=== PATIENT | male | born 1960 | race Caucasian/White ===

== ENCOUNTER 2017-11-09 14:10 | Outpatient (CLI) | payer BC | END 2017-11-09 14:30 | disposition home or self-care (01) | LOC: SLEEP 14:10 | PROVIDERS: ATTEND Nurse Practitioner Family | DX: G47.33 Obstructive sleep apnea (adult) (pediatric) (principal) ==

== ENCOUNTER 2017-12-20 11:21 | Outpatient (RCR) | payer OTHER | END 2018-01-05 11:57 | disposition home or self-care (01) | PROVIDERS: ATTEND Orthopaedic Surgery | DX: S83.282A Other tear of lateral meniscus, current injury, left knee, initial encounter (principal); W10.9XXA Fall (on) (from) unspecified stairs and steps, initial encounter; Y92.214 College as the place of occurrence of the external cause; E11.9 Type 2 diabetes mellitus without complications; I10 Essential (primary) hypertension; F32.9 Major depressive disorder, single episode, unspecified ==

== ENCOUNTER 2018-04-11 12:59 | Outpatient (RCR) | payer OTHER | END 2018-05-17 14:03 | disposition home or self-care (01) | PROVIDERS: ATTEND Orthopaedic Surgery | DX: S83.8X2D Sprain of other specified parts of left knee, subsequent encounter (principal); W10.9XXD Fall (on) (from) unspecified stairs and steps, subsequent encounter ==

== ENCOUNTER → 2018-09-28 | Outpatient (CLI) | payer BC ==
--- NOTE | 2018-09-28 18:17 | Diagnostic Imaging Report ---
INDICATION: Left knee pain. COMPARISON: Correlation is made with prior MRI from October 10, 2017. FINDINGS: There are tricompartmental osteoarthritic changes present within the left knee, most severe and advanced within the medial compartment and patellofemoral compartment. There are no findings to suggest malalignment or findings of an acute fracture or suspicious bone lesion. There is a small knee joint effusion. IMPRESSION: 1. Advanced tricompartmental osteoarthritic changes of the left knee, most severe within the medial and patellofemoral compartments. There is no acute fracture. There is a small joint effusion. Dictated by: Dictated on workstation # [id number]
== END ==
LOC: RAD 17:07
PROVIDERS: ATTEND Physician Assistant
DX: M17.12 Unilateral primary osteoarthritis, left knee (principal)
CPT/HCPCS: 73562

== ENCOUNTER 2018-11-08 09:31 | Outpatient (CLI) | payer BC ==
[~2018-11-08] VITALS: Ht 167.6 cm; Wt 134.8 kg
[2018-11-08 10:05] VITALS: BP 114/79
[2018-11-08 11:12] LABS: BASOPHILS % (AUTO) 1 % (0-10); EOSINOPHILS # (AUTO) 0.1 10^3/uL (0.0-0.3); EOSINOPHILS % (AUTO) 3 % (0-10); HEMATOCRIT 44 % (40-54); HEMOGLOBIN 14.5 G/DL (13.3-17.7); LYMPHOCYTES # (AUTO) 1.5 X 10^3 (1.0-4.0); LYMPHOCYTES % (AUTO) 37 % (12-44); MEAN CORPUSCULAR HEMOGLOBIN 27 PG (25-34); MEAN CORPUSCULAR HGB CONC 33 G/DL (32-36); MEAN CORPUSCULAR VOLUME 84 FL (80-99); MEAN PLATELET VOLUME 10.5 FL (7.4-10.4); MONOCYTES # (AUTO) 0.4 X 10^3 (0.0-1.0); MONOCYTES % (AUTO) 11 % (0-12); NEUTROPHILS # (AUTO) 2.1 X 10^3 (1.8-7.8); NEUTROPHILS % (AUTO) 49 % (42-75); PLATELET COUNT 203 10^3/uL (130-400); RED CELL DISTRIBUTION WIDTH 13.4 % (10.0-14.5); WHITE BLOOD COUNT 4.2 10^3/uL (4.3-11.0)
[2018-11-08 11:13] LABS: BILIRUBIN,URINE NEGATIVE (NEGATIVE); CLARITY,URINE CLEAR; COLOR,URINE YELLOW; GLUCOSE, URINE (UA) 4+ (NEGATIVE); KETONES,URINE NEGATIVE (NEGATIVE); LEUKOCYTE ESTERASE ,URINE NEGATIVE (NEGATIVE); NITRITE,URINE NEGATIVE (NEGATIVE); PH,URINE 7 (5-9); PROTEIN,URINE NEGATIVE (NEGATIVE); UROBILINOGEN,URINE NORMAL (NORMAL)
[2018-11-08 11:26] LABS: BACTERIA,URINE NEGATIVE /HPF; WBC,URINE RARE /HPF
[2018-11-08 11:35] LABS: PROTHROMBIN TIME PATIENT 13.5 SEC (12.2-14.7)
[2018-11-08 11:47] LABS: ALANINE AMINOTRANSFERASE 23 U/L (0-55); ALBUMIN 4.1 GM/DL (3.2-4.5); ALKALINE PHOSPHATASE 72 U/L (40-136); BILIRUBIN,TOTAL 0.5 MG/DL (0.1-1.0); BUN/CREATININE RATIO 21; CALCIUM 9.5 MG/DL (8.5-10.1); CARBON DIOXIDE 26 MMOL/L (21-32); CHLORIDE 101 MMOL/L (98-107); CREATININE SERUM 0.82 MG/DL (0.60-1.30); GFR ESTIMATED > 60; GLUCOSE 181 MG/DL (70-105); POTASSIUM 3.9 MMOL/L (3.6-5.0); SODIUM 136 MMOL/L (135-145); TOTAL PROTEIN 6.7 GM/DL (6.4-8.2)
[2018-11-08 11:52] LABS: ERYTHROCYTE SEDIMENTATION RATE 3 MM/HR (0-30)
--- NOTE | 2018-11-08 13:40 | Diagnostic Imaging Report ---
INDICATION: Preoperative evaluation prior to left total knee replacement. TECHNIQUE: Two-view chest at 10:46 a.m. CORRELATION STUDY: None. FINDINGS: The heart size, mediastinal configuration and pulmonary vasculature are within normal limits. Chronic-appearing changes about the lung parenchyma. Minimal atelectasis and/or scarring about the left lung base. Suggestion of some eventration of the diaphragms. Degenerative changes of the thoracic spine with disc space narrowing and bridging osteophytes. IMPRESSION: 1. Chronic-appearing changes about the lung parenchyma. Negative for acute abnormality. Dictated by: Dictated on workstation # [id number]
[2018-11-08] MEDS ORDERED: DAPA10TA PO (14:14)
[2018-11-08] MEDS ORDERED: HYDR12.5 PO (14:14)
[2018-11-08] MEDS ORDERED: ALPR0.254 PO (14:14)
[2018-11-08] MEDS ORDERED: NIFE30TA2 PO (14:14)
[2018-11-08] MEDS ORDERED: TRAZ-189 PO (14:14)
[2018-11-08] MEDS ORDERED: ESCI10TA55 PO (14:14)
[2018-11-08] MEDS ORDERED: VALS80TA31 PO (14:14)
[2018-11-08] MEDS ORDERED: BUPR200T2 PO (14:14)
[2018-11-08] MEDS ORDERED: TAMS0.4C2 PO (14:14)
[2018-11-08] MEDS ORDERED: OXYC-471 PO (14:14)
[2018-11-08] MEDS ORDERED: ASPI-586 PO (14:14)
[2018-11-08] MEDS ORDERED: PRAV40TA2 PO (14:14)
== END 2018-11-08 14:24 | disposition home or self-care (01) ==
LOC: PREOP 09:31
PROVIDERS: ATTEND Orthopaedic Surgery
DX: Z01.810 Encounter for preprocedural cardiovascular examination (principal); Z01.811 Encounter for preprocedural respiratory examination; Z01.812 Encounter for preprocedural laboratory examination; Z11.2 Encounter for screening for other bacterial diseases; M17.12 Unilateral primary osteoarthritis, left knee; R53.83 Other fatigue
CPT/HCPCS: 36415; 71046; 80053; 81000; 85025; 85610; 85652; 86850; 86900; 86901; 87081

== ENCOUNTER 2018-11-22 06:05 | Inpatient (IN) | payer BC ==
--- NOTE | 2018-11-13 11:08 | HISTORY AND PHYSICAL ---
DATE OF SERVICE: DATE OF ADMISSION: 11/22/2018. This will be for inpatient admission on 11/22/2018 for left total knee arthroplasty. The patient will require regular inpatient admission due to comorbidities, gait abnormalities, pain management and strengthening issues. HISTORY OF PRESENT ILLNESS: The patient is a 58-year-old gentleman with progressive worsening left knee pain. He has undergone treatment with arthroscopy and injections without relief. He underwent physical therapy without relief. He reports activity limitations because of the knee. Radiographs reveal severe medial and patellofemoral arthrosis. Due to functional impairment and failure to improve with conservative measures, the patient has elected to proceed with surgical intervention. REVIEW OF SYSTEMS: No chest pain. No shortness of breath. No dysuria. PAST MEDICAL HISTORY: Anxiety disorder, depression, diabetes, hyperlipidemia, hypertension, sleep apnea. PAST SURGICAL HISTORY: Appendectomy, tonsillectomy, vasectomy, renal stone extraction, right ankle cyst, left knee arthroscopy, herniorrhaphy, ORIF of the jaw, right shoulder, ear tubes. FAMILY HISTORY: Significant for ischemic heart disease, COPD. PRIMARY CARE PROVIDER: Dr. Pickering. MEDICATIONS: Procardia, Wellbutrin, valsartan, hydrochlorothiazide, aspirin, pravastatin, trazodone, escitalopram, alprazolam, oxycodone and tamsulosin. ALLERGIES: SULFA. SOCIAL HISTORY: The patient denies alcohol, tobacco use. PHYSICAL EXAMINATION: GENERAL: The patient is well developed, well-nourished, in no acute distress. HEENT: Normocephalic, atraumatic. Pupils equal, round, react to light. Oropharynx is clear. NECK: Supple. No lymphadenopathy. LUNGS: Clear to auscultation bilaterally. HEART: Regular rate and rhythm. ABDOMEN: Soft, nontender, nondistended. EXTREMITIES: The patient ambulates with an antalgic gait. The left knee demonstrates a well healed anterior incision. There is marked patellofemoral crepitus with moderate effusion. There is no erythema or warmth. Range of motion is 0/2/120. Negative anterior and posterior drawer. No varus valgus laxity. IMPRESSION: Severe left knee osteoarthritis, unresponsive to conservative measures. PLAN: Left total knee arthroplasty. The risks, benefits, options, ramifications and recovery have been discussed at length with the patient. He understands and wishes to proceed. Job ID: [id number] DocumentID: [id number] Dictated Date: 11/13/2018 10:18:40 Foundation Assistant Date: 11/13/2018 11:07:39 Dictated By: REGGIE FRANCES MD
[~2018-11-22] VITALS: Ht 167.6 cm; Wt 134.8 kg
[~2018-11-22 06:05] MED LIST: ALPR0.254 PO; ASPI-586 PO; BUPR200T2 PO; DAPA10TA PO; ESCI10TA55 PO; HYDR12.5 PO; NIFE30TA2 PO; OXYC-471 PO; PRAV40TA2 PO; TAMS0.4C2 PO; TRAZ-189 PO; VALS80TA31 PO
[2018-11-22] MEDS ORDERED: CEFUROXIME INJECTION 1,500 MG in WATER (STERILE) FOR INJECTION 15 ML IV ONE (06:30)
[2018-11-22] MEDS: LACTATED RINGERS 1,000 ML IV PRN ×2 (06:35→08:13)
[2018-11-22 06:40] VITALS: BP 126/80
[2018-11-22] MEDS ORDERED: MIDAZOLAM 2 MG/2 ML (VERSED) VIAL ONE (06:58)
[2018-11-22] MEDS ORDERED: fentaNYL INJECTION 100 MCG/2 ML AMP ONE ×2 (06:59→08:11)
[2018-11-22] MEDS ORDERED: CEFUROXIME 1.5 GM (ZINACEF) VIAL ONE ×2 (07:12)
[2018-11-22] MEDS ORDERED: WATER (STERILE) FOR INJECTION 20 ML ONE (07:12)
[2018-11-22] MEDS ORDERED: TRANEXAMIC ACID 100 MG/ML 10 ML INJECTION IV ONE (07:29)
[2018-11-22] MEDS ORDERED: ONDANSETRON 4 MG/2 ML (SDV) Z0FRAN ONE (07:29)
[2018-11-22] MEDS ORDERED: SEVOFLURANE (ULTANE) 15 ML INHAL SOLN ONE ×6 (07:29→09:04)
[2018-11-22] MEDS ORDERED: LIDOCAINE PF 2% 5 ML (XYLOCAINE) VIAL ONE (07:29)
[2018-11-22] MEDS ORDERED: proPOfol 200 MG/20 ML (DIPRIVAN) VIAL IV ONE (07:29)
[2018-11-22] MEDS ORDERED: ACETAMINOPHEN 325 MG TABLET PO PRN (07:30)
[2018-11-22] MEDS ORDERED: diphenhydrAMINE 50 MG/ML INJ (BENADRYL) IVP PRN (07:30)
[2018-11-22] MEDS ORDERED: ONDANSETRON 4 MG/2 ML (SDV) Z0FRAN IVP PRN ×2 (07:30→09:30)
[2018-11-22] MEDS ORDERED: morphine PCA 100 MG/100 ML BAG IV PRN (07:30)
--- NOTE | 2018-11-22 07:33 | Progress Note-Pre Operative ---
Pre-Operative Progress Note H&P Reviewed The H&P was reviewed, patient examined and no changes noted. Date Seen by Provider: Nov 22, 2018 Time Seen by Provider: 07:22 Date H&P Reviewed: Nov 22, 2018 Time H&P Reviewed: 07:11 Pre-Operative Diagnosis: left knee primary osteoarthritis REGGIE FRANCES MD Nov 22, 2018 07:33
--- NOTE | 2018-11-22 07:34 | Progress Note-Post Operative ---
Post-Operative Progess Note Surgeon (s)/Documentation Coordinator (s) Surgeon REGGIE FRANCES MD Documentation Coordinator: Clint Ramos Pre-Operative Diagnosis left knee primary osteoarthritis Post-Operative Diagnosis left knee primary osteoarthritis Procedure & Operative Findings Date of Procedure 11/22/18 Procedure Performed/Findings left total knee arthroplasty Anesthesia Type GETA Estimated Blood Loss Estimated blood loss (mL): 100 ml Specimens/Packing Specimens Removed none Packing: none REGGIE FRANCES MD Nov 22, 2018 07:34
--- NOTE | 2018-11-22 07:36 | D/C HH Face to Face Order ---
D/C Face to Face Orders Instructions for Patient Via [facility], Patient Instructions/FollowUp: three weeks Physician to follow Patient: three weeks Discharge Diet for Home: Regular Diet Patient Data-Allergies,Ht & Wt Patient Allergies: Coded Allergies: Sulfa (Sulfonamide Antibiotics) (Verified Allergy, Mild, HIVES/RASH, ) Height (Feet): 5 Height (Inches): 6.00 Weight (Pounds): 297 Weight (Ounces): 4.0 Home Health Need/Face to Face Date of Face to Face: Nov 22, 2018 Clinical Findings: Instability, Muscle weakness, Pain with ambulation, Unsteady gait I have seen Pt [id number]: Yes Discharged To: Home Diagnosis/Conditions: left total knee arthroplasty Patient is Homebound due to: Carin fall risk due to instabilty, Pain w/ ambulation Homebound Status Due to the above stated illness, injury or surgical procedure (medical condition or diagnosis) and associated clinical findings, the patient is homebound because of his/her inability to leave home except with aid of a supportive device and/or person AND leaving the home requires a considerable and taxing effort or is medically contraindicated. Pt req the following assistanc: Walker Home Health Nursing Orders Home Health Services Order: Physical Therapy-Evaluate & Treat Therapy Orders Therapy Orders: Physical Therapy, PT to assess for OT Therapy Specific Orders: Eval assistive deivces, Teach enviro modifications/ safety, Gait training, Increase strength/endurance, Provider maintenance therapy , Restore ROM DC left knee betsy and apply steri strips 12/06/18 Certify Stmt I certify that this patient is under my care and that I, a nurse practitioner or a physician; a construction management assistant working with me, had a face to face encounter that - meets the physician face to face encounter requirements with this patient as dated. REGGIE FRANCES MD Nov 22, 2018 07:36
[2018-11-22] MEDS ORDERED: OXYC1TAB87 PO (07:37)
[2018-11-22] MEDS ORDERED: INTRA-ARTICULAR IU ONE ×5 (07:45)
[2018-11-22] MEDS: SENNA W/DOCUSATE (SENOKOT S) TABLET PO SCH ×2 (09:00→21:22)
[2018-11-22] MEDS ORDERED: LABETALOL HCL 20 MG/4 ML VIAL ONE (09:02)
[2018-11-22] MEDS ORDERED: BUPIVACAINE 0.5% 30 ML (SENSORCAINE) VIAL ONE (09:02)
[2018-11-22] MEDS ORDERED: MEPERIDINE (DEMEROL) INJ 50 MG/ML IVP ONE (09:30)
[2018-11-22] MEDS ORDERED: HYDROmorphone 2 MG/ML VIAL (DILAUDID) IV ONE (09:30)
[2018-11-22] MEDS ORDERED: HYDROmorphone 2 MG/ML VIAL (DILAUDID) ONE (09:32)
[2018-11-22] MEDS ORDERED: MEPERIDINE (DEMEROL) INJ 50 MG/ML ONE (09:37)
--- NOTE | 2018-11-22 10:14 | Progress Note-Standard ---
Standard Progress Note Progress Notes/Assess & Plan Date Seen by a Provider: Nov 22, 2018 Time Seen by a Provider: 10:12 Progress/Assessment & Plan post op check no complaints radiographs--HW well positioned without fracture LLE--2 plus DP pulse with brisk cap refill. intact sensation throughout. Intact DF and PF of toes and ankle s/p LTKA mobilize as able REGGIE FRANCES MD Nov 22, 2018 10:14
--- NOTE | 2018-11-22 10:24 | Diagnostic Imaging Report ---
INDICATION: Status post total left knee replacement. COMPARISON: None. FINDINGS: Two views of the left knee were obtained. Expected postoperative changes are seen from left knee total arthroplasty. Femoral and tibial components appear well-seated. There is no evidence of periprosthetic fracture. There is a small amount of subcutaneous emphysema in the soft tissues over the knee. Skin betsy are seen centrally over the anterior aspect of the knee. No unexpected radiopaque foreign bodies are identified. IMPRESSION: Expected postsurgical changes from left knee total arthroplasty, as described above. No unexpected radiopaque foreign bodies. Dictated by: Dictated on workstation # [id number]
--- NOTE | 2018-11-22 10:43 | OPERATIVE REPORT ---
DATE OF SERVICE: 11/22/2018 PREOPERATIVE DIAGNOSIS: Left knee primary osteoarthritis. POSTOPERATIVE DIAGNOSIS: Left knee primary osteoarthritis. PROCEDURE: Left total knee arthroplasty. SURGEON: Adithya Frances MD CUPOLA PATCHER HELPER: Clint Ramos, who assisted throughout the procedure and closed the incision. ANESTHESIA: General endotracheal plus femoral nerve block by Caterina Galvan CRNA. TOURNIQUET TIME: Approximately, 70 minutes at 300 mmHg. ESTIMATED BLOOD LOSS: 100 mL. DRAINS: None. COMPLICATIONS: None. MATERIALS: MicroPort cemented size 5 femur, cemented size 6 tibia with 10 mm insert and cemented size 35 patella. POSTOPERATIVE PLAN: Routine protocol. The patient was transferred to the recovery room in awake and stable condition. STATEMENT OF MEDICAL NECESSITY: The patient is a 58-year-old gentleman, who has had longstanding progressive left knee pain. Radiographs revealed severe medial and patellofemoral arthrosis with complete loss of joint space. He had undergone treatment with injections, anti-inflammatories, rest as well as arthroscopy without relief and due to functional impairment and failure to improve with conservative measures, the patient elected to proceed with surgical intervention. DESCRIPTION OF PROCEDURE: After risks and benefits of procedure were discussed and questions were answered and informed consent was signed and placed on the chart, the operative site was confirmed in the preoperative holding area initialed by the surgeon. The patient was then transported to the operating room. After adequate levels of general endotracheal anesthetic were obtained, a timeout was called confirming the operative site. The left lower extremity was prepped and draped in the usual sterile fashion with the leg elevated and the knee flexed. Tourniquet was inflated to 300 mmHg. A standard anterior approach was utilized. The patient had previously undergone a patellar ligament procedure and this incision was incorporated into today's incision. The underlying soft tissues were carefully dissected. Hemostasis was obtained with cautery. A medial parapatellar arthrotomy was performed leaving 1 cm cuff on the patella for later reattachment. A portion of the fat pad was resected. A subperiosteal release was carefully performed on the proximal medial tibia being careful to stay on the bony surface. The ACL was resected. The intramedullary guide was passed into the femur. The distal cutting block was placed and distal cut was made. The femur sized to a size 5. The 5 cutting block was placed parallel to the epicondylar axis and cuts were made from posterior to anterior. A subperiosteal release was then carefully performed on the posterior distal femur, being careful to stay on the bony surface with a curved osteotome. The intramedullary guide was then passed into the tibia. The drop leyla transected the intramedullary access. This was pinned into position and the cut was made. The base plate was positioned and again the drop leyla transected the intermalleolar access. This was then prepared with the drill and keel punch. The femoral trial was placed and trochlear cut was made. The patella was prepared by resecting 10 mm off the undersurface. Peg guide was placed and peg holes were drilled. A 10 mm insert trial was placed and 35 mm patellar button was placed. Full extension was easily obtained and 120 degrees of flexion with gravity was easily obtained. There was no anterior/posterior or medial/lateral laxity in flexion or extension. The patella tracked well. The trials were removed. The joint was copiously irrigated with pulse lavage. Periarticular block was placed in the posterior capsule, medial and lateral retinaculum. extensor mechanism and subcutaneous tissue. The bone ends were irrigated and dried. The tibial baseplate was cemented into position. Excessive cement was removed. The superior surface was irrigated and dried. The polyethylene insert was placed. Distal femur was irrigated and dried and the femoral prosthesis was cemented into position. Excessive cement was removed. The knee was brought out into full extension and held until the cement had cured. The undersurface of the patella was irrigated and dried. The patellar button was cemented into position. Excessive cement was removed. Once the cement had cured, the knee was taken through range of motion. Full extension was easily obtained and 120 degrees of flexion with gravity was easily obtained. There was no anterior/posterior or medial/lateral laxity in flexion or extension. The joint was further irrigated with pulse lavage. The arthrotomy was closed with #2 Tevdek in neuojg-on-gohzq interrupted fashion. Knee was flexed and the repair was found to be stable with well tracking patella. Subcutaneous tissues were irrigated with pulse lavage using a total of 6 liters throughout the procedure. A 0 Vicryl was used for deep subcutaneous tissue, 2-0 Vicryl for the superficial and subcutaneous tissue, betsy used on the skin. A soft dressing was applied. The tourniquet was deflated and the patient was transferred to the recovery room in awake and stable condition. Job ID: [id number] DocumentID: [id number] Dictated Date: 11/22/2018 09:27:52 Student Records Coordinator Date: 11/22/2018 10:42:36 Dictated By: ADITHYA FRANCES MD
[2018-11-22] MEDS: NS IV 1000 ML 1,000 ML IV SCH ×2 (11:00→21:22)
--- NOTE | 2018-11-22 11:19 | Consultation-Hospitalist ---
HPI History of Present Illness: HPI/Chief Complaint Chief Complaint: Left total knee arthroplasty uncomplicated by Dr. Santiago POD # 0 HPI: This is a 58yoWM clinic Pt of Dr. Pickering with a PMH of DM, and EDMOND managed by Dr. Pickering who presents after a uncomplicated left total knee arthroplasty by Dr. Santiago. He at this current time is requiring oxygen but no SOB or chest pain since surgery and overall is doing as expected as far as pain. He does see Dr. Kimble in consultation so I did consult him to see him during his post- operative stay. I did restart most of his home medications. Source: patient, family, RN/MD, old records Exam Limitations: no limitations Date Seen 11/22/18 Attending Physician Adithya Santiago MD PCP Maurizio Pickering MD Referring Physician Date of Admission Nov 22, 2018 at 06:05 Home Medications & Allergies Home Medications Reviewed patient Home Medication Reconciliation performed by pharmacy medication reconciliations freezer laboratory technician and/or nursing. Patients Allergies have been reviewed. 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) Alcohol Use: Occasionally Uses Recreational Drug Use: No Smoking Status: Never a Smoker Physical Abuse Screen: No Sexual Abuse: No Recent Foreign Travel: No Contact w/other who traveled: No Recent Hopitalizations: No Recent Infectious Disease Expo: No Immunizations Up To Date Date of Pneumonia Vaccine: Jun 28, 2016 Date of Influenza Vaccine: Jun 26, 2018 Seasonal Allergies Seasonal Allergies: Yes Past Medical History Surgeries: Orthopedic Respiratory: Sleep Apnea Currently Using CPAP: Yes Cardiac: High Cholesterol, Hypertension Sexually Transmitted Disease: No HIV/AIDS: No Genitourinary: Kidney Stones Musculoskeletal: Chronic Back Pain Endocrine: Diabetes, Non-Insulin dep Loss of Vision: Bilateral Psychosocial: Anxiety History of Blood Disorders: No Adverse Reaction to Blood Lopez: No (N/A) Review of Systems Constitutional: see HPI EENTM: no symptoms reported Respiratory: no symptoms reported Cardiovascular: no symptoms reported Gastrointestinal: no symptoms reported Genitourinary: no symptoms reported Musculoskeletal: joint pain Skin: no symptoms reported Psychiatric/Neurological: No Symptoms Reported All Other Systems Reviewed Negative Unless Noted: Yes Physical Exam Physical Exam Vital Signs Vital Signs - First Documented 11/22/18 11:17 O2 Flow Rate 5.00 Capillary Refill : Less Than 3 Seconds Height, Weight, BMI Height: 5'6.00" Weight: 297lbs. 4.0oz. [id number]; 48.0 BMI Method: General Appearance: No Apparent Distress, WD/WN, Chronically ill, Obese Eyes: Bilateral Eye Normal Inspection, Bilateral Eye PERRL HEENT: PERRL/EOMI, Normal ENT Inspection, Pharynx Normal Neck: Full Range of Motion, Normal Inspection, Non Tender, Supple, Carotid Bruit Respiratory: Chest Non Tender, Lungs Clear, Normal Breath Sounds, No Accessory Muscle Use, No Respiratory Distress Cardiovascular: Regular Rate, Rhythm, No Edema, No Gallop, No JVD, No Murmur, Normal Peripheral Pulses Gastrointestinal: Normal Bowel Sounds, No Organomegaly, No Pulsatile Mass, Non Tender, Soft Back: Normal Inspection, No CVA Tenderness, No Vertebral Tenderness Extremity: Normal Capillary Refill, Normal Inspection, Normal Range of Motion ( except left leg post op), Non Tender, No Calf Tenderness, No Pedal Edema Neurologic/Psychiatric: Alert, Oriented x3, No Motor/Sensory Deficits, Normal Mood/Affect Skin: Normal Color, Warm/Dry Lymphatic: No Adenopathy Results Results/Procedures Labs Patient resulted labs reviewed. Assessment/Plan Assessment and Plan Assess & Plan/Chief Complaint Assessment: s/p left total knee replacement POD # 0 EDMOND on CPAP HTN DM Plan: Home meds Pain control PT/OT CPAP Consult Dr Kimble Diagnosis/Problems Diagnosis/Problems (1) EDMOND on CPAP Status: Chronic (2) Hypertension Status: Chronic Qualifiers: Hypertension type: essential hypertension Qualified Codes: I10 - Essential (primary) hypertension (3) Diabetes mellitus Status: Chronic Qualifiers: Diabetes mellitus type: type 2 (4) Osteoarthritis of left knee Status: Chronic Qualifiers: Osteoarthritis type: primary Qualified Codes: M17.12 - Unilateral primary osteoarthritis, left knee Clinical Quality Measures DVT/VTE Risk/Contraindication: Risk Factor Score Per Nursin RFS Level Per Nursing on Admit: 4+=Very High ROBERT JORDAN DO Nov 22, 2018 11:19
[2018-11-22] MEDS: fentaNYL INJECTION 1,000 MCG in NS (IVPB) 80 ML IV SCH (11:37)
[2018-11-22 12:00] VITALS: BP 135/72
[2018-11-22] MEDS ORDERED: ALPRAZolam 0.25 MG (XANAX) TAB PO PRN (12:00)
[2018-11-22] MEDS: CEFUROXIME INJECTION 750 MG in WATER (STERILE) FOR INJECTION 10 ML IV SCH ×2 (15:02→23:30)
--- NOTE | 2018-11-22 15:08 | Physical Therapy Evaluation ---
PT Evaluation-General Medical Diagnosis Admission Date Nov 22, 2018 at 06:05 Medical Diagnosis: L TKA Onset Date: Nov 22, 2018 Therapy Diagnosis Therapy Diagnosis: decreased ROM, gait deviation, decreased mobility Height/Weight Height (Feet): 5 Height (Inches): 6.00 Weight (Pounds): 297 Weight (Ounces): 4.0 Precautions Precautions/Isolations: Standard Precautions Weight Bear Status Right Lower Extremity: Right Weight Bearing/Tolerated Left Lower Extremity: Left Weight Bearing/Tolerated Referral Physician: Clint Ramos Reason for Referral: Evaluation/Treatment Medical History Pertinent Medical History: DM, HTN, OA Additional Medical History Anxiety Disorder, Depression Reviewed History: Yes Social History Home: Single Level Current Living Status: Spouse Entry Into Home: Stairs With Railing PT Steps Into Home: 4 Prior/Core FIM Prior Level of Function Therapy Code Descriptions/Definitions Functional [place] Measure: 0=Not Assessed/NA 4=Minimal Assistance 1=Total Assistance 5=Supervision or Setup 2=Maximal Assistance 6=Modified [place] 3=Moderate Assistance 7=Complete [place] Therapy Quality Codes: 6 Independent with activity with or without an assistive device 5 Patient requires set up or clean up by helper. Patient completes activity by themselves 4 Supervision or touching assist (CGA). [place] provide cues , steadying assist 3 The helper provides less than half the effort to complete the activity 2 The helper provides more than half the effort to complete the activity 1 Dependent. The helper does all the effort to complete an activity 7 Patient refused to complete or attempt activity 9 The patient did not perform the activity before the current illness or injury 88 Not attempted due to Medical conditions or safety concerns Functional Abilities and Goals: Independent: Patient completed the activities by him/herself, with or without an assistive device, with no assistance from a helper. Needed Some Help: Patient needed partial assistance from another person to complete activities. Dependent: A helper completed the activities for the patient. Unknown: Not Applicable: Bed Mobility: 7 Transfers (B,C,W/C) (FIM): 7 Gait: 7 Stairs: 7 Indoor Mobility (Ambulation): Independent Stairs: Independent Prior Devices Use: None PT Evaluation-Current Subjective Pt in bed and agrees to PT. High but unrated pain in left knee. Pt/Family Goals Pt to return home with spouse. Objective Patient Orientation: Person, Place, Situation, Normal For Age Attachments: SCD's, Polar Pack, IV ROM/Strength ROM Lower Extremities RLE WNL, LLE knee flex 60, knee ext +5 Strength Lower Extremities NT Integumentary/Posture Bowel Incontinence: No Bladder Incontinence: No Neuromuscular (Tone, Coordination, Reflexes) NT Sensory Vision: Functional Hearing: Functional Sensation Lower Extremities NT Transfers Therapy Code Descriptions/Definitions Functional [place] Measure: 0=Not Assessed/NA 4=Minimal Assistance 1=Total Assistance 5=Supervision or Setup 2=Maximal Assistance 6=Modified [place] 3=Moderate Assistance 7=Complete [place] Transfers (B, C, W/C) (FIM): 4 Scootin Supine to/from Sit: 5 Sit to/from Stand: 4 Gait Mode of Locomotion: Walk Anticipated Mode of Locomotion: Walk Gait (FIM): 4 Distance (FIM): 3=150 ft Distance: 300' Gait Level of Assist: 4 Gait Persons Needed: 1 Gait Assistive Device: FWW Comments/Gait Description Antalgic gait, slow gait speed, step to pattern Balance Sitting Static: Good Sitting Dynamic: Good Standing Static: Good Standing Dynamic: Good Assessment/Needs Pt in bed and was able to perform supine LE ex (AP, HS, QS, SAQ, SLR) x10 reps, SPT min A and instruction. Pt able to perform bed mobility with SBA. Pt transfers EOB to FWW with CGA for safety. Pt amb 300' with FWW and CGA for safety, VC to not externally rotate LLE. Pt amb very slowly with step to pattern. Pt returned to room and requested for bathroom use, assisted due to pt request to have her instead of SPT. Pt with min A able to dress with shorts. Pt returned to bed with SBA. Pt is now in CPM at 58 flex and -2 ext with all needs met and in room. Rehab Potential: Good Post Rehab Potential-Barriers: co-morbidities PT Short Term Goals Short Term Goals Time Frame: Nov 29, 2018 Transfers (B,C,W/C) (FIM): 6 Gait (FIM): 6 Distance (FIM): 3=150 ft Gait Distance Comment: 350' Gait Level of Assist: 6 Gait Assistive Device: FWW Stairs (FIM): 2 # of Steps: 4 Stairs Level of Assist: 4 PT Plan Problem List Problem List: Activity Tolerance, Functional Strength, Safety, Balance, Gait, Transfer, Bed Mobility, ROM Treatment/Plan Treatment Plan: Continue Plan of Care Treatment Plan: Bed Mobility, Education, Functional Activity [place], Functional Strength, Gait, Safety, Therapeutic Exercise, Transfers Treatment Duration: Nov 29, 2018 Frequency: 11 times per week Estimated Hrs Per Day: .25 hour per day Patient and/or Family Agrees t: Yes Safety Risks/Education Patient Education: Gait Training, Transfer Techniques, Reviewed Use of Ice, Correct Positioning, Safety Issues Teaching Recipient: Patient, Family Teaching Methods: Demonstration, Discussion Response to Teaching: Reinforcement Needed Discharge Recommendations Plan Patient will perform bed mobility and transfer training, balance and endurance training, functional strengthening, stair training, gait training, and education , to improve functional mobility and independence at home. Therapy D/C Recommendations: Home w/ Family Support, Physical Therapy Home Care , Physical Therapy Outpatient Equpiment Recommendations-D/C: Front Wheeled Walker Time/GCodes Time In: 1400 Time Out: 1458 Total Billed Treatment Time: 58 Total Billed Treatment 1 visit EVL 10 min GT x2 30 min EX 18 min FAZAL BARTON PT Nov 22, 2018 15:08
[2018-11-22 16:33] VITALS: BP 128/78
[2018-11-22] MEDS ORDERED: buPROPion SR 100 MG (WELLBUTRIN SR) TAB PO SCH (17:00)
[2018-11-22] MEDS: oxyCODONE/APAP 5/325MG (PERCOCET 5) TABLET PO PRN ×2 (18:18→21:22)
--- NOTE | 2018-11-22 19:25 | Consultation-Cardiology ---
HPI-Cardiology Cardiology Consultation: Date of Consultation 11/22/18 Time Seen by a Provider: 13:10 Date of Admission Attending Physician Adithya Santiago MD Admitting Physician Maurizio Pickering MD Consulting Physician WILLIAM GUERRERO MD, MA, FACP, FACC, [facility] Physician requesting consult: Dr David HPI: Chief Complaint: Reason for consultation: Cardiac risk factors 58 yo s/p L TKR whom we have been asked by Dr David to see in card consult Pt does not report cp or palp or syncope. Has chronic exertional shortness of breath and intermittent leg swelling, unchanged in the recent past Review of Systems-Cardiology Review of Systems Constitutional: malaise; No weight loss, No weight gain Eyes: No vision change Ears/Nose/Throat: No ear discharge, No nasal drainage, No recent hearing loss Respiratory: As described under HPI Cardiovascular: As described under HPI Gastrointestinal: No diarrhea, No nausea, No vomiting Genitourinary: No dysuria, No hematuria, No urine frequency changes Musculoskeletal: back pain (chronic), joint pain (chronic) Skin: No rash, No ulcerations Psychiatric/Neurological: No focal weakness, No syncope Hematologic: No bleeding abnormalities BVE-[id number]-Xbahrh Hx Patient Social History Alcohol Use: Occasionally Uses Recreational Drug Use: No Recent Foreign Travel: No Recent Infectious Disease Expo: No Physical Abuse Screen: No Sexual Abuse: No Immunizations Up To Date Date of Pneumonia Vaccine: Jun 28, 2016 Date of Influenza Vaccine: Jun 26, 2018 Past Medical History PMH As described under Assessment. Family Medical History Family Medical History: Has fam h/o early CAD Allergies and Home Medications Allergies Coded Allergies: Sulfa (Sulfonamide Antibiotics) (Verified Allergy, Mild, HIVES/RASH, ) Home Medications Alprazolam 0.25 Mg Tablet, 0.25 MG PO DAILY PRN for ANXIETY, (Reported) Aspirin 81 Mg Tablet.dr, 81 MG PO DAILY, (Reported) Bupropion HCl 200 Mg Tablet.er, 200 MG PO BID, (Reported) Dapagliflozin Propanediol 10 Mg Tablet, 10 MG PO DAILY, (Reported) Escitalopram Oxalate 10 Mg Tablet, 10 MG PO DAILY, (Reported) Hydrochlorothiazide 12.5 Mg Capsule, 12.5 MG PO DAILY, (Reported) Nifedipine 30 Mg Tab.er.24, 30 MG PO DAILY, (Reported) Oxycodone HCl/Acetaminophen 1 Each Tablet, 1 TAB PO Q4H Prescribed by: ADITHYA SANTIAGO on 11/22/18 0737 Pravastatin Sodium 40 Mg Tablet, 40 MG PO DAILY, (Reported) Tamsulosin HCl 0.4 Mg Cap.er.24h, 0.4 MG PO DAILY, (Reported) Daily until stone passage Trazodone HCl 50 Mg Tablet, 50 MG PO DAILY, (Reported) Valsartan 80 Mg Tablet, 80 MG PO DAILY, (Reported) Patient Home Medication List Home Medication List Reviewed: Yes Physical Exam-Cardiology Physical Exam Vital Signs/I&O 11/22/18 11/22/18 11/22/18 11/22/18 11:17 11:40 12:00 12:15 Temp 97.4 97.3 Pulse 91 Resp 20 18 B/P (MAP) 135/72 (93) Pulse Ox 96 93 O2 Delivery OxyMask Room Air O2 Flow Rate 5.00 11/22/18 11/22/18 16:33 17:49 Temp 97.3 Pulse 95 Resp 18 18 B/P (MAP) 128/78 (95) Pulse Ox 92 O2 Delivery NIV CPAP Capillary Refill : Less Than 3 Seconds Constitutional: AAO x 3, well-developed, other HEENT: EOMI, hearing is well preserved; No xanthelasmas are seen Neck: carotid pulses are 2 + bilaterally, with good upstrokes Respiratory: No accessory muscle use; other (fair to good bilat air entry; diminished at the bases) Cardiovascular: regular rate-rhythm, cardiac thrills are palpable, systolic murmur (soft DEBI at card base) Gastrointestinal: No tender; soft; No guarding, No rebound; audible bowel sounds Extremities: swelling (mild bilat leg swelling); No clubbing, No cyanosis Neurologic/Psychiatric: oriented x 3, grossly intact (seems to move all limbs; we did not attempt any motion at the affected joint) Skin: No rash on exposed areas, No ulcerations on exposed areas Data Review Labs Laboratory Tests 11/22/18 06:58: Glucometer 193H 11/22/18 10:24: Glucometer 224H 11/22/18 11:09: Glucometer 216H 11/22/18 16:31: Glucometer 148H A/P-Cardiology Assessment/Admission Diagnosis L TKR on 11/22/18 Obesity, with BMI approx 48 MPI of 09/07/16 showed no myocardial ischemia or infarction; LVEF 60% Echo of 08/16/16: LVEF 60%, mild MR and TR, normal PASP Minimal bilateral carotid arterial plaque on carotid u/s of 09/28/15 PFTs within normal limits on (Dr Pickering) HLP - followed by his PCP Chronic intermittent leg edema likely d/t venous insufficiency Sleep apnea - CPAP tx DM II Family h/o early CAD Discussion and Recomendations * Has cardiac risk factors * Risk factor mod reviewed with the patient * Enoxaparin for DVT prophylaxis * Monitor and correct labs Clinical Quality Measures DVT/VTE Risk/Contraindication: Risk Factor Score Per Nursin RFS Level Per Nursing on Admit: 4+=Very High WILLIAM GUERRERO MD FACP FAC CCDS Nov 22, 2018 19:25
[2018-11-22 20:45] VITALS: BP 135/74
[2018-11-22] MEDS ORDERED: NON-FORMULARY MEDICATION 1 EA EA (Bupropion HCl (Wellbutrin Sr) 200 MG) PO SCH (21:00)
[2018-11-22] MEDS: TAMSULOSIN 0.4 MG (FLOMAX) CAP PO SCH (21:22)
[2018-11-22] MEDS: buPROPion SR 100 MG (WELLBUTRIN SR) TAB PO SCH (21:22)
[2018-11-22] MEDS: traZODone 50 MG (DESYREL) TAB PO SCH (21:22)
[2018-11-23] VITALS: BP 158/82
[2018-11-23] MEDS: oxyCODONE/APAP 5/325MG (PERCOCET 5) TABLET PO PRN ×8 (01:34→22:34)
[2018-11-23 04:45] VITALS: BP 147/80
[2018-11-23] MEDS: ENOXAPARIN 40 MG/0.4 ML (LOVENOX) SYR SC SCH ×2 (05:45→18:40)
[2018-11-23] MEDS: MULTIVIT W/MINERALS TAB (THERAGRAN M) PO SCH (05:46)
[2018-11-23 06:57] LABS: BASOPHILS % (AUTO) 0 % (0-10); EOSINOPHILS % (AUTO) 0 % (0-10); HEMATOCRIT 40 % (40-54); HEMOGLOBIN 13.1 G/DL (13.3-17.7); LYMPHOCYTES # (AUTO) 1.3 X 10^3 (1.0-4.0); LYMPHOCYTES % (AUTO) 18 % (12-44); MEAN CORPUSCULAR HEMOGLOBIN 28 PG (25-34); MEAN CORPUSCULAR HGB CONC 33 G/DL (32-36); MEAN CORPUSCULAR VOLUME 85 FL (80-99); MEAN PLATELET VOLUME 10.1 FL (7.4-10.4); MONOCYTES # (AUTO) 1.1 X 10^3 (0.0-1.0); MONOCYTES % (AUTO) 15 % (0-12); NEUTROPHILS # (AUTO) 4.8 X 10^3 (1.8-7.8); NEUTROPHILS % (AUTO) 66 % (42-75); PLATELET COUNT 203 10^3/uL (130-400); RED CELL DISTRIBUTION WIDTH 13.9 % (10.0-14.5); WHITE BLOOD COUNT 7.3 10^3/uL (4.3-11.0)
[2018-11-23 07:23] LABS: ALANINE AMINOTRANSFERASE 20 U/L (0-55); ALBUMIN 3.9 GM/DL (3.2-4.5); ALKALINE PHOSPHATASE 64 U/L (40-136); BILIRUBIN,TOTAL 0.8 MG/DL (0.1-1.0); BUN/CREATININE RATIO 18; CALCIUM 8.6 MG/DL (8.5-10.1); CARBON DIOXIDE 26 MMOL/L (21-32); CHLORIDE 102 MMOL/L (98-107); GFR ESTIMATED > 60; GLUCOSE 161 MG/DL (70-105); POTASSIUM 3.8 MMOL/L (3.6-5.0); SODIUM 137 MMOL/L (135-145)
[2018-11-23] MEDS ORDERED: ENOXAPARIN 30 MG/0.3 ML (LOVENOX) SYR SC SCH (07:30)
--- NOTE | 2018-11-23 07:44 | Anesthesia-General Post-Op ---
General Patient Condition Mental Status/LOC: Same as Preop Cardiovascular: Satisfactory Nausea/Vomiting: Absent Respiratory: Satisfactory Pain: Controlled Complications: Absent Post Op Complications Complications None Follow Up Care/Instructions Patient Instructions None needed. Anesthesia/Patient Condition Patient Condition Patient is doing well, no complaints, stable vital signs, no apparent adverse anesthesia problems. No complications reported per nursing. SANDRA WALDRON CRNA Nov 23, 2018 07:44
--- NOTE | 2018-11-23 07:44 | Anesthesia-Regional Post-Op ---
Regional Patient Condition Mental Status: Alert, Oriented x3 Circulation: Same as Pre-Op Headache: Absent Sensation: Full Recovery Motor Block: Absent Post Op Complications Complications None Follow Up Care/Instructions Patient Instructions None needed. Anesthesia/Patient Condition Patient is doing well, no complaints, stable vital signs, no apparent adverse anesthesia problems. No complications reported per nursing. SANDRA WALDRON CRNA Nov 23, 2018 07:44
[2018-11-23 08:00] VITALS: BP 137/80
--- NOTE | 2018-11-23 08:02 | Progress Note-Standard ---
Standard Progress Note Progress Notes/Assess & Plan Date Seen by a Provider: Nov 23, 2018 Time Seen by a Provider: 08:01 Progress/Assessment & Plan post op check no complaints radiographs--HW well positioned without fracture LLE--2 plus DP pulse with brisk cap refill. intact sensation throughout. Intact DF and PF of toes and ankle s/p LTKA mobilize as able Final Diagnosis no complaints Vital Signs Date Time Temp Pulse Resp B/P (MAP) Pulse Ox O2 Delivery O2 Flow Rate FiO2 11/23/18 05:48 18 11/23/18 04:45 100.1 106 18 147/80 (102) 96 NIV CPAP 11/23/18 00:00 99.6 111 20 158/82 (107) 96 NIV CPAP 11/22/18 20:45 98.1 105 18 135/74 (94) 94 NIV CPAP 11/22/18 20:00 Room Air 11/22/18 17:49 18 11/22/18 16:33 97.3 95 18 128/78 (95) 92 NIV CPAP 11/22/18 12:15 97.3 11/22/18 12:00 97.4 91 18 135/72 (93) 93 Room Air 11/22/18 11:40 20 11/22/18 11:17 96 OxyMask 5.00 I & O 11/23/18 07:00 Intake Total 3755 ml Balance 3755 ml Laboratory Tests Test 11/22/18 10:24 11/22/18 11:09 11/22/18 16:31 11/23/18 05:26 Range/Units Glucometer 224 H 216 H 148 H 179 H 70-110 MG/DL Test 11/23/18 06:34 Range/Units White Blood Count 7.3 4.3-11.0 10^3/uL Red Blood Count 4.66 4.35-5.85 10^6/uL Hemoglobin 13.1 L 13.3-17.7 G/DL Hematocrit 40 40-54 % Mean Corpuscular Volume 85 80-99 FL Mean Corpuscular Hemoglobin 28 25-34 PG Mean Corpuscular Hemoglobin Concent 33 32-36 G/DL Red Cell Distribution Width 13.9 10.0-14.5 % Platelet Count 203 130-400 10^3/uL Mean Platelet Volume 10.1 7.4-10.4 FL Neutrophils (%) (Auto) 66 42-75 % Lymphocytes (%) (Auto) 18 12-44 % Monocytes (%) (Auto) 15 H 0-12 % Eosinophils (%) (Auto) 0 0-10 % Basophils (%) (Auto) 0 0-10 % Neutrophils # (Auto) 4.8 1.8-7.8 X 10^3 Lymphocytes # (Auto) 1.3 1.0-4.0 X 10^3 Monocytes # (Auto) 1.1 H 0.0-1.0 X 10^3 Eosinophils # (Auto) 0.0 0.0-0.3 10^3/uL Basophils # (Auto) 0.0 0.0-0.1 10^3/uL Sodium Level 137 135-145 MMOL/L Potassium Level 3.8 3.6-5.0 MMOL/L Chloride Level 102 98-107 MMOL/L Carbon Dioxide Level 26 21-32 MMOL/L Anion Gap 9 5-14 MMOL/L Blood Urea Nitrogen 14 7-18 MG/DL Creatinine 0.80 0.60-1.30 MG/DL Estimat Glomerular Filtration Rate > 60 BUN/Creatinine Ratio 18 Glucose Level 161 H 70-105 MG/DL Calcium Level 8.6 8.5-10.1 MG/DL Corrected Calcium 8.7 8.5-10.1 MG/DL Total Bilirubin 0.8 0.1-1.0 MG/DL Aspartate Amino Transf (AST/SGOT) 25 5-34 U/L Alanine Aminotransferase (ALT/SGPT) 20 0-55 U/L Alkaline Phosphatase 64 40-136 U/L Total Protein 6.0 L 6.4-8.2 GM/DL Albumin 3.9 3.2-4.5 GM/DL LLE--dressing intact. NVI distally. no calf tenderness s/p LTKA continue OT/PT likely DC tomorrow REGGIE FRANCES MD Nov 23, 2018 08:02
[2018-11-23] MEDS: buPROPion SR 100 MG (WELLBUTRIN SR) TAB PO SCH ×2 (08:19→19:39)
[2018-11-23] MEDS: SENNA W/DOCUSATE (SENOKOT S) TABLET PO SCH ×2 (08:19→19:39)
[2018-11-23] MEDS: NIFEdipine ER 30 MG (PROCARDIA XL) TAB PO SCH (08:20)
[2018-11-23] MEDS: ASPIRIN E.C. 81 MG (ECOTRIN) TAB PO SCH ×2 (08:20→11:09)
[2018-11-23] MEDS: VALSARTAN 80 MG (DIOVAN) TAB PO SCH (08:20)
[2018-11-23] MEDS ORDERED: NIFEDIPINE 30 MG PO SCH (09:00)
[2018-11-23] MEDS ORDERED: NON-FORMULARY MEDICATION 1 EA EA (Dapagliflozin Propanediol (Farxiga) 10 MG) PO SCH (09:00)
[2018-11-23] MEDS ORDERED: NON-FORMULARY MEDICATION 1 EA EA (Escitalopram Oxalate 10 MG) PO SCH (09:00)
[2018-11-23] MEDS ORDERED: VALSARTAN 80 MG PO SCH (09:00)
--- NOTE | 2018-11-23 09:37 | Progress Note-Hospitalist ---
Subjective HPI/CC On Admission Date Seen by Provider: Nov 23, 2018 Time Seen by Provider: 09:00 Chief Complaint: Left total knee arthroplasty uncomplicated by Dr. Santiago POD # 0 HPI: This is a 58yoWM clinic Pt of Dr. Pickering with a PMH of DM, and EDMOND managed by Dr. Pickering who presents after a uncomplicated left total knee arthroplasty by Dr. Santiago. He at this current time is requiring oxygen but no SOB or chest pain since surgery and overall is doing as expected as far as pain. He does see Dr. Kimble in consultation so I did consult him to see him during his post- operative stay. I did restart most of his home medications. Subjective/Events-last exam Fentanyl STAFF EDUCATOR will be discontinued and placed on pain medication every 4 hrs Hydrochlorothiazide will be restarted tomorrow Labs reviewed all within normal limits Will add Zanaflex 4mg QID PRN to help with muscle spasms Participating in PT with a walker Bowels are moving Wore his CPAP last night on and off Review of Systems Musculoskeletal: leg pain Objective Exam Vital Signs Vital Signs Date Time Temp Pulse Resp B/P (MAP) Pulse Ox O2 Delivery O2 Flow Rate FiO2 11/23/18 19:30 20 11/23/18 16:02 97.2 84 94/52 (66) 95 NIV CPAP 11/22/18 11:17 5.00 Capillary Refill : Less Than 3 Seconds General Appearance: No Apparent Distress, WD/WN, Chronically ill, Obese HEENT: PERRL/EOMI, Normal ENT Inspection, Pharynx Normal Neck: Full Range of Motion, Normal Inspection, Non Tender, Supple, Carotid Bruit Respiratory: Chest Non Tender, Lungs Clear, Normal Breath Sounds, No Accessory Muscle Use, No Respiratory Distress Cardiovascular: Regular Rate, Rhythm, No Edema, No Gallop, No JVD, No Murmur, Normal Peripheral Pulses Gastrointestinal: Normal Bowel Sounds, No Organomegaly, No Pulsatile Mass, Non Tender, Soft Back: Normal Inspection, No CVA Tenderness, No Vertebral Tenderness Extremity: Normal Capillary Refill, Normal Inspection, Normal Range of Motion ( except left leg post op), Non Tender, No Calf Tenderness, No Pedal Edema Neurologic/Psychiatric: Alert, Oriented x3, No Motor/Sensory Deficits, Normal Mood/Affect Skin: Normal Color, Warm/Dry Lymphatic: No Adenopathy Results/Procedures Lab Laboratory Tests 11/23/18 06:34 Patient resulted labs reviewed. Assessment/Plan Assessment and Plan Assess & Plan/Chief Complaint Assessment: s/p left total knee replacement POD # 1 EDMOND on CPAP HTN DM Plan: Home meds Pain control PT/OT CPAP Consult Dr Kimble Diagnosis/Problems Diagnosis/Problems (1) EDMOND on CPAP Status: Chronic (2) Hypertension Status: Chronic Qualifiers: Hypertension type: essential hypertension Qualified Codes: I10 - Essential (primary) hypertension (3) Diabetes mellitus Status: Chronic Qualifiers: Diabetes mellitus type: type 2 (4) Osteoarthritis of left knee Status: Chronic Qualifiers: Osteoarthritis type: primary Qualified Codes: M17.12 - Unilateral primary osteoarthritis, left knee Clinical Quality Measures DVT/VTE Risk/Contraindication: Risk Factor Score Per Nursin RFS Level Per Nursing on Admit: 4+=Very High ROBERT JORDAN DO Nov 23, 2018 09:37
--- NOTE | 2018-11-23 09:44 | Physical Therapy Daily Note ---
PT Daily Note-Current Subjective Pt in bed with in room and agrees to PT. Reports that Dr. Santiago's orders for pain pills messed up and was only allowed every 4 hrs not 2 hrs. Pain Numeric Pain Scale: 8 Location: Left Location Body Site: Knee Mental Status Patient Orientation: Person, Place, Situation, Normal For Age Attachments: IV Transfers Therapy Code Descriptions/Definitions Functional [place] Measure: 0=Not Assessed/NA 4=Minimal Assistance 1=Total Assistance 5=Supervision or Setup 2=Maximal Assistance 6=Modified [place] 3=Moderate Assistance 7=Complete [place] Therapy Quality Codes: 6 Independent with activity with or without an assistive device 5 Patient requires set up or clean up by helper. Patient completes activity by themselves 4 Supervision or touching assist (CGA). [place] provide cues , steadying assist 3 The helper provides less than half the effort to complete the activity 2 The helper provides more than half the effort to complete the activity 1 Dependent. The helper does all the effort to complete an activity 7 Patient refused to complete or attempt activity 9 The patient did not perform the activity before the current illness or injury 88 Not attempted due to Medical conditions or safety concerns Transfers (B, C, W/C) (FIM): 6 Scootin Supine to/from Sit: 6 Sit to/from Stand: 6 Weight Bearing Right Lower Extremity: Right Weight Bearing/Tolerated Left Lower Extremity: Left Weight Bearing/Tolerated Gait Training Gait (FIM): 6 Distance (FIM): 3=150 ft Distance: 350' Gait Level of Assist: 6 Gait Persons Needed: 1 Gait Assistive Device: FWW Pt amb with bilateral ex rotation and step to pattern Exercises Supine Ex: Ankle pumps, Quad Set, Heel Slides, Short Arc Quads, Straight leg raise Supine Reps: 10 Assessment Current Status: Good Progress Pt requires increased time to perform activity due to pain. Pt able to perform supine LE ex with min A and cues to get quad to fire. Pt performs bed mobility with mod indep. Pt sit<>stand transfer to FWW is mod indep. Pt amb with slow gait speed and many standing recovery breaks which he reports is because he gets hot. Pt amb 350' with FWW and mod I with SPT assisting with IV pole. SPT gave instructions to pt to keep feet pointed straight during amb and not rotate them out. Pt returned to room and transferred to recliner. Pt has all needs met and polar pack on in recliner with in room. PT Short Term Goals Short Term Goals Time Frame: Nov 29, 2018 Transfers (B,C,W/C) (FIM): 6 Gait (FIM): 6 Distance (FIM): 3=150 ft Gait Distance Comment: 350' Gait Level of Assist: 6 Gait Assistive Device: FWW Stairs (FIM): 2 # of Steps: 4 Stairs Level of Assist: 4 PT Plan Problem List Problem List: Activity Tolerance, Functional Strength, Safety, Balance, Gait, Transfer, Bed Mobility, ROM Treatment/Plan Treatment Plan: Continue Plan of Care Treatment Plan: Bed Mobility, Education, Functional Activity [place], Functional Strength, Gait, Safety, Therapeutic Exercise, Transfers Treatment Duration: Nov 29, 2018 Frequency: 11 times per week Estimated Hrs Per Day: .25 hour per day Patient and/or Family Agrees t: Yes Safety Risks/Education Patient Education: Gait Training, Correct Positioning, Safety Issues Time/GCodes Time In: 835 Time Out: 913 Total Billed Treatment Time: 38 Total Billed Treatment 1 visit GT x2 30 min EX 8 min LISA HUFF PT Nov 23, 2018 09:44
--- NOTE | 2018-11-23 10:00 | NUR ---
KAILASH HOSE ON, POLAR ICE PACK ON, DRESSING DRY AND INTACT, USING FENTANYL IT HELP DESK ANALYST NEEDED, VOIDING WITHOUT DIFFICULTY.
[2018-11-23] MEDS: NS IV 1000 ML 1,000 ML IV SCH (11:51)
[2018-11-23 12:00] VITALS: BP 147/74
--- NOTE | 2018-11-23 13:46 | Occupational Therapy Eval ---
OT Evaluation-General/PLF Medical Diagnosis Admission Date Nov 22, 2018 at 06:05 Medical Diagnosis: L TKA Onset Date: Nov 22, 2018 Therapy Diagnosis Therapy Diagnosis: Weakness, Decreased ADL skills Height/Weight Height (Feet): 5 Height (Inches): 6.00 Weight (Pounds): 297 Weight (Ounces): 4.0 Precautions Precautions/Isolations: Fall Prevention, Standard Precautions Safety Interventions: None Weight Bear Status Weight Bearing Restriction: Weight Bearing/Tolerated Referral Physician: Clint Ramos Referral Reason: Activity Tolerance, Self Care, Evaluation/Treatment, Strengthening/ROM Medical History Pertinent Medical History: DM, HTN, OA Additional Medical History Anxiety disorder, depression, hyperlipidemia, renal stone extraction, ORIF of jaw, COPD Current History Elective left knee Reviewed History: Yes Social History Home: Single Level Current Living Status: Spouse Entry Into Home: Stairs With Railing Steps Into Home: 4 ADL-Prior Level of Function Therapy Code Descriptions/Definitions Functional [place] Measure: 0=Not Assessed/NA 4=Minimal Assistance 1=Total Assistance 5=Supervision or Setup 2=Maximal Assistance 6=Modified [place] 3=Moderate Assistance 7=Complete [place] Therapy Quality Codes: 6 Independent with activity with or without an assistive device 5 Patient requires set up or clean up by helper. Patient completes activity by themselves 4 Supervision or touching assist (CGA). [place] provide cues , steadying assist 3 The helper provides less than half the effort to complete the activity 2 The helper provides more than half the effort to complete the activity 1 Dependent. The helper does all the effort to complete an activity 7 Patient refused to complete or attempt activity 9 The patient did not perform the activity before the current illness or injury 88 Not attempted due to Medical conditions or safety concerns Functional Abilities and Goals: Independent: Patient completed the activities by him/herself, with or without an assistive device, with no assistance from a helper. Needed Some Help: Patient needed partial assistance from another person to complete activities. Dependent: A helper completed the activities for the patient. Unknown: Not Applicable: ADL PLOF Comments Pt. was independent with daily skills. Self Care: Independent Functional Cognition: Independent DME/Equipment: Bath Chair, Shower, Tub/Shower DME/Equipment Comments Pt. will likely need a BSC. Occupation: Teaches at [employer] Self: Yes OT Current Status Subjective 5/10 pain left knee. Pt. has CURRICULUM COORDINATOR pump that he pushes. Appearance Attempted to see pt. twice. First time, pt. attempting to sleep. OT came back. Pt. participated in sponge bath on side of bed. Mental Status/Objective Patient Orientation: Person, Place, Time, [place] Attachments: IV Current Glasses/Contacts: Yes Upper Extremity ROM WFL Upper Extremity Strength WFL ADL-Treatment Therapy Code Descriptions/Definitions Functional [place] Measure: 0=Not Assessed/NA 4=Minimal Assistance 1=Total Assistance 5=Supervision or Setup 2=Maximal Assistance 6=Modified [place] 3=Moderate Assistance 7=Complete [place] Therapy Quality Codes: 6 Independent with activity with or without an assistive device 5 Patient requires set up or clean up by helper. Patient completes activity by themselves 4 Supervision or touching assist (CGA). [place] provide cues , steadying assist 3 The helper provides less than half the effort to complete the activity 2 The helper provides more than half the effort to complete the activity 1 Dependent. The helper does all the effort to complete an activity 7 Patient refused to complete or attempt activity 9 The patient did not perform the activity before the current illness or injury 88 Not attempted due to Medical conditions or safety concerns Bathing (FIM): 4 (CGA in stance to wash rear david area. Pt. educated on AE and toilet tongs. Will issue these at next session.) Lower Body Dressing (FIM): 3 (Pt. able to doff right sock but not left. Pt. able to pull down and up pants and underwear.) Transfers (B, C, W/C) (FIM): 4 (Min assist supine-sit. CGA sit-stand. CGA to transfer to chair in room.) Education OT Patient Education: Correct positioning, Modified ADL techniques, Progress toward Goal/Update tx plan, Purpose of tx/functional activities, Reviewed precautions, Rehab process, Transfer techniques Teaching Recipient: Patient Teaching Methods: Demonstration, Discussion Response to Teaching: Verbalize Understanding, Return Demonstration OT Short Term Goals Short Term Goals Transfers (B,C,W/C) (FIM): 6 1=Demonstrate adherence to instructed precautions during ADL tasks. 2=Patient will verbalize/demonstrate understanding of assistive devices/ modifications for ADL. 3=Patient will improve strength/tolerance for activity to enable patient to perform ADL's. OT Custodial Goals Nitro Man Goals Time Frame: Nov 30, 2018 Eating (FIM): 7 Grooming(FIM): 6 Bathing(FIM): 5 Upper Body Dressing(FIM): 6 Lower Body Dressing(FIM): 6 Toileting(FIM): 6 Transfers (B,C,W/C) (FIM): 6 Toilet/Commode Transfer(FIM): 6 Shower Transfer(FIM): 5 Additional Goals: 1-Demonstrate ADL Tasks, 2-Verbalize Understanding, 3- ImproveStrength/[place] 1=Demonstrate adherence to instructed precautions during ADL tasks. 2=Patient will verbalize/demonstrate understanding of assistive devices/ modifications for ADL. 3=Patient will improve strength/tolerance for activity to enable patient to perform ADL's. OT Education/Plan Problem List/Assessment Assessment: Decreased Activ Tolerance, Dependent Transfers, Impaired Bed Mobility, Impaired I ADL's, Impaired Self-Care Skills Discharge Recommendations Plan/Recommendations: Continue POC Therapy D/C Recommendations: Home w/ Family Support Equpiment Recommendations-D/C: Bedside Commode, Hip Kit Treatment Plan/Plan of Care Treatment,Training & Education: Yes Patient would benefit from OT for education, treatment and training to promote independence in ADL's, mobility, safety and/or upper extremity function for ADL' s. Plan of Care: ADL Retraining, Functional Mobility, UE Funct Exercise/Act Treatment Duration: Nov 30, 2018 Frequency: 5 times per week Estimated Hrs Per Day: .25 hour per day Agreement: Yes Rehab Potential: Good Time/GCodes Start Time: 13:15 Stop Time: 13:30 Total Time Billed (hr/min): 15 Billed Treatment Time 1, EVM Attempted visit earlier at 1145 1, visit MED BELRTE OT Nov 23, 2018 13:46
--- NOTE | 2018-11-23 14:07 | Progress Note-Cardiology ---
Cardiology SOAP Progress Note Subjective: In bed. States he did not sleep well last noc d/t knee discomfort. No c/o CP, palpitations, syncope, near syncope or LE swelling. C/O acid reflux. Objective: I&O/Vital Signs 11/23/18 11/23/18 11/23/18 08:00 12:00 16:02 Temp 98.6 97.3 97.2 Pulse 111 93 84 Resp 20 18 20 B/P (MAP) 137/80 (99) 147/74 (98) 94/52 (66) Pulse Ox 93 100 95 O2 Delivery Room Air NIV CPAP NIV CPAP 11/23/18 00:00 Intake Total 2590 ml Balance 2590 ml Weight (Pounds): 297 Weight (Ounces): 4.0 Weight (Calculated Kilograms): 134.067990 Constitutional: AAO x 3, well-developed, other Respiratory: No accessory muscle use; other (fair to good bilat air entry; diminished at the bases) Cardiovascular: regular rate-rhythm, cardiac thrills are palpable, systolic murmur (soft DEBI at card base) Gastrointestional: No tender; soft; No guarding, No rebound; audible bowel sounds Extremities: swelling (mild bilat leg swelling); No clubbing, No cyanosis Neurologic/Psychiatric: oriented x 3, grossly intact (seems to move all limbs; we did not attempt any motion at the affected joint) Skin: No rash on exposed areas, No ulcerations on exposed areas Results/Procedures: Labs Laboratory Tests 11/23/18 05:26: Glucometer 179H 11/23/18 06:34: White Blood Count 7.3, Red Blood Count 4.66, Hemoglobin 13.1L, Hematocrit 40, Mean Corpuscular Volume 85, Mean Corpuscular Hemoglobin 28, Mean Corpuscular Hemoglobin Concent 33, Red Cell Distribution Width 13.9, Platelet Count 203, Mean Platelet Volume 10.1, Neutrophils (%) (Auto) 66, Lymphocytes (%) (Auto) 18 , Monocytes (%) (Auto) 15H, Eosinophils (%) (Auto) 0, Basophils (%) (Auto) 0, Neutrophils # (Auto) 4.8, Lymphocytes # (Auto) 1.3, Monocytes # (Auto) 1.1H, Eosinophils # (Auto) 0.0, Basophils # (Auto) 0.0, Sodium Level 137, Potassium Level 3.8, Chloride Level 102, Carbon Dioxide Level 26, Anion Gap 9, Blood Urea Nitrogen 14, Creatinine 0.80, Estimat Glomerular Filtration Rate > 60, BUN/ Creatinine Ratio 18, Glucose Level 161H, Calcium Level 8.6, Corrected Calcium 8.7, Total Bilirubin 0.8, Aspartate Amino Transf (AST/SGOT) 25, Alanine Aminotransferase (ALT/SGPT) 20, Alkaline Phosphatase 64, Total Protein 6.0L, Albumin 3.9 A/P: Assessment: L TKR on 11/22/18 Obesity, with BMI approx 48 MPI of 09/07/16 showed no myocardial ischemia or infarction; LVEF 60% Echo of 08/16/16: LVEF 60%, mild MR and TR, normal PASP Minimal bilateral carotid arterial plaque on carotid u/s of 09/28/15 PFTs within normal limits on (Dr Pickering) HLP - followed by his PCP Chronic intermittent leg edema likely d/t venous insufficiency Sleep apnea - CPAP tx DM II Family h/o early CAD Plan: * Continue Enoxaparin for DVT prophylaxis * Monitor and correct labs * Add PPI to regimen Physician Assessment Physician Assessment No cp or palp or syncope or shortness of breath at rest Feels better than before Lungs: good air entry, diminished at the bases Cor: reg Ext: no c/c, mild edema A&R * As documented in our note above that I updated (italics) and as noted below * Continue current regimen * Monitor labs GALO ESTRADA [employer] Nov 23, 2018 14:07 WILLIAM GUERRERO MD [facility] Nov 23, 2018 18:34
[2018-11-23] MEDS ORDERED: PANTOPRAZOLE 40 MG (PROTONIX) TAB PO NR (14:15)
--- NOTE | 2018-11-23 14:23 | Physical Therapy Daily Note ---
PT Daily Note-Current Subjective Pt in recliner and agrees to PT. Pain Numeric Pain Scale: 8 Location: Left Location Body Site: Knee Mental Status Patient Orientation: Person, Place, Situation, Normal For Age Attachments: IV Transfers Therapy Code Descriptions/Definitions Functional [place] Measure: 0=Not Assessed/NA 4=Minimal Assistance 1=Total Assistance 5=Supervision or Setup 2=Maximal Assistance 6=Modified [place] 3=Moderate Assistance 7=Complete [place] Therapy Quality Codes: 6 Independent with activity with or without an assistive device 5 Patient requires set up or clean up by helper. Patient completes activity by themselves 4 Supervision or touching assist (CGA). [place] provide cues , steadying assist 3 The helper provides less than half the effort to complete the activity 2 The helper provides more than half the effort to complete the activity 1 Dependent. The helper does all the effort to complete an activity 7 Patient refused to complete or attempt activity 9 The patient did not perform the activity before the current illness or injury 88 Not attempted due to Medical conditions or safety concerns Transfers (B, C, W/C) (FIM): 6 Scootin Sit to/from Stand: 6 Weight Bearing Right Lower Extremity: Right Weight Bearing/Tolerated Left Lower Extremity: Left Weight Bearing/Tolerated Gait Training Gait (FIM): 6 Distance (FIM): 3=150 ft Distance: 300' Gait Level of Assist: 6 Gait Persons Needed: 1 Gait Assistive Device: FWW Exercises Supine Ex: Ankle pumps, Quad Set, Heel Slides, Short Arc Quads, Straight leg raise Supine Reps: 10 Assessment Current Status: Good Progress Pt transfers with mod indep from sit<>stand any surface. Pt amb 300' with FWW mod I and SPT assisting with IV pole. Pt gait speed has increased since this morning and is putting more weight through LLE. Pt returned to room and performed bathroom skills indep. Pt transferred into bed supine mod I. Pt performed supine ex with VC from SPT. Pt now has CPM on 68 flex and -2 ext with all needs met. PT Short Term Goals Short Term Goals Time Frame: Nov 29, 2018 Transfers (B,C,W/C) (FIM): 6 Gait (FIM): 6 Distance (FIM): 3=150 ft Gait Distance Comment: 350' Gait Level of Assist: 6 Gait Assistive Device: FWW Stairs (FIM): 2 # of Steps: 4 Stairs Level of Assist: 4 PT Plan Problem List Problem List: Activity Tolerance, Functional Strength, Safety, Balance, Gait, Transfer, Bed Mobility, ROM Treatment/Plan Treatment Plan: Continue Plan of Care Treatment Plan: Bed Mobility, Education, Functional Activity [place], Functional Strength, Gait, Safety, Therapeutic Exercise, Transfers Treatment Duration: Nov 29, 2018 Frequency: 11 times per week Estimated Hrs Per Day: .25 hour per day Patient and/or Family Agrees t: Yes Time/GCodes Time In: 1340 Time Out: 1404 Total Billed Treatment Time: 24 Total Billed Treatment 1 visit GT 14 min EX 10 min LISA HUFF PT Nov 23, 2018 14:23
[2018-11-23] MEDS: fentaNYL INJECTION 1,000 MCG in NS (IVPB) 80 ML IV SCH (15:39)
[2018-11-23 16:02] VITALS: BP 94/52
--- NOTE | 2018-11-23 16:51 | NUR ---
CM/SS respond to consult for post hospital care, discharge anticipated tomorrow. Visited with patient and his spouse Mikki Morgan to discuss services/DME needed and agencies to provide. HHC: Preference was [facility]; however, they were unable to staff patient's needs until 11/28/18. [employer] then contacted [facility], they submitted to commercial insurance for pre-auth and did get approval to begin services. DME: Bariatric FWW will be needed, physician to order in a.m. Will coordinate with preferred agency, [facility].
--- NOTE | 2018-11-23 19:00 | NUR ---
new fentanyl bag hung, wasted 15ml, witnessed by Miguelina KUMAR
[2018-11-23 19:31] VITALS: BP 101/67
[2018-11-23] MEDS: traZODone 50 MG (DESYREL) TAB PO SCH (19:39)
[2018-11-23] MEDS: TAMSULOSIN 0.4 MG (FLOMAX) CAP PO SCH (19:39)
[2018-11-24] MEDS: NS IV 1000 ML 1,000 ML IV SCH (00:03)
[2018-11-24 00:36] VITALS: BP 100/59
[2018-11-24] MEDS: oxyCODONE/APAP 5/325MG (PERCOCET 5) TABLET PO PRN ×6 (01:43→13:41)
[2018-11-24 04:02] VITALS: BP 101/58
--- NOTE | 2018-11-24 05:40 | DISCHARGE SUMMARY ---
DATE OF SERVICE: DIAGNOSES: 1. Left knee primary osteoarthritis. 2. Anxiety disorder. 3. Depression. 4. Diabetes. 5. Hyperlipidemia. 6. Hypertension. 7. Sleep apnea. PROCEDURE: Left total knee arthroplasty. SUMMARY: The patient is a 58-year-old gentleman who underwent a left total knee arthroplasty on date of admission. Postoperatively, he did well. At the time of discharge, his wound was clean and dried. No calf tenderness. Negative Homans sign. He cleared Physical Therapy. He was tolerating his diet well and tolerating pain with oral pain medication. CONDITION ON DISCHARGE: Good. DISCHARGE DIET: Regular. FOLLOWUP: Follow up is in three weeks. ACTIVITY: Weightbearing as tolerated with walker. Home physical therapy has been arranged. DISCHARGE MEDICATIONS: Home medications, Percocet as needed for pain and aspirin. Job ID: [id number] DocumentID: [id number] Dictated Date: 11/23/2018 17:02:27 Archives Director Date: 11/24/2018 05:40:00 Dictated By: REGGIE FRANCES MD
[2018-11-24] MEDS: ENOXAPARIN 40 MG/0.4 ML (LOVENOX) SYR SC SCH (05:56)
[2018-11-24] MEDS: MULTIVIT W/MINERALS TAB (THERAGRAN M) PO SCH (05:56)
[2018-11-24 06:08] LABS: BASOPHILS % (AUTO) 0 % (0-10); EOSINOPHILS # (AUTO) 0.1 10^3/uL (0.0-0.3); EOSINOPHILS % (AUTO) 2 % (0-10); HEMATOCRIT 37 % (40-54); HEMOGLOBIN 11.7 G/DL (13.3-17.7); LYMPHOCYTES # (AUTO) 1.6 X 10^3 (1.0-4.0); LYMPHOCYTES % (AUTO) 21 % (12-44); MEAN CORPUSCULAR HEMOGLOBIN 28 PG (25-34); MEAN CORPUSCULAR HGB CONC 32 G/DL (32-36); MEAN CORPUSCULAR VOLUME 86 FL (80-99); MONOCYTES # (AUTO) 1.1 X 10^3 (0.0-1.0); MONOCYTES % (AUTO) 15 % (0-12); NEUTROPHILS # (AUTO) 4.8 X 10^3 (1.8-7.8); NEUTROPHILS % (AUTO) 62 % (42-75); PLATELET COUNT 163 10^3/uL (130-400); RED CELL DISTRIBUTION WIDTH 13.8 % (10.0-14.5); WHITE BLOOD COUNT 7.7 10^3/uL (4.3-11.0)
[2018-11-24 06:33] LABS: ALANINE AMINOTRANSFERASE 17 U/L (0-55); ALBUMIN 3.6 GM/DL (3.2-4.5); ALKALINE PHOSPHATASE 56 U/L (40-136); BILIRUBIN,TOTAL 0.8 MG/DL (0.1-1.0); BUN/CREATININE RATIO 19; CALCIUM 9.1 MG/DL (8.5-10.1); CARBON DIOXIDE 23 MMOL/L (21-32); CHLORIDE 102 MMOL/L (98-107); CREATININE SERUM 0.81 MG/DL (0.60-1.30); GFR ESTIMATED > 60; GLUCOSE 155 MG/DL (70-105); POTASSIUM 3.8 MMOL/L (3.6-5.0); SODIUM 133 MMOL/L (135-145); TOTAL PROTEIN 5.9 GM/DL (6.4-8.2)
[2018-11-24] MEDS ORDERED: PANTOPRAZOLE 40 MG (PROTONIX) TAB PO SCH (07:00)
--- NOTE | 2018-11-24 07:06 | Progress Note-Standard ---
Standard Progress Note Progress Notes/Assess & Plan Date Seen by a Provider: Nov 24, 2018 Time Seen by a Provider: 07:04 Progress/Assessment & Plan post op check no complaints radiographs--HW well positioned without fracture LLE--2 plus DP pulse with brisk cap refill. intact sensation throughout. Intact DF and PF of toes and ankle s/p LTKA mobilize as able Final Diagnosis no complaints Vital Signs Date Time Temp Pulse Resp B/P (MAP) Pulse Ox O2 Delivery O2 Flow Rate FiO2 11/24/18 05:59 20 11/24/18 04:02 98.7 91 20 101/58 (72) 90 NIV CPAP 11/24/18 00:36 99.7 97 18 100/59 (73) 94 NIV CPAP 11/23/18 20:55 Room Air 11/23/18 19:31 97.8 83 20 101/67 (78) 94 NIV CPAP 11/23/18 19:30 20 11/23/18 16:02 97.2 84 20 94/52 (66) 95 NIV CPAP 11/23/18 12:00 97.3 93 18 147/74 (98) 100 NIV CPAP 11/23/18 08:00 98.6 111 20 137/80 (99) 93 Room Air I & O 11/24/18 07:00 Intake Total 4440 ml Balance 4440 ml Laboratory Tests Test 11/24/18 05:52 Range/Units White Blood Count 7.7 4.3-11.0 10^3/uL Red Blood Count 4.23 L 4.35-5.85 10^6/uL Hemoglobin 11.7 L 13.3-17.7 G/DL Hematocrit 37 L 40-54 % Mean Corpuscular Volume 86 80-99 FL Mean Corpuscular Hemoglobin 28 25-34 PG Mean Corpuscular Hemoglobin Concent 32 32-36 G/DL Red Cell Distribution Width 13.8 10.0-14.5 % Platelet Count 163 130-400 10^3/uL Mean Platelet Volume 10.0 7.4-10.4 FL Neutrophils (%) (Auto) 62 42-75 % Lymphocytes (%) (Auto) 21 12-44 % Monocytes (%) (Auto) 15 H 0-12 % Eosinophils (%) (Auto) 2 0-10 % Basophils (%) (Auto) 0 0-10 % Neutrophils # (Auto) 4.8 1.8-7.8 X 10^3 Lymphocytes # (Auto) 1.6 1.0-4.0 X 10^3 Monocytes # (Auto) 1.1 H 0.0-1.0 X 10^3 Eosinophils # (Auto) 0.1 0.0-0.3 10^3/uL Basophils # (Auto) 0.0 0.0-0.1 10^3/uL Sodium Level 133 L 135-145 MMOL/L Potassium Level 3.8 3.6-5.0 MMOL/L Chloride Level 102 98-107 MMOL/L Carbon Dioxide Level 23 21-32 MMOL/L Anion Gap 8 5-14 MMOL/L Blood Urea Nitrogen 15 7-18 MG/DL Creatinine 0.81 0.60-1.30 MG/DL Estimat Glomerular Filtration Rate > 60 BUN/Creatinine Ratio 19 Glucose Level 155 H 70-105 MG/DL Calcium Level 9.1 8.5-10.1 MG/DL Corrected Calcium 9.4 8.5-10.1 MG/DL Total Bilirubin 0.8 0.1-1.0 MG/DL Aspartate Amino Transf (AST/SGOT) 24 5-34 U/L Alanine Aminotransferase (ALT/SGPT) 17 0-55 U/L Alkaline Phosphatase 56 40-136 U/L Total Protein 5.9 L 6.4-8.2 GM/DL Albumin 3.6 3.2-4.5 GM/DL LLE--incision clean and dry. No calf tenderness. Neg Richie's. s/p LTKA doing well DC home after PT today REGGIE FRANCES MD Nov 24, 2018 07:05
--- NOTE | 2018-11-24 07:30 | NUR ---
DR FRANCES HERE, DRESSING CHANGED TO LEFT KNEE, ORDERED TO DC IV AND FENTANYL PUMP
[2018-11-24 08:00] VITALS: BP 120/59
[2018-11-24] MEDS ORDERED: HYDROCHLOROTHIAZIDE 12.5 MG (HCTZ) CAP PO SCH (09:00)
[2018-11-24] MEDS ORDERED: NON-FORMULARY MEDICATION 1 EA EA (Hydrochlorothiazide 12.5 MG) PO SCH (09:00)
[2018-11-24] MEDS: ASPIRIN E.C. 81 MG (ECOTRIN) TAB PO SCH (09:04)
[2018-11-24] MEDS: NIFEdipine ER 30 MG (PROCARDIA XL) TAB PO SCH (09:04)
[2018-11-24] MEDS: SENNA W/DOCUSATE (SENOKOT S) TABLET PO SCH (09:04)
[2018-11-24] MEDS: buPROPion SR 100 MG (WELLBUTRIN SR) TAB PO SCH (09:04)
[2018-11-24] MEDS: VALSARTAN 80 MG (DIOVAN) TAB PO SCH (09:06)
--- NOTE | 2018-11-24 10:08 | Occupational Ther Daily Note ---
OT Current Status-Daily Note Subjective Pt seen in room, up in recliner, agreeable to OT. present and participating. Appearance Alert, cooperative Mental Status/Objective Therapy Code Descriptions/Definitions Functional [place] Measure: 0=Not Assessed/NA 4=Minimal Assistance 1=Total Assistance 5=Supervision or Setup 2=Maximal Assistance 6=Modified [place] 3=Moderate Assistance 7=Complete [place] ADL-Treatment Pt anticipates discharge to home later today. Pt/family education on use of adapted equipment, safety considerations and modified techniques for dressing, bathing and toileting. pt has walk in shower with shower chair and is interested in getting a BSC to put over toilet. May need a bariatric BSC, depending on model. Pt and verbalize understanding of information and ability to apply it to his personal situation. Goals met to patient satisfaction. DC OT. SW informed of patient interest in BSC. Education OT Patient Education: Modified ADL techniques, Purpose of tx/functional activities, Safety issues, Use of adapted equipment Teaching Recipient: Patient, Family Teaching Methods: Discussion Response to Teaching: Verbalize Understanding OT Short Term Goals Short Term Goals Transfers (B,C,W/C) (FIM): 6 1=Demonstrate adherence to instructed precautions during ADL tasks. 2=Patient will verbalize/demonstrate understanding of assistive devices/ modifications for ADL. 3=Patient will improve strength/tolerance for activity to enable patient to perform ADL's. OT City Editor Goals City Editor Goals Time Frame: Nov 30, 2018 Eating (FIM): 7 Grooming(FIM): 6 Bathing(FIM): 5 Upper Body Dressing(FIM): 6 Lower Body Dressing(FIM): 6 Toileting(FIM): 6 Transfers (B,C,W/C) (FIM): 6 Toilet/Commode Transfer(FIM): 6 Shower Transfer(FIM): 5 Additional Goals: 1-Demonstrate ADL Tasks, 2-Verbalize Understanding, 3- ImproveStrength/[place] 1=Demonstrate adherence to instructed precautions during ADL tasks. 2=Patient will verbalize/demonstrate understanding of assistive devices/ modifications for ADL. 3=Patient will improve strength/tolerance for activity to enable patient to perform ADL's. OT Education/Plan Discharge Recommendations Plan/Recommendations: Discharge/Goals Met (to pt satisfaction) Treatment Plan/Plan of Care Patient would benefit from OT for education, treatment and training to promote independence in ADL's, mobility, safety and/or upper extremity function for ADL' s. Plan of Care: ADL Retraining, Functional Mobility, UE Funct Exercise/Act Treatment Duration: Nov 30, 2018 Frequency: 5 times per week Estimated Hrs Per Day: .25 hour per day Agreement: Yes Rehab Potential: Good Time/GCodes Start Time: 09:10 Stop Time: 09:35 Total Time Billed (hr/min): 25 Billed Treatment Time visit, 25 minutes ADL EFREN CHENG OT Nov 24, 2018 10:08
--- NOTE | 2018-11-24 10:55 | NUR ---
CM/SS, finalize discharge arrangements. [facility]: [facility]. DME: Bariatric FWW from [facility], they will deliver to hospital room. CPM: Coordinated with primary area resource, [facility]. Riddhi will contact spouse directly to arrange delivery to the home. OT recommended BSC, updated patient/spouse that this is not an insurance covered item. [employer]ach [employer]ester reserved bariatric BSC at [facility] and updated of cost of $225. Patient/spouse declined to pay privately for this item and stated they would figure something else out.
--- NOTE | 2018-11-24 11:16 | Physical Therapy Daily Note ---
PT Daily Note-Current Subjective Pt reports he will be going home today and is planning on having HH for about [address] ordered a CPM unit and IceMan for home use. Pain Numeric Pain Scale: 4 Location: Left Location Body Site: Knee Comment: surgical pain, increased with activity but also improved slightly with gait Appearance Pt sitting up in recliner upon arrival, agreeable to PT treatment At end of session, pt supine in bed with CPM running, call light, phone and bedside table within reach. Pt's in room with him. Mental Status Patient Orientation: Normal For Age Transfers Therapy Code Descriptions/Definitions Functional [place] Measure: 0=Not Assessed/NA 4=Minimal Assistance 1=Total Assistance 5=Supervision or Setup 2=Maximal Assistance 6=Modified [place] 3=Moderate Assistance 7=Complete [place] Therapy Quality Codes: 6 Independent with activity with or without an assistive device 5 Patient requires set up or clean up by helper. Patient completes activity by themselves 4 Supervision or touching assist (CGA). [place] provide cues , steadying assist 3 The helper provides less than half the effort to complete the activity 2 The helper provides more than half the effort to complete the activity 1 Dependent. The helper does all the effort to complete an activity 7 Patient refused to complete or attempt activity 9 The patient did not perform the activity before the current illness or injury 88 Not attempted due to Medical conditions or safety concerns Transfers (B, C, W/C) (FIM): 6 Scootin Rollin Supine to/from Sit: 6 Sit to/from Stand: 6 Pt demonstrating proper technique and safety with all transfers performed Weight Bearing Right Lower Extremity: Right Weight Bearing/Tolerated Left Lower Extremity: Left Weight Bearing/Tolerated Gait Training Gait (FIM): 5 Distance (FIM): 3=150 ft Distance: 215 Gait Level of Assist: 5 Gait Persons Needed: 1 Gait Assistive Device: FWW Beginning with step to gait pattern, decreased hip and knee flexion, decreased heel strike and toe off, decreased step height and length LLE, B Hip ER. Gait quality improved with instruction, pain slightly decreased with gait distance until beginning to fatigue. Able to decrease use of B UE's on walker with instruction and increase WB on LLE. Treatments Gait, transfer, bed mobility, HEP instruction, CPM instruction with pt and Assessment Current Status: Good Progress PT Short Term Goals Short Term Goals Time Frame: Nov 29, 2018 Transfers (B,C,W/C) (FIM): 6 Gait (FIM): 6 Distance (FIM): 3=150 ft Gait Distance Comment: 350' Gait Level of Assist: 6 Gait Assistive Device: FWW Stairs (FIM): 2 # of Steps: 4 Stairs Level of Assist: 4 PT Plan Treatment/Plan Treatment Plan: Continue Plan of Care Treatment Plan: Bed Mobility, Education, Functional Activity [place], Functional Strength, Gait, Safety, Therapeutic Exercise, Transfers Treatment Duration: Nov 29, 2018 Frequency: 11 times per week Estimated Hrs Per Day: .25 hour per day Patient and/or Family Agrees t: Yes Safety Risks/Education Patient Education: Gait Training, Transfer Techniques, Reviewed Precautions, Reviewed Use of Ice, Correct Positioning, Instructions to Caregiver, Disease Process, Safety Issues Teaching Recipient: Patient, Family Teaching Methods: Demonstration, Discussion Response to Teaching: Verbalize Understanding, Return Demonstration instucted in HEP of knee flex and knee ext exercises of LLE to improve ROM Time/GCodes Time In: 936 Time Out: 1009 Total Billed Treatment Time: 33 Total Billed Treatment GT x 1 unit FA x 1 unit CASANDRA MCCORD PTA Nov 24, 2018 11:16
[2018-11-24] MEDS ORDERED: POLY17PO6 PO (11:53)
--- NOTE | 2018-11-24 11:54 | Progress Note-Hospitalist ---
Subjective HPI/CC On Admission Date Seen by Provider: Nov 24, 2018 Time Seen by Provider: 11:00 Chief Complaint: Left total knee arthroplasty uncomplicated by Dr. Santiago POD # 0 HPI: This is a 58yoWM clinic Pt of Dr. Pickering with a PMH of DM, and EDMOND managed by Dr. Pickering who presents after a uncomplicated left total knee arthroplasty by Dr. Santiago. He at this current time is requiring oxygen but no SOB or chest pain since surgery and overall is doing as expected as far as pain. He does see Dr. Kimble in consultation so I did consult him to see him during his post- operative stay. I did restart most of his home medications. Subjective/Events-last exam Patient doing very well No BM yet and recommended MiraLAX discharge Pain is controlled although he did require quite a bit of pain medication will on FAITH DOCTOR Review of Systems Musculoskeletal: leg pain Objective Exam Vital Signs Vital Signs Date Time Temp Pulse Resp B/P (MAP) Pulse Ox O2 Delivery O2 Flow Rate FiO2 11/24/18 12:00 97.4 98 20 99/56 (70) 95 Room Air 11/22/18 11:17 5.00 Capillary Refill : Less Than 3 Seconds General Appearance: No Apparent Distress, WD/WN, Chronically ill, Obese HEENT: PERRL/EOMI, Normal ENT Inspection, Pharynx Normal Neck: Full Range of Motion, Normal Inspection, Non Tender, Supple, Carotid Bruit Respiratory: Chest Non Tender, Lungs Clear, Normal Breath Sounds, No Accessory Muscle Use, No Respiratory Distress Cardiovascular: Regular Rate, Rhythm, No Edema, No Gallop, No JVD, No Murmur, Normal Peripheral Pulses Gastrointestinal: Normal Bowel Sounds, No Organomegaly, No Pulsatile Mass, Non Tender, Soft Back: Normal Inspection, No CVA Tenderness, No Vertebral Tenderness Extremity: Normal Capillary Refill, Normal Inspection, Normal Range of Motion ( except left leg post op), Non Tender, No Calf Tenderness, No Pedal Edema Neurologic/Psychiatric: Alert, Oriented x3, No Motor/Sensory Deficits, Normal Mood/Affect Skin: Normal Color, Warm/Dry Lymphatic: No Adenopathy Results/Procedures Lab Laboratory Tests 11/24/18 05:52 Patient resulted labs reviewed. Assessment/Plan Assessment and Plan Assess & Plan/Chief Complaint Assessment: s/p left total knee replacement POD # 2 EDMOND on CPAP HTN DM Plan: Home meds Pain control PT/OT CPAP Consult Dr Kimble is appreciated Miralax at [place] Diagnosis/Problems Diagnosis/Problems (1) EDMOND on CPAP Status: Chronic (2) Hypertension Status: Chronic Qualifiers: Hypertension type: essential hypertension Qualified Codes: I10 - Essential (primary) hypertension (3) Diabetes mellitus Status: Chronic Qualifiers: Diabetes mellitus type: type 2 (4) Osteoarthritis of left knee Status: Chronic Qualifiers: Osteoarthritis type: primary Qualified Codes: M17.12 - Unilateral primary osteoarthritis, left knee Clinical Quality Measures DVT/VTE Risk/Contraindication: Risk Factor Score Per Nursin RFS Level Per Nursing on Admit: 4+=Very High ROBERT JORDAN DO Nov 24, 2018 11:54
[2018-11-24 12:00] VITALS: BP 99/56
--- NOTE | 2018-11-24 14:20 | NUR ---
DISCHARGE INSTRUCTIONS GIVEN, VERBALIZED UNDERSTANDING, AT BEDSIDE, PRESCRIPTIONS GIVEN, WALKER DELIVERED, INSTRUCTED ON DRESSING CHANGE AND FOLLOW UP APPOINTMENT, HOME HEALTH TO FOLLOW, DRESSING DRY AND INTACT, KAILASH HOSE ON, INSTRUCTED ON POLOR ICE PACK, SALINE LOCK DC, SITE WITHOUT REDNESS OR SWELLING
[2018-11-24 14:30] VITALS: BP 99/56
--- NOTE | 2018-11-24 14:30 | NUR ---
MEHRDAD DECKER demonstrates understanding of discharge instructions and accurately returns instructions upon questioning. Copy of Post-Discharge Instructions and Medication Discharge Instructions given to PATIENT. MEHRDAD DECKER is able to manage continuing needs after discharge. Patients belongings returned to PATIENT. Skin dry and intact; no breakdown noted. Patient discharged from [facility]- on 11/24/18 at 1430 . MEHRDAD DECKER left floor via W/C, accompanied by STAFF.
--- NOTE | 2018-11-24 21:30 | NUR ---
Housekeeping found CADD pump in pt room with fentanyl medication still hooked up inside. 33mL of fentanyl 250mcg/5mL wasted by this RN with Nathan Reyes RN.
== END 2018-11-24 14:30 | disposition home health service (06) | DRG 470 ==
LOC: 4TH 06:05 → SURG 06:06 → 4TH 10:30
PROVIDERS: ADMIT Orthopaedic Surgery; ATTEND Orthopaedic Surgery
PROC: 0SRD0J9 Replacement of Left Knee Joint with Synthetic Substitute, Cemented, Open Approach (ICD-10-PCS; principal; 2018-11-22 08:15)
DX: M17.12 Unilateral primary osteoarthritis, left knee (principal); I10 Essential (primary) hypertension; E11.9 Type 2 diabetes mellitus without complications; Z68.42 Body mass index [BMI] 45.0-49.9, adult; E66.9 Obesity, unspecified; G47.33 Obstructive sleep apnea (adult) (pediatric); E78.00 Pure hypercholesterolemia, unspecified; I87.2 Venous insufficiency (chronic) (peripheral); I08.1 Rheumatic disorders of both mitral and tricuspid valves; I65.23 Occlusion and stenosis of bilateral carotid arteries; M54.9 Dorsalgia, unspecified; F41.9 Anxiety disorder, unspecified; F32.9 Major depressive disorder, single episode, unspecified; K21.9 Gastro-esophageal reflux disease without esophagitis; J30.2 Other seasonal allergic rhinitis; Z82.49 Family history of ischemic heart disease and other diseases of the circulatory system
CPT/HCPCS: 36415; 73560; 80053; 82962; 85025; 86850; 86900; 86901; 94664; 94760

== ENCOUNTER 2019-10-16 15:53 | Emergency (ER) | payer BC ==
[~2019-10-16] VITALS: Ht 170.1 cm; Wt 130.7 kg
[~2019-10-16 15:53] MED LIST changes: +OXYC1TAB87 PO; +POLY17PO6 PO; -TRAZ-189 PO; +TRZ50T PO
--- NOTE | 2019-10-16 16:32 | ED Head Injury ---
General Chief Complaint: Trauma-Non Activation Stated Complaint: FELL HIT HEAD Nursing Triage Note: AMB TO ROOM REPORTS FELL 3PM SLIPPED AND FEEL IN MUD HITTING HEAD STEAL POST NO LOC. Source: patient Exam Limitations: no limitations History of Present Illness Date Seen by Provider: Oct 16, 2019 Time Seen by Provider: 16:00 Initial Comments Slipped and fell today today at 3 PM hit his head on a steel post no loss of consciousness has a parietal scalp hematoma. Occurred: just prior to arrival Severity: moderate Location: occipital Method of Injury: direct blow, fell Loss of Consciousness: no loss of consciousness Allergies and Home Medications Allergies Coded Allergies: Sulfa (Sulfonamide Antibiotics) (Verified Allergy, Mild, HIVES/RASH, 11/08/18) Home Medications Alprazolam 0.25 Mg Tablet, 0.25 MG PO DAILY PRN for ANXIETY, (Reported) Aspirin 81 Mg Tablet.dr, 81 MG PO DAILY, (Reported) Bupropion HCl 200 Mg Tablet.er, 200 MG PO BID, (Reported) Dapagliflozin Propanediol 10 Mg Tablet, 10 MG PO DAILY, (Reported) Escitalopram Oxalate 10 Mg Tablet, 10 MG PO DAILY, (Reported) Hydrochlorothiazide 12.5 Mg Capsule, 12.5 MG PO DAILY, (Reported) Nifedipine 30 Mg Tab.er.24, 30 MG PO DAILY, (Reported) Oxycodone HCl/Acetaminophen 1 Each Tablet, 1 TAB PO Q4H Prescribed by: REGGIE FRANCES on 11/22/18 0737 Polyethylene Glycol 3350 17 Gm Powd.pack, 17 GM PO BID Prescribed by: ROBERT JORDAN on 11/24/18 1153 Pravastatin Sodium 40 Mg Tablet, 40 MG PO DAILY, (Reported) Tamsulosin HCl 0.4 Mg Cap.er.24h, 0.4 MG PO DAILY, (Reported) Daily until stone passage Trazodone HCl 50 Mg Tablet, 50 MG PO DAILY, (Reported) Valsartan 80 Mg Tablet, 80 MG PO DAILY, (Reported) Patient Home Medication List Home Medication List Reviewed: Yes Review of Systems Review of Systems Constitutional: see HPI Eyes: No Symptoms Reported Ears, Nose, Mouth, Throat: no symptoms reported Respiratory: no symptoms reported Genitourinary: no symptoms reported Musculoskeletal: no symptoms reported Skin: no symptoms reported Psychiatric/Neurological: No Symptoms Reported Past Uosgsqu-Xbkirz-Nzvqwl Hx Patient Social History Alcohol Use: Occasionally Uses Alcohol Beverage of Choice: Beer Recreational Drug Use: No Smoking Status: Never a Smoker Recent Foreign Travel: No Contact w/Someone Who Travel: No Recent Infectious Disease Expo: No Recent Hopitalizations: No Immunizations Up To Date Date of Pneumonia Vaccine: Jun 28, 2016 Date of Influenza Vaccine: Jun 26, 2018 Seasonal Allergies Seasonal Allergies: Yes Past Medical History Surgeries: Yes (EYELID, NASAL, JAW REPAIR, LABRUM REPAIR, ABD HERNIA) Orthopedic Respiratory: Yes Sleep Apnea Currently Using CPAP: Yes Cardiac: Yes High Cholesterol, Hypertension Neurological: Yes (HX BRAIN BLEED 5YRS AGO) Sexually Transmitted Disease: No HIV/AIDS: No Genitourinary: Yes Kidney Stones Gastrointestinal: No Musculoskeletal: Yes Chronic Back Pain Endocrine: Yes Diabetes, Non-Insulin dep HEENT: Yes (GLASSES) Loss of Vision: Bilateral Cancer: No Psychosocial: Yes Anxiety Integumentary: No Blood Disorders: No Adverse Reaction/Blood Tranf: No (N/A) Physical Exam Vital Signs Vital Signs - First Documented 10/16/19 15:57 Temp 36.3 Pulse 91 Resp 18 B/P (MAP) 121/81 (94) Pulse Ox 94 O2 Delivery Room Air Capillary Refill : Less Than 3 Seconds Height, Weight, BMI Height: 5'6.00" Weight: 297lbs. 4.0oz. [id number]; 45.00 BMI Method: General Appearance: WD/WN, no apparent distress HEENT: PERRL/EOMI, normal ENT inspection Neck: non-tender, full range of motion Respiratory: no respiratory distress, no accessory muscle use Gastrointestinal: non tender, soft Extremities: normal range of motion, non-tender Psychiatric: alert, oriented x 3 Crainal Nerves: normal hearing, normal speech, PERRL Motor/Sensory: no motor deficit, no sensory deficit Skin: normal color, warm/dry [place] Coma Score Best Eye Response: (4) Open Spontaneously Best Verbal Response: (5) Oriented Best Motor Response: (6) Obeys Commands Nickolas Total: 15 Progress/Results/Core Measures Results/Orders My Orders Orders - ANG CUEVAS APRN Ct Head/Cervical Spine Wo (10/16/19 16:12) Vital Signs/I&O 10/16/19 15:57 Temp 36.3 Pulse 91 Resp 18 B/P (MAP) 121/81 (94) Pulse Ox 94 O2 Delivery Room Air Blood Pressure Mean: 94 Departure Communication (Admissions) NAME: MEHRDAD DECKER [facility] REC#: [id number] PT STATUS: REG ER : 1960 PHYSICIAN: ANG CUEVAS COMPRESSOR STATION OPERATOR ADMIT DATE: 10/16/19/ER Signed Date of Exam:10/16/19 CT HEAD/CERVICAL SPINE WO EXAMINATION: CT head and CT cervical spine without contrast. TECHNIQUE: Multiple contiguous axial images were obtained through the brain and cervical spine without the use of intravenous contrast. Sagittal and coronal reformations through the cervical spine were then performed. All CT scans use one or more of the following dose optimizing techniques: automated exposure control, MA and/or KvP adjustment based on a patient size and exam type, or iterative reconstruction. HISTORY: Fall COMPARISON: None available. FINDINGS: The arevalo-white matter differentiation is normal. No mass effect or midline shift. The ventricles are normal in size and configuration. Basilar cisterns are patent. There are no intra- or extra-axial fluid collections. There is no intracranial hemorrhage. The orbits are normal. Paranasal sinuses are normal. Mastoid air cells are clear. No soft tissue abnormality is seen. No osseus lesions or fractures are seen. The alignment of the cervical spine is normal. No fracture is seen. Vertebral body heights are normal. The craniocervical junction is normal. Disc heights are normal. Facet and uncovertebral joints are normal. There is no osseus spinal canal stenosis. No soft tissue abnormality is seen in the neck. Limited views of the superior thorax are normal. IMPRESSION: 1. No acute intracranial abnormality. 2. No cervical spine fracture. Dictated by: Dictated on workstation # [id number] Dict: 10/16/19 1643 Trans: 10/16/19 1646 [facility] [id number] Interpreted by: SHANEKA JOHNSTON MD Electronically signed by: SHANEKA JOHNSTON MD 10/16/196 Impression Primary Impression: Scalp hematoma Qualified Codes: S00.03XA - Contusion of scalp, initial encounter Additional Impression: Concussion Qualified Codes: S06.0X0A - Concussion without loss of consciousness, initial encounter Disposition: HOME, SELF-CARE Condition: Stable Departure-Patient Inst. Decision time for Depature: 16:31 Referrals: SHANEKA BARRIOS MD (PCP/Family) Primary Care Physician Patient Instructions: Concussion in Adults Add. Discharge Instructions: Get plenty of rest. Tylenol and appropriate for headache 2. Return to ER for any concerns 3. Follow-up with your doctor next week All discharge instructions reviewed with patient and/or family. Voiced u nderstanding. Work/School Note: Work Release Form Date Seen in the Emergency Department: Oct 16, 2019 Return to Work: Oct 18, 2019 ANG CUEVAS APRN Oct 16, 2019 16:32
--- NOTE | 2019-10-16 16:47 | Diagnostic Imaging Report ---
EXAMINATION: CT head and CT cervical spine without contrast. TECHNIQUE: Multiple contiguous axial images were obtained through the brain and cervical spine without the use of intravenous contrast. Sagittal and coronal reformations through the cervical spine were then performed. All CT scans use one or more of the following dose optimizing techniques: automated exposure control, MA and/or KvP adjustment based on a patient size and exam type, or iterative reconstruction. HISTORY: Fall COMPARISON: None available. FINDINGS: The arevalo-white matter differentiation is normal. No mass effect or midline shift. The ventricles are normal in size and configuration. Basilar cisterns are patent. There are no intra- or extra-axial fluid collections. There is no intracranial hemorrhage. The orbits are normal. Paranasal sinuses are normal. Mastoid air cells are clear. No soft tissue abnormality is seen. No osseus lesions or fractures are seen. The alignment of the cervical spine is normal. No fracture is seen. Vertebral body heights are normal. The craniocervical junction is normal. Disc heights are normal. Facet and uncovertebral joints are normal. There is no osseus spinal canal stenosis. No soft tissue abnormality is seen in the neck. Limited views of the superior thorax are normal. IMPRESSION: 1. No acute intracranial abnormality. 2. No cervical spine fracture. Dictated by: Dictated on workstation # [id number]
[2019-10-16 16:59] VITALS: BP 121/81
== END 2019-10-16 16:58 | disposition home or self-care (01) ==
LOC: EDUNIT# 15:53 → ER 15:54
DX: S00.03XA Contusion of scalp, initial encounter (principal); S06.0X0A Concussion without loss of consciousness, initial encounter; I10 Essential (primary) hypertension; E11.9 Type 2 diabetes mellitus without complications; E78.00 Pure hypercholesterolemia, unspecified; F41.9 Anxiety disorder, unspecified; G47.30 Sleep apnea, unspecified; R40.2142 Coma scale, eyes open, spontaneous, at arrival to emergency department; R40.2252 Coma scale, best verbal response, oriented, at arrival to emergency department; R40.2362 Coma scale, best motor response, obeys commands, at arrival to emergency department; Z87.442 Personal history of urinary calculi; Z99.89 Dependence on other enabling machines and devices; Z88.2 Allergy status to sulfonamides; Z79.82 Long term (current) use of aspirin; W01.198A Fall on same level from slipping, tripping and stumbling with subsequent striking against other object, initial encounter
CPT/HCPCS: 70450; 72125

== ENCOUNTER 2020-03-05 09:36 | Emergency (ER) | payer BC ==
[~2020-03-05] VITALS: Ht 170 cm; Wt 129.0 kg
--- NOTE | 2020-03-05 09:50 | ED General ---
General Stated Complaint: BODY ACHES;SOAR;SORE THROAT;CHEST PAIN Source of Information: Patient Exam Limitations: No Limitations History of Present Illness Date Seen by Provider: Mar 05, 2020 Time Seen by Provider: 09:49 Initial Comments 59-year-old male presents with some generalized body aches, sore throat, chest tightness, discomfort some mild shortness of breath. Patient reports that the joint body aches started couple days ago that the chest tightness started this morning. That normally he sleeps on his back but he awoke on his stomach this morning. That felt like something was sating on his back when he rolled over and moved to his chest. He does report possible exposure to COVID 19. He denies any fever or chills at this time. Allergies and Home Medications Allergies Coded Allergies: Sulfa (Sulfonamide Antibiotics) (Verified Allergy, Mild, HIVES/RASH, 11/08/18) Home Medications Alprazolam 0.25 Mg Tablet, 0.25 MG PO DAILY PRN for ANXIETY, (Reported) Aspirin 81 Mg Tablet.dr, 81 MG PO DAILY, (Reported) Bupropion HCl 200 Mg Tablet.er, 200 MG PO BID, (Reported) Dapagliflozin Propanediol 10 Mg Tablet, 10 MG PO DAILY, (Reported) Escitalopram Oxalate 10 Mg Tablet, 10 MG PO DAILY, (Reported) Hydrochlorothiazide 12.5 Mg Capsule, 12.5 MG PO DAILY, (Reported) Nifedipine 30 Mg Tab.er.24, 30 MG PO DAILY, (Reported) Oxycodone HCl/Acetaminophen 1 Each Tablet, 1 TAB PO Q4H Prescribed by: REGGIE FRANCES on 11/22/18 0737 Polyethylene Glycol 3350 17 Gm Powd.pack, 17 GM PO BID Prescribed by: ROBERT JORDAN on 11/24/18 1153 Pravastatin Sodium 40 Mg Tablet, 40 MG PO DAILY, (Reported) Tamsulosin HCl 0.4 Mg Cap.er.24h, 0.4 MG PO DAILY, (Reported) Daily until stone passage Trazodone HCl 50 Mg Tablet, 50 MG PO DAILY, (Reported) Valsartan 80 Mg Tablet, 80 MG PO DAILY, (Reported) Patient Home Medication List Home Medication List Reviewed: Yes Review of Systems Review of Systems Constitutional: No chills, No fever; malaise Respiratory: see HPI, short of breath Cardiovascular: see HPI; No palpitations Gastrointestinal: abdominal pain Genitourinary: no symptoms reported Musculoskeletal: see HPI Skin: no symptoms reported Past Pvesmbm-Pphfvz-Doecpw Hx Patient Social History Alcohol Beverage of Choice: Beer Recent Hopitalizations: No Immunizations Up To Date Date of Pneumonia Vaccine: Jun 28, 2016 Date of Influenza Vaccine: Jun 26, 2018 Seasonal Allergies Seasonal Allergies: Yes Past Medical History Surgeries: Yes (EYELID, NASAL, JAW REPAIR, LABRUM REPAIR, ABD HERNIA) Orthopedic Respiratory: Yes Sleep Apnea Currently Using CPAP: Yes Cardiac: Yes High Cholesterol, Hypertension Neurological: Yes (HX BRAIN BLEED 5YRS AGO) Sexually Transmitted Disease: No HIV/AIDS: No Genitourinary: Yes Kidney Stones Gastrointestinal: No Musculoskeletal: Yes Chronic Back Pain Endocrine: Yes Diabetes, Non-Insulin dep HEENT: Yes (GLASSES) Loss of Vision: Bilateral Cancer: No Psychosocial: Yes Anxiety Integumentary: No Blood Disorders: No Adverse Reaction/Blood Tranf: No (N/A) Physical Exam Vital Signs Vital Signs - First Documented 03/05/20 09:55 Temp 36.9 Pulse 95 Resp 22 B/P (MAP) 125/77 (93) Pulse Ox 91 O2 Delivery Room Air Capillary Refill : Height, Weight, BMI Height: 5'6.00" Weight: 297lbs. 4.0oz. [id number]; 45.00 BMI Method: General Appearance: No Apparent Distress, WD/WN HEENT: PERRL/EOMI Neck: Full Range of Motion Respiratory: No Accessory Muscle Use, No Respiratory Distress Cardiovascular: Regular Rate, Rhythm, No Edema Gastrointestinal: No Distended Extremity: Normal Capillary Refill, Normal Range of Motion Neurologic/Psychiatric: Alert, Oriented x3, Normal Mood/Affect, clinical trials nurse II-XII Norm as Tested Skin: Normal Color, Warm/Dry Focused Exam Lactate Level 03/05/20 10:15: Lactic Acid Level 1.75 Lactic Acid Level Laboratory Tests Test 03/05/20 10:15 Lactic Acid Level 1.75 MMOL/L (0.50-2.00) Progress/Results/Core Measures Suspected Sepsis SIRS Temperature: Pulse: Respiratory Rate: Laboratory Tests 03/05/20 10:15: White Blood Count 10.6 Blood Pressure / Mean: 03/05/20 10:15: Lactic Acid Level 1.75 Laboratory Tests 03/05/20 10:15: Creatinine 0.78, INR Comment 1.0, Platelet Count 196, Total Bilirubin 0.7 Results/Orders Lab Results Laboratory Tests Test 03/05/20 10:15 03/05/20 10:40 03/05/20 11:45 Range/Units White Blood Count 10.6 4.3-11.0 10^3/uL Red Blood Count 5.26 4.35-5.85 10^6/uL Hemoglobin 14.9 13.3-17.7 G/DL Hematocrit 44 40-54 % Mean Corpuscular Volume 83 80-99 FL Mean Corpuscular Hemoglobin 28 25-34 PG Mean Corpuscular Hemoglobin Concent 34 32-36 G/DL Red Cell Distribution Width 13.7 10.0-14.5 % Platelet Count 196 130-400 10^3/uL Mean Platelet Volume 9.7 7.4-10.4 FL Neutrophils (%) (Auto) 83 H 42-75 % Lymphocytes (%) (Auto) 9 L 12-44 % Monocytes (%) (Auto) 7 0-12 % Eosinophils (%) (Auto) 1 0-10 % Basophils (%) (Auto) 0 0-10 % Neutrophils # (Auto) 8.8 H 1.8-7.8 X 10^3 Lymphocytes # (Auto) 1.0 1.0-4.0 X 10^3 Monocytes # (Auto) 0.7 0.0-1.0 X 10^3 Eosinophils # (Auto) 0.1 0.0-0.3 10^3/uL Basophils # (Auto) 0.0 0.0-0.1 10^3/uL Prothrombin Time 13.4 12.2-14.7 SEC INR Comment 1.0 0.8-1.4 Activated Partial Thromboplast Time 28 24-35 SEC Fibrinogen 456 221-496 MG/DL D-Dimer < 0.27 0.00-0.49 UG/ML Sodium Level 138 135-145 MMOL/L Potassium Level 3.6 3.6-5.0 MMOL/L Chloride Level 104 98-107 MMOL/L Carbon Dioxide Level 27 21-32 MMOL/L Anion Gap 7 5-14 MMOL/L Blood Urea Nitrogen 15 7-18 MG/DL Creatinine 0.78 0.60-1.30 MG/DL Estimat Glomerular Filtration Rate > 60 BUN/Creatinine Ratio 19 Glucose Level 184 H 70-105 MG/DL Lactic Acid Level 1.75 0.50-2.00 MMOL/L Calcium Level 9.5 8.5-10.1 MG/DL Corrected Calcium 9.3 8.5-10.1 MG/DL Total Bilirubin 0.7 0.1-1.0 MG/DL Aspartate Amino Transf (AST/SGOT) 15 5-34 U/L Alanine Aminotransferase (ALT/SGPT) 21 0-55 U/L Alkaline Phosphatase 81 40-136 U/L Lactate Dehydrogenase 145 125-220 U/L Troponin I < 0.028 0.028 <0.028 NG/ML C-Reactive Protein High Sensitivity 1.86 H 0.00-0.50 MG/DL Total Protein 6.9 6.4-8.2 GM/DL Albumin 4.2 3.2-4.5 GM/DL My Orders Orders - FU,HANNAH L DO Vital Signs: Every 4 Hours (Or (03/05/20 10:02) Monitor-Rhythm Ecg Trace Only (03/05/20 10:02) Cbc With Automated Diff (03/05/20 10:02) Comprehensive Metabolic Panel (03/05/20 10:02) Ferritin (03/05/20 10:02) LDH (03/05/20 10:02) Hs C Reactive Protein (03/05/20 10:02) Troponin I (03/05/20 10:02) Lactic Acid Analyzer (03/05/20 10:02) Protime With Inr (03/05/20 10:02) Partial Thromboplastin Time (03/05/20 10:02) Fibrin Degradation Products (03/05/20 10:02) Fibrinogen (03/05/20 10:02) Ekg Tracing (03/05/20 10:02) Chest 1 View, Ap/Pa Only (03/05/20 10:02) Coronavirus Sars-Cov-2 So 2018 (03/05/20 10:02) Ondansetron Injection (Zofran Injectio (03/05/20 10:30) Troponin I (03/05/20 11:45) Vital Signs/I&O 03/05/20 09:55 Temp 36.9 Pulse 95 Resp 22 B/P (MAP) 125/77 (93) Pulse Ox 91 O2 Delivery Room Air Capillary Refill : Progress Note : Time: 12:26 Progress Note Patient with symptoms and workup consistent with a viral illness. Patient does have possible positive COVID exposure but no for sure. He will be tested for COVID. I did discuss with him that it could be some other viral mosquito borne or other viral illness. Patient will be given COVID in isolation precautions at discharge. Patient is discharged home in stable condition. Diagnostic Imaging Diagonstic Imaging: Xray Plain Films/CT/US/NM/MRI: chest Comments [facility], [place] NAME: MEHRDAD DECKER [facility] REC#: [id number] PT STATUS: REG ER : 1960 PHYSICIAN: HANNAH FU DO ADMIT DATE: 03/05/20/ER Draft Date of Exam:03/05/20 CHEST 1 VIEW, AP/PA ONLY INDICATION: Sore throat and body aches. Time of exam 11:14 AM Comparison is made with prior chest from 11/08/2018. The heart size is normal. The pulmonary vascularity is unremarkable. The lungs are clear. No infiltrate, effusion or pneumothorax is detected. Impression: No acute cardiopulmonary process is detected. Departure Impression Primary Impression: Viral infection Disposition: 01 HOME, SELF-CARE Condition: Stable Departure-Patient Inst. Referrals: SHANEKA BARRIOS MD (PCP/Family) Primary Care Physician Patient Instructions: Coronavirus Disease 2019 (COVID-19), Viral Syndrome (DC), Viral Upper Respiratory Infection, Adult (DC) Add. Discharge Instructions: Please follow COVID isolation recommendations for isolation until confirmed negative test HANNAH FU DO Mar 05, 2020 09:50
[2020-03-05 10:31] LABS: BASOPHILS % (AUTO) 0 % (0-10); EOSINOPHILS # (AUTO) 0.1 10^3/uL (0.0-0.3); EOSINOPHILS % (AUTO) 1 % (0-10); HEMATOCRIT 44 % (40-54); HEMOGLOBIN 14.9 G/DL (13.3-17.7); LYMPHOCYTES % (AUTO) 9 % (12-44); MEAN CORPUSCULAR HEMOGLOBIN 28 PG (25-34); MEAN CORPUSCULAR HGB CONC 34 G/DL (32-36); MEAN CORPUSCULAR VOLUME 83 FL (80-99); MEAN PLATELET VOLUME 9.7 FL (7.4-10.4); MONOCYTES # (AUTO) 0.7 X 10^3 (0.0-1.0); MONOCYTES % (AUTO) 7 % (0-12); NEUTROPHILS # (AUTO) 8.8 X 10^3 (1.8-7.8); NEUTROPHILS % (AUTO) 83 % (42-75); PLATELET COUNT 196 10^3/uL (130-400); RED CELL DISTRIBUTION WIDTH 13.7 % (10.0-14.5); WHITE BLOOD COUNT 10.6 10^3/uL (4.3-11.0)
[2020-03-05 10:41] LABS: ALBUMIN 4.2 GM/DL (3.2-4.5); CHLORIDE 104 MMOL/L (98-107); POTASSIUM 3.6 MMOL/L (3.6-5.0); SODIUM 138 MMOL/L (135-145)
[2020-03-05 10:42] LABS: CALCIUM 9.5 MG/DL (8.5-10.1)
[2020-03-05 10:43] LABS: GLUCOSE 184 MG/DL (70-105)
[2020-03-05 10:44] LABS: TOTAL PROTEIN 6.9 GM/DL (6.4-8.2)
[2020-03-05 10:45] LABS: BILIRUBIN,TOTAL 0.7 MG/DL (0.1-1.0); CARBON DIOXIDE 27 MMOL/L (21-32)
[2020-03-05 10:47] LABS: ALKALINE PHOSPHATASE 81 U/L (40-136); CREATININE SERUM 0.78 MG/DL (0.60-1.30); GFR ESTIMATED > 60
[2020-03-05 10:48] LABS: BUN/CREATININE RATIO 19
[2020-03-05] MEDS: ONDANSETRON 4 MG/2 ML (SDV) Z0FRAN IVP ONE ×2 (10:49→10:50)
[2020-03-05 10:50] LABS: ALANINE AMINOTRANSFERASE 21 U/L (0-55)
[2020-03-05 10:56] LABS: FIBRIN DEGRADATION PRODUCTS < 0.27 UG/ML (0.00-0.49); FIBRINOGEN 456 MG/DL (221-496); PARTIAL THROMBOPLASTIN TIME 28 SEC (24-35); PROTHROMBIN TIME PATIENT 13.4 SEC (12.2-14.7)
--- OUTSIDE RECORDS SUMMARY | 2020-03-05 11:03 | XMS REPORT | Encounter Summary ---
Author Author [facility] Organization [facility] Address Unknown Phone Unavailable Care Team Providers Care Surg Physician Asst Name Role Phone Marielle Calvillo PCP Encounter Details Care Team Description Date Type Department Marielle Calvillo MD [address] [place] [address] [phone] 03/26/2016 Hist-Transcript [facility] HISTORIC ion Encounter Social History Date Tobacco Use Types Packs/Day Years Used Never Smoker Drinks/Week oz/Week Comments Alcohol Use few weekly Yes Sex Assigned at Date Recorded Not on file Industry Job Start Date Occupation Not on file Not on file Not on file Travel End Travel History Travel Start No recent travel history available. documented as of this encounter Miscellaneous Notes * Clinic Note - Marielle Calvillo MD - 03/26/2016 12:00 AM CDT [facility] [address] [place] [address] [phone] PATIENT: BORA WANG MR #: [id number] : 1960 DATE SEEN: 03/26/2016 Chief Complaint Patient is here for wellness. Additional Information: [facility] History of Present Illness Comes in today for a wellness exam. Overall doing okay. He has recently gotten a job. 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 Only difficult part is his is cu rrently going to be staying in [place], so they will only be seeing each oth er on weekends. He feels like the Lexapro is helping, however, he has developed a tremor. Seems to be a resting tremor. Otherwise, he says he has been doing oka y. Review of Systems No ear pain. No ear discharge. No ringing in ears. No blurry vision, double visi on, or change in vision. No runny nose. No dry mouth. No sore throat. No neck pa in. No chest pain. No shortness of breath. No extremity complaints. No musculosk eletal problems. No endocrine complaints. No weight gain or weight loss. No dizz iness. No depression. No change in skin color or easy bruising. Allergies Bactrim DS Pollen Current Medications Diovan HCT 12.5 mg-80 mg oral tablet (hydrochlorothiazide-valsartan), 1 Tab, Ora l, Daily, 90 Day(s), Comment: Fax to [facility] [phone] Diovan HCT 12.5 mg-80 mg oral tablet (hydrochlorothiazide-valsartan), 1 Tab, Ora l, Daily, 90 Day(s), Comment: Fax to [facility] [phone] Not taking Invokana 300 mg oral tablet (canagliflozin), 300 mg, Oral, Every Morning Kombiglyze XR 2.5 mg-1000 mg oral tablet, extended release (metformin-saxaglipti n), 2 Tab, Oral, Every evening Lexapro 10 mg oral tablet (escitalopram), 10 mg, Oral, Every 24 hours Lovaza oral capsule (omega-3 polyunsaturated fatty acids), 2,000 mg, Oral, 2 kaitlynn es a day Not taking pravastatin 40 mg oral tablet (pravastatin), 40 mg, Oral, At bedtime Procardia XL 30 mg oral tablet, extended release (nifedipine), 30 mg, Oral, Ever y 24 hours, 90 Day(s), Comment: [facility] [phone] trazodone 50 mg oral tablet (trazodone), 50 mg, Oral, At bedtime Vitamin C (ascorbic acid), 500 mg, Oral, Daily Vitamin D3 5000 intl units oral capsule (cholecalciferol), 5,000 IU, Oral, Every 24 hours Wellbutrin SR 200 mg/12 hours oral tablet, extended release (bupropion), 200 mg, Oral, 2 times a day, 30 Day(s) Problems and Past Medical History Active Allergic Rhinits, Seasonal or NOS: Onset on 05/29/2009. Anxiety - Generalized Disorder: Onset on 10/03/2009. Body Mass Index 40 and over, adult: Onset on 05/29/2009. Bunion of left foot Bunion of right foot Diabetes mellitus type II Erectile Dysfunction Foot pain, left Foot pain, right History of CVA (cerebrovascular accident) Hyperlipidemia: Onset on 05/29/2009. Hypertension: Onset on 10/03/2009. Ingrown toenail Metatarsalgia of left foot Metatarsalgia of right foot Obesity NOS OBSTRUCTIVE SLEEP APNEA: Onset on 05/29/2009. Paronychia Type 2 Diabetes, Uncontrolled, with Neuropathy Vitamin D Deficiency Family History Alcoholism.. Grandparent (PGM, ) Bipolar Child Heart attack.. Father Heart disease.. Sister/Brother Lung cancer.. Mother () Mouth cancer... Grandparent (MGM, ) Unknown Family History: Procedure History T & A Appendectomy Abdominal Hernia Repair Deviated Septum Repair w/Bilat. Myringotomy Right Ankle Surgery Upper Jaw Repair/screws ,plates Cardiac Stress Test at 2012. Colonoscopy * at 02/29/2012. left knee surgery at 09/03/2013. Social History Alcohol Use: Current Alcohol Type: Beer, Liquor, Wine Alcohol Frequency: Other: twice a month Caffeine Use: Denies Tobacco/Nicotine Usage: Denies Recreational Drug Use: Denies Education Attained: Other: masters, 17 day phd Physical Examination TEMP BP Pulse RR MAP O2 Sat 36.6 120/84 85 20 96 96 Blood Pressure Location: Left arm Oxygen Therapy: Room air Weight Height BMI BSA 125.3 kg (276.24 lbs) 170.8 cm 43 kg/m2 2.4382 m2 Scale: Standing digital Vital Signs: Stable. Elevated BMI. Ears: TMs clear bilaterally. Clear canals. Eyes: Pupils equal, round, and reactive to light and accommodation. Extraocular motions intact. No icterus. No injection. Mouth: Moist mucous membranes. No post erior pharyngeal erythema. Neck: Soft. Supple. No lymphadenopathy. Heart: Regul ar rate and rhythm without murmur. No S3 or S4. Lungs: Clear to auscultation jose aterally in all lung murray. Good respiratory effort. Abdomen: No guarding. No r ebound. Nontender and nondistended. Positive normoactive bowel sounds. No mass o r hepatosplenomegaly. No bruits heard. Extremities: No clubbing, cyanosis, or ed shavon. Pulses 2+ and equal. Foot exam done today was normal. Normal pulses. Normal sensation. Normal visual exam. Skin: Warm and dry. Good turgor. Neurologic: Int act. He does have a resting tremor. Psychiatric: Appropriate. Impression 1. Wellness examination (Z00.00). 2. Tremor (R25.1). Plan Medication changes this visit: New Diovan HCT 80 mg-12.5 mg oral tablet, 1 Tab, Oral, daily, Quantity: 90, Refills: 1, Comment: Fax to [facility] [phone] Refill Lexapro 10 mg oral tablet, 10 mg, Oral, Q24H, Quantity: 90, Refills: 1 Procardia XL 30 mg oral tablet, extended release, 30 mg, Oral, Q24H, Quantity: 9 0, Refills: 1, Comment: [facility] [phone] Wellbutrin SR 200 mg/12 hours oral tablet, extended release, 200 mg, Oral, BID, Quantity: 180, Refills: 1 trazodone 50 mg oral tablet, 50 mg, Oral, AT BEDTIME, Quantity: 90, Refills: 1 Discussed appropriate immunizations and testings for age. Discussed appropriate diet and exercise changes for a healthy lifestyle. As far as the tremor, he feel s that it may have been made worse when I restarted his Lexapro. We will go ahea d and have him switch it to evening to see if that makes a difference, if not, t hen we will do Prozac. Gave him refills on his medications. See me back for foll owup as appropriate. Call with questions. Risks, benefits of medications and/or treatment options explained. Alternatives and expected outcome discussed. Patient and/or family verbalized understanding. Patient instructed to follow up sooner than directed if new symptoms develop or current symptoms worsen. Otherwise follow up as needed. TR: JACKELYN KAILASH#: [id number] documented in this encounter Plan of Treatment Not on filedocumented as of this encounter Visit Diagnoses Not on filedocumented in this encounter
--- OUTSIDE RECORDS SUMMARY | 2020-03-05 11:03 | XMS REPORT | Encounter Summary ---
Author Author [facility] Organization [facility] Address Unknown Phone Unavailable Care Team Providers Care Beef Boner Name Role Phone RajinderMarielle PCP Encounter Details Care Team Description Date Type Department Keila Whipple DO [address] [facility] [address] [place] [address] [phone] 02/06/2016 Hist-Transcript MOSAIC HISTORIC ion Encounter Social History [...] encounter Miscellaneous Notes * Clinic Note - Keila Whipple DO - 02/06/2016 12:00 AM CDT [facility] [address] [place] [address] [address] [place] [address] PATIENT: BORA WANG MR #: [id number] : 1960 DATE SEEN: 02/06/2016 Chief Complaint Patient is here for one month left ear drum perforation Additional Information: Patient said he has had drainage in left ear History of Present Illness Dr. Wang is in today for reevaluation of his ears. He was doing well, then had a little bit of drainage out of his left ear recently and a little bit of fulln ess feeling on the right. He has had no pain. He has a little bit of congestio n and a little bit of fullness feeling in his throat. It has been going on for a couple of days. Review of Systems MANAGER DRIVE: NA Pertinent negative for the following system(s): Constitutional, HEENT, Respirato ry, Cardiovascular, GI, , Integumentary, Musculoskeletal, Neurological, Hemato logic, Endocrine, Psychiatric Allergies Bactrim DS Pollen Current Medications Diovan HCT 12.5 mg-80 mg oral tablet (hydrochlorothiazide-valsartan), 1 Tab, Ora l, Daily, 90 Day(s), Comment: Fax to [facility] [phone] Diovan HCT 12.5 mg-80 mg oral tablet (hydrochlorothiazide-valsartan), 1 Tab, Ora l, Daily, Comment: Fax to [facility] [phone] Lovaza oral capsule (omega-3 polyunsaturated fatty acids), 2,000 mg, Oral, 2 kaitlynn es a day nateglinide 120 mg oral tablet (nateglinide), 120 mg, Oral, 3 times a day before meals Procardia XL 30 mg oral tablet, extended release (nifedipine), 30 mg, Oral, Ever y 24 hours, Comment: [facility] [phone] trazodone 50 mg oral tablet (trazodone), 50 mg, Oral, At bedtime Vitamin C (ascorbic acid), 500 mg, Oral, Daily Vitamin D3 5000 intl units oral capsule (cholecalciferol), 5,000 IU, Oral, Every 24 hours Wellbutrin SR 200 mg/12 hours oral tablet, extended release (bupropion), 200 mg, Oral, 2 times a day Problems and Past Medical History Active Allergic [...] Tobacco/Nicotine Usage: Denies Recreational Drug Use: Denies Physical Examination TEMP BP Pulse RR MAP O2 Sat 36.3 124/67 94 16 86 93 Blood Pressure Location: Left arm Oxygen Therapy: Room air Weight Height BMI BSA 126.6 kg (279.11 lbs) 170.8 cm 43.4 kg/m2 2.4508 m2 Scale: Standing digital General: 1. Well groomed and dressed appropriately. 2. Well nourished and well developed. 3. Communicates in fluent Maltese with a clear voice. Head/Face: 1. Normocephalic without obvious scars, masses, or lesions. 2. Facial strength is equal, motion is symmetric. 3. No tenderness or instability with palpation of the facial structures. Eyes: 1. Extraocular movements are intact and smooth. 2. No nystagmus. Ears: 1. Pinna are normal in appearance. 2. Exterior canals are normal in appearance without significant cerumen or debr is. 3. Left tympanic membrane has a central mucosal perforation with very small bit s of granulation around it. The middle ear appears to be air filled but moist . On the right, the tympanic membrane is intact. There is a perforation that i s central and dry. Middle ear is dry. 4. Hearing is grossly normal. Nose: 1. External anatomy is unremarkable. 2. Septum approximates in the midline. There is some scarring on the vestibul e. 3. Inferior turbinates are small with some green crust. 4. No erythema of the mucosa is present. 5. No Polyps or purulence is noted. Oral Cavity/Oropharynx: 1. No evidence of erythema or edema of the tongue, lips or gingivae. 2. Teeth are normal in appearance for age. 3. Oral cavity and oropharyngeal mucosa is normal in appearance. 4. There are changes consistent with the UPPP, some erythema in the posterior p haryngeal wall. Hard and soft palates are otherwise intact. 5. Tonsils are surgically absent. Neck: 1. Supple. 2. Trachea is midline. 3. No Masses or Adenopathy. 4. Thyroid and salivary glands are unremarkable. Neurologic: 1. Cranial nerves 2-12 are intact without deficits. 2. Oriented to Person, Place and Time. 3. Displays appropriate mood and affect, cooperative with the exam. Impression 1. Perforated ear drum; Right (H72.90). 2. Granulation tissue of ear canal; Left (L92.9). Plan Since the patient has had tubes for 22 years and apparently has perforations, I will just continue to follow him. He will call if he needs any drops or needs t reatment for a URI (upper respiratory infection) if it does not resolve. cc: Marielle Calvillo MD TR: [id number] KAILASH#: [id number] documented in this encounter Plan of Treatment Not on filedocumented as of this encounter Visit Diagnoses Not on filedocumented in this encounter
--- OUTSIDE RECORDS SUMMARY | 2020-03-05 11:03 | XMS REPORT | Clinical Summary ---
Author Author [facility] Organization [facility] Address Unknown Phone Unavailable Care Team Providers Care Youth Pastor Name Role Phone RajinderMarielle PCP Allergies No Known Allergies Medications End Date Status Medication Sig Dispensed Refills Start Date Active sulfamethoxazole-trimetho Take 1 tablet 0 prim (BACTRIM DS) 800-160 by mouth 2 mg per tablet (two) times a day. Active NIFEdipine (PROCARDIA) 10 Take 10 mg by 0 MG capsule mouth 3 (three) times a day. Active valsartan-hydrochlorothia Take 1 tablet 0 zide (DIOVAN-HCT) 80-12.5 by mouth mg per tablet daily. Active omega-3 acid ethyl esters Take 2 g by 0 (LOVAZA) 1 gram capsule mouth 2 (two) times a day. Active nateglinide (STARLIX) 120 Take 120 mg 0 MG tablet by mouth 3 (three) times a day before meals. Active traZODone (DESYREL) 50 MG Take 50 mg by 0 tablet mouth nightly. Active ascorbic acid (VITAMIN C) Take 500 mg 0 500 MG tablet by mouth daily. Active buPROPion (WELLBUTRIN SR) Take 150 mg 0 150 MG SR 12 hr tablet by mouth 2 (two) times a day. Active ALPRAZolam (XANAX) 0.25 Take 0.25 mg 0 MG tablet by mouth nightly as needed for sleep. Active Problems Not on file Social History Date Tobacco Use Types Packs/Day Years Used Never Smoker Drinks/Week oz/Week Comments Alcohol Use few weekly Yes Sex Assigned at Date Recorded Not on file Industry Job Start Date Occupation Not on file Not on file Not on file Travel End Travel History Travel Start No recent travel history available. Last Filed Vital Signs Reading Time Taken Comments Vital Sign 127/85 11/05/2015 10:10 PM [employer] Blood Pressure 95 11/05/2015 10:10 PM [employer] Pulse 37.3 C (99.2 F) 11/06/2015 12:16 AM [employer] Temperature 18 11/05/2015 10:10 PM [employer] Respiratory Rate 94% 11/05/2015 10:10 PM [employer] Oxygen Saturation - - Inhaled Oxygen Concentration 127 kg (280 lb) 11/05/2015 10:10 PM [employer] Weight 170.2 cm (5' 7") 11/05/2015 10:10 PM [employer] Height 43.85 11/05/2015 10:10 PM [facility] [employer] Body Mass Index Plan of Treatment Not on file Results Not on filefrom Last 3 Months Insurance Type Payer Benefit Subscriber ID Effective Phone Address Plan / Dates Group BLUE CROSS BLUE SHIELD BC OUT OF xxxxxxxxxxxxxx 6-P AREA PREF resent CARE BLUE PPO Bora Wang Personal/F Self 1960 [address] ([address]) [address] [place] [id number] Advance Directives For more information, please contact: [phone] Patient National Sales Explanation Type Date Recorded Advance Directives and Living Will Power of Human Resources Records Clerk
--- OUTSIDE RECORDS SUMMARY | 2020-03-05 11:03 | XMS REPORT | Encounter Summary ---
Author Author [facility] Organization [facility] Address Unknown Phone Unavailable Care Team Providers Care Mechanical Apprentice Name Role Phone RajinderMarielle PCP Encounter Details Care Team Description Date Type Department Keila Whipple DO [address] [facility] [address] [place] [address] [phone] 11/21/2015 Hist-Transcript MOSAIC HISTORIC ion Encounter Social History [...] Clinic Note - Keila Whipple DO - 11/21/2015 12:00 AM [facility] [address] [place] [address] [address] [place] [address] PATIENT: BORA WANG MR #: [id number] : 1960 DATE SEEN: 11/21/2015 Chief Complaint Patient is here for one week follow up History of Present Illness Patient is a 55-year-old male who comes in today for followup of ear drainage. He is doing well. His hearing still seems a bit muffled. Drainage has improved . He saw JAGDEEP Kendrick on the October 31, 2015 and was started on Bactrim and Ciprodex. Review of Systems TIER OVER: NA Pertinent negative for the following system(s): Constitutional, HEENT, Respirato ry, Cardiovascular, GI, , Integumentary, Neurological, Hematologic, Endocrine, Psychiatric Allergies Bactrim DS Pollen Current Medications Diovan HCT 12.5 mg-80 mg oral tablet (hydrochlorothiazide-valsartan), 1 Tab, Delia ly, Comment: Fax to [facility] [phone] Duexis 800 mg-26.6 mg oral tablet (famotidine-ibuprofen), 1 Tab, 3 times a day, 30 Day(s) Lovaza oral capsule (omega-3 polyunsaturated fatty acids), 2,000 mg, 2 times a d ay nateglinide 120 mg oral tablet (nateglinide), 120 mg, 3 times a day before meals predniSONE 10 mg oral tablet (predniSONE), 60MG X 3 [id number] X 3 [id number] X 3 DA YS10MG X 3 DAYSSTOP Procardia XL 30 mg oral tablet, extended release (nifedipine), 30 mg, Every 24 h ours, Comment: [facility] [phone] trazodone 50 mg oral tablet (trazodone), 50 mg, At bedtime Vitamin C (ascorbic acid), 500 mg, Daily Wellbutrin SR 150 mg/12 hours oral tablet, extended release (bupropion), 1 Tab P O daily x 1 week, then bid after that Wellbutrin XL 300 mg/24 hours oral tablet, extended release (bupropion), 300 mg, Every 24 hours Problems and Past Medical History Active Allergic [...] month Caffeine Use: Denies Tobacco/Nicotine Usage: Denies Physical Examination TEMP BP Pulse RR MAP O2 Sat 36.6 120/70 75 16 86.67 100 Blood Pressure Location: Right arm Oxygen Therapy: Room air Weight Height BMI BSA 122.3 kg (269.63 lbs) 170.8 cm 41.9 kg/m2 2.4088 m2 Scale: Standing digital General: 1. Well groomed and dressed appropriately. 2. Well nourished and well developed. 3. Communicates in fluent Polish with a clear voice. Head/Face: 1. Normocephalic [...] without significant cerumen or debr is. 3. Tympanic membranes are intact. There are T-tubes in place bilaterally. Vera und the right side there is a little enlargement of the myringotomy site around the tube. On the left there is a bit of a granuloma, but the ostium does not se em to be enlarging. There is a little moisture down on the membrane. 4. Hearing is grossly normal. Nose: 1. External anatomy is unremarkable. 2. Septum approximates the midline. There is a little bit of scarring along t he inferior nasal vestibule area, consistent with some previous surgery. 3. Inferior turbinates are appropriately reduced. 4. No erythema of the mucosa is present. 5. No Polyps or purulence is noted. Oral Cavity/Oropharynx: 1. No evidence of erythema or edema of the tongue, lips or gingivae. 2. Teeth are normal in appearance for age. 3. Oral cavity and oropharyngeal mucosa is normal in appearance. 4. There are changes consistent with uvulopalatopharyngoplasty. There is some drainage on the posterior pharyngeal wall. Hard and soft palates are otherwise intact. 5. Tonsils are surgically absent. There is a healing ulceration on the left pa latoglossal fold. Neck: 1. Supple. 2. Trachea is midline. 3. No Masses or Adenopathy. 4. Thyroid and salivary glands are unremarkable. Neurologic: 1. Cranial nerves 2-12 are intact without deficits. 2. Oriented to Person, Place and Time. 3. Displays appropriate mood and affect, cooperative with the exam. Audiogram showed mild to moderate low frequency loss, a dip in the higher freque ncies on the left and then a mild loss at 8000 on the right. Speech cashier receptionist: right 20, left 15. Tympanograms are large volume, consistent with open tubes. Impression 1. Chronic otitis media (H66.90). 2. Total perforation of right tympanic membrane (H72.821). 3. SNHL (sensorineural hearing loss) (H90.5). 4. Retained bilateral myringotomy tubes (Z96.22). Plan Orders this visit: ENT Tympanometry -Clinic Pure Tone Air & Bone Audiometry -Clinic Threshold Speech Audiometry -Clinic Patient tolerated tube removal without difficulty. I will have him follow up in a month or so to see if the myringotomy sites are going to heal. He would even tually potentially be a candidate for myringoplasty, but given how long his tube s have been in place I would not get in a big hurry about that. cc: Marielle Calvillo MD TR: PAMELA KAILASH#: [id number] AL CARETAKER SUPERVISOR documented in this encounter Plan of Treatment Not on filedocumented as of this encounter Visit Diagnoses Not on filedocumented in this encounter
--- OUTSIDE RECORDS SUMMARY | 2020-03-05 11:03 | XMS REPORT | Encounter Summary ---
Author Author [facility] Organization [facility] Address Unknown Phone Unavailable Care Team Providers Care Ur Coordinator Name Role Phone RajinderMarielle PCP Encounter Details Care Team Description Date Type Department Duane Yip DO [address], [place] [address] [phone] 11/14/2015 Hist-Transcript [facility] Primar y ion Encounter [place] [address] [address] Social History Date Tobacco Use Types Packs/Day Years Used Never Smoker Drinks/Week oz/Week Comments Alcohol Use few weekly Yes Sex Assigned at Date Recorded Not on file Industry Job Start Date Occupation Not on file Not on file Not on file Travel End Travel History Travel Start No recent travel history available. documented as of this encounter Miscellaneous Notes * Clinic Note - Duane Yip MD - 11/14/2015 12:00 AM [facility] [address] [phone] PATIENT: BORA WANG MR #: [id number] : 1960 DATE SEEN: 11/14/2015 Chief Complaint Patient here today complaining of sore throat. History of Present Illness Garcia comes in today complaining of a sore throat. He states that he initially pr esented a couple of weeks ago to the ENT doctor and was thought to have ear infe ctions, so they started him on Augmentin. Approximately 5-6 days into that cours e, he developed influenza and was placed on Tamiflu and Bactrim and stopped the Augmentin. Somewhere in this process, he has developed pretty significant sore t hroat. No other concerns or complaints today. Allergies Bactrim DS Pollen Current Medications Ciprodex 0.3%-0.1% otic suspension (ciprofloxacin-dexamethasone otic), 4 Drop(s) , 2 times a day, 7 Day(s) Diovan HCT 12.5 mg-80 mg oral tablet (hydrochlorothiazide-valsartan), 1 Tab, Delia ly, Comment: Fax to [facility] [address] [phone] Duexis 800 mg-26.6 mg oral tablet (famotidine-ibuprofen), 1 Tab, 3 times a day, 30 Day(s) Lovaza oral capsule (omega-3 polyunsaturated fatty acids), 2,000 mg, 2 times a d ay nateglinide 120 mg oral tablet (nateglinide), 120 mg, 3 times a day before meals predniSONE 10 mg oral tablet (predniSONE), 60MG X 3 [id number] X 3 [id number] X 3 DA YS10MG X 3 DAYSSTOP Procardia XL 30 mg oral tablet, extended release (nifedipine), 30 mg, Every 24 h ours, Comment[facility] [address] [phone] trazodone 50 mg oral tablet (trazodone), 50 mg, At bedtime Vitamin C (ascorbic acid), 500 mg, Daily Wellbutrin SR 150 mg/12 hours oral tablet, extended release (bupropion), 1 Tab P O daily x 1 week, then bid after that Wellbutrin XL 300 mg/24 hours oral tablet, extended release (bupropion), 300 mg, Every 24 hours Xanax 0.25 mg oral tablet (alprazolam), 1 Tab PO qhs, PRN, Problems and Past Medical History Active Allergic [...] Diabetes, Uncontrolled, with Neuropathy Vitamin D Deficiency Procedure History T & A Appendectomy Abdominal [...] BP Pulse RR MAP O2 Sat 36.6 118/72 77 18 87.33 99 Blood Pressure Location: Left arm Oxygen Therapy: Room air Weight Height BMI BSA 121.3 kg (267.42 lbs) 170.8 cm 41.6 kg/m2 2.399 m2 General: Well hydrated, well developed, well nourished, in no acute distress HEENT: Head is normocephalic and atraumatic. Pupils equal, round, reactive to li ght. Extraocular muscles intact. Mucous membranes moist. No pharyngeal erythema. Tympanic membranes normal. Heart: Regular rate and rhythm without murmurs, rubs, or gallops. Lungs: Clear to auscultation bilaterally without wheeze, rhonchi, or rale. Unlab ored respirations. Abdomen: Soft, nontender, nondistended. No rebound or guarding noted. Bowel soun ds present in 4 quadrants. Extremities: No clubbing, cyanosis, or edema. Pulses 2+ and equal. Neurologic: Alert and oriented x3. No motor or sensory deficits noted. Skin: Warm, dry, and intact. No lesions seen. Impression 1. Sinus drainage (J34.89). 2. Throat pain in adult (R07.0). Plan Orders this visit: Culture Beta Strep Rapid Strep-Clinic Rapid strep done in the office today was negative. Exam was also pretty benign t butch. I think that his sore throat is likely coming just from some sinus drainag e. He saw the mud analysis well logging captain earlier today who put him on some steroid, which I thin k is actually going to give him some benefit with his sinuses and throat, as clifton cohn. He is instructed to call or return to the clinic with any problems, concerns or complaints or if his symptoms do not improved. Otherwise, have him follow up as needed. TR: ROSA MARIA KAILASH#: [id number] FORM PREPARER documented in this encounter Plan of Treatment Not on filedocumented as of this encounter Visit Diagnoses Not on filedocumented in this encounter
--- OUTSIDE RECORDS SUMMARY | 2020-03-05 11:03 | XMS REPORT | Encounter Summary ---
Author Author [facility] Organization [facility] Address Unknown Phone Unavailable Care Team Providers Care Inspector Machined Parts Name Role Phone Marielle Calvillo PCP Encounter Details Care Team Description Date Type Department Marielle Calvillo MD [address] [place] [address] [phone] 12/22/2015 Hist-Transcript [facility] Encounter Social History [...] Clinic Note - Marielle Calvillo MD - 12/22/2015 12:00 AM CDT [facility] [address] [place] [phone] PATIENT: BORA WANG MR #: [id number] : 1960 DATE SEEN: 12/22/2015 Chief Complaint Patient is here for follow up. History of Present Illness Comes in today for followup anxiety. Elevated blood pressure. Anxiety is going o armando but he said it has been pretty stressful at work. He would like to try to go up on the Wellbutrin to see if that is beneficial for him. Blood pressure has b een doing okay. He has been trying to work on diet and exercise changes as well. Review of Systems EMERGENCY MEDICAL TECHNICIAN BASIC: NA Pertinent negative for the following system(s): Constitutional, HEENT, Respirato ry, Cardiovascular, GI, , Integumentary, Musculoskeletal, Neurological, Hemato logic, Endocrine, Psychiatric No ear pain. No ear discharge. No [...] oral tablet (hydrochlorothiazide-valsartan), 1 Tab, Delia ly, 90 Day(s), Comment: [facility]ax to [facility] [phone] Duexis 800 mg-26.6 mg oral tablet (famotidine-ibuprofen), 1 Tab, 3 times a day, 30 Day(s) Lovaza oral capsule (omega-3 polyunsaturated fatty acids), 2,000 mg, 2 times a d ay nateglinide 120 mg oral tablet (nateglinide), 120 mg, 3 times a day before meals Procardia XL 30 mg oral tablet, extended release (nifedipine), 30 mg, Every 24 h ours, Comment: [facility] [address] [phone] trazodone 50 mg oral tablet (trazodone), 50 mg, At bedtime Vitamin C (ascorbic acid), 500 mg, Daily Wellbutrin SR 150 mg/12 hours oral tablet, extended release (bupropion), 1 Tab P O daily x 1 week, then bid after that Wellbutrin XL 300 mg/24 hours oral tablet, extended release (bupropion), 300 mg, Every 24 hours Not taking Problems and Past Medical History Active Allergic [...] TEMP BP Pulse RR MAP O2 Sat 36.7 132/72 85 16 92 97 Blood Pressure Location: Left arm Oxygen Therapy: Room air Weight Height BMI BSA 125.9 kg (277.56 lbs) 170.8 cm 43.2 kg/m2 2.444 m2 Scale: Standing digital Vital Signs: Stable. Elevated BMI. Ears: TMs clear bilaterally. Clear canals. Eyes: Pupils equal, round, and reactive to light and accommodation. Extraocular motions intact. No icterus. No injection. Mouth: Moist mucous membranes. No pos terior pharyngeal erythema. Neck: Soft. Supple. No lymphadenopathy. Heart: Regu lar rate and rhythm without murmur. No S3 or S4. Lungs: Clear to auscultation bi laterally in all lung murray. Good respiratory effort. Abdomen: No guarding. No rebound. Nontender and nondistended. Positive normoactive bowel sounds. No mass or hepatosplenomegaly. No bruits heard. Extremities: No clubbing, cyanosis, or e mg. Pulses 2+ and equal. Skin: Warm and dry. Good turgor. Neurologic: Intact. Psychiatric: Appropriate. Impression 1. Anxiety (F41.9). 2. HTN (hypertension) (I10). Plan Medication changes this visit: New Diovan HCT 12.5 mg-80 mg oral tablet, 1 Tab, daily, Quantity: 90, Refills: 1, Co mment: Fax to [facility] [address] [phone] Wellbutrin SR 200 mg/12 hours oral tablet, extended release, 200 mg, BID, Quanti ty: 60, Refills: 2 Refill Procardia XL 30 mg oral tablet, extended release, 30 mg, Q24H, Quantity: 90, Ref ills: 3, Comment: [address] [phone] Changed Diovan HCT 12.5 mg-80 mg oral tablet, 1 Tab, daily, 90 Day(s), Quantity: 90, Ref ills: 1, Comment: Fax to [address] [phone] Stopped Wellbutrin SR 150 mg/12 hours oral tablet, extended release, See Instructions, Q uantity: 60, Refills: 1 Will go ahead and go up on the Wellbutrin. See him back in a few months, sooner if necessary. He is understanding, call with questions. Risks, benefits of medications and/or treatment options explained. Alternatives and expected outcome discussed. Patient and/or family verbalized understanding. Patient instructed to follow up sooner than directed if new symptoms develop or current symptoms worsen. Otherwise follow up as needed. TR: RAJANI KAILASH#: [id number] documented in this encounter Plan of Treatment Not on filedocumented as of this encounter Visit Diagnoses Not on filedocumented in this encounter
--- OUTSIDE RECORDS SUMMARY | 2020-03-05 11:03 | XMS REPORT | Encounter Summary ---
Author Author [facility] Organization [facility] Address Unknown Phone Unavailable Care Team Providers Care Manager Administrative Name Role Phone RajinderMarielle PCP Encounter Details Care Team Description Date Type Department Keila Whipple DO [address] [facility] [address] [place] [address] [phone] 01/02/2016 Hist-Transcript [facility] Encounter Social History [...] Clinic Note - Keila Whipple DO - 01/02/2016 12:00 AM CDT [facility] [address] [place] [address] [address] [place] [address] PATIENT: BORA WANG MR #: [id number] : 1960 DATE SEEN: 01/02/2016 Chief Complaint Patient is here for one month SNHL / no audio Additional Information: Patient said he still has drainage both ears left is wor se History of Present Illness Patient is a 55-year-old male who comes in today for reevaluation of his ears. He has minimal drainage out of his right ear currently. He usually gets somethi ng when he cleans it with a Q-tip. Occasional drainage on the left. He is havi ng no pain and no change in his hearing. Review of Systems CHIEF SPECIALIST LEED: NA Pertinent negative for the following system(s): Constitutional, HEENT, Respirato ry, Cardiovascular, GI, , Integumentary, Musculoskeletal, Neurological, Hemato logic, Endocrine, Psychiatric Allergies Bactrim DS Pollen Current Medications Diovan HCT 12.5 mg-80 mg oral tablet (hydrochlorothiazide-valsartan), 1 Tab, Delia ly, 90 Day(s), Comment: Fax to [facility] [phone] Not taking Diovan HCT 12.5 mg-80 mg oral tablet (hydrochlorothiazide-valsartan), 1 Tab, Delia ly, Comment: Fax to [facility] [phone] Duexis 800 mg-26.6 mg oral tablet (famotidine-ibuprofen), 1 Tab, 3 times a day, 30 Day(s) Lovaza oral capsule (omega-3 polyunsaturated fatty acids), 2,000 mg, 2 times a d ay nateglinide 120 mg oral tablet (nateglinide), 120 mg, 3 times a day before meals Procardia XL 30 mg oral tablet, extended release (nifedipine), 30 mg, Every 24 h ours, Comment: [facility] [address] [phone] trazodone 50 mg oral tablet (trazodone), 50 mg, At bedtime Vitamin C (ascorbic acid), 500 mg, Daily Wellbutrin SR 200 mg/12 hours oral tablet, extended release (bupropion), 200 mg, 2 times a day Problems and Past [...] TEMP BP Pulse RR MAP O2 Sat 36.1 128/68 86 18 88 97 Blood Pressure Location: Left arm Oxygen Therapy: Room air Weight Height BMI BSA 125.9 kg (277.56 lbs) 170.8 cm 43.2 kg/m2 2.444 m2 Scale: Standing digital Exam under the microscope finds the right tympanic membrane is intact. There is a small perforation with a little bit of a healing edge, but there is no draina ge. On the left in the microscope, anterior to the perforation, it is smaller t stuart it was with a T-tube in place. There is a small amount of granulation tissu e and some moist debris. Impression 1. Granulation tissue of ear canal; Left (L92.9). 2. Central perforation of tympanic membrane of right ear (H72.01). Plan I asked him to use his drops for a week on the left side and then follow up in a nother month or so. If they stay stable at that point, he will just follow up e very 6 months. A couple of the questions he had: one was scuba diving and he ca nnot do that with his perforations, and snorkeling would be fine. cc: Marielle Calvillo MD TR: PAMELA KAILASH#: [id number] documented in this encounter Plan of Treatment Not on filedocumented as of this encounter Visit Diagnoses Not on filedocumented in this encounter
--- OUTSIDE RECORDS SUMMARY | 2020-03-05 11:03 | XMS REPORT | Encounter Summary ---
Author Author [facility] Organization [facility] Address Unknown Phone Unavailable Care Team Providers Care Interventional Radiology Technologist Name Role Phone RajinderMarielle PCP Encounter Details Care Team Description Date Type Department Deshaun Barajas MD [address] [place] [address] 03/01/2016 Hist-Transcript [facility] Encounter Social History [...] encounter Miscellaneous Notes * Clinic Note - Deshaun Barajas MD - 03/01/2016 12:00 AM CDT Patient: BORA WANG Age: 55 years Sex: Male : 1960 Associated Diagnoses: None Author: Deshaun Barajas MD Visit Information [facility] [address] [place] [phone] PATIENT: BORA WANG MR #: [id number] : 1960 DATE SEEN: 03/01/2016 Chief Complaint Patient is a 55 year old male returned for followup regarding his type 2 DM management. History of Present Illness The patient has had type 2 diabetes for 7 years. He was on metformin 1000 mg po bid with meals. Otherwise, no chest pain, no shortness of breath. The patient h as been obese for a long time. No chest pain. No severe hypoglycemia. Denies b lurring vision or tingling or numbness on feet.No other complaints. Pt. states he does not take blood sugar. Also states he has not been taking testosterone fo r a while (since 09/2011). He had ED and decreased libido for 4 years. He was o n testosterone replacement (Androgel). Since last visit, he has been on Kombigly ze XR, nateglinide 120 mg po tid with meals, 1-30 min AC, Invokana. He had A1c a t 9.2% in 03/2012 and in 08/2012, 8.2% in 01/2013, 7.4% in 05/2013, 6.7% in 09/2013, 7.4% in 01/2014, 6.9% in 04/2014, 7.2% in 08/2014, 6.9% in 12/2014, 6.8% in 02/2015, 7.5% in 02/2016. Patient states that he has been off of his diabetic medications since June because he had no insurance coverage. Review of Systems Allergies Bactrim DS Pollen Current Medications Diovan HCT 12.5 mg-80 mg oral tablet (hydrochlorothiazide-valsartan), 1 Tab, Ora l, Daily, 90 Day(s), Comment: Fax to [facility] [phone] Lexapro 10 mg oral tablet (escitalopram), 10 mg, Oral, Every 24 hours Lovaza oral capsule (omega-3 polyunsaturated fatty acids), 2,000 mg, Oral, 2 kaitlynn es a day Procardia XL 30 mg oral tablet, extended release (nifedipine), 30 mg, Oral, Ever y 24 hours, Comment: [facility] [address] [phone] trazodone 50 mg oral tablet (trazodone), 50 [...] Tobacco/Nicotine Usage: Denies Recreational Drug Use: Denies Lost 5.6 kg. No fever or chills. No weight loss or anorexia. No significant he adaches or dizziness. No change in vision or hearing. No palpitations. No co ugh or shortness of breath. No abdominal pain, nausea, or vomiting. No melena or hematemesis. No dysuria or hematuria or incontinence. No syncope. No cold or heat intolerance. No excessive thirst or urination. The rest of 12-point re view of systems was addressed and noncontributory. Physical Examination TEMP BP Pulse RR MAP O2 Sat 36.8 120/68 87 85.33 98 Blood Pressure Location: Left arm Oxygen Therapy: Room air Weight Height BMI BSA 129.0 kg (284.40 lbs) 170.8 cm 44.2 kg/m2 2.4739 m2 HEENT: EOMs intact. No icterus on sclerae. No proptosis or lid lag. Ear, nose and throat are within normal limits. Neck: No thyromegaly, no nodules, no cervical lymphadenopathy. Chest: Clear to auscultation. Heart: Regular rate and rhythm without a murmur or S3. Abdomen: Soft and nontender with normoactive bowel sounds. Extremities: Show no edema, clubbing or cyanosis. No skin breakdown. Neurologic: No fine tremor. DTRs were 2+. No focal motor deficits. No proximal muscle weakness. Cranial nerves II-XII were grossly intact. Intact sense to touch by 10G monofilament examination on both feet. He has normal genitalia for an adult male. Normal muscle tone and mass. ASSESSMENT AND PLAN 1. Type 2 diabetes, in range, restart Kombiglyze XR 01/1000 mg with dinner, Invok emily 300 mg po daily at breakfast. Advised about UTI and mycotic infection/person al hygiene, adequated fluid intake to avoid dehydration/volume loss, metformin E R 500 mg po with meal. 2. Dyslipidemia. Lipid panel not in range in 10/2015. Change to pravastatin 40 mg po qhs. 3. Hypertension. Urine microalbumin ratio was normal in 02/2015. Continue Diovan /HCT and Procardia. Restart ECASA 325 mg po daily. 4. Hypogonadism, LH, free testosterone was normal in 03/2012. He has ED, he is w illing to try Levitra 20 mg po daily. 5. Abdominal obesity, TLC, 1800 Kcal. 6. Return in 4 months. CC: Marielle Calvillo MD documented in this encounter Plan of Treatment Not on filedocumented as of this encounter Visit Diagnoses Not on filedocumented in this encounter
--- OUTSIDE RECORDS SUMMARY | 2020-03-05 11:03 | XMS REPORT | Encounter Summary ---
Author Author [facility] Organization [facility] Address Unknown Phone Unavailable Care Team Providers Care Wall Man Name Role Phone Marielle Calvillo PCP Encounter Details Care Team Description Date Type Department Marielle Calvillo MD [address] [place] [address] [phone] 01/26/2016 Hist-Transcript [facility] Encounter Social History [...] Clinic Note - Marielle Calvillo MD - 01/26/2016 12:00 AM CDT [facility] [address] [place] [phone] PATIENT: BORA WANG MR #: [id number] : 1960 DATE SEEN: 01/26/2016 Chief Complaint Patient is here to follow up with HTN. History of Present Illness Comes in today for followup on his hypertension. Blood pressure today is elevate d. However when he was at his last physician's office this morning it was 112/78 . He said he has not really been checking it at home. Recheck today in the offic e w as 124/92. He also has difficulty with anxiety. He is wanting to go on the higher dose of Wellbutrin for a little while. Review of Systems TIMBER MANAGEMENT SPECIALIST: NA Pertinent negative for the following system(s): [...] l, Daily, 90 Day(s), Comment: Fax to [facility] [phone] Diovan HCT 12.5 mg-80 mg oral tablet (hydrochlorothiazide-valsartan), 1 Tab, Ora l, Daily, Comment: Fax to [facility] [phone] Lovaza oral capsule (omega-3 polyunsaturated fatty acids), 2,000 mg, Oral, 2 kaitlynn es a day nateglinide 120 mg oral tablet (nateglinide), 120 mg, Oral, 3 times a day before meals Procardia XL 30 mg oral tablet, extended release (nifedipine), 30 mg, Oral, Ever y 24 hours, Comment: [facility] [phone] trazodone 50 mg oral tablet (trazodone), 50 [...] BP Pulse RR MAP O2 Sat 36.7 132/92 84 16 105.33 96 Blood Pressure Location: Left arm Oxygen Therapy: Room air Weight Height BMI BSA 125.7 kg (277.12 lbs) 170.8 cm 43.1 kg/m2 2.4421 m2 Scale: Standing digital Vital Signs: Stable. Elevated BMI. Elevated blood pressure. Ears: TMs clear bi laterally. Clear canals. Eyes: Pupils equal, round, and reactive to light and a ccommodation. Extraocular motions intact. No icterus. No injection. Mouth: Moist mucous membranes. No posterior pharyngeal erythema. Neck: Soft. Supple. No lym phadenopathy. Heart: Regular rate and rhythm without murmur. No S3 or S4. Lungs: Clear to auscultation bilaterally in all lung murray. Good respiratory effort. Abdomen: No guarding. No rebound. Nontender and nondistended. Positive normoacti ve bowel sounds. No mass or hepatosplenomegaly. No bruits heard. Extremities: No clubbing, cyanosis, or edema. Pulses 2+ and equal. Skin: Warm and dry. Good tur gor. Neurologic: Intact. Psychiatric: Appropriate. Impression 1. Hypertension (I10). 2. Anxiety - Generalized Disorder (F41.1). 3. Vitamin D Deficiency (E55.9). Plan As far as his hypertension have him do a blood pressure cuff check. Check his bl ood pressure twice a day and let us know how it is running. As far as the anxiet y continue current therapy. See me back for followup in 4 weeks. Sooner if kristin costello. Call with questions. Risks, benefits of medications and/or treatment options explained. Alternatives and expected outcome discussed. Patient and/or family verbalized understanding. Patient instructed to follow up sooner than directed if new symptoms develop or current symptoms worsen. Otherwise follow up as needed. TR: RAJANI KAILASH#: [id number] documented in this encounter Plan of Treatment Not on filedocumented as of this encounter Visit Diagnoses Not on filedocumented in this encounter
--- OUTSIDE RECORDS SUMMARY | 2020-03-05 11:03 | XMS REPORT | Encounter Summary ---
Author Author [facility] Organization [facility] Address Unknown Phone Unavailable Care Team Providers Care Remittance Clerk Name Role Phone RajinderMarielle PCP Encounter Details Care Team Description Date Type Department Ruba Avila DPM [address] [place] [id number] [phone] 11/14/2015 Hist-Transcript [facility] HISTORIC ion Encounter Social History [...] encounter Miscellaneous Notes * Clinic Note - Ruba Avila DPM - 11/14/2015 12:00 AM SUPERSONIC ENGINEER [facility] [address] [place] [address] [phone] [facility] PATIENT: BROA WANG MR #: [id number] : 1960 DATE SEEN: 11/14/2015 Chief Complaint Patient is here today for bilateral foot pain. Patient is diabetic. Additional Information: Dr. Deshaun Barajas is his doctor, last seen in March. History of Present Illness Patient is seen today with bilateral foot pain. He is diabetic. He states bloo d sugar has been somewhat high. He rates current discomfort level 5/10. He sta rted working on his feet a few months ago in increased amounts. Since June 20, there has been an increase in discomfort that has been more moderate to sev ere, worse with activity, better with rest. He locates pain on the plantar port ion of both feet, around the fall of each foot, specifically around the 1st and 2nd metatarsal head. No specific injury is related. It is worse with activity and work. It is better when he is off his feet. He has tried shoe changes. Cr ocs seem to be the best in alleviating symptoms of pain. He has also tried oral Advil. He denies other complaints or issues today. He is here today with bila teral foot pain that limits his ability to stand, walk, and wear shoes without e xperiencing discomfort. Pain Assessment Cognitive Status: Independent, decisions consistent/reasonable Intensity: 5 Location: Foot Review of Systems DO ALL OPERATOR: NA Musculoskeletal: Muscle or joint pain Pertinent negative for the following system(s): Constitutional, Integumentary, N eurological, Hematologic Allergies Bactrim DS Pollen Current Medications Ciprodex 0.3%-0.1% otic suspension (ciprofloxacin-dexamethasone otic), 4 Drop(s) , 2 times a day, 7 Day(s) Diovan HCT 12.5 mg-80 mg oral tablet (hydrochlorothiazide-valsartan), 1 Tab, Delia sal, Comment: Fax to [facility] [address] [phone] Lovaza oral capsule (omega-3 polyunsaturated fatty acids), 2,000 mg, 2 times a d ay nateglinide 120 mg oral tablet (nateglinide), 120 mg, 3 times a day before meals Procardia XL 30 mg oral tablet, extended release (nifedipine), 30 mg, Every 24 h ours, Comment: [facility] [phone] trazodone 50 mg oral tablet (trazodone), 50 [...] tablet (alprazolam), 1 Tab PO qhs, PRN, Social History Alcohol Use: Current Alcohol Type: Beer, Liquor, Wine Alcohol Frequency: Other: twice a month Caffeine Use: Denies Tobacco/Nicotine Usage: Denies Physical Examination TEMP BP Pulse RR MAP O2 Sat 36.6 128/78 94.67 97 Apical Heart Rate: 70 bpm Weight Height BMI BSA 120.8 kg (266.32 lbs) 170.8 cm 41.4 kg/m2 2.394 m2 Alert and oriented, in no apparent distress. Vascular: DP (dorsalis pedis)/PT ( posterior tibial) pulses are intact bilateral. Dermatological: No open lesions are seen. No sign of skin breakdown or infection. Neurologic: Negative Soheila ski sign. Intact ankle reflexes. Musculoskeletal: All muscle groups are 5/5, b ilateral. Pain with palpation of both feet, along the 1st and 2nd metatarsal he ad region. No sign of any significant deviation or complications. Mild inflamm ation is noted around the 1st and 5th MTPJ (metatarsophalangeal joint) area. Bu nion formation noted bilaterally. Impression 1. Bunion of right foot (M20.11). 2. Bunion of left foot (M20.12). 3. Metatarsalgia of right foot (M77.41). 4. Metatarsalgia of left foot (M77.42). 5. Foot pain, left (M79.672). 6. Foot pain, right (M79.671). 7. Diabetes mellitus. Plan Medication changes this visit: New Duexis 800 mg-26.6 mg oral tablet, 1 Tab, TID, 30 Day(s), Quantity: 90, Refills: 1 predniSONE 10 mg oral tablet, See Instructions, Quantity: 39, Refills: 0 Orders this visit: DME -Request Follow Up PRN -Request We discussed diabetic foot care and foot hygiene. We ordered x-rays of both fee t. Ordered today a prednisone dose pack to be followed by Duexis. We explained the prednisone dose pack will increase his blood sugar. We discussed appropria te shoes, arch supports, and not going barefoot. Today, we wrote a prescription for custom-foot orthotics and we will see Mr. Wang back on an as-needed basis. TR: SENIA KAILASH#: [id number] RSONIC ENGINEER documented in this encounter Plan of Treatment Not on filedocumented as of this encounter Visit Diagnoses Not on filedocumented in this encounter
--- OUTSIDE RECORDS SUMMARY | 2020-03-05 11:04 | XMS REPORT | Encounter Summary ---
Author Author [facility] Organization [facility] Address Unknown Phone Unavailable Care Team Providers Care Hand Drawer In Name Role Phone Marielle Calvillo PCP Encounter Details Care Team Description Date Type Department Marielle Calvillo MD [address] [place] [address] [phone] 02/05/2015 Hist-Transcript [facility] HISTORIC ion Encounter Social History Date Tobacco Use Types Packs/Day Years Used Never Assessed Sex Assigned at Date Recorded Not on file Industry Job Start Date Occupation Not on file Not on file Not on file Travel End Travel History Travel Start No recent travel history available. documented as of this encounter Miscellaneous Notes * Clinic Note - Marielle Calvillo MD - 02/05/2015 12:00 AM CDT [facility] [address] [place] [address] [phone] PATIENT: BORA WANG MR #: [id number] : 1960 DATE SEEN: 02/05/2015 Chief Complaint Patient is here for followup on MRI. History of Present Illness Comes in today for followup. Note for difficulty with headaches. He has been h aving some more headaches. No vision changes associated with it, just some head aches. Says they are different than what they had been. He has had a history of a CVA in the past, so he is concerned about this. Pain Assessment Cognitive Status: Independent, decisions consistent/reasonable Intensity: 4 Location: Ear Laterality: Left Review of Systems No ear pain. No [...] in skin color or easy bruising. Allergies Pollen Current Medications Renetta (fexofenadine), call office to update your dosage when you get home., NM N, clonidine 0.1 mg oral tablet (clonidine), 0.1 mg, 3 times a day Diovan HCT 12.5 mg-80 mg oral tablet (hydrochlorothiazide-valsartan), 1 Tab, Delia ly Flonase 50 mcg/inh nasal spray (fluticasone nasal), 2 Wolverine, Every 24 hours Floxin Otic 0.3% solution (ofloxacin otic), 5 Drop(s), 2 times a day GENADUR (Miscellaneous Medication), APPLY TO TOENAILS DAILY Invokana 300 mg oral tablet (canagliflozin), 300 mg, Every Morning Kombiglyze XR 2.5 mg-1000 mg oral tablet, extended release (metformin-saxaglipti n), 2 Tab, Every evening Levitra 20 mg oral tablet (vardenafil), 20 mg, Daily LG BP CUFF (Misc. Medication), LARGE BP CUFF Lovaza oral capsule (omega-3 polyunsaturated fatty acids), 2,000 mg, 2 times a d ay metformin 500 mg oral tablet, extended release (metformin), 500 mg, Daily nateglinide 120 mg oral tablet (nateglinide), 120 mg, 3 times a day before meals One Touch Ultra Strips and One Touch Delica (Misc. Medication), as directed pantoprazole 40 mg oral enteric coated tablet (pantoprazole), 40 mg, 2 times a d ay Procardia XL 30 mg oral tablet, extended release (nifedipine), 30 mg, Every 24 h ours trazodone 50 mg oral tablet (trazodone), 50 mg, At bedtime TriCor 145 mg oral tablet (fenofibrate), 145 mg, Every 24 hours Vitamin B Complex with C and Minerals oral capsule (multivitamin with minerals), 1 Cap, Daily Vitamin C (ascorbic acid), 500 mg, Daily Vitamin D (Miscellaneous Medication), 4,000 IU, Daily Vitamin D3 (cholecalciferol), 4,000 IU, Daily Wellbutrin XL 300 mg/24 hours oral tablet, extended release (bupropion), 300 mg, Every 24 hours Problems and Past Medical History Active Allergic Rhinitis, Seasonal or NOS: Onset on 05/29/2009. Anxiety - Generalized Disorder: Onset on 10/03/2009. Body Mass Index 40 and over, adult: Onset on 05/29/2009. Diabetes mellitus type II Erectile Dysfunction Foot Pain History of CVA (cerebrovascular accident) Hyperlipidemia: Onset on 05/29/2009. Hypertension: Onset on 10/03/2009. Ingrown toenail Obesity NOS OBSTRUCTIVE SLEEP APNEA: Onset on 05/29/2009. Paronychia Type 2 Diabetes, Uncontrolled, with Neuropathy Vitamin D Deficiency Family History Alcoholism.. Grandparent (PGM, ) Bipolar Child Heart attack.. Father Heart disease.. Sister/Brother Lung cancer.. Mother () Mouth cancer Grandparent (MGM, ) Unknown Family History: Procedure History T & A Appendectomy Abdominal Hernia Repair Deviated Septum Repair w/Bilat. Myringotomy Right Ankle Surgery Upper Jaw Repair/screws ,plates Cardiac Stress Test at 2012. Colonoscopy * at 02/29/2012. left knee surgery at 09/03/2013. Social History Alcohol Use: Current Alcohol Type: Beer, Liquor, Wine Alcohol Frequency: Other: twice a month Caffeine Use: Denies Current Tobacco Usage: Denies Education: [employer] School Recreational Drug Use: Denies Living Situation: Home independently Physical Examination TEMP BP Pulse RR MAP O2 Sat 36.4 134/82 86 17 99.33 96 Blood Pressure Location: Left arm Oxygen Therapy: Room air Weight Height BMI BSA 132.4 kg (291.89 lbs) 170.8 cm 45.4 kg/m2 2.5063 m2 Scale: Standing digital Elevated BMI. Vital Signs: Stable. Ears: Does have bilateral otitis media. Lik joceline sinus infection. Eyes: Pupils equal, round, and reactive to light and accom modation. Extraocular motions are intact. No icterus. No injection. Sinuses: Ma xillary sinuses tender to palpation. Mouth: Moist mucous membranes. No posterior pharyngeal erythema. Neck: Soft. Supple. No lymphadenopathy. Heart: Regular rate and rhythm without murmur. No S3 or S4. Lungs: Clear to auscultation bilaterally in all lung murray. Good respiratory effort. Extremities: No clubbing, cyanosis, or edema. Impression 1. Headache (784.0). 2. History of CVA (cerebrovascular accident) (V12.54). 3. Left otitis media (382.9). 4. Encounter for medication counseling (V65.49). Plan Medication changes this visit: New Augmentin 875 mg-125 mg oral tablet, 1 Tab, Q12H, 14 Day(s), Quantity: 28, Refil ls: 0 Orders this visit: Referral - Request, Neurosurgery, Elmer Mclain S, DO, hx CVA, headaches, hea d pressure We will go ahead and put him on antibiotics. He would like to see Neurosurgery for a followup. We will go ahead and try to get him in there. I told him if hi s headaches are not cleared up after treatment of the upper respiratory infectio n, then we need to see him back for followup because additional changes with the symptoms, he needs to come back in sooner, go the ER, etc. He is understanding. Call if questions. Risks, benefits of medications and/or treatment options explained. Alternatives and expected outcome discussed. Patient and/or family verbalized understanding. Patient instructed to follow up sooner than directed if new symptoms develop or current symptoms worsen. Otherwise follow up as needed. TR: ROSA MARIA DD: 06:51 KAILASH#: [id number] documented in this encounter Plan of Treatment Not on filedocumented as of this encounter Visit Diagnoses Not on filedocumented in this encounter
--- OUTSIDE RECORDS SUMMARY | 2020-03-05 11:04 | XMS REPORT | Encounter Summary ---
Author Author [facility] Organization [facility] Address Unknown Phone Unavailable Care Team Providers Care Specialist Field Engineer Name Role Phone Zohaib Calvilloah PCP Encounter Details Care Team Description Date Type Department Jaya QuinNURY [address] [place] [address] [phone] 10/31/2015 Hist-Transcript MOSAIC HISTORIC ion Encounter Social History Date Tobacco Use Types Packs/Day Years Used Never Assessed Sex Assigned at Date Recorded Not on file Industry Job Start Date Occupation Not on file Not on file Not on file Travel End Travel History Travel Start No recent travel history available. documented as of this encounter Miscellaneous Notes * Clinic Note - [place] FNP-BC - 10/31/2015 12:00 AM STACK YIELD ENGINEER [facility] [address] [place] [address] [address] [place] [address] PATIENT: BROA WANG MR #: [id number] : 1960 DATE SEEN: 10/31/2015 Chief Complaint Patient is here today to be seen for bilateral ear check. Additional Information: States the left ear in draining and has hearing loss. History of Present Illness Bora is a 55-year-old male patient who presents to the clinic to see me today f or sinus problems and a left-sided draining ear. He states he has had T-tubes pl aced for over 20 years. This has been the same set. He reports chronic drainage from the left ear. He states it does get better for a day or two, but the draina ge is usually present most of the time. He recently started a course of antibiot ics. He reports this has not helped his sinus symptoms. Review of Systems CHIPPER FEEDER: NA Pertinent negative for the following system(s): Constitutional, HEENT, Respirato ry, Cardiovascular, GI, , Integumentary, Musculoskeletal, Neurological, Hemato logic, Endocrine Allergies Pollen Current Medications Augmentin 875 mg-125 mg oral tablet (amoxicillin-clavulanate), 1 Tab, Every 12 h ours, 14 Day(s) Diovan HCT 12.5 mg-80 mg oral tablet (hydrochlorothiazide-valsartan), 1 Tab, Delia ly, Comment: Fax to [facility] [phone] Lovaza oral capsule (omega-3 polyunsaturated fatty acids), 2,000 mg, 2 times a d ay nateglinide 120 mg oral tablet (nateglinide), 120 mg, 3 times a day before meals Procardia XL 30 mg oral tablet, extended release (nifedipine), 30 mg, Every 24 h ours, Comment: [facility] [phone] trazodone 50 mg oral tablet (trazodone), 50 mg, At bedtime Vitamin C (ascorbic acid), 500 mg, Daily Wellbutrin SR 150 mg/12 hours oral tablet, extended release (bupropion), 1 Tab P O daily x 1 week, then bid after that Xanax 0.25 mg oral tablet (alprazolam), 1 [...] TEMP BP Pulse RR MAP O2 Sat 37.0 128/77 92 20 94 100 Blood Pressure Location: Left arm Oxygen Therapy: Room air Weight Height BMI BSA 127.8 kg (281.75 lbs) 170.8 cm 43.8 kg/m2 2.4624 m2 Scale: Standing digital Constitutional: Communicative: Hearing, normal. Speech, normal. Voice qualit y, normal. Head and face: Inspection: Face, normal. Facial Strength/Symmetry: Normal. Ears: Pinna: Right, normal. Left, normal. Exterior Canals: Right, chencho r. Left, small amount of yellow drainage. Tympanic Membrane: Right, T-tube in place and patent. Left, T-tube in place a nd patent. Nose: Skin: Within normal limits. Septum: Midline. Turbinates: Matador, hyper trophy. Labial-Dental: Lips: No lesions Dental: Good. Gums: Healthy. Buccal: Wi thin normal limits. Floor: Within normal limits. Tongue: Within normal limits. Palate: Within no rmal limits. Mucosa: Moist. Tonsils: Surgically absent. Soft palate: Within normal limits. Uvula: Midli ne Oropharynx: Within normal limits. Salivary Glands: Normal size. Parotid: Normal. Submandibular: Normal Neck: Thyroid: No enlargement or masses. Neck: No adenopathy or masses. Lymph nodes: Normal. Lungs: Clear to auscultation. Respiratory effort: Normal. Neurological: Cranial nerves 2-12 intact. Gait normal. Cardiovascular: Regular rate and rhythm. Skin: Matador, warm and dry. Impression 1. ETD (eustachian tube dysfunction) (H69.80). Plan Medication changes this visit: New Bactrim DS 800 mg-160 mg oral tablet, 1 Tab, BID, 10 Day(s), Quantity: 20, Refil ls: 0 Ciprodex 0.3%-0.1% otic suspension, 4 Drop(s), BID, 7 Day(s), Quantity: 1, Refil ls: 1 Today there is evidence of otitis media in the left ear. I recommend Ciprodex dr ops into the ear. I will put him on Bactrim and have him discontinue the Augment in, since it does not seem to be improving his symptoms of sinusitis. I also dis cussed the tubes being the possible source of the infection, as he states the le ft ear drains most of the time. I will have him follow up with Dr. Mychal kaplan in [place] in 1-2 weeks. cc: Marielle Calvillo MD TR: [id number] KAILASH#: [id number] K YIELD ENGINEER documented in this encounter Plan of Treatment Not on filedocumented as of this encounter Visit Diagnoses Not on filedocumented in this encounter
--- OUTSIDE RECORDS SUMMARY | 2020-03-05 11:04 | XMS REPORT | Encounter Summary ---
Author Author Organization Address Unknown Phone Unavailable Care Team Providers Care Allergist/Immunologist Physician Name Role Phone RajinderMarielle PCP Encounter Details Care Team Description Date Type Department Elmer Mclain DO [address] [place] [address] [phone] 10/25/2014 Hist-Transcript [facility] ion Encounter Social History Date Tobacco Use Types Packs/Day Years Used Never Assessed Sex Assigned at Date Recorded Not on file Industry Job Start Date Occupation Not on file Not on file Not on file Travel End Travel History Travel Start No recent travel history available. documented as of this encounter Progress Notes * Elmer Mclain - 10/25/2014 12:00 AM FRONT DESK OFFICER Patient: BORA WANG Age: 54 years Sex: Male : 1960 Associated Diagnoses: None Author: Elmer Mclain DO Consultation Information Date of Consultation: 10/25/2014 Date of Admission: 10/24/2014 Requesting Physician: Lizet Talavera MD. Reason for Consulation: L occipital hemhorrage. Chief Complaint Dr Menchaca called me last night stating pt had 2 week hx of visual scotomas m ost prominant in R eye,none for past 3 days also c/o RAWLS no N/V no weakness or speech difficulty hx HTN and DM History of Present Illness as above Review of Systems ROS reviewed as documented in chart Health Status Allergies: Allergic Reactions (Selected) Severity Not Documented Pollen- No reactions were documented. 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 / Confirmed Vitamin D Deficiency / 268.9 / Confirmed Inpatient Medications: Ativan 1 mg, Q4H D50W 12.5 gm, Q3MIN Diovan 80 mg, daily Flonase 50 mcg/inh nasal spray 100 mcg, daily Humalog , ACHS Invokana 300 mg, QAM NS 1,000 mL 1,000 mL Last Dose: Begin Bag 1,000 [id number] 10/25/14 04:28 Nitrostat 0.4 mg, Q5MIN Ward 5 mg-325 mg oral tablet 1 Tab, Q4H Last Dose: 1Tab 10/24/14 21:44 Onglyza 2.5 mg, BID w/meals Procardia XL 30 mg, daily Wellbutrin XL 300 mg, daily acetaminophen 650 mg, Q4H bisacodyl 10 mg, daily docusate sodium 100 mg, BID fenofibrate 160 mg, daily glucagon 1 mg, X 1 DOSE glucose 16 gm, Q15MIN hydralazine 10 mg, Q4H hydrochlorothiazide 12.5 mg, daily metformin 1,000 mg, BID w/meals morphine 4 mg, Q4H nateglinide 120 mg, TIDAC Last Dose: 120mg 10/25/14 06:25 ondansetron 4 mg, Q6H pantoprazole 40 mg, BID promethazine 12.5 mg, Q6H Prescription / Home Medications: Renetta See Instructions, call office to update your dosage when you get home., as needed for allergy symptoms aspirin 325 mg oral tablet 325 mg, Oral, Every 24 hours Diovan HCT 12.5 mg-80 mg oral tablet 1 Tab, Oral, Daily, 30 Day(s) Last Dose: 10/24/14 07:00 Flonase 50 mcg/inh nasal spray 2 [place], Nasal, Every 24 hours Floxin Otic 0.3% solution 5 Drop(s), left ear, 2 times a day, 7 Day(s) GENRALEIGH See Instructions, APPLY TO TOENAILS DAILY Invokana 300 mg oral tablet 300 mg, Oral, Every Morning Last Dose: 10/24/14 0 7:00 Kombiglyze XR 2.5 mg-1000 mg oral tablet, extended release 2 Tab, Oral, Every e vening Last Dose: 10/24/14 07:00 Levitra 20 mg oral tablet 20 mg, Oral, Daily LG BP CUFF See Instructions, LARGE BP CUFF Lovaza oral capsule 2,000 mg, Oral, 2 times a day Last Dose: 10/24/14 07:00 metformin 500 mg oral tablet, extended release 500 mg, Oral, Daily Last Dose: 10/24/14 07:00 nateglinide 120 mg oral tablet 120 mg, Oral, 3 times a day before meals Last Dose: 10/24/14 13:00 Nitrolingual 0.4 mg sublingual spray 0.4 mg, Sublingual, Every 5 minutes One Touch Ultra Strips and One Touch Delica See Instructions, as directed pantoprazole 40 mg oral enteric coated tablet 40 mg, Oral, 2 times a day, 30 Da y(s) Last Dose: 10/24/14 07:00 Procardia XL 30 mg oral tablet, extended release 30 mg, Oral, Every 24 hours Last Dose: 10/24/14 07:00 TriCor 145 mg oral tablet 145 mg, Oral, Every 24 hours, 30 Day(s) Last Dose: 10/24/14 07:00 Vitamin B Complex with C and Minerals oral capsule 1 Cap, Oral, Daily Last Do se: 10/24/14 07:00 Vitamin C 500 mg, Oral, Daily Last Dose: 10/24/14 07:00 Vitamin D 4,000 IU, Daily Vitamin D3 4,000 IU, Oral, Daily Last Dose: 10/24/14 07:00 Wellbutrin XL 300 mg/24 hours oral tablet, extended release 300 mg, Oral, Every 24 hours, 30 Day(s) Last Dose: 10/24/14 07:00 Histories Past Medical History: No active or resolved past medical history items have been selected or recorded. Family History: Alcoholism.. Grandparent (PGM, ) Bipolar Child Heart attack.. Father Heart disease.. Sister/Brother Lung cancer.. Mother () Mouth cancer Grandparent (MGM, ) Unknown Family History: Procedure History: left knee surgery on 09/03/2013 at 52 Years. Cardiac Stress Test on 2012 at 52 Years. Colonoscopy * (99409) on 02/29/2012 at 51 Years. Comments: 02/08/2013 16:30 - Way, Shannan Fairchild LPN repeat in 5 yrs T & A. Appendectomy. Abdominal Hernia Repair. Deviated Septum Repair w/Bilat. Myringotomy. Right Ankle Surgery. Upper Jaw Repair/screws ,plates. 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 Physical Examination VS/Measurements Vitals (last 3 within 24 hours) Date/Time Temp BP Pulse RR SAO2 FIO2 10/25 07:30 36.6 127/73 74 16 95 10/25 06:00 114/77 87 10/25 05:30 120/78 102 Current Weight: 133.5 kg - 10/24/14 22:19 Current Height: 168 cm - 10/24/14 22:19 Current BMI: 47.3 - 10/24/14 22:19 A/AOx3 CN 2-12 intact visual murray full motor 5/5 bilat U/LE speech clear,sensa tion intact MR and ct head demonstrates subacute hemhorrage in L occipital area with some carvalho rrounding edema,lokss about 1-2 weeks old no significant mass effect no definiti ve mass Review / Management Laboratory results: Procedure Current Result General Chemistry Total Protein: 7.6 gm/dL 10/24 21:11 Albumin Level: 3.8 gm/dL 10/24 21:11 Calcium: 9.1 mg/dL 10/24 21:11 Corrected/Adjusted Ca: 9.3 mg/dL 10/24 21:11 Bili Total: 0.3 mg/dL 10/24 21:11 Alk Phos: 84 U/L 10/24 21:11 Sodium: 136 mmol/L 10/24 21:11 Potassium: 3.6 mmol/L 10/24 21:11 Chloride: 101 mmol/L 10/24 21:11 TCO2 (Bicarbonate): 25 mmol/L 10/24 21:11 Glucose Level: H 200 mg/dL 10/24 21:11 BUN: 13 mg/dL 10/24 21:11 Creatinine: 0.98 mg/dL 10/24 21:11 eGFR: >60 mL/min 10/24 21:11 eGFR (): >60 mL/min 10/24 21:11 ALT/GPT: 36 U/L 10/24 21:11 AST/GOT: 19 U/L 10/24 21:[address] Head w/o Contrast 10/25/14 05:47 Left occipital lobe hematoma with surrounding edema is probably stable from the MRI yesterday US Duplex Carotids 10/25/14 06:15 No stenosis seen Impression and Plan spontanious L occipital ICH approx 1-2 weeks old hypertensive hemhorrage vs angioma vs tumor unable to tell with blood obscuring the view pt neuro intact rec no strenous activity,strick BP control pt has eye exam this next week told him to ask for more comprehensive visual fie ld testing ,rec no driving until visual feilds are tested f/u with Nila this next week also rec Dr Menchaca repeat MR brain with and without contrast in 4 - 6 weeks once blood has resolved,this was discussed at length with pt his and with hospitalist Annabelle Trivedi,all queations answer ed I will f/u on prn basis discussed al of the above with Dr Menchaca T DESK OFFICER documented in this encounter Plan of Treatment Not on filedocumented as of this encounter Visit Diagnoses Not on filedocumented in this encounter
--- OUTSIDE RECORDS SUMMARY | 2020-03-05 11:04 | XMS REPORT | Encounter Summary ---
Author Author [facility] Organization [facility] Address Unknown Phone Unavailable Care Team Providers Care Managing Member Name Role Phone Marielle Calvillo PCP Encounter Details Care Team Description Date Type Department Marielle Calvillo MD [address] [place] [address] [phone] 10/28/2014 Hist-Transcript [facility] ion Encounter Social History Date Tobacco Use Types Packs/Day Years Used Never Assessed Sex Assigned at Date Recorded Not on file Industry Job Start Date Occupation Not on file Not on file Not on file Travel End Travel History Travel Start No recent travel history available. documented as of this encounter Miscellaneous Notes * Clinic Note - Marielle Calvillo - 10/28/2014 12:00 AM VOIP ENGINEER [facility] [address] [place] [address] [phone] PATIENT: BORA WANG MR #: [id number] : 1960 DATE SEEN: 10/28/2014 Chief Complaint Patient is here for followup on hospital. History of Present Illness Patient comes in today for followup on hospitalization. Basically had an intrace rebral hemorrhage. Was admitted for observation. Blood pressure had been elevate d. He does agree that he has been under a lot of stress lately especially with h is job, that could cause his blood pressure to be elevated. He has not really be en keeping a close eye on it at home. He says he has not had any more eye change s since being in the hospital. He does have this week off. Blood pressure was el evated last night. Neurosurgery saw him in the hospital. They recommended doing an MRI with and without contrast in 4 weeks. Pain Assessment Cognitive Status: Independent, decisions consistent/reasonable Intensity: 2 Location: Head Review of Systems No ear pain. No [...] or easy bruising. Allergies Pollen Current Medications acetaminophen-hydrocodone 325 mg-7.5 mg oral tablet (acetaminophen-hydrocodone), 1 Tab, PRN, Every 4 hours Renetta (fexofenadine), call office to update your dosage when you get home., [place] N, Diovan HCT 12.5 mg-80 mg oral tablet (hydrochlorothiazide-valsartan), 1 Tab, Delia ly Flonase 50 mcg/inh nasal spray (fluticasone nasal), 2 [place], Every 24 hours Floxin Otic 0.3% solution [...] mg, 3 times a day before meals Nitrolingual 0.4 mg sublingual spray (nitroglycerin), 0.4 mg, Every 5 minutes One Touch Ultra Strips and One Touch Delica (Misc. Medication), as directed pantoprazole 40 mg oral enteric coated tablet (pantoprazole), 40 mg, 2 times a d ay Procardia XL 30 mg oral tablet, extended release (nifedipine), 30 mg, Every 24 h ours TriCor 145 mg oral tablet (fenofibrate), 145 [...] mellitus type II Erectile Dysfunction Foot Pain Hyperlipidemia: Onset on 05/29/2009. Hypertension: Onset on [...] 09/03/2013. 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 Elevated blood pressure. Elevated BMI. Ears: TMs clear bi laterally. Clear canals. [...] Neurologic: Intact. Psychiatric: Appropriate. Impression 1. Hypertension (401.9). 2. Intracerebral hematoma (431). 3. Stress reaction (308.9). 4. Anxiety (300.00). Plan Medication changes this visit: New Xanax 0.25 mg oral tablet, 0.25 mg, PRN, TID, 14 Day(s), Quantity: 42, Refills: 0 clonidine 0.1 mg oral tablet, 0.1 mg, TID, Quantity: 90, Refills: 0 Orders this visit: Referral - Request, Psychology, anxiety Referral - Request, Cardiology, HTN Future Orders: MR Brain w+w/o Contrast. - 11/25/14 10:00 We will keep him off this week. Continue his blood pressure medication. Get him in to see Dr. Salomon Wang. Give him a prescription for some clonidine to take if his blood pressure is elevated. We will set him up for the remote monitoring. I also think that getting in to see Josephine Tatum APN for the stress and anxiety would be a good idea. He is agreeable and understanding. Gave him precautions. I told him reasons to call immediately, things to watch out for. He is understa nding. Call if questions. Risks, benefits of medications and/or treatment options explained. Alternatives and expected outcome discussed. Patient and/or family verbalized understanding. Patient instructed to follow up sooner than directed if new symptoms develop or current symptoms worsen. Otherwise follow up as needed. TR: [id number] KAILASH#: [id number] ENGINEER documented in this encounter Plan of Treatment Not on filedocumented as of this encounter Visit Diagnoses Not on filedocumented in this encounter
--- OUTSIDE RECORDS SUMMARY | 2020-03-05 11:04 | XMS REPORT | Encounter Summary ---
Author Author [facility] Organization [facility] Address Unknown Phone Unavailable Care Team Providers Care Registration Scheduling Specialist Name Role Phone Zohaib Calvilloah PCP Encounter Details Care Team Description Date Type Department Keila Ramos APRN [address] [place] [address] [phone] 07/19/2014 Hist-Transcript [facility] HISTOR[facility] ion Encounter Social History Date Tobacco Use Types Packs/Day Years Used Never Assessed Sex Assigned at Date Recorded Not on file Industry Job Start Date Occupation Not on file Not on file Not on file Travel End Travel History Travel Start No recent travel history available. documented as of this encounter Miscellaneous Notes * Clinic Note - Keila Ramos APRN - 07/19/2014 12:00 AM CDT [facility] [address] [phone] PATIENT: BORA WANG MR #: [id number] : 1960 DATE SEEN: 07/19/2014 Chief Complaint The patient is here for 1 year bilateral hearing tube check with audio. Additional Information: [facility] History of Present Illness Bora is a 53-year-old male who comes in today for a tube check. States he has had his tubes for approximately 28 years. 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 He continues to have frequent drainage and he states he does nothing with it unless it gets really bad. He states it has been draining right now. It has been kind of dark and the left is worse than the right. He denies having any pain. He has no other concerns at this time. Review of Systems RENAL DIALYSIS TECHNICIAN: NA Pertinent negative for the following system(s): Constitutional, HEENT, Respirato ry, Cardiovascular, GI, , Integumentary, Musculoskeletal, Neurological, Hemato logic, Endocrine, Psychiatric Allergies Pollen Current Medications Abilify 2 mg oral tablet (aripiprazole), 2 mg, Daily Renetta (fexofenadine), call office to update your dosage when you get home., [place] N, aspirin 325 mg oral tablet (aspirin), 325 mg, Every 24 hours Diovan HCT 12.5 mg-80 mg oral tablet (hydrochlorothiazide-valsartan), 1 Tab, Delia ly Flonase 50 mcg/inh nasal spray (fluticasone nasal), 2 [place], Every 24 hours Floxin Otic 0.3% solution [...] 05/29/2009. Hypertension: Onset on 10/03/2009. Ingrown toenail OBSTRUCTIVE SLEEP APNEA: Onset on 05/29/2009. Paronychia [...] at 09/03/2013. 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 Speech, normal. Voice qualit y, normal. Head and face: Inspection: Face, normal. Facial Strength/Symmetry: Normal. Ears: Pinna: Right, normal. Left, normal. Exterior Canals: Essentially cl ear. There is a small amount of drainage. Tympanic Membranes: There are arevalo T-tubes in place and patent, with drainage c oming out around them. On the right side, the tympanic membrane is red and thic kened around it. Audiogram: Reviewed. High frequency loss bilaterally. Tympan ogram: Reviewed. Large volume bilaterally. This is unchanged from a year ago. Nose: Skin: Within normal limits. Septum: Midline. Turbinates: [place], hype rtrophy. Labial-Dental: Lips: No lesions Dental: Good. Gums: Healthy. Buccal: Wi thin normal limits. Floor: Within normal limits. Tongue: Within normal limits. Palate: Within no rmal limits. Mucosa: Moist. Tonsils: Absent. Soft palate: Within normal limits. Uvula: Absent. Oropharynx: Within normal limits. Salivary Glands: Normal size. Parotid: Normal. Submandibular: Normal Neck: Thyroid: No enlargement or masses. Neck: No adenopathy or masses. Lymph nodes: Normal. Respiratory effort: Normal Neurological: Cranial nerves 2-12 intact. Gait normal. Impression 1. ETD (eustachian tube dysfunction) (381.81). 2. Otitis media, chronic (381.3). Plan Medication changes this visit: New Floxin Otic 0.3% solution, 5 Drop(s), BID, 7 Day(s), Quantity: 10, Refills: 6 Orders this visit: ENT Tympanometry -Clinic Pure Tone Air Audiometry -Clinic Audiology Follow Up -Request Follow Up 1 Year -Request I will give him some Floxin drops with refills. I have instructed him that anyt denilson he has that drainage, he should be using the Floxin drops twice daily for 5- 7 days. I would like him to use those now for 7 days. He will follow up in 1 y ear, or sooner if needed. TR: [id number] 07/19/2014 09:05 07/23/2014 06:17 KAILASH#: [id number] documented in this encounter Plan of Treatment Not on filedocumented as of this encounter Visit Diagnoses Not on filedocumented in this encounter
--- OUTSIDE RECORDS SUMMARY | 2020-03-05 11:04 | XMS REPORT | Encounter Summary ---
Author Author [facility] Address Unknown Phone Unavailable Care Team Providers Care Laminate Floor Installer Name Role Phone Marielle Calvillo PCP Encounter Details Care Team Description Date Type Department Marielle Calvillo MD [address] [place] [address] [phone] 2015 Hist-Transcript [facility] HISTORIC ion Encounter Social History [...] Clinic Note - Marielle Calvillo MD - 2015 12:00 AM TRACTOR TRAILER MOVING VAN DRIVER [facility] [address] [place] [phone] PATIENT: BORA WANG MR #: [id number] : 1960 DATE SEEN: 2015 Chief Complaint Patient is here to follow up on medications. History of Present Illness Comes in today for followup on his medicine. Basically lost his insurance, so he has been off all of his medicine except for his blood pressure medication and a lso one of his diabetic medicines, just because he happened to have quite a bit of it left over. He has also noticed a lot of difficulty to with his sinuses lat joceline. Also, noticing some trouble with hearing loss. He has been trying to lose w eight by exercise and watching his calories. Review of Systems No ear pain. No [...] update your dosage when you get home., [place] N, Not taking clonidine 0.1 mg oral tablet (clonidine), 0.1 mg, 3 times a day, 90 Day(s) Not taking Contrave 8 mg-90 mg oral tablet, extended release (buPROPion-naltrexone), 1 tab PO QAM x1week, 1 tab PO BID x1week, 2 tabs PO QAM and 1 tab PO QPM x1week and th en 2 tabs PO BID thereafter Not taking Diovan HCT 12.5 mg-80 mg oral tablet (hydrochlorothiazide-valsartan), 1 Tab, Delia sal, Comment: Fax to [facility] [phone] Flonase 50 mcg/inh nasal spray (fluticasone nasal), 2 [place], Every 24 hours Not taking Floxin Otic 0.3% solution (ofloxacin otic), 5 Drop(s), 2 times a day, 7 Day(s) Not taking GENADUR (Miscellaneous Medication), APPLY TO TOENAILS DAILY Not taking Invokana 300 mg oral tablet (canagliflozin), 300 mg, Every Morning Not taking Kombiglyze XR 2.5 mg-1000 mg oral tablet, extended release (metformin-saxaglipti n), 2 Tab, Every evening Not taking Levitra 20 mg oral tablet (vardenafil), 20 mg, Daily Not taking Lovaza oral capsule (omega-3 polyunsaturated fatty acids), 2,000 mg, 2 times a d ay metformin 500 mg oral tablet, extended release (metformin), 500 mg, Daily Not taking nateglinide 120 mg oral tablet (nateglinide), 120 mg, 3 times a day before meals One Touch Ultra Strips and One Touch Delica (Misc. Medication), as directed Not taking pantoprazole 40 mg oral enteric coated tablet (pantoprazole), 40 mg, 2 times a d ay, 90 Day(s) Not taking Procardia XL 30 mg oral tablet, extended release (nifedipine), 30 mg, Every 24 h ours, Comment: [address] [phone] trazodone 50 mg oral tablet (trazodone), 50 mg, At bedtime TriCor 145 mg oral tablet (fenofibrate), 145 mg, Every 24 hours, 90 Day(s) Not taking Vitamin B Complex with C and Minerals oral capsule (multivitamin with minerals), 1 Cap, Daily Not taking Vitamin C (ascorbic acid), 500 mg, Daily Not taking Vitamin D (Miscellaneous Medication), 4,000 IU, Daily Not taking Vitamin D3 (cholecalciferol), 4,000 IU, Daily Not taking Wellbutrin XL 300 mg/24 hours oral tablet, extended release (bupropion), 300 mg, Every 24 hours, 90 Day(s) Not taking Problems and Past Medical History [...] month Caffeine Use: Denies Tobacco/Nicotine Usage: Denies Education Attained: Other: masters, 17 day phd Physical Examination TEMP BP Pulse RR MAP O2 Sat 36.7 122/82 71 16 95.33 98 Blood Pressure Location: Left arm Weight Height BMI BSA 127.8 kg (281.75 lbs) 170.8 cm 43.8 kg/m2 2.4624 m2 Scale: Standing digital Vital Signs: Stable. Elevated BMI. Ears: Clear TMs bilaterally. Clear canals. Ey es: Pupils equal, round, and reactive to light and accommodation. Extraocular mo tions are intact. No icterus. No injection. Sinuses: Maxillary sinuses tender t o palpation. Mouth: Moist mucous membranes. No posterior pharyngeal erythema. Ne ck: Soft. Supple. No lymphadenopathy. Heart: Regular rate and rhythm without mur mur. No S3 or S4. Lungs: Clear to auscultation bilaterally in all lung murray. G ood respiratory effort. Extremities: No clubbing, cyanosis, or edema. Impression 1. Depression (F32.9). 2. Diabetes mellitus type II (E11.9). 3. Sinusitis (J32.9). 4. Hearing loss (H91.90). 5. HTN (hypertension) (I10). Plan Medication changes this visit: New Augmentin 875 mg-125 mg oral tablet, 1 Tab, Q12H, 14 Day(s), Quantity: 28, Refil ls: 0 Wellbutrin SR 150 mg/12 hours oral tablet, extended release, See Instructions, Q uantity: 60, Refills: 1 Xanax 0.25 mg oral tablet, See Instructions, PRN,, Quantity: 30, Refills: 0 Refill trazodone 50 mg oral tablet, 50 mg, AT BEDTIME, Quantity: 30, Refills: 0 Future Orders: CBC with Diff - 10/27/15 08:20 CHEM12 (CMP) - 10/27/15 08:20 Folate - 10/27/15 08:20 Free T4 - 10/27/15 08:20 HgbA1C - 10/27/15 08:20 Insulin - 10/27/15 08:20 Iron - 10/27/15 08:20 P7-Lipid Panel - 10/27/15 08:20 TSH - 10/27/15 08:20 Vitamin B12 Level - 10/27/15 08:20 Vitamin D Level - 10/27/15 08:20 We will get him in to see CLARI Kendrick, regarding ENT. Get all of his lab wo rk done. Encouraged healthy diet and exercise changes. We will get him in with Regulo Barajas for further evaluation, further treatment of his diabetes and go from there. As far as depression. we will restart his Wellbutrin. He has also b een really anxious lately, so he would like some Xanax to be able to help with t hat, just as necessary. Gave him precautions regarding medication side effects, etc. He is understanding. Call with questions. Risks, benefits of medications and/or treatment options explained. Alternatives and expected outcome discussed. Patient and/or family verbalized understanding. Patient instructed to follow up sooner than directed if new symptoms develop or current symptoms worsen. Otherwise follow up as needed. TR: [id number] KAILASH#: [id number] TOR TRAILER MOVING VAN DRIVER documented in this encounter Plan of Treatment Not on filedocumented as of this encounter Visit Diagnoses Not on filedocumented in this encounter
--- OUTSIDE RECORDS SUMMARY | 2020-03-05 11:04 | XMS REPORT | Encounter Summary ---
Author Author [facility] Organization [facility] Address Unknown Phone Unavailable Care Team Providers Care Taproom Attendant Name Role Phone RajinderMarielle PCP Encounter Details Care Team Description Date Type Department Deshaun Barajas MD [address] [place] [address] [phone] 06/05/2014 Hist-Transcript MOSAIC HISTORIC ion Encounter Social History Date Tobacco Use Types Packs/Day Years Used Never Assessed Sex Assigned at Date Recorded Not on file Industry Job Start Date Occupation Not on file Not on file Not on file Travel End Travel History Travel Start No recent travel history available. documented as of this encounter Miscellaneous Notes * Clinic Note - Deshaun Barajas - 06/05/2014 12:00 AM CDT Patient: BORA WAGN Age: 53 years Sex: Male : 62 Associated Diagnoses: None Author: Deshaun Barajas MD Visit Information [facility] ENDOCR[facility]OLOG[facility] [address] [place] [address] [address] [place] [address] PATIENT: BORA WANG MR #: [id number] : 1960 DATE SEEN: 06/05/2014 Chief Complaint Patient is a 53 year old male returned for followup regarding [...] in 05/2013, 6.7% in 09/2013, 7.4% in 01/2014. Patient states he does not check his blood sugar. Patient states he does not check his blood sugar. Review of Systems Allergies Pollen Current Medications Abilify 2 mg oral tablet (aripiprazole), 2 mg, Daily Renetta (fexofenadine), call office to update your dosage when you get home., [place] N, aspirin 325 mg oral tablet (aspirin), 325 mg, Every 24 hours Diovan HCT 12.5 mg-80 mg oral tablet (hydrochlorothiazide-valsartan), 1 Tab, Delia ly Flonase 50 mcg/inh nasal spray (fluticasone nasal), 2 [place], Every 24 hours Floxin Otic 0.3% solution (ofloxacin otic), 5 Drop(s), 2 times a day GENADUR (Miscellaneous Medication), APPLY TO TOENAILS DAILY Invokana 300 mg (Miscellaneous Medication), 1 Tab, With breakfast Kombiglyze XR 2.5 mg-1000 mg oral tablet, [...] Vitamin D3 (cholecalciferol), 4,000 IU, Daily Wellbutrin SR 150 mg/12 hours oral tablet, extended release (bupropion), 150 mg, 2 times a day Problems and [...] Recreational Drug Use: Denies 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 No fever or chills. No weight [...] BP Pulse RR MAP O2 Sat 36.7 145/88 96 16 107 96 Blood Pressure Location: Left arm Oxygen Therapy: Room air Weight Height BMI BSA 134.7 kg (296.96 lbs) 168 cm 47.7 kg/m2 2.5072 m2 HEENT: EOMs intact. No icterus on [...] PLAN 1. Type 2 diabetes, in range, continue Kombiglyze XR 01/1000 mg with dinner, teresa glinide 120 mg po tid with meal 1-30 min, Invokana 300 mg po daily at breakfast. Advised about UTI and mycotic infection/personal hygiene, adequated fluid intake to avoid dehydration/volume loss. 2. Dyslipidemia, on Tricor and Lovaza (2000 mg bid), weight loss would be helpfu l. He had DM education. Lipid panel not in range in 01/2014. 3. Hypertension, on ARB and aspirin. Urine microalbumin ratio was normal in 01/18 014. 4. Hypogonadism, LH, free testosterone was normal [...]
--- OUTSIDE RECORDS SUMMARY | 2020-03-05 11:04 | XMS REPORT | Encounter Summary ---
Author Author [facility] Organization [facility] Address Unknown Phone Unavailable Care Team Providers Care Superintendent Meters Name Role Phone Marielle Calvillo PCP Encounter Details Care Team Description Date Type Department Nitza Cameron NP [address] [facility] [address] [place] [address] [phone] 11/08/2014 Hist-Transcript MOSAIC HISTORIC ion Encounter Social History Date Tobacco Use Types Packs/Day Years Used Never Assessed Sex Assigned at Date Recorded Not on file Industry Job Start Date Occupation Not on file Not on file Not on file Travel End Travel History Travel Start No recent travel history available. documented as of this encounter Miscellaneous Notes * Clinic Note - Nitza Cameron NP - 11/08/2014 12:00 AM MOLDER OPERATOR [facility] [address] [facility] [address] [place] [address] PATIENT: BORA WANG MR #: [id number] PCP: Marielle Calvillo MD REFERRING PHYSICIAN: Marielle Calvillo MD : 1960 DATE SEEN: 11/08/2014 Chief Complaint Patient states that Dr. Calvillo referred him for his HTN. He was just in the hospital of a brain bleed. History of Present Illness This is a very pleasant gentleman with a history of hypertension and dyslipidemi a who has followed up with Salomon Wang MD in the past. Patient apparently wa s in the hospital in October with a spontaneous intraparenchymal hemorrhage in the left occipital lobe. It was thought to be probably related to hypertensive crisis, although they were unsure due to the amount of blood in the brain. He p resents today for a followup visit due to uncontrolled hypertension. He denies any chest pain, tightness or heaviness. No orthopnea or PND (paroxysmal nocturn al dyspnea). No palpitations, syncope or near syncope. Patient states that he thinks he has figured out why his blood pressure is elevated at times. He showe d me his blood pressures since he has been out of the hospital and most of them have been in the 110-120s. He had an occasional 138-140 over 90 in which he too k clonidine for or a Xanax. He states at those times he had gotten into more sa lt than normal. Allergies Pollen Current Medications Renetta (fexofenadine), call office to update your dosage when you get home., [place] N, clonidine 0.1 mg oral tablet (clonidine), 0.1 mg, 3 times a day Diovan HCT 12.5 mg-80 mg oral tablet (hydrochlorothiazide-valsartan), 1 Tab, Delia ly Flonase 50 mcg/inh nasal spray (fluticasone nasal), 2 [place], Every 24 hours Different than prescribed: prn Floxin Otic 0.3% solution (ofloxacin otic), 5 [...] hours Xanax 0.25 mg oral tablet (alprazolam), 0.25 mg, PRN, 3 times a day, 14 Day(s) Social History Alcohol Use: Current Alcohol Type: Beer, Liquor, Wine Alcohol Frequency: Other: twice a month Caffeine Use: Denies Current Tobacco Usage: Denies Recreational Drug Use: Denies 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 HEENT: Head Nor mocephalic and atraumatic; Pupils equal and reactive; septum is midline; mucous membranes are moist. Neck: Supple, no jugular venous distention. No bruits heard . Respiratory: clear to auscultation bilaterally. No wheezes, rhonchi or crackle s present. Cardiovascular: Regular rhythm. Normal 1st and 2nd heart sounds. No m urmurs or gallops. Abdomen: soft and nontender. Bowel sounds present. Genitourin corrine and Rectal exam not performed. Extremities: without cyanosis, clubbing or ed shavon. Distal pulses are intact. Skin: warm, dry without ecchymosed areas or gross regions of hair loss. Impression and Plan 1. Hypertension (401.9) Patient's blood pressure is under great control today. His numbers most of the time look great. His blood pressure today is 100/60. I have a hard time wanting to add anything further for this. I did tell him 1 in 3 people are very salt sensitive and obviously he is 1 of those. I told him he can avoid having to take that clonidine on a rare occasional basis if he would just watch his salt intake very closely. He states he understands. I am going to have him follow up with Dr. Wang in December some time as [place] that point in time. 2. Hyperlipidemia (272.4)/dyslipidemia. Patient is on Lovaza and Tricor. I am not going to make any changes. 3. 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 As per hi s primary care provider and neurosurgery. 4. Diabetes mellitus type II (250.00) As per his primary care provider. 5. Morbid obesity (278.01) I did tell the patient with him losing weight that w ould also be a help to control his blood pressure and he states he understands t hat. He had looked into having bariatric surgery done, but unfortunately his in surance did not pay for it. 6. OBSTRUCTIVE SLEEP APNEA (327.23) Patient does use his CPAP on a regular basi s. Medication changes this visit: Stopped Nitrolingual 0.4 mg sublingual spray, 0.4 mg, Q5MIN, Quantity: 4, Refills: 3 I authorize refills for the next year of patient medications from this note per the [facility] prescription refill priscilla torres. cc: MD Salomon Serrano MD TR: PAMELA KAILASH#: [id number] ER OPERATOR documented in this encounter Plan of Treatment Not on filedocumented as of this encounter Visit Diagnoses Not on filedocumented in this encounter
--- OUTSIDE RECORDS SUMMARY | 2020-03-05 11:04 | XMS REPORT | Encounter Summary ---
Author Author [facility] Organization [facility] Address Unknown Phone Unavailable Care Team Providers Care It Engineer Name Role Phone Marielle Calvillo PCP Encounter Details Care Team Description Date Type Department Tyler Bray DO [address] [place] [address] [phone] 10/24/2014 Hist-Transcript MOSAIC HISTORIC ion Encounter Social History Date Tobacco Use Types Packs/Day Years Used Never Assessed Sex Assigned at Date Recorded Not on file Industry Job Start Date Occupation Not on file Not on file Not on file Travel End Travel History Travel Start No recent travel history available. documented as of this encounter Progress Notes * Tyler Bray MD - 10/24/2014 12:00 AM MANAGER BEVERAGE BORA WANG 54 years [phone] [address] [place] Male 10/24/14 20:37 Insurance [facility] [id number] Day: 0 [facility] PREFERRED CARE Inpatient Contacts NONE, PER PATIENT Admitting Attending Referring Consulting Tyler Bray Joseph KwakuAbed Bedynek, Gregory S, DO History of Present Illness This is 54 year old male [facility] PMH DM-2, HTN, hyperlipidemia who was referred to [facility] as a direct admission by her PCP Marielle Calvillo. According to the patient has been having left frontral headaches and blurry vision for the past 31/2 weeks. The blurry vision is "floaters" in both eyes but more strongly in [facility] right eye. He saw his PCP this Tuesday10/21/2014 and was evaluated. MRI of th e brain without contrast and MRA were ordered and done today at [facility]. The res ults showed a 1.8 cm intraparenchymal hemorrhage within the left occipital lobe with associated vasogenic edema and mild layering extraaxial hemorrhage along t he posterior left cerebral convexity. Patient was alerted by her PCP to come to hospital for further evaluation. Patient continues to have mild headache and b lurry vision but stable. He denies previous history of stroke or bleed. He den ies trauma to the head. He denies history or family history of aneurysm. He ad mits to severe stress of late as a result job loss. Even though he has history of hypertension, his BP has been mostly controlled on medication with average SB P 120's to 130's. Patient is being admitted for further evaluation. Neurosurge on collections manager has been consulted. 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 Eye: positive blurrry vision particular worse on the right eye Ear/Nose/Mouth/Throat: No decreased hearing, No sinus pain. Respiratory: No shortness of breath, No cough. Cardiovascular: No chest pain, No palpitations, No bradycardia, No tachycardia, No peripheral edema, No syncope. Gastrointestinal: No nausea, No vomiting. Genitourinary: Normal for age, No dysuria, No hematuria. Hematology/Lymphatics: No bruising tendency, No bleeding tendency, No petechiae , No swollen lymph glands. Endocrine: No excessive thirst, No polyuria, No excessive hunger. Immunologic: No chemotherapy, No malaise. Musculoskeletal: No back pain, No neck pain, No joint pain, No muscle pain, No claudication, No trauma. Integumentary: No rash, No pruritus, No abrasions, No breakdown. Neurologic: Alert and oriented X4. positive headache. Postive blurry vision Psychiatric: No anxiety, No depression, Denies suicidal thoughts or ideatio n. Physical Examination GEN: no acute distress. HEENT: oropharnx clear. pupils round and reactive to light; EOMI CVS: RRR, no murmurs, rubs or gallops. LUNGS: clear to asculation, no wheezing or ronchi. ABD: soft, NT, ND, +BS, no hepatosplenomegaly EXT: no clinical signs of cyanosis, clubbing, or DVT. no edema. pulses intact. NEURO: AAOX3. No focal neurological deficit. PSYCH: Normal mood and affect. General Lab No General Lab results found Cardiology Documents No Cardiology documents found within previous day Radiology Procedures No Radiology Procedure updates found No Radiology procedures found within the last week. Impression Spontaneous intracerebral hemorrhage Frontal headaches Blurry vision right > than left DM-2 Hypertension Hyperlipidemia Severe stress secondary to job loss Plan Admit to the stepdown unit Neurochecks per floor protocol BP monitoring; keep SBP 130-140 MRI brain w/o and MRA reviewed US carotids to rule out stenosis ADMITTED ATTORNEYS/PT/OT Daily statins Seizure precautions Ativan 1 mg IVP Q 4hrs prn for seizures Accuchecks with insulin sliding scale coverage Check vitamin B12 level and lipid profile Home medications reviewed and restarted GI prophylaxis with proton pump inhibitor DVT prophylaxis with bilateral venodyne boots Neurosurgery consulted CT head W/o contrast in the morning Full resuscitation GER BEVERAGE documented in this encounter Plan of Treatment Not on filedocumented as of this encounter Visit Diagnoses Not on filedocumented in this encounter
--- OUTSIDE RECORDS SUMMARY | 2020-03-05 11:04 | XMS REPORT | Encounter Summary ---
Author Author [facility] Organization [facility] Address Unknown Phone Unavailable Care Team Providers Care Cleaning Technician Name Role Phone Marielle Calvillo PCP Encounter Details Care Team Description Date Type Department Marielle Calvillo MD [address] [place] [address] [phone] 11/18/2014 Hist-Transcript MOSAIC HISTORIC ion Encounter Social History Date Tobacco Use Types Packs/Day Years Used Never Assessed Sex Assigned at Date Recorded Not on file Industry Job Start Date Occupation Not on file Not on file Not on file Travel End Travel History Travel Start No recent travel history available. documented as of this encounter Miscellaneous Notes * Clinic Note - Marielle Calvillo - 11/18/2014 12:00 AM WINDSCREEN FITTER [facility] [address] [place] [phone] PATIENT: BORA WANG MR #: [id number] : 1960 DATE SEEN: 11/18/2014 Chief Complaint Patient is here for followup on hypertension. History of Present Illness Patient comes in today for followup on hypertension, intraparenchymal hemorrhage , visual changes. We repeated his MRI. It looked a little bit better actually. H is blood pressure has not been perfect, but have been improving. He has had to t debby his clonidine and Xanax at times. He has also been under quite a bit of stre ss secondary to stuff going on with his son apparently. He said his headaches ar e otherwise some better. Review of Systems No ear pain. No ear discharge. No ringing in ears. No blurry vision, double visi on. No runny nose. No dry mouth. No sore throat. No neck pain. No chest pain. No shortness of breath. No extremity complaints. No musculoskeletal problems. No e ndocrine complaints. No weight gain or weight loss. No dizziness. No depression. No change in skin color or easy bruising. 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 [...] turgor. Neurologic: Intact. Psychiatric: Appropriate. Impression 1. 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 2. Hypertension (401.9). 3. Stress reaction (308.9). Plan Medication changes this visit: New Xanax 0.25 mg oral tablet, 0.25 mg, PRN, TID, 14 Day(s), Quantity: 42, Refills: 0 Refill clonidine 0.1 mg oral tablet, 0.1 mg, TID, Quantity: 90, Refills: 0 Orders this visit: Referral - Request, Neurosurgery, brain hemorrhage I talked to him about all of this for quite a while. He would like a refill on h is clonidine as well as his Xanax. He does feel like both of those have been hel ping whenever he needs them. As far as getting his insurance to pay for another scan, getting this last one approved was pretty difficulty and the only reason i t seemed like they approved it was secondary to the fact that he was having jhon tional symptoms. Originally Dr. Elmer Mclain, whenever he saw him, had recomm ended that he repeat the scan in 4-6 weeks when the blood had completely resolve d. I talked to him about all of this. I think it would be a good idea and see Dr Troy Mclain for further evaluation regarding stuff. He is understanding. We will c ontinue watching his blood pressure and everything at home. Continue monitoring symptoms. If things get worse, he knows to let us know immediately, seek immedia te medical care. Call if questions. Risks, benefits of medications and/or treatment options explained. Alternatives and expected outcome discussed. Patient and/or family verbalized understanding. Patient instructed to follow up sooner than directed if new symptoms develop or current symptoms worsen. Otherwise follow up as needed. TR: [id number] KAILASH#: [id number] SCREEN FITTER documented in this encounter Plan of Treatment Not on filedocumented as of this encounter Visit Diagnoses Not on filedocumented in this encounter
--- OUTSIDE RECORDS SUMMARY | 2020-03-05 11:04 | XMS REPORT | Encounter Summary ---
Author Author [facility] Organization [facility] Address Unknown Phone Unavailable Care Team Providers Care Claims Support Specialist Name Role Phone Marielle Calvillo PCP Encounter Details Care Team Description Date Type Department Marielle Calvillo MD [address] [place] [address] [phone] 02/20/2015 Hist-Transcript MOSAIC HISTORIC ion Encounter Social History [...] Clinic Note - Marielle Calvillo MD - 02/20/2015 12:00 AM CDT [facility] [address] [place] [phone] PATIENT: BORA WANG MR #: [id number] : 1960 DATE SEEN: 02/20/2015 Chief Complaint Patient is here for followup. History of Present Illness Comes in today for a followup on his headaches. Headaches are doing better. His ears took quite a while to clear up, but said it finally did happen. He said onc e that happened it really did improve his headaches. He has not had any addition al headaches that have been as bad as what he had before. Review of Systems No ear pain. No [...] update your dosage when you get home., [place] N, clonidine 0.1 mg oral tablet (clonidine), 0.1 mg, 3 times a day Diovan HCT 12.5 mg-80 mg oral tablet (hydrochlorothiazide-valsartan), 1 Tab, Delia ly Flonase 50 mcg/inh nasal spray (fluticasone nasal), 2 [place], Every 24 hours Floxin Otic 0.3% solution [...] Tobacco Usage: Denies Recreational Drug Use: Denies Physical Examination TEMP BP Pulse RR MAP O2 Sat 36.8 138/80 95 18 99.33 95 Blood Pressure Location: Left arm Oxygen Therapy: Room air Weight Height BMI BSA 134.7 kg (296.96 lbs) 170.8 cm 46.2 kg/m2 2.528 m2 Scale: Standing digital Vital Signs: Stable. Elevated BMI. He has also been watching his blood pressure to make sure that stays under control as well. Ears: TMs clear bilaterally. [place] ar canals. Bilateral tubes in his ears. Eyes: Pupils equal, round, and reactive to light and accommodation. Extraocular motions intact. No icterus. No injection . Mouth: Moist mucous membranes. No posterior pharyngeal erythema. Neck: Soft. S upple. No lymphadenopathy. Heart: Regular rate and rhythm without murmur. No S3 or S4. Lungs: Clear to auscultation bilaterally in all lung murray. Good respir atory effort. Abdomen: No guarding. No rebound. Nontender and nondistended. Posi tive normoactive bowel sounds. No mass or hepatosplenomegaly. No bruits heard. E xtremities: No clubbing, cyanosis, or edema. Pulses 2+ and equal. Skin: Warm and dry. Good turgor. Neurologic: Intact. Psychiatric: Appropriate. Impression 1. Followup exam (V67.9). 2. Headache (784.0). 3. Otitis media (382.9). 4. Hypertension (401.9). Plan Talked to him about all of this. He does not feel like his headaches are the justin e as what they were whenever he had the bleed in the brain. He has not had the v ision changes, having the same type of headaches, and whenever we got his ears u nder control his headaches improved. He is going to keep a close eye on these th ings. He understands that if the headaches come back in any way, shape, or form then he needs to be making an immediate appointment or going to the ER. He is un derstanding. See us back for followup in the meantime. Watch diet and exercise c hanges. Keep his blood pressure under control. Call with questions. Risks, benefits of medications and/or treatment options explained. Alternatives and expected outcome discussed. Patient and/or family verbalized understanding. Patient instructed to follow up sooner than directed if new symptoms develop or current symptoms worsen. Otherwise follow up as needed. TR: JACKELYN KAILASH#: [id number] documented in this encounter Plan of Treatment Not on filedocumented as of this encounter Visit Diagnoses Not on filedocumented in this encounter
--- OUTSIDE RECORDS SUMMARY | 2020-03-05 11:04 | XMS REPORT | Encounter Summary ---
Author Author [facility] Organization [facility] Address Unknown Phone Unavailable Care Team Providers Care Natural Gas Plant Technician Name Role Phone RajinderMarielle PCP Reason for Visit * Reason Comments Fever fever started today 102.5 Nasal Congestion congestion since today; on antibiotics for ear drainage per his ENT in [place]; was on Augmentin, then switched to Bactrim Encounter Details Care Team Description Date Type Department Claribel Gonsalves MD [address] [place], [place] [id number] Influenza A (Primary Dx) 11/05/2015 Emergency [facility] 11/06/2015 [address] [place] [address] Social History Date Tobacco Use Types Packs/Day Years Used Never Smoker Drinks/Week oz/Week Comments Alcohol Use few weekly Yes Sex Assigned at Date Recorded Not on file Industry Job Start Date Occupation Not on file Not on file Not on file Travel End Travel History Travel Start No recent travel history available. documented as of this encounter Last Filed Vital Signs Reading Time Taken Comments Vital Sign 127/85 11/05/2015 10:10 PM GMAT TUTOR Blood Pressure 95 11/05/2015 10:10 PM GMAT TUTOR Pulse 37.3 C (99.2 F) 11/06/2015 12:16 AM GMAT TUTOR Temperature 18 11/05/2015 10:10 PM GMAT TUTOR Respiratory Rate 94% 11/05/2015 10:10 PM GMAT TUTOR Oxygen Saturation - - Inhaled Oxygen Concentration 127 kg (280 lb) 11/05/2015 10:10 PM GMAT TUTOR Weight 170.2 cm (5' 7") 11/05/2015 10:10 PM GMAT TUTOR Height 43.85 11/05/2015 10:10 PM GMAT TUTOR Body Mass Index documented in this encounter Discharge Instructions * Instructions* Claribel Gonsalves MD - 11/06/2015 Influenza (Adult) Influenza is also called the flu. It is a viral illness that affects the air pas sages of your lungs. It is different from the common cold. The flu can easily be passed from one to person to another. It may be spread through the air by cough ing and sneezing. Or it can be spread by touching the sick person and then touch ing your own eyes, nose, or mouth. The flu starts 1 to 3 days after you are exposed to the flu virus. It may last for 1 to 2 weeks. You usually dont need to take antibiotics unless you have a complication. This might be an ear or sinus infection or pneumonia. Symptoms of the flu may be mild or severe. They can include extreme tiredness (w anting to stay in bed all day), chills, fevers, muscle aches, soreness with eye movement, headache, and a dry, hacking cough. Home care Follow these guidelines when caring for yourself at home: Avoid being around cigarette smoke, whether yours or other peoples. Acetaminophen or ibuprofen will help ease your fever, muscle aches, and heada elysia. Dont give aspirin to anyone younger than 18 who has the flu. Aspirin can harm the liver. Nausea and loss of appetite are common with the flu. Eat light meals. Drink 6 to 8 glasses of liquids every day. Good choices are water, sport drinks, soft d rinks without caffeine, juices, tea, and soup. Extra fluids will also help loose n secretions in your nose and lungs. Kqnj-hjx-txqcupe cold medicines will not make the flu go away faster. But the medicines may help with coughing, sore throat, and congestion in your nose and sinuses. Dont use a decongestant if you have high blood pressure. Stay home until your fever has been gone for at least 24 hours without using medicine to reduce fever. Follow-up care Follow up with your health care provider, or as advised, if you are not getting better over the next week. If you are 65 or older, talk with your provider about getting a pneumococcal vac cine every 5 years. You should also get this vaccine if you have chronic asthma or COPD. All adults should get a flu vaccine every fall. Ask your provider about this. When to seek medical advice Call your health care provider right away if any of these occur: Cough with lots of colored sputum (mucus) or blood in your sputum Chest pain, shortness of breath, wheezing, or difficulty breathing Severe headache, or face, neck, or ear pain New rashwith fever Fever of 101F (38C) oral or higher that doesnt get better with fever m edicine Confusion, behavior change, or seizure Severe weakness or dizziness You get a fever or cough after getting better for a few days [id number] [employer] [place] [address] [phone]. All rights reserved. This information is not intended as a substitute for pro fessional medical care. Always follow your healthcare professional's instruction s. Influenza Influenza (the flu) is an infection that affects your respiratory tract (t he mouth, nose, and lungs, and the passages between them). Unlike a cold, the fl u can make you very ill. And it can lead to pneumonia, a serious lung infection. For some people, especially older adults, young children, and people with certa in chronic conditions, the flu can have serious complications and even be fatal. What Are the Risk Factors for the Flu? Anyone can get the flu. But youre more likely to become infected if you: Have a weakened immune system. Work in a health care setting where you may be exposed to flu germs. Live or work with someone who has the flu. Havent received an annual flu shot. How Does the Flu Spread? The flu is caused by viruses. The viruses spread through the air in droplets whe n someone who has the flu coughs, sneezes, laughs, or talks. You can become infe cted when you inhale theseviruses directly. You can also become infected when you touch a surface on which the droplets have landed and then transfer the germ s to your eyes, nose, or mouth. Touching used tissues, or sharing utensils, drin lili glasses, or a toothbrush with an infected person can expose you to flu viru ses, too. What Are the Symptoms of the Flu? Flu symptoms tend to come on quickly and may last a few days to a few weeks. The y include: Fever usually higher than 101F (38.3C)and chills Sore throat and headache Dry cough Runny nose Tiredness and weakness Muscle aches How Is the Flu Treated? Influenza usually improves after 7 days or so. In some cases, yourhealth care providermay prescribe an antiviral medication. This may help you get well soon er. For the medication to help, you need to take it as soon as possible (ideally within 48 hours)after your symptoms start. If you develop pneumonia or other serious illness, hospital care may be needed. Easing Flu Symptoms Drink lots of fluids such as water, juice, and warm soup. A good rule is to d rink enough so that you urinate your normal amount. Get plenty of rest. Ask yourhealth care providerwhat to takefor fever and pain. Call yourprovider if your fever rises over 101F (38.3C) or you become d cora, lightheaded, or short of breath. TakingSteps to Protect Others Wash your hands often, especially after coughing or sneezing. Or, clean your hands with an alcohol-based handcleaner containing at least 60 percent alcohol . Cough or sneeze into a tissue. Then throw the tissue away and wash your hands . If you dont have a tissue, cough and sneeze into the crook of your elbow. Stay home untilat least 24 hours after you no longer have a fever or chills . Be sure the fever isnt being hidden by fever-reducing medication. Dont share food, utensils, drinking glasses, or a toothbrush with others. Ask yourhealth care provider ifothers in your household should receive an tiviral medication to help them avoid infection. How Can the Flu Be Prevented? One of the best ways to avoid the flu is to get a flu vaccination each year. Viruses that cause the flu change from year to year. For that reason, doctors re commend getting the flu vaccine each year, as soon as it's available in your are a. The vaccine may be given as a shot or as anasal spray. [facility] care pr ovidercan tell you which vaccine is right for you. Wash your hands often. Frequent handwashing is a proven way to help prevent i nfection. Carry an alcohol-based hand gel containing at least 60 percent alcohol. Use i t when you dont have access to soap and water. Then wash your hands as soon a s you can. Avoid touching your eyes, nose, and mouth. At home and work, clean phones, computer keyboards, and toys often with disin fectant wipes. If possible, avoid close contact with others who have the flu or symptoms of the flu. Handwashing Tips Handwashing is one of the best ways to prevent many common infections. If you re caring for or visiting someone with the flu, wash your hands each time you en ter and leave the room. Follow these steps: Use warm water and plenty of soap. Rub your hands together well. Clean the whole hand, under your nails, between your fingers, and up the wris ts. Wash for at least 15seconds. Rinse, letting the water run down your fingers, not up your wrists. Dry your hands well. Use a paper towel to turn off the faucet and open the do or. Using Alcohol-Based Hand Cadd Manager Alcohol-based handcleaners are also a good choice. Use them when you dont h ave access to soap and water. Follow these steps: Squeeze about a tablespoon of gel into the palm of one hand. Rub your hands together briskly, cleaning the backs of your hands, the palms, between your fingers, and up the wrists. Rub until the gel is gone and your hands are completely dry. [id number] [employer]. [address] [place] [address] [phone] 7. All rights reserved. This information is not intended as a substitute for pro fessional medical care. Always follow your healthcare professional's instruction s. documented in this encounter Medications at Time of Discharge Start Date End Date Medication Sig Dispensed Refills ALPRAZolam (XANAX) 0.25 Take 0.25 mg 0 MG tablet by mouth nightly as needed for sleep. ascorbic acid (VITAMIN C) Take 500 mg 0 500 MG tablet by mouth daily. buPROPion (WELLBUTRIN SR) Take 150 mg 0 150 MG SR 12 hr tablet by mouth 2 (two) times a day. nateglinide (STARLIX) 120 Take 120 mg 0 MG tablet by mouth 3 (three) times a day before meals. NIFEdipine (PROCARDIA) 10 Take 10 mg by 0 MG capsule mouth 3 (three) times a day. omega-3 acid ethyl esters Take 2 g by 0 (LOVAZA) 1 gram capsule mouth 2 (two) times a day. sulfamethoxazole-trimetho Take 1 tablet 0 prim (BACTRIM DS) 800-160 by mouth 2 mg per tablet (two) times a day. traZODone (DESYREL) 50 MG Take 50 mg by 0 tablet mouth nightly. valsartan-hydrochlorothia Take 1 tablet 0 zide (DIOVAN-HCT) 80-12.5 by mouth mg per tablet daily. 11/06/2015 11/11/2015 oseltamivir (TAMIFLU) 75 Take one 9 capsule 0 MG capsule capsule (75 mg total) by mouth 2 (two) times a day. documented as of this encounter ED Notes * Claribel Gonsalves MD - 11/05/2015 11:43 PM GMAT TUTOR 11/05/2015 [facility] History Chief Complaint Patient presents with Fever fever started today 102.5 Nasal Congestion congestion since today; on antibiotics for ear drainage per his ENT in [place] ; was on Augmentin, then switched to Bactrim HPI Comments: Pt presents to the ED for cough, congestion and fever since 0200 t his AM. Reports fever up to 102.5F. Denies ill contacts. Reports body aches a nd back pain. No vomiting or diarhea. Patient is a 55 y.o. male presenting with fever. The history is provided by the patient and the spouse. Fever Max temp prior to arrival: 102.5 F Temp source: Oral Severity: Moderate Onset quality: Gradual Duration: 12 hours Timing: Constant Progression: Worsening Chronicity: New Relieved by: Nothing Worsened by: Nothing tried Associated symptoms: chills, congestion, cough, ear pain (chronic, has L otitis media, follows with ENT on oral abx and drops), myalgias, rhinorrhea and sore th roat Associated symptoms: no chest pain, no confusion, no diarrhea, no dysuria, no ra sh and no vomiting Risk factors: no sick contacts Past Medical History Diagnosis Date Diabetes mellitus Hypertension Anxiety Depression Kidney stone Past Surgical History Procedure Laterality Date Appendectomy Mandible surgery Hernia repair Ankle surgery Eye surgery Tonsillectomy Inner ear surgery Vasectomy No family history on file. History Substance Use Topics Smoking status: Never Smoker Smokeless tobacco: Not on file Alcohol Use: Yes Comment: few weekly Review of Systems Constitutional: Positive for fever, chills, diaphoresis, activity change, appeti te change and fatigue. HENT: Positive for congestion, ear pain (chronic, has L otitis media, follows wi th ENT on oral abx and drops), rhinorrhea, sinus pressure and sore throat. Eyes: Negative for pain and redness. Respiratory: Positive for cough. Negative for chest tightness, shortness of shiva th and wheezing. Cardiovascular: Negative for chest pain. Gastrointestinal: Negative for vomiting, abdominal pain and diarrhea. Endocrine: Negative for polydipsia and polyuria. Genitourinary: Negative for dysuria, frequency and difficulty urinating. Musculoskeletal: Positive for myalgias, back pain and arthralgias. Negative for neck pain. Skin: Negative for rash. Allergic/Immunologic: Negative for immunocompromised state. Neurological: Negative for dizziness, weakness, light-headedness and numbness. Hematological: Does not bruise/bleed easily. Psychiatric/Behavioral: Negative for confusion. The patient is not nervous/anxio us. All other systems reviewed and are negative. Physical Exam BP 127/85 mmHg | Pulse 95 | Temp(Src) 37.4 C (99.4 F) (Oral) | Resp 18 | Ht 1.702 m (5' 7") | Wt 127.007 kg (280 lb) | BMI 43.84 kg/m2 | SpO2 94% Physical Exam Constitutional: He is oriented to person, place, and time. He appears well-devel oped and well-nourished. No distress. HENT: Head: Normocephalic and atraumatic. Nose: Nose normal. Eyes: Conjunctivae are normal. Neck: Normal range of motion. Cardiovascular: Normal rate and regular rhythm. Pulmonary/Chest: Effort normal and breath sounds normal. No respiratory distress . Abdominal: Soft. Bowel sounds are normal. There is no tenderness. Musculoskeletal: Normal range of motion. Neurological: He is alert and oriented to person, place, and time. No focal deficit Skin: Skin is warm and dry. Psychiatric: He has a normal mood and affect. His behavior is normal. Nursing note and vitals reviewed. ED Course Procedures Results for orders placed or performed during the hospital encounter of 11/05/15 (from the past 24 hour(s)) Influenza AB Antigen Result Value Ref Range Influenza A Antigen Positive (qualifier value) (A) Negative Influenza B Antigen Negative (qualifier value) Negative XR Chest 2 views (PA and lateral) ED Interpretation nad MDM Number of Diagnoses or Management Options Influenza A: Diagnosis management comments: Influenza A +. tamiflu given. CXR done and is n egative. Will treat for influenza. Script for tamiflu given. Return to the ED p rn. Amount and/or Complexity of Data Reviewed Clinical lab tests: ordered and reviewed Tests in the radiology section of CPT: ordered and reviewed ED Clinical Impression SNOMED CT(R) 1. Influenza A INFLUENZA DUE TO INFLUENZA A VIRUS Claribel Gonsalves MD 11/06/15 0007 TUTOR * Brisa Mullen, STACY - 11/05/2015 10:37 PM GMAT TUTOR Pt. Reports that 0200 he began to have fever, cough, sinus drainage, sore throat , headache and lower back pain. TUTOR documented in this encounter Plan of Treatment Not on filedocumented as of this encounter Procedures Comments Procedure Name Priority Date/Time Associated Diag nosis XR CHEST 2 VIEWS (PA AND STAT 11/06/2015 LATERAL) 12:00 AM GMAT TUTOR INFLUENZA AB ANTIGEN STAT 11/05/2015 10:39 PM GMAT TUTOR documented in this encounter Results * XR Chest 2 views (PA and lateral) (11/06/2015 12:00 AM GMAT TUTOR) Specimen Impressions Performed At Impression: EDIE No acute cardiopulmonary abnormality. Dictation Site: [facility] Narrative Performed At Patient: BORA WANG Sex#: M # 1960 [place]#: Location: [facility] ED BED-03 Procedure Requested: [id number] XR CHEST 2 VIEWS (PA AND LATERAL) Reason for Exam: cough, fever Exam Ordered: 11/05/2015 23 44 Exam Date/Time: 11/06/2015 000 0 Check-in Date/Time: 11/06/2015 0000 Procedure: XR CHEST 2 VIEWS (PA AND L ATERAL) Clinical Indication: cough, fever Comparison: None Findings: Heart size and pulmonary vasculature ar e unremarkable. No consolidating pulmonary infiltrate, pleural effusion, or pneumothorax. No acute osseous abnormality. Procedure Note Interface, Rad Results In - 11/06/2015 7:46 AM GMAT TUTOR Patient: BORA WANG Sex#: M # 1960 [place]#: Location: [facility] ED BED-03 Procedure Requested: [id number] XR CHEST 2 VIEWS (PA AND LATERAL) Reason for Exam: cough, fever Exam Ordered: 11/05/2015 2344 Exam Date/Time: 11/06/2015 0000 Check-in Date/Time: 11/06/2015 0000 Procedure: XR CHEST 2 VIEWS (PA AND LATERAL) Clinical Indication: cough, fever Comparison: None Findings: Heart size and pulmonary vasculature are unremarkable. No consolidating pulmonary infiltrate, pleural effusion, or pneumothorax. No acute osseous abnormality. Impression: No acute cardiopulmonary abnormality. Dictation Site: [facility] Performing Organization Address [facility] one Number EDIE * Influenza AB Antigen (11/05/2015 10:39 PM GMAT TUTOR) Influenza A Positive (qualifier value) Negative [facility] Antigen (A)Comment: If this is an [facility] inpatient, droplet precautions LAB are required with this organism Influenza B Negative (qualifier value) Negative [facility] Antigen Comment: [facility] negative rapid influenza LAB antigen result does not exclude influenza infection. If this patient is being hospitalized, influenza PCR should be ordered. Specimen Nasopharynx, Performing Organization Address City/[facility] one Number [facility] [address] [place] [address] [facility] documented in this encounter Visit Diagnoses Diagnosis Influenza A Influenza with other respiratory manife stations documented in this encounter Administered Medications Action Date Dose Rate Site Medication Order MAR Action 11/05/2015 11:59 PM GMAT TUTOR 75 mg oseltamivir (TAMIFLU) capsule 75 mg Given 75 mg, Oral, Once, Tue11/05/15 at 2345, For 1 dose documented in this encounter
--- OUTSIDE RECORDS SUMMARY | 2020-03-05 11:04 | XMS REPORT | Encounter Summary ---
Author Author [facility] Organization [facility] Address Unknown Phone Unavailable Care Team Providers Care Leather Sponger Name Role Phone Marielle Calvillo PCP Encounter Details Care Team Description Date Type Department Marielle Calvillo MD [address] [place] [address] [phone] 08/26/2014 [facility]-[employer] [facility] ion Encounter Social History Date Tobacco Use Types Packs/Day Years Used Never Assessed Sex Assigned at Date Recorded Not on file Industry Job Start Date Occupation Not on file Not on file Not on file Travel End Travel History Travel Start No recent travel history available. documented as of this encounter Miscellaneous Notes * Clinic Note - Marielle Calvillo - 08/26/2014 12:00 AM COTTONSEED MEAT PRESSER [facility] [address] [place] [id number] PATIENT: BORA WANG MR #: [id number] : 1960 DATE SEEN: 08/26/2014 Chief Complaint Patient is here for followup on medication. History of Present Illness Bora comes in today for followup on his medicine. He feels like the anxiety and depression medicine is working. The higher dose of Wellbutrin is making a diffe rence. He has been having some drainage out of both of his ears. He has chronic eustachian tube dysfunction. He has had chronic ear infections that have been go ing on since last night. He has a difficult time hearing out of his left and it has been draining. But the right one has felt full. Also, Saturday night his lef t pinky toe was very painful. He said it actually kept him up the majority of night. He said now it is not really hurting as much. It never really swelled up. He did not hurt it. He has had no trauma. No redness. He said then his left knee was also a little bit painful. Review of Systems No blurry vision, double vision, or change in vision. No runny nose. No dry mout h. No sore throat. No neck pain. No chest pain. No shortness of breath. No endoc rine complaints. No weight gain or weight loss. No dizziness. No change in skin color or easy bruising. Allergies Pollen Current Medications Abilify 2 mg oral tablet (aripiprazole), 2 mg, Daily, 30 Day(s) Not taking Renetta (fexofenadine), call office to update your dosage when you get home., IA N, aspirin 325 mg oral tablet (aspirin), 325 mg, Every 24 hours Diovan HCT 12.5 mg-80 mg oral tablet (hydrochlorothiazide-valsartan), 1 Tab, Delia ly Flonase 50 mcg/inh nasal spray (fluticasone nasal), 2 [place], Every 24 hours Floxin Otic 0.3% solution (ofloxacin otic), 5 Drop(s), 2 times a day Floxin Otic 0.3% solution (ofloxacin otic), 5 [...] BP Pulse RR MAP O2 Sat 36.4 138/82 104 20 100.67 94 Blood Pressure Location: Left arm Oxygen Therapy: Room air Weight Height BMI BSA 136.5 kg (300.93 lbs) 168 cm 48.4 kg/m2 2.5239 m2 Scale: Standing digital Vital Signs: Stable. Elevated BMI. Ears: Both ears have some drainage. Eyes: Pupils equal, round, and reactive to light and accommodation. Extraocular motion s intact. No icterus. No injection. Mouth: Moist mucous membranes. No posterior pharyngeal erythema. Neck: Soft. Supple. No lymphadenopathy. Heart: Regular rat e and rhythm without murmur. No S3 or S4. Lungs: Clear to auscultation bilateral ly in all lung murray. Good respiratory effort. Abdomen: No guarding. No rebound . Nontender and nondistended. Positive normoactive bowel sounds. No mass or hepa tosplenomegaly. No bruits heard. Extremities: No clubbing, cyanosis, or edema. P ulses 2+ and equal. Skin: Warm and dry. Good turgor. Neurologic: Intact. Psychia tric: Appropriate. Impression 1. Bilateral otitis media (382.9) 2. Pain in toe of left foot (729.5) 3. Encounter for long-term (current) use of medications (V58.69) 4. Anxiety and depression (300.4) Plan Medication changes this visit: New Augmentin 875 mg-125 mg oral tablet, 1 Tab, Q12H, 14 Day(s), Quantity: 28, Refil ls: 0 Stopped Abilify 2 mg oral tablet, 2 mg, daily, 30 Day(s), Quantity: 30, Refills: 0 Floxin Otic 0.3% solution, 5 Drop(s), BID, 7 Day(s), Quantity: 10, Refills: 6 Orders this visit: -Auto Diff -RBC Morphology CBC with Diff CHEM12 (CMP) Magnesium Level Uric Acid DX Foot Lt 3 View He has been on ear drops in the past but said it really has not helped a whole l ot. We will go ahead and put him on oral antibiotics. He has drops at home. No a bnormalities are noted with examination of his left foot or his left knee. We w ill go ahead and x-ray the foot to be on the safe side. Check lab work today and go from there. See me back for follow up as appropriate. Continue current medic kate as they seem to be helping. Call if questions. Risks, benefits of medications and/or treatment options explained. Alternatives and expected outcome discussed. Patient and/or family verbalized understanding. Patient instructed to follow up sooner than directed if new symptoms develop or current symptoms worsen. Otherwise follow up as needed. TR: RAJANI KAILASH#: [id number] ONSEED MEAT PRESSER documented in this encounter Plan of Treatment Not on filedocumented as of this encounter Visit Diagnoses Not on filedocumented in this encounter
--- OUTSIDE RECORDS SUMMARY | 2020-03-05 11:04 | XMS REPORT | Encounter Summary ---
Author Author [facility] Organization [facility] Address Unknown Phone Unavailable Care Team Providers Care Disability Services Coordinator Name Role Phone Marielle Calvillo PCP Encounter Details Care Team Description Date Type Department Santo Trivedi NP NO FORWARDING ADDRESS 10/25/2014 Hist-Transcript [facility] Hospit al ion Encounter [address] [place] [address] Social History Date Tobacco Use Types Packs/Day Years Used Never Assessed Sex Assigned at Date Recorded Not on file Industry Job Start Date Occupation Not on file Not on file Not on file Travel End Travel History Travel Start No recent travel history available. documented as of this encounter Progress Notes * Lizet Talavera MD - 10/25/2014 12:00 AM SEED ANALYSIS LABORATORY ASSISTANT DATE OF ADMISSION: 10/24/2014 DATE OF DISCHARGE: 10/25/2014 DICTATING PHYSICIAN: CLARI GUTIERREZ CHIEF COMPLAINT: Intracranial hemorrhage. PRIMARY: Marielle Calvillo MD. CONSULTING: Elmer Mclain DO. HOSPITAL COURSE: Bora Wang is a 54-year-old gentleman with history of diabetes , hypertension, hyperlipidemia, who presented as a direct admission from Dr. Zohaib Calvillo's office. According to the patient, he has been having left fronta l headache and blurry vision for the last 3-1/2 weeks. The patient was reporting floaters in his eyes as well as some decreased visual murray. MRI of the brain was done as an outpatient and results showed a 1.8 cm intraparenchymal hemorrhag e in the left occipital lobe, vasogenic edema. The patient was admitted to the [facility]. Neurosurgery consultation with Dr. Elmer Mclain was obtained. No artem gical intervention was necessary. Repeat CAT scan, the following day on the day of discharge showed no increase in the size of the bleeding. The patient is alecia g to be discharged to home with strict instructions to monitor his blood pressur e. Keep his blood pressure intact and follow up with his primary care. PHYSICAL EXAMINATION: On the morning of discharge, he is feeling a little bit be tter. Pownal 7.5 helps his headache. His visual murray he reports is improving. T emperature is 36.6 degrees, pulse rate 79, respiratory rate 16, blood pressure 1 27/73, oxygenation is 97%. HEENT: His pupils were equal and reactive. Tongue mid line. Extraocular eye movements are intact. Neck: Supple. Cardiovascular: S1, S2 , regular rate and rhythm. Peripheral pulses palpable. No peripheral edema. Pulm onary: Lungs are clear. No wheezes, rhonchi, or rales. Gastrointestinal: Abdomen is soft, obese. Bowel sounds active. No guarding, rebound or organomegaly. Musc uloskeletal: Normal range of motion. Normal strength. Foot presses were equal, g rips were equal bilaterally. No pronator drift. Neurological: Alert and oriented with no focal deficits. Psychiatry: Cooperative. PERTINENT RADIOLOGY: CT of the head without contrast shows left occipital lobe h ematoma with surrounding edema, stable from MRI done 24 hours ago. DISCHARGE DIAGNOSES: Includes: 1. Spontaneous intracranial hemorrhage. 2. Frontal headache secondary to intracranial hemorrhage. 3. Blurry vision, improving. 4. Diabetes mellitus. 5. Hypertension. 6. Hyperlipidemia. 7. Severe stress secondary to his job loss. DISPOSITION: Will be to home. Does not appear to have any focal deficits. He frankie l be no driving until he follows up with the eye doctor for visual examination, along with no driving while on narcotics. Follow with Dr. Calvillo in 72 hours . Follow up with an MRI of the brain with and without contrast in 4 weeks. DISCHARGE MEDICATIONS: To include: 1. 500 mg of vitamin C daily. 2. Renetta as directed. 3. Valsartan/hydrochlorothiazide 12.5/80 mg daily 4. Kombiglyze 2.5 mg in the morning and in the p.m. Blood pressure readings twic e a day and record. 5. Vitamin D 4000 international units daily. 6. Multivitamin daily. 7. Ofloxacin otic ear drops 5 drops in the left ear b.i.d. until completed. 8. Fish oil 2000 mg b.i.d. 9. Levitra 20 mg daily. 10. Pownal 7.5 q.4 hours as needed for headache. 11. Wellbutrin XL 300 mg daily. 12. Invokana 300 mg daily. 13. Fenofibrate 145 mg daily. 14. Flonase 50 mcg 2 sprays daily. 15. Metformin 500 mg extended release daily. 16. Nateglinide 120mg t.i.d. before meals. 17. Procardia XL 30 mg daily. 18. Nitroglycerin 0.4 mg p.r.n. 19. Protonix 40 mg b.i.d. Time taken for discharge 30 minutes. DICTATED BY: Santo Trivedi cc: MD Elmer Enrique DO TR: [id number] DR: 10/25/2014 14:37 DE: 10/25/2014 17:41 JOB#: [id number] reviewed above and agree ANALYSIS LABORATORY ASSISTANT documented in this encounter Plan of Treatment Not on filedocumented as of this encounter Visit Diagnoses Not on filedocumented in this encounter
--- OUTSIDE RECORDS SUMMARY | 2020-03-05 11:04 | XMS REPORT | Encounter Summary ---
Author Author [facility] Organization [facility] Address Unknown Phone Unavailable Care Team Providers Care Curtain Cutter Name Role Phone RajinderMarielle PCP Encounter Details Care Team Description Date Type Department Deshaun Barajas MD [address] [place] [address] [phone] 03/19/2015 Hist-Transcript [facility] Encounter Social History [...] Clinic Note - Deshaun Barajas MD - 03/19/2015 12:00 AM CDT Patient: BORA WANG Age: 54 years Sex: Male : 1960 Associated Diagnoses: None Author: Deshaun Barajas MD Visit Information [facility] [address] [place] [address] [address] [place] [address] PATIENT: BORA WANG MR #: [id number] : 1960 DATE SEEN: 03/19/2015 Chief Complaint Patient is a 54 year old male returned for followup regarding [...] in 08/2014, 6.9% in 12/2014, 6.8% in 02/2015. Patient states he does not check his blood sugar. Review of Systems Allergies Pollen Current Medications Renetta (fexofenadine), call office to update your dosage when you get home., [place] N, clonidine 0.1 mg oral tablet (clonidine), 0.1 mg, 3 times a day Diovan HCT 12.5 mg-80 mg oral tablet (hydrochlorothiazide-valsartan), 1 Tab, Delia ly Flonase 50 mcg/inh nasal spray (fluticasone nasal), 2 [place], Every 24 hours Floxin Otic 0.3% solution [...] Tobacco Usage: Denies Recreational Drug Use: Denies Gained 6.9 kg. No fever or chills. No weight loss or anorexia. No significant headaches or dizziness. No change in vision or hearing. No palpitations. No cough or shortness of breath. No abdominal pain, nausea, or vomiting. No melen a or hematemesis. No dysuria or hematuria or incontinence. No syncope. No col d or heat intolerance. No excessive thirst or urination. The rest of 12-point review of systems was addressed and noncontributory. Physical Examination TEMP BP Pulse RR MAP O2 Sat 37.1 140/90 86 19 106.67 96 Blood Pressure Location: Left arm Weight Height BMI BSA 134.6 kg (296.74 lbs) 170.8 cm 46.1 kg/m2 2.5271 m2 HEENT: EOMs intact. No icterus on [...] adequated fluid intake to avoid dehydration/volume loss. Add metformin ER 500 mg po with meal. 2. Dyslipidemia, on Tricor and Lovaza (2000 mg bid), weight loss would be helpfu l. He had DM education. Lipid panel not in range in 12/2014. 3. Hypertension, on ARB. Urine microalbumin ratio was normal in 02/2015. He had hemorrhage in brain of unknown etiology in 10/2014. 4. Hypogonadism, LH, free testosterone was normal in 03/2012. He has ED, he is w illing to try Levitra 20 mg po daily. 5. Abdominal obesity, TLC, 1800 Kcal. He is willing to try Contrave (natrexone 8 mg/bupropion 90 mg), one qd, week 1; bid, week 2; two in am and one in pm, wee k 3; two bid, week 4, then continue. 6. Return in 4 months. CC: Marielle Calvillo MD documented in this encounter Plan of Treatment Not on filedocumented as of this encounter Visit Diagnoses Not on filedocumented in this encounter
--- OUTSIDE RECORDS SUMMARY | 2020-03-05 11:04 | XMS REPORT | Encounter Summary ---
Author Author [facility] Organization [facility] Address Unknown Phone Unavailable Care Team Providers Care Fulfillment Representative Name Role Phone RajinderMarielle PCP Encounter Details Care Team Description Date Type Department Deshaun Barajas MD [address] [place] [address] [phone] 09/16/2014 Hist-Transcript [facility] Encounter Social History Date Tobacco Use Types Packs/Day Years Used Never Assessed Sex Assigned at Date Recorded Not on file Industry Job Start Date Occupation Not on file Not on file Not on file Travel End Travel History Travel Start No recent travel history available. documented as of this encounter Miscellaneous Notes * Clinic Note - Deshaun Barajas - 09/16/2014 12:00 AM RN DIGESTIVE Patient: BORA WANG Age: 53 years Sex: Male : [birth year] Associated Diagnoses: None Author: Deshaun Barajas MD Visit Information [facility] [address] [place] [address] [phone] PATIENT: BORA WANG MR #: [id number] : 1960 DATE SEEN: 09/16/2014 Chief Complaint Patient is a 53 year [...] in 01/2014, 6.9% in 04/2014, 7.2% in 08/2014. Patient states he does not elysia ck his blood sugar. Patient states he does not check his blood sugar. Patient st ates he does not check his blood sugar. 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 No fever or chills. No anorexia. No significant headac hes or dizziness. No change in vision or hearing. No palpitations. No cough or shortness of breath. No abdominal pain, nausea, or vomiting. No melena or h ematemesis. No dysuria or hematuria or incontinence. No syncope. No cold or h eat intolerance. No excessive thirst or urination. The rest of 12-point review of systems was addressed and noncontributory. Physical Examination TEMP BP Pulse RR MAP O2 Sat 36.7 141/82 95 16 101.67 97 Blood Pressure Location: Left arm Oxygen Therapy: Room air Weight Height BMI BSA 135.0 kg (297.62 lbs) 168 cm 47.8 kg/m2 HEENT: EOMs intact. No icterus on sclerae. [...] ASSESSMENT AND PLAN 1. Type 2 diabetes, uncontrolled, continue Kombiglyze XR 01/1000 mg with dinner, nateglinide 120 mg po tid with meal 1-30 min, Invokana 300 mg po daily at breakf ast. Advised about UTI and mycotic infection/personal hygiene, adequated fluid i ntake to avoid dehydration/volume loss. Add metformin ER [...] in 4 months. CC: Marielle Calvillo MD DIGESTIVE documented in this encounter Plan of Treatment Not on filedocumented as of this encounter Visit Diagnoses Not on filedocumented in this encounter
--- OUTSIDE RECORDS SUMMARY | 2020-03-05 11:04 | XMS REPORT | Encounter Summary ---
Author Author [facility] Organization [facility] Address Unknown Phone Unavailable Care Team Providers Care Applications Tester Name Role Phone Marielle Calvillo PCP Encounter Details Care Team Description Date Type Department Marielle Calvillo MD [address] [place] [address] [phone] 11/11/2014 Hist-Transcript [facility] Encounter Social History Date Tobacco Use Types Packs/Day Years Used Never Assessed Sex Assigned at Date Recorded Not on file Industry Job Start Date Occupation Not on file Not on file Not on file Travel End Travel History Travel Start No recent travel history available. documented as of this encounter Miscellaneous Notes * Clinic Note - Marielle Calvillo - 11/11/2014 12:00 AM BEHAVIORAL SCIENCES INSTRUCTOR [facility] [address] [place] [address] [phone] PATIENT: BORA WANG MR #: [id number] : 1960 DATE SEEN: 11/11/2014 Chief Complaint Patient is here for seeing black spots in his vision x 2 days. History of Present Illness Bora Wang comes in today basically over the weekend he started having more vis ion changes, noticing black spots that are kind of floating through his visual f ield. Different than what he had been having. Blood pressures during those times were a little bit high but definitely not like they had been ranging from 120s to mid 130s/70s to at one time 91. He did take clonidine whenever his blood pre ssures were high as directed. Did not seem to be an association between when he was having the spots versus if his blood pressure was necessarily high versus lo w. Has had a little headache this weekend. No other changes. Review of Systems No ear pain. No ear discharge. No ringing in ears. No runny nose. No dry mouth. No sore throat. No neck pain. No chest pain. No shortness of breath. No extremit y complaints. No musculoskeletal problems. No weight gain or weight loss. No diz ziness. No depression. No change in skin color or easy bruising. 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 [...] dry. Good turgor. Neurologic: Intact. Psychiatric: Appropriate. Fundoscopic exam appeared normal Impression 1. Vision changes (368.9) 2. Hypertension (401.9) 3. Intraparenchymal hemorrhage of brain (431) 4. Seasonal allergies (477.9) Plan Future Orders: MR Angio [place] [facility] [place] w/o Contrast. - 11/11/14 12:30 MR Brain w+w/o Contrast. - 11/11/14 12:30 History of intraparenchymal hemorrhage that we are still trying to figure out ne cessarily the cause of. Talked with them about this today. Need to get a MRI, MR A done today to see if his bleed has gotten worse as these were the only changes he had had as far as his vision is concerned before whenever we found the bleed. He has had a headache again this weekend. He said it is not horrible just sli ght but he was not really having headaches prior to that over the last week or s o. Try to get the MRI, MRA done today and go from there. I told him if it gets w orse he needs to go to the ER. He is understanding, call if questions. Risks, benefits of medications and/or treatment options explained. Alternatives and expected outcome discussed. Patient and/or family verbalized understanding. Patient instructed to follow up sooner than directed if new symptoms develop or current symptoms worsen. Otherwise follow up as needed. TR: RAJANI KAILASH#: [id number] VIORAL SCIENCES INSTRUCTOR documented in this encounter Plan of Treatment Not on filedocumented as of this encounter Visit Diagnoses Not on filedocumented in this encounter
--- OUTSIDE RECORDS SUMMARY | 2020-03-05 11:04 | XMS REPORT | Encounter Summary ---
Author Author [facility] Organization [facility] Address Unknown Phone Unavailable Care Team Providers Care Die Repairer Forging Name Role Phone RajinderMarielle PCP Encounter Details Care Team Description Date Type Department Ruba Avila DPM [address] [place] [id number] [phone] 03/25/2014 Hist-Transcript [facility] Encounter Social History Date Tobacco Use Types Packs/Day Years Used Never Assessed Sex Assigned at Date Recorded Not on file Industry Job Start Date Occupation Not on file Not on file Not on file Travel End Travel History Travel Start No recent travel history available. documented as of this encounter Miscellaneous Notes * Clinic Note - Ruba Avila - 03/25/2014 12:00 AM CDT [facility] [address] [place] [phone] [facility] PATIENT: BORA WANG MR #: [id number] : 1960 DATE SEEN: 03/25/2014 Chief Complaint Patient is seen today for an infection in his left great toe. History of Present Illness The patient is seen today with concern over infection of the left great toe. Th e patient has a 2 1/2 week history of ingrowth and paronychia with infection on the left great toe lateral margin. He was seen in the [facility] at [place] for evaluation. He was placed on oral Bactrim. The oral Bactrim has just finis hed up and there is still some pain and discomfort as well as redness present. He would like to potentially continue a course of Bactrim. He is here today for a diabetic foot evaluation as well. He has concerns over a brittle toenail and would like to discuss options as well for treatment of a brittle cracking toena il. He has no pain associated with the toenail otherwise other than with the in growth and pain is currently mild. He states blood sugar has been stable. Review of Systems PROGRAMMING SPECIALIST: NA Musculoskeletal: Muscle or joint pain, Redness of joints Pertinent negative for the following system(s): Constitutional, Cardiovascular, Neurological, Hematologic Allergies Pollen Current Medications Renetta (fexofenadine), call office to update your dosage when you get home., [place] N, aspirin 325 mg oral tablet (aspirin), 325 mg, Every 24 hours Bactrim DS 800 mg-160 mg oral tablet (sulfamethoxazole-trimethoprim), 1 Tab, 2 t imes a day, 10 Day(s) Diovan HCT 12.5 mg-80 mg oral tablet (hydrochlorothiazide-valsartan), 1 Tab, Delia ly Flonase 0.05 mg/inh nasal spray (fluticasone nasal), 2 [place], PRN, Every 24 hour s Flonase 50 mcg/inh nasal spray (fluticasone nasal), 2 [place], Every 24 hours Floxin Otic 0.3% solution (ofloxacin otic), 5 Drop(s), 2 times a day Invokana 300 mg (Miscellaneous Medication), 1 Tab, With breakfast Sneha 0.5 mg-0.4 mg oral capsule (dutasteride-tamsulosin), 1 Cap, Every 24 hours Kombiglyze XR 2.5 mg-1000 mg oral tablet, [...] tablet (fenofibrate), 145 mg, Every 24 hours, Comment: called to [facility] 09/29/2009 Vitamin B Complex with C and Minerals oral capsule (multivitamin with minerals), 1 Cap, Daily Vitamin C (ascorbic acid), 500 mg, Daily Vitamin D (Miscellaneous Medication), 4,000 IU, Daily Vitamin D3 (cholecalciferol), 4,000 IU, Daily Wellbutrin SR 150 mg/12 hours oral tablet, extended release (bupropion), 150 mg, 2 times a day Social History Alcohol Use: Current Caffeine Use: Denies Current Tobacco Usage: Denies Recreational Drug Use: Denies 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 Vascular: DP/PT pulses intact jose ateral. Dermatological: Left great toenail, the nail is thickened, discolored, and slightly dystrophic. There is some brittleness of the toenail noted. There is paronychia noted in the lateral margin with mild erythema and edema present. Neurological: Negative Babinski sign. Musculoskeletal: All muscle groups are 5/5 bilateral. Mild pain with palpation to the left great toe. Impression 1. Ingrowing toenail (703.0) left great toe. 2. Paronychia (681.9) left great toe. 3. Foot Pain (729.5) left great toe. 4. Diabetes mellitus Plan Medication changes this visit: New Bactrim DS 800 mg-160 mg oral tablet, 1 Tab, BID, 10 Day(s), Quantity: 20, Refil ls: 0 Orders this visit: Follow Up PRN -Request For the nail changes, we will order a topical medication that may help improve t he nail itself. In terms of the mild paronychia present, we did refill his Bact rim DS one pill twice daily x7 days. If there is no improvement in the next 7 d ays to 2 weeks, we will have him come back and see us as needed. We will work o n getting that prescription filled for him for the topical nail medicine. We wi ll see him back as needed otherwise. TR: REYES KAILASH#: [id number] documented in this encounter Plan of Treatment Not on filedocumented as of this encounter Visit Diagnoses Not on filedocumented in this encounter
--- OUTSIDE RECORDS SUMMARY | 2020-03-05 11:04 | XMS REPORT | Encounter Summary ---
Author Author [facility] Organization [facility] Address Unknown Phone Unavailable Care Team Providers Care Mechanical Artist Name Role Phone Marielle Calvillo PCP Encounter Details Care Team Description Date Type Department Marielle Calvillo MD [address] [place] [address] [phone] 10/22/2014 Hist-Transcript MOSAIC HISTORIC ion Encounter Social History Date Tobacco Use Types Packs/Day Years Used Never Assessed Sex Assigned at Date Recorded Not on file Industry Job Start Date Occupation Not on file Not on file Not on file Travel End Travel History Travel Start No recent travel history available. documented as of this encounter Miscellaneous Notes * Clinic Note - Marielle Calvillo - 10/22/2014 12:00 AM PAINTER SHIPYARD [facility] [address] [place] [phone] PATIENT: BORA WANG MR #: [id number] : 1960 DATE SEEN: 10/22/2014 Chief Complaint Patient is here for seeing things in both eyes x 2-3 weeks. Patient was last se en by an eye doctor on May 2014. History of Present Illness Patient comes in today for difficulty with vision changes. He has actually been having some vision changes in both eyes for the last 2-3 weeks. He has been no ticing shapes with colors kind of floating across his visual field that actually have flashing numbers in them. He said that it started off just kind of every once in a while and now it has been lasting longer and he can still see them whe n he shuts his eyes. He has been having also some headaches. No other changes. Review of Systems No [...] update your dosage when you get home., [place] N, aspirin 325 mg oral tablet (aspirin), 325 mg, Every 24 hours Diovan HCT 12.5 mg-80 mg oral tablet (hydrochlorothiazide-valsartan), 1 Tab, Delia ly Flonase 50 mcg/inh nasal spray (fluticasone nasal), 2 [place], Every 24 hours Floxin Otic 0.3% solution [...] tablet (fenofibrate), 145 mg, Every 24 hours, 30 Day(s) Vitamin B Complex with C and Minerals oral capsule (multivitamin with minerals), 1 Cap, Daily Vitamin C (ascorbic acid), 500 mg, Daily Vitamin D (Miscellaneous Medication), 4,000 IU, Daily Vitamin D3 (cholecalciferol), 4,000 IU, Daily Wellbutrin XL 300 mg/24 hours oral tablet, extended release (bupropion), 300 mg, Every 24 hours, 30 Day(s) Problems and Past Medical History [...] Recreational Drug Use: Denies 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 Ears: TMs clear bilaterally. Clear canals. [...] turgor. Neurologic: Intact. Psychiatric: Appropriate. Impression 1. Headache (784.0) 2. Vision changes (368.9) Plan Medication changes this visit: Refill TriCor 145 mg oral tablet, 145 mg, Q24H, Quantity: 30, Refills: 0 Wellbutrin XL 300 mg/24 hours oral tablet, extended release, 300 mg, Q24H, Quant ity: 30, Refills: 0 Orders this visit: Referral - Request, Ophthalmology, vision changes, RADHA Lee 10/30/14 @6871 He last saw an eye doctor in May 2014. Talked with him about various opti ons. I would like to get him in to see an eye doctor to have a full dilated eye exam as soon as possible as well as get an MRI, MRA. He does have a history of hypertension so I would like to have him check his blood pressure when this is going on as well and to let me know immediately if things get worse and not bett er. He is understanding. We will see him back for followup as appropriate. Ca ll with questions. Risks, benefits of medications and/or treatment options explained. Alternatives and expected outcome discussed. Patient and/or family verbalized understanding. Patient instructed to follow up sooner than directed if new symptoms develop or current symptoms worsen. Otherwise follow up as needed. TR: [id number] KAILASH#: [id number] TER SHIPYARD documented in this encounter Plan of Treatment Not on filedocumented as of this encounter Visit Diagnoses Not on filedocumented in this encounter
--- OUTSIDE RECORDS SUMMARY | 2020-03-05 11:04 | XMS REPORT | Encounter Summary ---
Author Author [facility] Organization [facility] Address Unknown Phone Unavailable Care Team Providers Care Preschool Aide Name Role Phone RajinderMarielle PCP Encounter Details Care Team Description Date Type Department Deshaun Barajas MD [address] [place] [address] [phone] 01/14/2015 Hist-Transcript MOSAIC HISTORIC ion Encounter Social History [...] Clinic Note - Deshaun Barajas MD - 01/14/2015 12:00 AM CDT Patient: BORA WANG Age: 54 years Sex: Male : 1960 Associated Diagnoses: None Author: Deshaun Barajas MD Visit Information .[facility] [address] [place] [address] [address] [place] [address] PATIENT: BORA WANG MR #: [id number] : 1960 DATE SEEN: 01/14/2015 Chief Complaint Patient is a 54 year [...] in 04/2014, 7.2% in 08/2014, 6.9% in 12/2014. Patient states he does not check his blood sugar. Review of Systems Allergies Pollen Current Medications Renetta (fexofenadine), call office to update your dosage when you get home., [place] N, clonidine 0.1 mg oral tablet (clonidine), 0.1 mg, 3 times a day Diovan HCT 12.5 mg-80 mg oral tablet (hydrochlorothiazide-valsartan), 1 Tab, Delia ly Flonase 50 mcg/inh nasal spray (fluticasone nasal), 2 [place], Every 24 hours Floxin Otic 0.3% solution [...] Tobacco Usage: Denies Recreational Drug Use: Denies Lost 7.3 kg. No fever or chills. No weight [...] BP Pulse RR MAP O2 Sat 36.6 132/87 81 14 102 98 Blood Pressure Location: Left arm Oxygen Therapy: Room air Weight Height BMI BSA 127.7 kg (281.53 lbs) HEENT: EOMs intact. No icterus on sclerae. [...] ARB. Urine microalbumin ratio was normal in 01/2014. He had hemorrhage in brain of unknown [...]
--- OUTSIDE RECORDS SUMMARY | 2020-03-05 11:04 | XMS REPORT | Encounter Summary ---
Author Author [facility] Organization [facility] Address Unknown Phone Unavailable Care Team Providers Care Stockroom Attendant Name Role Phone RajinderMarielle PCP Encounter Details Care Team Description Date Type Department Salomon Wang MD [address] [place] [address] [phone] 01/06/2015 Hist-Transcript MOSAIC HISTORIC ion Encounter Social History Date Tobacco Use Types Packs/Day Years Used Never Assessed Sex Assigned at Date Recorded Not on file Industry Job Start Date Occupation Not on file Not on file Not on file Travel End Travel History Travel Start No recent travel history available. documented as of this encounter Miscellaneous Notes * Clinic Note - Salomon Wang - 01/06/2015 12:00 AM CDT Patient: BORA WANG Age: 54 years Sex: Male : 1960 Associated Diagnoses: None Author: Salomon Wang MD Health Status Allergies Allergic Reactions (All) Severity Not Documented Pollen- No reactions were documented. Current medications (Selected) Prescriptions Prescribed Diovan HCT 12.5 mg-80 mg oral tablet: 1 Tab, PO, daily, for 30 Day(s), 30 Tab, 0 Refill(s) Flonase 50 mcg/inh nasal spray: 2 [place], NASAL, Q24H, 1 EA Floxin Otic 0.3% solution: 5 Drop(s), left ear, BID, 1 EA GENADUR: See Instructions, APPLY TO TOENAILS DAILY, 12.2 mL Invokana 300 mg oral tablet: 1 Tab, PO, QAM, 30 Tab Kombiglyze XR 2.5 mg-1000 mg oral tablet, extended release: 2 Tab, PO, QPM, with meals, 60 Tab LG BP CUFF: See Instructions, LARGE BP CUFF Levitra 20 mg oral tablet: 1 Tab, PO, daily, 30 Tab Lovaza oral capsule: 2,000 mg, PO, BID, 360 Cap One Touch Ultra Strips and One Touch Delica: See Instructions, as directed, 100 EA Procardia XL 30 mg oral tablet, extended release: 1 Tab, PO, Q24H, NO FURTHER re fills until seen in office, 90 Tab TriCor 145 mg oral tablet: 1 Tab, PO, Q24H, PATIENT NEEDS FASTING LABS PRIOR TO NEXT REFILL, 30 Tab Wellbutrin XL 300 mg/24 hours oral tablet, extended release: 1 Tab, PO, Q24H, fo r 30 Day(s), 30 Tab, 5 Refill(s) clonidine 0.1 mg oral tablet: 1 Tab, PO, TID, as needed for elevated blood press ure of systolic >160 or dystolic >90, 90 Tab, 0 Refill(s) metformin 500 mg oral tablet, extended release: 1 Tab, PO, daily, 30 Tab nateglinide 120 mg oral tablet: 1 Tab, PO, TIDAC, 1-30 minutes before meals, 90 Tab pantoprazole 40 mg oral enteric coated tablet: 1 Tab, PO, BID, 60 Tab trazodone 50 mg oral tablet: 1 Tab, PO, AT BEDTIME, 30 Tab, 3 Refill(s) Documented Medications Documented Renetta: See Instructions, call office to update your dosage when you get home., PRN: as needed for allergy symptoms Vitamin B Complex with C and Minerals oral capsule: 1 Cap, PO, daily Vitamin C: 500 mg, PO, daily Vitamin D3: 4,000 IU, PO, daily Vitamin D: 4,000 IU, daily Problem list Medical Vitamin D Deficiency / ICD-9-CM 268.9 / Confirmed Type 2 Diabetes, Uncontrolled, with Neuropathy / ICD-9-CM 250.62 / Confirmed numbness and tingling in toes HGB A1C 8.2 Paronychia / SNOMED CT 142685105 / Confirmed OBSTRUCTIVE SLEEP APNEA / ICD-9-CM 327.23 / Confirmed Obesity NOS / SNOMED CT 2965281148 / Confirmed Ingrown toenail / SNOMED CT 3626675594 / Confirmed Hypertension / ICD-9-CM 401.9 / Confirmed Hyperlipidemia / ICD-9-CM 272.4 / Confirmed Foot Pain / ICD-9-CM 729.5 / Confirmed Erectile Dysfunction / ICD-9-CM 607.84 / Confirmed Diabetes mellitus type II / ICD-9-CM 250.00 / Confirmed Body Mass Index 40 and over, adult / ICD-9-CM V85.4 / Confirmed Anxiety - Generalized Disorder / ICD-9-CM 300.02 / Confirmed Allergic Rhinits, Seasonal or NOS / ICD-9-CM 477.9 / Confirmed Canceled: Other disease of nasal cavity and sinuses / ICD-9-CM 478.19 Canceled: Diabetes mellitus type 2 with other manifestations, uncontrolled / ICD -9-CM 250.82 Canceled: cpap of 14 Results Review General results Today's results : POWERNOTE ALL RESULTS 12/29/12 11:08 Consent to Treat GENERAL Visit Information Chief complaint Patient here to see me in follow up regarding HTN and hyperlipidemia. Visit type Scheduled follow-up. Source of history Patient. Referral source Primary care physician: Marielle Calvillo MD, Deshaun Barajas MD. History of Present Illness Complaint of regarding HTN and hyperlipidemia. Complaint of regarding HTN and hyperlipidemia. Since last visit has not had any problems. Had brain bleed 10/2014:Left occipital lobe hematoma with surrounding edema. Denies any CP, SOB, palpitations, pre-syncope, syncope or leg edema. Has been regular with prescribed medications and has not reported any side-effec ts. Has been following healthy lifestyle strategies, in particular heart healthy low fat diet. Has not been very active physically and has not experienced any cardiac symptoms . Patient does not smoke. Other cardiovascular risk factors including diet, exercise, BP, DM are all sati sfactorily controlled. Lipid levels show high TG, low HDL, nl LDL. Previous data/reports including labs, echo and stress test are reviewed by me o n this visit. Uses CPAP for EDMOND. Stress test 10/2012 :Left Ventricular Ejection Fraction is 57 %.Normal Perfusion Imaging. Gastric bypass not covered by his insurance Review of Systems Constitutional All other systems reviewed with negative findings at this time. Past Medical History Cardiovascular Past Medical History Angina. Hyperlipidemia. Hypertension. Respiratory Past Medical History Pulmonary obstructive disorders: sleep apnea. Genitourinary Past Medical History Lithiasis. Endocrine/Metabolic Past Medical History Type 2 diabetes. Psychiatric Past Medical History Anxiety disorders. Surgical History Eye Surgical History eye lids. ENMT Surgical History Tonsillectomy and adenoidectomy. ear tubes. sinus repair. Gastrointestinal Surgical History Appendectomy. Colonoscopy. Herniorrhaphy. Musculoskeletal Surgical History Knee arthroscopy: location left. ankle cyst repair. Family History Cardiovascular Family History Congenital heart disease: mother. Coronary artery disease: father bypass. Social History Alcohol use Employment Employed. Family/ Social situation Marital status: single. Children: total number 2. Tobacco exposure negative Drug use negative Physical Examination Vital signs BP: systolic 124 mmHg, diastolic 52 mmHg, sitting, site left arm. Pulse: 126 beats per min. Resp: 18 breaths/ min. Temperature: oral 36.3 degrees Celsius. Height: 170.01 cms 5'7". Weight: 136.0 kgs. Point of care testing Oxygen saturation 97 %. HEENT Exam is unremarkable, with no pallor, cyanosis, or jaundice. Cranial nerves are normal. Neck is supple with no JVD. No carotid bruit. No thyroid mass. No lymphadenopathy. Cardiovascular PMI is undisplaced. S1, S2 heard. No murmurs. No gallops or rubs appreciated. Respiratory Breath sounds clear to auscultation: bilaterally. No crackles present. No rhonchi present. Gastrointestinal Abdomen: soft, No masses felt, No hepatosplenomegaly noted, No abdominal bruit n oted, no tenderness. Neurologic SFDC CONSULTANT exam intact. Pain Assessment The severity is 0 / 10 on the severity scale. Upper extremity musculoskeletal Pulses are 3+ and symmetrical. There is no peripheral cyanosis or clubbing. Lower extremity musculoskeletal Pulses are 3+ and symmetrical. No edema noted. There is no peripheral cyanosis or clubbing. Impression and Plan General Plan Diagnosis Erectile Dysfunction (ICD9 607.84) Hyperlipidemia (ICD9 272.4) Hyperlipidemia (ICD9 272.4) Hypertension (ICD9 401.9) Obesity NOS (ICD9 278.00) OBSTRUCTIVE SLEEP APNEA (ICD9 327.23) Type 2 Diabetes, Uncontrolled, with Neuropathy (ICD9 250.62) Orders PowerOrders Evaluation and Management: Office Visit Level 3 Est - [id number] (Order): 01/06/2015 13:42 The patient is to continue on current cardiac medical therapy. Ok to refill cur rent cardiac medications from this note per the [facility] prescription refill standard for 1 year from this visit. Discussed with patient modifications of diet and exercise programs to help promo te cardiac health. Thank You for allowing me to participate in the care of this patient. If you cervantes ve any further questions please feel free to contact my office. Patient is to follow up in 6 months, sooner if deem necessary EKG showed NSR LAE Chart reviewed No new recs. documented in this encounter Plan of Treatment Not on filedocumented as of this encounter Visit Diagnoses Not on filedocumented in this encounter
--- OUTSIDE RECORDS SUMMARY | 2020-03-05 11:04 | XMS REPORT | Encounter Summary ---
Author Author [facility] Organization [facility] Address Unknown Phone Unavailable Care Team Providers Care Trackmobile Operator Name Role Phone Marielle Calvillo PCP Encounter Details Care Team Description Date Type Department Marielle Calvillo MD [address] [place] [address] [phone] 05/29/2014 Hist-Transcript MOSAIC HISTORIC ion Encounter Social History Date Tobacco Use Types Packs/Day Years Used Never Assessed Sex Assigned at Date Recorded Not on file Industry Job Start Date Occupation Not on file Not on file Not on file Travel End Travel History Travel Start No recent travel history available. documented as of this encounter Miscellaneous Notes * Clinic Note - Marielle Calvillo - 05/29/2014 12:00 AM CDT [facility] [address] [place] [phone] PATIENT: BORA WANG MR #: [id number] : 1960 DATE SEEN: 05/29/2014 Chief Complaint Patient is here for followup on depression. History of Present Illness White males comes in today for followup on depression. He is not doing so hot. H e is really struggling with depression. He feels like it has really affecting hi s life significantly. He has been on the Wellbutrin. Review of Systems No ear pain. No [...] update your dosage when you get home., [place] N, aspirin 325 mg oral tablet (aspirin), 325 mg, Every 24 hours Diovan HCT 12.5 mg-80 mg oral tablet (hydrochlorothiazide-valsartan), 1 Tab, Delia ly Flonase 50 mcg/inh nasal spray (fluticasone nasal), 2 [place], Every 24 hours Floxin Otic 0.3% solution (ofloxacin otic), 5 Drop(s), 2 times a day GENADUR (Miscellaneous Medication), APPLY TO TOENAILS DAILY Invokana 300 mg (Miscellaneous Medication), 1 Tab, With breakfast Sneha 0.5 mg-0.4 mg oral capsule (dutasteride-tamsulosin), 1 Cap, Every 24 hours Not taking Kombiglyze XR 2.5 mg-1000 mg [...] release (bupropion), 150 mg, 2 times a day, 30 Day(s) Wellbutrin SR 150 mg/12 hours oral tablet, extended release (bupropion), 150 mg, 2 times a day Social History Alcohol Use: Current Caffeine Use: Denies Current Tobacco Usage: Denies Recreational Drug Use: Denies 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 [...] turgor. Neurologic: Intact. Psychiatric: Appropriate. Impression 1. Depression (311) 2. Fatigue (780.79) Plan Medication changes this visit: New Abilify 2 mg oral tablet, 2 mg, daily, Quantity: 30, Refills: 1 Stopped Sneha 0.5 mg-0.4 mg oral capsule, 1 Cap, Q24H, Refills: 0 Wellbutrin SR 150 mg/12 hours oral tablet, extended release, 150 mg, BID, 30 Day (s), Quantity: 60, Refills: 3 He has been on his current antidepressant. He feels like it is helping. However, not nearly enough. We talked about various options and we will go ahead and add Abilify to see if that helps. I gave him precautions regarding medications. He is understanding. We never got his overnight pulse ox back from [facility], so we w ill go ahead and try to get those results. He has been feeling awfully tired lat joceline and either one of those things could be contributing to problems. I talked t o him about various options with regard to this. He would like to try the new me dicine and see how that works. I talked to him about some counseling. He does no t have time for it right now, so we will go ahead and hold off for the time luanne cruz. We will had the medicine, make sure his oxygen is okay at night and go from t here. See me back for followup as appropriate. Call for questions. Risks, benefits of medications and/or treatment options explained. Alternatives and expected outcome discussed. Patient and/or family verbalized understanding. Patient instructed to follow up sooner than directed if new symptoms develop or current symptoms worsen. Otherwise follow up as needed. TR: [id number] KAILASH#: [id number] documented in this encounter Plan of Treatment Not on filedocumented as of this encounter Visit Diagnoses Not on filedocumented in this encounter
--- OUTSIDE RECORDS SUMMARY | 2020-03-05 11:05 | XMS REPORT | Encounter Summary ---
Author Author [facility] Organization [facility] Address Unknown Phone Unavailable Care Team Providers Care Superintendent Tests Name Role Phone Marielle Calvillo PCP Encounter Details Care Team Description Date Type Department Jaya QuinNURY [address] [place] [phone] 02/01/2014 Hist-Transcript MOSAIC HISTORIC ion Encounter Social History [...] Clinic Note - [place] FNP-BC - 02/01/2014 12:00 AM CDT [facility] [address] [place] [address] [address] [place] [address] PATIENT: BORA WANG MR #: [id number] : 1960 DATE SEEN: 02/01/2014 Chief Complaint Patient is here to be seen for drainage from both ears. This has been going on f or a week. Additional Information: Dr Calvillo thinks tubes may be coming out. History of Present Illness This 53-year-old male patient presents to the clinic to see me today for bilater al draining ears. He has had tubes in place for several years. He denies probl ems with pain at the present time. He states his hearing is decreased bilateral ly. Review of Systems HEENT: Headache, Nasal drainage PROSPECTING DRILLER: NA Pertinent negative for the following system(s): Constitutional, Respiratory, Car diovascular, GI, , Integumentary, Musculoskeletal, Neurological, Hematologic, Endocrine, Psychiatric Allergies Pollen Current Medications Renetta (fexofenadine), call office to update your dosage when you get home., [place] N, aspirin 325 mg oral tablet (aspirin), 325 mg, Every 24 hours Augmentin 875 mg-125 mg oral tablet (amoxicillin-clavulanate), 1 Tab, Every 12 h ours, 10 Day(s) Diovan HCT 12.5 mg-80 mg oral tablet (hydrochlorothiazide-valsartan), 1 Tab, Delia ly Flonase 0.05 mg/inh nasal spray (fluticasone nasal), 2 [place], PRN, Every 24 hour s Invokana 300 mg (Miscellaneous Medication), 1 Tab, [...] mg, Every 24 hours, Comment: called to josesito colby1-11-10 Vitamin B Complex with C and Minerals oral capsule (multivitamin with minerals), 1 Cap, Daily Vitamin C (ascorbic acid), 500 mg, Daily Vitamin D (Miscellaneous Medication), 4,000 IU, Daily Vitamin D3 (cholecalciferol), 4,000 IU, Daily Wellbutrin SR 150 mg/12 hours oral tablet, extended release (bupropion), 1 Tab P O daily x 1 week, then bid after that; Problems and Past Medical History Active Allergic Rhinits, Seasonal or NOS: Onset on 05/29/2009. Anxiety - Generalized Disorder: Onset on 10/03/2009. Body Mass Index 40 and over, adult: Onset on 05/29/2009. Diabetes mellitus type II Erectile Dysfunction Foot Pain Hyperlipidemia: Onset on 05/29/2009. Hypertension: Onset on 10/03/2009. OBSTRUCTIVE SLEEP APNEA: Onset on 05/29/2009. 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 Speech, normal. Voice qualit y, normal. Head and face: Inspection: Face, normal. Facial Strength/Symmetry: Normal. Ears: Pinna: Right, normal. Left, normal. Exterior Canals: Right, whit e drainage. Left, white drainage. Tympanic Membrane: Right, T tube in place and patent. Left, T tube in place a nd patent. Nose: Skin: Within normal limits. Septum: Midline. Turbinates: [place], hyper trophy. Labial-Dental: Lips: No lesions Dental: Good. Gums: Healthy. Buccal: Wi thin normal limits. Floor: Within normal limits. Tongue: Within normal limits. Palate: Within no rmal limits. Mucosa: Moist. Tonsils: Surgically absent. Soft palate: Within normal limits. Uvula: Absent . Oropharynx: Within normal limits. Salivary Glands: Normal size. Parotid: Normal. Submandibular: Normal Neck: Thyroid: No enlargement or masses. Neck: No adenopathy or masses. Lymph nodes: Normal. Lungs: Clear to auscultation. Respiratory effort: Normal. Heart: Regular rate and rhythm. Neurological: Cranial nerves 2-12 intact. Gait normal. Impression 1. ETD (eustachian tube dysfunction) (381.81) 2. Chronic otitis media (382.9) Plan Medication changes this visit: New Flonase 50 mcg/inh nasal spray, 2 [place], Q24H, Quantity: 1, Refills: 11 Floxin Otic 0.3% solution, 5 Drop(s), BID, Quantity: 1, Refills: 0 Orders this visit: Follow Up -Request Today I recommend Floxin drops into both ears for the next 7 days. He has a fol low up appointment with Dr. Calvillo in approximately 1 month. I recommend deja sanchez that appointment. I will see him back here for his 6 month myringotomy tu be check. TR: [id number] KAILASH#: [id number] documented in this encounter Plan of Treatment Not on filedocumented as of this encounter Visit Diagnoses Not on filedocumented in this encounter
--- OUTSIDE RECORDS SUMMARY | 2020-03-05 11:05 | XMS REPORT | Encounter Summary ---
Author Author [facility] Organization [facility] Address Unknown Phone Unavailable Care Team Providers Care Coin Purse Framer Name Role Phone Marielle Calvillo PCP Encounter Details Care Team Description Date Type Department Marielle Calvillo MD [address] [place] [address] [phone] 01/30/2014 Hist-Transcript MOSAIC HISTORIC ion Encounter Social History Date Tobacco Use Types Packs/Day Years Used Never Assessed Sex Assigned at Date Recorded Not on file Industry Job Start Date Occupation Not on file Not on file Not on file Travel End Travel History Travel Start No recent travel history available. documented as of this encounter Miscellaneous Notes * Clinic Note - Marielle Calvillo - 01/30/2014 12:00 AM CDT [facility] [address] [place] [id number] PATIENT: BORA WANG MR #: [id number] : 1960 DATE SEEN: 01/30/2014 Chief Complaint Patient is here for an annual physical History of Present Illness White male comes in today for a wellness checkup. He also has several other thi ngs. He has difficulty with type 2 diabetes. It is not under control. He sees Endocrinology for that. He also has difficulty with obstructive sleep apnea. He has been really tired a lot. He has not had an overnight pulse oximetry stud y done on his CPAP for quite a while so we will go ahead and get that setup. He has also had difficulty with chronic erectile dysfunction. He has never seen Loco clarke for this. He has also noticed increased difficulty with urination and no cturia. He has also been noticing that his ears are full and has been having a lot of sinus issues. He has been on Celexa for quite some time, but does not re ally feel like that has been helping a whole lot. He has tried other medicines in the past and sometimes they have side effects and sometimes they do not work. He has tried Lexapro in the past, but said that there were other things going on at the same time that could have been affecting things as far as side effects are concerned, so he is willing to try that again. Review of Systems No ear pain. 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 Elevated BMI. Eyes: Pupils equal, round, and reactive t o light and accommodation. Extraocular motions intact. No icterus. No injection. TMs: Bilateral TMs erythematous, bulging, not moving with pneumotympanoscopy. M outh: Moist mucous membranes. No posterior pharyngeal erythema. Neck: Soft. Supp le. No lymphadenopathy. Heart: Regular rate and rhythm without murmur. No S3 or S4. Lungs: Clear to auscultation bilaterally in all lung murray. Good respirato ry effort. Abdomen: No guarding. No rebound. Nontender and nondistended. Positiv e normoactive bowel sounds. No mass or hepatosplenomegaly. No bruits heard. Extr emities: No clubbing, cyanosis, or edema. Pulses 2+ and equal. Skin: Warm and dr y. Good turgor. Neurologic: Intact. Psychiatric: Appropriate. Impression 1. Well adult exam (V70.0) 2. Diabetes mellitus type II (250.00) 3. OBSTRUCTIVE SLEEP APNEA (327.23) 4. Hyperlipidemia (272.4) 5. Vitamin D Deficiency (268.9) 6. Fatigue (780.79) 7. Erectile Dysfunction (607.84) 8. ETD (eustachian tube dysfunction) (381.81) 9. Otitis media (382.9) Plan Medication changes this visit: New Augmentin 875 mg-125 mg oral tablet, 1 Tab, Q12H, 10 Day(s), Quantity: 20, Refil ls: 0 Wellbutrin SR 150 mg/12 hours oral tablet, extended release, See Instructions, Q uantity: 60, Refills: 0 Stopped citalopram 40 mg oral tablet, 40 mg, Q24H, 30 Day(s), Quantity: 30, Refills: 3 Orders this visit: Overnight Pulse Oximetry -Request -Auto Diff -RBC Morphology CBC with Diff Folate Free T4 Iron PSA--Free & Total-Sendout Vitamin B12 Level Urine Culture Referral - Request Referral - Request As far as the fatigue is concerned, it could be multiple causes. If it is due to the obstructive sleep apnea, we need to do an overnight pulse oximetry on his C PAP to see if that is actually the case. As far as the erectile dysfunction, in creased urination and nocturia, we will go ahead and get him set up to see Urolo gy. As far as the depression and anxiety, he does not feel like the Celexa is w orking. He said that he would also be willing to try Wellbutrin. I talked with him about various options between the Lexapro and Wellbutrin. He would like to try the Wellbutrin. We will go ahead and have him start that. We will have him taper off the Celexa first and then start the Wellbutrin. Gave him precautions and instructions regarding all of these. He is understanding. He has bilateral otitis media. He also has TM tubes that are in place, but they are actually starting to come out. They are actually more in the canal than they are actuall y the TM and they are draining quite a bit of fluid. We will get him set up wit h Ear, Nose and Throat. I think those definitely need to be removed and possibl y replaced. He has had them in there for 20 years. Get all of his lab work don e as well. Put him on antibiotics. Gave him precautions. See him back in a ri nt or so. He is understanding. Call with questions. Risks, benefits of medications and/or treatment options explained. Alternatives and expected outcome discussed. Patient and/or family verbalized understanding. Patient instructed to follow up sooner than directed if new symptoms develop or current symptoms worsen. Otherwise follow up as needed. TR: ANA ROSA KAILASH#: [id number] documented in this encounter Plan of Treatment Not on filedocumented as of this encounter Visit Diagnoses Not on filedocumented in this encounter
--- OUTSIDE RECORDS SUMMARY | 2020-03-05 11:05 | XMS REPORT | Encounter Summary ---
Author Author [facility] Organization [facility] Address Unknown Phone Unavailable Care Team Providers Care Button Sawyer Name Role Phone RajinderMarielle PCP Encounter Details Care Team Description Date Type Department Deshaun Barajas MD [address] [place] [address] [phone] 06/12/2013 Hist-Transcript MOSAIC HISTORIC ion Encounter Social History Date Tobacco Use Types Packs/Day Years Used Never Assessed Sex Assigned at Date Recorded Not on file Industry Job Start Date Occupation Not on file Not on file Not on file Travel End Travel History Travel Start No recent travel history available. documented as of this encounter Miscellaneous Notes * Clinic Note - Deshaun Barajas - 06/12/2013 12:00 AM CDT Patient: BORA WANG Age: 52 years Sex: Male : [birth year] Associated Diagnoses: None Author: Deshaun Barajas MD Visit Information [facility] [address] [place] [address] [place] [phone] PATIENT: BORA WANG MR #: [id number] : 1960 DATE SEEN: 06/12/2013 Chief Complaint Patient is a 52 year old male returned for followup regarding his type 2 DM management. History of Present Illness The patient has had type 2 diabetes for 6 years. He was on metformin 1000 mg [...] He was o n testosterone replacement (Androgel). Pt. states he did not check blood sugar t butch, he doesn't check it frequently. Since last visit, he has been on Kombiglyz e XR, nateglinide 120 mg po tid with meals, 1-30 min AC. He had A1c at 9.2% in and in 08/2012, 8.2% in 01/2013, 7.4% in 05/2013. Pt. states he does not elsyia ck his blood sugar. He had normal stress echo in 09/2009. Patient doesn't test b lood sugars. Review of Systems Allergies Pollen Current Medications Renetta (fexofenadine), call office to update your dosage when you get home., [place] N, aspirin 325 mg oral tablet (aspirin), 325 mg, Every 24 hours citalopram 40 mg oral tablet (citalopram), 40 mg, Every 24 hours Diovan HCT 12.5 mg-80 mg oral tablet (hydrochlorothiazide-valsartan), 1 Tab, Delia ly Flonase 0.05 mg/inh nasal spray (fluticasone nasal), 2 [place], PRN, Every 24 hour s Invokana 100 mg (Miscellaneous Medication), 1 Tab, With breakfast [...] mg, 3 times a day before meals nitroglycerin 0.4 mg sublingual tablet (nitroglycerin), 0.4 mg, PRN, Every 5 min utes, Comment: called to josesito colby 09-29-09 One Touch Ultra Strips and One Touch Delica (Misc. Medication), as directed pantoprazole 40 mg oral enteric coated tablet (pantoprazole), 40 mg, 2 times a d ay Procardia XL 30 mg oral tablet, extended release (nifedipine), 30 mg, Every 24 h ours TriCor 145 mg oral tablet (fenofibrate), 145 mg, Every 24 hours, Comment: called to saimajaswindermadiha [id number] Vitamin B Complex with C and Minerals oral capsule (multivitamin with minerals), 1 Cap, Daily Vitamin C (ascorbic acid), 500 mg, Daily Vitamin D3 (cholecalciferol), 4,000 IU, Daily [...] with Neuropathy Vitamin D Deficiency Family History Cardiovascular Past Medical History Heart Disease Medical History: Father High Blood Pressure Medical History: Father Endocrine/Metabolic Past Med Hx Diabetes Medical History: self Family Status Father: Living Mother: Living Paternal Grandfather: Paternal Grandmother: Maternal Grandfather: Maternal Grandmother: Brother 1: Living Gastrointestinal Past Medical Hx Hiatal Hernia Medical History: Self--hernia repair Reflux Disease Medical History: Sibling Genitourinary Past Medical Hx Kidney Stones Medical History: self Musculoskeletal Past Medical Hx Back Pain Medical History: self Neurological Past Medical History Migraines Medical History: Children Ocular Past Medical History Cataract Medical History: Mother, Magular Degeneration of the eye/mom Psychiatric Past Medical History Psychiatric, Other Medical History: Children, bipolar Respiratory Past Medical History Respiratory, Other Medical History: Mother, COPD/CHF--uses C-PAP/on O2 Additional Family Status: 2 children Family Status Reviewed With Patient: Review complete Procedure History T & A Appendectomy Abdominal Hernia Repair Deviated Septum Repair w/Bilat. Myringotomy Right Ankle Surgery Upper Jaw Repair/screws ,plates Cardiac Stress Test at 2012. Colonoscopy * at 02/29/2012. 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 No fever or chills. No weight [...] BP Pulse RR MAP O2 Sat 36.8 134/86 78 18 102 96 Blood Pressure Location: Left arm Oxygen Therapy: Room air Weight Height BMI BSA 132.9 kg (292.99 lbs) 175 cm 43.4 kg/m2 2.5417 m2 HEENT: EOMs intact. No icterus on [...] AND PLAN 1. Type 2 diabetes, uncontrolled, better, continue Kombiglyze XR 01/1000 mg with dinner, nateglinide 120 mg po tid with meal 1-30 min. Increase Invokana 300 mg p o daily at breakfast. Advised about UTI and mycotic infection/personal hygiene, adequated fluid intake to avoid dehydration/volume loss. 2. Dyslipidemia, on Tricor and Lovaza (2000 mg bid), weight loss would be helpfu l. He had DM education. Lipid panel not in range in 01/2013. 3. Hypertension, on ARB and aspirin. Urine microalbumin ratio was normal in 01/18 013. 4. Hypogonadism, LH, free testosterone was normal [...]
--- OUTSIDE RECORDS SUMMARY | 2020-03-05 11:05 | XMS REPORT | Encounter Summary ---
Author Author [facility] Organization [facility] Address Unknown Phone Unavailable Care Team Providers Care Buckle Gluer Name Role Phone RajinderMarielle PCP Encounter Details Care Team Description Date Type Department Deshaun Barajas MD [address] [place] [address] [phone] 02/05/2013 Hist-Transcript MOSAIC HISTORIC ion Encounter Social History [...] Clinic Note - Deshaun Barajas MD - 02/05/2013 12:00 AM CDT Patient: BORA WANG Age: 52 years Sex: Male : [birth year] Associated Diagnoses: None Author: Deshaun Barajas MD Visit Information [facility] [address] [place] [address] [address] [place] [address] PATIENT: BORA WANG MR #: [id number] : 1960 DATE SEEN: 02/05/2013 Chief Complaint Patient is here today for a follow up on diabetes. Additional Information: _ History of Present Illness Patient is a 52 year old male [...] 9.2% in and in 08/2012, 8.2% in 01/2013. Pt. states he does not check his blood sug ar. He had normal stress echo in 09/2009. Checks sugars PRN Review of Systems Allergies Pollen Current Medications Renetta (fexofenadine), call office to update your dosage when you get home., [place] N, aspirin 325 mg oral tablet (aspirin), 325 mg, Every 24 hours Augmentin 875 mg-125 mg oral tablet (amoxicillin-clavulanate), 1 Tab, Every 12 h ours, 14 Day(s) citalopram 40 mg oral tablet (citalopram), 40 mg, Every 24 hours Diovan HCT 12.5 mg-80 mg oral tablet (hydrochlorothiazide-valsartan), 1 Tab, Derrick ly Flonase 0.05 mg/inh nasal spray (fluticasone nasal), 2 [place], PRN, Every 24 hour s Kombiglyze XR 2.5 mg-1000 mg oral tablet, extended release (metformin-saxaglipti n), 1 Tab, 2 times a day Levitra 20 mg oral tablet (vardenafil), 20 mg, Daily LG BP CUFF (Misc. Medication), LARGE BP CUFF Lovaza oral capsule (omega-3 polyunsaturated fatty acids), 1000 mg PO BID. PATIE NT NEEDS FULL LABS AND WELLNESS APPT PRIOR TO NEXT REFILL nateglinide 120 mg oral tablet (nateglinide), 120 [...] (ascorbic acid), 500 mg, Daily Vitamin D3 1000 intl units oral tablet (cholecalciferol), 2,000 IU, Every 24 janet rs Problems and Past Medical History Active Allergic Rhinits, Seasonal or NOS: Onset on 05/29/2009. Anxiety - Generalized Disorder: Onset on 10/03/2009. Body Mass Index 40 and over, adult: Onset on 05/29/2009. Diabetes mellitus type II Erectile Dysfunction Hyperlipidemia: Onset on 05/29/2009. Hypertension: Onset on 10/03/2009. OBSTRUCTIVE SLEEP APNEA: Onset on 05/29/2009. Vitamin D Deficiency Family History Cardiovascular Past [...] Repair/screws ,plates Cardiac Stress Test at 2012. 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 No weight [...] TEMP BP Pulse RR MAP O2 Sat 36.0 108/82 82 20 90.67 94 Blood Pressure Location: Left arm Oxygen Therapy: Room air Weight Height BMI BSA 134.5 kg (296.52 lbs) 175 cm 43.9 kg/m2 2.5570 m2 HEENT: EOMs intact. No icterus on [...] mg po tid with meal 1-30 min. Add Invokana 100 mg po derrick ly at breakfast. Advised about UTI and mycotic infection/personal hygiene, adequ ated fluid intake. 2. Dyslipidemia, on Tricor and Lovaza (2000 [...]
--- OUTSIDE RECORDS SUMMARY | 2020-03-05 11:05 | XMS REPORT | Encounter Summary ---
Author Author [facility] Organization [facility] Address Unknown Phone Unavailable Care Team Providers Care Parking Meter Attendant Name Role Phone Marielle Calvillo PCP Encounter Details Care Team Description Date Type Department Marielle Calvillo MD [address] [place] [address] [phone] 01/30/2014 Hist-Transcript MOSAIC HISTORIC ion Encounter Social [...] Marielle Calvillo - 01/30/2014 12:00 AM CDT [facility] [address] [place] [id number] PATIENT: BORA DECKER MR #: [id number] : 1960 DATE SEEN: 01/30/2014 White male comes in today for a wellness checkup. Discussed appropriate immuniz ations and testing for age. Discussed appropriate diet and exercise changes for a healthy lifestyle. Talked with him about several other issues he has going o n. Please see additional note for additional details. Call with questions. He needs to get all of his wellness lab work done, plus additional things. Please see additional note for additional details. TR: ANA ROSA KAILASH#: [id number] documented in this encounter Plan of Treatment Not on filedocumented as of this encounter Visit Diagnoses Not on filedocumented in this encounter
--- OUTSIDE RECORDS SUMMARY | 2020-03-05 11:05 | XMS REPORT | Encounter Summary ---
Author Author [facility] Organization [facility] Address Unknown Phone Unavailable Care Team Providers Care Fish Checker Name Role Phone RajinderMarielle PCP Encounter Details Care Team Description Date Type Department Jaya QuinNURY grier [address] [place] [phone] 06/27/2013 Hist-Transcript MOSAIC HISTORIC ion Encounter Social History [...] Clinic Note - [place] FNP-BC - 06/27/2013 12:00 AM CDT [facility] [address] [place] [address] [address] [place] [address] PATIENT: BORA WANG MR #: [id number] : 1960 DATE SEEN: 06/27/2013 Chief Complaint Patient is here to be seen for a follow-up on ear tubes in both ears. Additional Information: Patient also has a sinus and ear infection. And also lef t ear tube is coming out. History of Present Illness This 52 year old male patient presents to the clinic to see me today for a myrin gotomy tube check. He is currently under treatment for a sinus infection and ear infection. He reports over the year he has had intermittent problems with ear i nfections and drainage. He has not had noticeable change with his hearing. Review of Systems Pertinent negative for the following system(s): Constitutional, HEENT, Respirato ry, Cardiovascular, GI/, Integumentary, Musculoskeletal, Neurological, Hematol ogic, Endocrine, Psychiatric Allergies Pollen Current Medications Renetta (fexofenadine), call office to update your dosage when you get home., [place] N, aspirin 325 mg oral tablet (aspirin), 325 mg, Every 24 hours Augmentin 875 mg-125 mg oral tablet (amoxicillin-clavulanate), 1 Tab, Every 12 h ours, 10 Day(s) citalopram 40 mg oral tablet (citalopram), 40 mg, Every 24 hours Diovan HCT 12.5 mg-80 mg oral tablet (hydrochlorothiazide-valsartan), 1 Tab, Delia ly Flonase 0.05 mg/inh nasal spray (fluticasone nasal), 2 [place], PRN, Every 24 hour s Invokana 300 [...] Every 5 min utes, Comment: called to Kassandra Colby 09-29-09 One Touch Ultra Strips and One Touch Delica (Misc. 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 Speech, normal. Voice qualit y, normal. Head and face: Inspection: Face, normal. Facial Strength/Symmetry: Normal. Ears: Pinna: Right, normal. Left, normal. Exterior Canals: Right, clear. Left, yellow drainage. Tympanic Membrane: Right, T tube in place and patent. Left, T tube in place a nd patent, draining purulent drainage. Audiogram: Reviewed. Sensorineural hear ing loss bilateral. Tympanogram: Reviewed, large volume bilateral. Nose: Skin: Within normal limits. Turbinates: [place]. Labial-Dental: Lips: No lesions Dental: Good. Gums: Healthy. Buccal: Wi thin normal limits. Floor: Within normal limits. Tongue: Within normal limits. Palate: Within no rmal limits. Mucosa: Moist. Soft palate: Within normal limits. Uvula: Midline Oropharynx: Within normal limits. Salivary Glands: Normal size. Parotid: Normal. Submandibular: Normal Neck: Thyroid: No enlargement or masses. Neck: No adenopathy or masses. Respiratory effort: Normal Neurological: Cranial nerves 2-12 intact. Gait normal. Impression 1. ETD (Eustachian Tube Dysfunction) (381.81) 2. Chronic Otitis Media (382.9) 3. Sensorineural Hearing Loss, Bilateral (389.18) Plan Orders this visit: Binocular Microscopy -Clinic ENT Tympanometry -Clinic Pure Tone Air Audiometry -Clinic Today, under microscopic examination of the left ear, the myringotomy tube is in place and patent. I removed a moderate amount of yellow debris with suction. I recommend Floxin drops for the next 7 days into the left ear. He will follow up in one year, sooner if needed. TR: PAMELA KAILASH#: [id number] documented in this encounter Plan of Treatment Not on filedocumented as of this encounter Visit Diagnoses Not on filedocumented in this encounter
--- OUTSIDE RECORDS SUMMARY | 2020-03-05 11:05 | XMS REPORT | Encounter Summary ---
Author Author [facility] Organization [facility] Address Unknown Phone Unavailable Care Team Providers Care Liquefied Petroleum Gasfitter Name Role Phone RajinderMarielle PCP Encounter Details Care Team Description Date Type Department Deshaun Barajas MD [address] [place] [address] [phone] 02/13/2014 Hist-Transcript MOSAIC HISTORIC ion Encounter Social History Date Tobacco Use Types Packs/Day Years Used Never Assessed Sex Assigned at Date Recorded Not on file Industry Job Start Date Occupation Not on file Not on file Not on file Travel End Travel History Travel Start No recent travel history available. documented as of this encounter Miscellaneous Notes * Clinic Note - Deshaun Barajas - 02/13/2014 12:00 AM CDT Patient: BORA WANG Age: 53 years Sex: Male : 1960 Associated Diagnoses: None Author: Dehsaun Barajas MD Visit Information [facility] [address] [place] [address] [place] [phone] PATIENT: BORA WANG MR #: [id number] : 1960 DATE SEEN: 02/13/2014 Chief Complaint Patient is a 53 year [...] 0.05 mg/inh nasal spray (fluticasone nasal), 2 [place], PRN, Every 24 hour s Flonase 50 mcg/inh nasal spray (fluticasone nasal), 2 [place], Every 24 hours Floxin Otic 0.3% solution [...] Every 24 hours, Comment: called to saimajaswindermadiha [id number] Vitamin B Complex with C and Minerals [...] Recreational Drug Use: Denies 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 No weight [...] BP Pulse RR MAP O2 Sat 36.6 137/72 81 18 93.67 96 Blood Pressure Location: Left arm Oxygen Therapy: Room air Weight Height BMI BSA 136.8 kg (301.59 lbs) HEENT: EOMs intact. No icterus on [...] fluid i ntake to avoid dehydration/volume loss. 2. Dyslipidemia, on [...]
--- OUTSIDE RECORDS SUMMARY | 2020-03-05 11:05 | XMS REPORT | Encounter Summary ---
Author Author [facility] Organization [facility] Address Unknown Phone Unavailable Care Team Providers Care Willow Machine Operator Name Role Phone RajinderMarielle PCP Encounter Details Care Team Description Date Type Department Ruba Avila DPM [address] [place] [id number] [phone] 02/07/2013 Hist-Transcript MOSAIC HISTORIC ion Encounter Social History [...] Clinic Note - Ruba Avila DPM - 02/07/2013 12:00 AM CDT [facility] [address] [place] [phone] PATIENT: BORA WANG MR #: [id number] : 1960 DATE SEEN: 02/07/2013 Chief Complaint Patient is here today for a DM foot exam and has concerns of bilateral ankle jaylan n and left foot pain. History of Present Illness The patient is seen today for diabetic foot evaluation. He has concerns over so me progressive numbness and tingling in his feet. He states his blood sugar has been higher than he would like. He denies other diabetic related problems. He does have a long history of ankle problems. He has a history of ankle sprainin g. He wears ankle braces. This helps with the ankle spraining. The patient al so has pain in his ankles and he is interested in options to help alleviate his pain. Pain is around both ankles. It is worse with activity, it does improve w ith rest. He has not had success with previous treatment options in the past. Pain Assessment Cognitive Status: Independent, decisions consistent/reasonable Intensity: 4 Location: Foot Review of Systems Cardiovascular: Swelling of hands or feet Musculoskeletal: Muscle or joint pain, Swelling of joints Neurological: Numbness, Tingling Pertinent negative for the following system(s): Constitutional, Hematologic Allergies Pollen Current Medications Renetta (fexofenadine), call office to update your dosage when you get home., [place] N, aspirin 325 mg oral tablet (aspirin), 325 mg, Every 24 hours Augmentin 875 mg-125 mg oral tablet (amoxicillin-clavulanate), 1 Tab, Every 12 h ours, 14 Day(s) citalopram 40 mg oral tablet (citalopram), 40 mg, Every 24 hours Diovan HCT 12.5 mg-80 mg oral tablet (hydrochlorothiazide-valsartan), 1 Tab, Delia ly Flonase 0.05 mg/inh nasal spray (fluticasone nasal), 2 [place], PRN, Every 24 hour s Invokana 100 [...] 5 min utes, Comment: called to Kassandra Lunsford 09/29/2009 One Touch Ultra Strips and One Touch Delica (Misc. 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 Vascular: DP/PT pulses intact. Dermatological: No open lesions. Mild edema noted bilaterally. Neurological: Negative Babinski sign. Intact ankle reflexes. Musculoskeletal: All muscle groups are 5/5 bilateral. Mild pain with palpation to all aspects of both ankl es. Pain over the sinus tarsi on both sides. There is no crepitus or grinding with range of motion of either ankle. No other aspects of abnormality are seen. Impression 1. Lower Extremity Pain (729.5) Plan Orders this visit: Follow Up 2 Weeks -Request For diabetic foot care and foot hygiene, he is doing a great job. I see no yelena r problems. We talked in detail about options for diabetic foot care and foot h ygiene. In terms of his ankle pain, we did x-rays of both feet and both ankles. We are going to see him back for reevaluation in 2 weeks to discuss the result s. The patient is happy with this plan. TR: REYES KAILASH#: [id number] documented in this encounter Plan of Treatment Not on filedocumented as of this encounter Visit Diagnoses Not on filedocumented in this encounter
--- OUTSIDE RECORDS SUMMARY | 2020-03-05 11:05 | XMS REPORT | Encounter Summary ---
Author Author [facility] Organization [facility] Address Unknown Phone Unavailable Care Team Providers Care Jacquard Fixer Name Role Phone Marielle Calvillo PCP Encounter Details Care Team Description Date Type Department Marielle Calvillo MD [address] [place] [address] [phone] 06/21/2013 Hist-Transcript MOSAIC HISTORIC ion Encounter Social History Date Tobacco Use Types Packs/Day Years Used Never Assessed Sex Assigned at Date Recorded Not on file Industry Job Start Date Occupation Not on file Not on file Not on file Travel End Travel History Travel Start No recent travel history available. documented as of this encounter Miscellaneous Notes * Clinic Note - Marielle Calvillo - 06/21/2013 12:00 AM CDT [facility] [address] [place] [phone] PATIENT: BORA WANG MR #: [id number] : 1960 DATE SEEN: 06/21/2013 Chief Complaint Patient is here today to be seen for weight loss and discuss bariatric surgery. History of Present Illness White male comes in today for follow up on his diet and exercise changes he has been trying. Basically, he is just having a difficult time finding time to do e xercise. He has been trying to follow a diet and has improved his numbers somew hat as far as his diabetes is concerned, but just has not been able to get the w eight off. He is considering bariatric surgery. I talked to him about this. H e is understanding. He has also torn his meniscus in his left knee. They think he is probably going to have surgery in August 2013, with Dr. Yanick Starr. He said he does not need any pain medicine right now. I told him if he needed s ome, to give us a call. He is understanding. Blood pressure is looking okay. He said he had also had some sinus congestion and drainage. Review of Systems No ear pain. No ear discharge. No ringing in ears. No blurry vision, double v ision, change in vision. No dry mouth. No sore throat. No neck pain. No ches t pain. No shortness of breath. No extremity complaints. No musculoskeletal p roblems. No endocrine complaints. No weight gain or weight loss. No runny nos e. No dizziness. No depression. No change in [...] 0.05 mg/inh nasal spray (fluticasone nasal), 2 [place], PRN, Every 24 hour s Invokana 300 [...] Every 5 min utes, Comment: called to [facility]alia[facility] Jonn 09-29-09 One Touch Ultra Strips and One Touch Delica (Misc. 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 Right ear tube is present intact. Ear is draining signif icant amount of purulent material. Left tube, I am not sure if it is the way th at the T-tube is or what is going on with it. It looks a little bit abnormal. We will get him to see ear, nose and throat just to make sure that things are in place because he said he has been having some trouble with it. Otherwise negat kiley except for elevated BMI. Eyes: Pupils equal, round and reactive to light an d accommodation, extraocular motions intact, no icterus, no injection. Mouth: Moist mucous membranes, no posterior pharyngeal erythema. Neck: soft, supple. No lymphadenopathy. Heart: Regular rate and rhythm without murmur. No S3, S4. Lungs: Clear to auscultation bilaterally in all lung murray. Good respiratory effort. Abdomen: No guarding, no rebound, nontender, nondistended, positive normoactive bowel sounds, no mass, no hepatosplenomegaly, no bruits heard. Ext remities: No clubbing, cyanosis or edema. Pulses 2+ and equal. Skin: Warm, d ry, good turgor. Neurologic: Intact. Psychiatric: Appropriate. Impression 1. Increased BMI (783.9) 2. Diabetes mellitus type II (250.00) 3. Hyperlipidemia (272.4) 4. Hypertension (401.9) 5. Sinusitis (473.9) Plan Work on diet and exercise changes. Will have him to start recording both diet a nd exercise changes in the meantime. See him back in a month and get him in to do the bariatric seminar. Call with questions. See him again in a month. Risks, benefits of medications and/or treatment options explained. Alternatives and expected outcome discussed. Patient and/or family verbalized understanding. Patient instructed to follow up sooner than directed if new symptoms develop or current symptoms worsen. Otherwise follow up prn. TR: ROSA MARIA KAILASH#: [id number] documented in this encounter Plan of Treatment Not on filedocumented as of this encounter Visit Diagnoses Not on filedocumented in this encounter
--- OUTSIDE RECORDS SUMMARY | 2020-03-05 11:05 | XMS REPORT | Encounter Summary ---
Author Author [facility] Organization [facility] Address Unknown Phone Unavailable Care Team Providers Care Residential Mortgage Manager Name Role Phone Marielle Calvillo PCP Encounter Details Care Team Description Date Type Department Marielle Calvillo MD [address] [place] [address] [phone] 04/19/2013 Hist-Transcript MOSAIC HISTORIC ion Encounter Social History Date Tobacco Use Types Packs/Day Years Used Never Assessed Sex Assigned at Date Recorded Not on file Industry Job Start Date Occupation Not on file Not on file Not on file Travel End Travel History Travel Start No recent travel history available. documented as of this encounter Miscellaneous Notes * Clinic Note - Marielle Calvillo - 04/19/2013 12:00 AM CDT [facility] [address] [place] [phone] PATIENT: BORA WANG MR #: [id number] : 1960 DATE SEEN: 04/19/2013 Chief Complaint Patient is here today to follow up on weight loss. History of Present Illness White male comes in today for followup on his weight loss, elevated BMI, type 2 diabetes and dyslipidemia. He has really not done diet or exercise changes. He said he has been walking around with the [employer] [facility], but that is about it. I talked with him about the need to get actual diet and exercise changes done. He is understanding. Review of Systems Otherwise negative. 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 Stable. TM: Clear bilaterally, clear canals. Eye s: Pupils equal, round and reactive to light and accommodation, extraocular mot ions intact, no icterus, no injection. Mouth: Moist mucous membranes, no poste rior pharyngeal erythema. Neck: soft, supple. No lymphadenopathy. Heart: Re gular rate and rhythm without murmur. No S3, S4. Lungs: Clear to auscultation bilaterally in all lung murray. Good respiratory effort. Abdomen: No guardin g, no rebound, nontender, nondistended, positive normoactive bowel sounds, no ma ss, no hepatosplenomegaly, no bruits heard. Extremities: No clubbing, cyanosis or edema. Pulses 2+ and equal. Skin: Warm, dry, good turgor. Neurologic: I ntact. Psychiatric: Appropriate. Impression 1. BMI 40.0-44.9, adult (V85.41) 2. DM II [Diabetes mellitus type II] (250.00) 3. HLD (Hyperlipidemia) (272.4) Plan He said he has [facility]. We will have Nisha help him to be to get things connected with the [facility] and in the meantime do diet and exercise changes. He is understanding. Call with yannick chris. Risks, benefits of medications and/or treatment options explained. Alternatives and expected outcome discussed. Patient and/or family verbalized understanding. Patient instructed to follow up sooner than directed if new symptoms develop or current symptoms worsen. Otherwise follow up prn. TR: KATIE KAILASH#: [id number] documented in this encounter Plan of Treatment Not on filedocumented as of this encounter Visit Diagnoses Not on filedocumented in this encounter
--- OUTSIDE RECORDS SUMMARY | 2020-03-05 11:05 | XMS REPORT | Encounter Summary ---
Author Author [facility] Organization [facility] Address Unknown Phone Unavailable Care Team Providers Care Software Sales Name Role Phone Marielle Calvillo PCP Encounter Details Care Team Description Date Type Department Marielle Calvillo MD [address] [place] [address] [phone] 01/25/2013 Hist-Transcript MOSAIC HISTORIC ion Encounter Social History [...] Clinic Note - Marielle Calvillo MD - 01/25/2013 12:00 AM CDT [facility] [address] [place] [phone] PATIENT: BORA WANG MR #: [id number] : 1960 DATE SEEN: 01/25/2013 Chief Complaint Patient is here today to be seen for a wellness exam and he woke up this morning with a sore throat and sinus drainage. History of Present Illness White male comes in today for wellness check. Also having sinus congestion, ari lambert. Review of Systems No ear pain. No [...] easy bruising. Allergies Pollen Current Medications Renetta (fexofenadine) aspirin 325 mg oral tablet (aspirin), 325 mg, Every 24 hours citalopram 40 mg oral tablet (citalopram), 40 mg, Every 24 hours Diovan HCT 12.5 mg-80 mg oral tablet (hydrochlorothiazide-valsartan), 1 Tab, Delia ly Flonase 0.05 mg/inh nasal spray (fluticasone nasal), 2 [place], Every 24 hours, 30 Day(s) Kombiglyze XR 2.5 mg-1000 mg oral tablet, [...] 5 min utes, Comment: called to Kassandra Colyb 09-29-09 One Touch Ultra Strips and One Touch Delica (Misc. 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 Clear TMs bilaterally, clear canals. Eyes: Pupils equal, rou nd and reactive to light and accommodation. Extraocular motions are intact. No icterus, no injection. Maxillary sinuses tender to palpation. Mouth: Moist mucou s membranes, no posterior pharyngeal erythema. Neck:Soft, supple. No lymphadenop athy. Heart: Regular rate and rhythm without murmur. No S3, S4. Lungs: Clear to auscultation bilaterally in all lung murray. Good respiratory effort. Extremitie s: No clubbing, cyanosis or edema. Pulses fine in both feet. Visual exam is abn ormal, he has some callouses. Monofilament exam is not normal, does have some ne uropathy as well, especially in his left big toe, is numb. Impression 1. Wellness Exam (V70.0) 2. Bilateral ankle pain (719.47) 3. Need for Vaccination (V05.9) 4. Decreased sensation of foot (782.0) 5. Diabetes mellitus type II (250.00) 6. Scaly Patch Rash (782.1) 7. Elevated hemoglobin A1c measurement (790.6) 8. Hyperlipidemia (272.4) 9. Vitamin D Deficiency (268.9) 10. Dietary Counseling (V65.3) 11. Hypertension (401.9) 12. Adult BMI 40.0-44.9 kg/sq m (V85.41) Plan Medication changes this visit: Changed Renetta, See Instructions, PRN,, Refills: 0 Flonase 0.05 mg/inh nasal spray, 2 [place], PRN, Q24H, 30 Day(s), Quantity: 1, Ref ills: 3 Kombiglyze XR 2.5 mg-1000 mg oral tablet, extended release, 1 Tab, BID, Quantity : 180, Refills: 3 Orders this visit: Podiatry Consult -Request Weight Management Consult -Request tetanus/diphth/pertuss (Tdap) adult/adol, 0.5 mL, X 1 DOSE Had colonoscopy last December or January, will get records from Dr. Mera, needs bonifaciou s shot, will do that today. See additional note for additional details. Discusse d appropriate diet, exercise changes for age, discussed appropriate immunization s, testings for age. He got eye exam done about a year ago with Dr. Saavedra, Pat son, Skyler. Will get those records. Call if questions. Risks, benefits of medications and/or treatment options explained. Alternatives and expected outcome discussed. Patient and/or family verbalized understanding. Patient instructed to follow up sooner than directed if new symptoms develop or current symptoms worsen. Otherwise follow up prn. TR: RAJANI 1445 KAILASH#: [id number] documented in this encounter Plan of Treatment Not on filedocumented as of this encounter Visit Diagnoses Not on filedocumented in this encounter
--- OUTSIDE RECORDS SUMMARY | 2020-03-05 11:05 | XMS REPORT | Encounter Summary ---
Author Author [facility] Organization [facility] Address Unknown Phone Unavailable Care Team Providers Care Groundwater Programs Director Name Role Phone RajinderMarielle PCP Encounter Details Care Team Description Date Type Department Deshaun Barajas MD [address] [place] [address] [phone] 10/10/2013 Hist-Transcript MOSAIC HISTORIC ion Encounter Social History Date Tobacco Use Types Packs/Day Years Used Never Assessed Sex Assigned at Date Recorded Not on file Industry Job Start Date Occupation Not on file Not on file Not on file Travel End Travel History Travel Start No recent travel history available. documented as of this encounter Miscellaneous Notes * Clinic Note - Deshaun Barajas - 10/10/2013 12:00 AM [facility] Patient: BORA WANG Age: 52 years Sex: Male : 1960 Associated Diagnoses: None Author: Deshaun Barajas MD Visit Information [facility] [address] [place] [address] [place] [phone] PATIENT: BORA WANG MR #: [id number] : 1960 DATE SEEN: 10/10/2013 Chief Complaint Patient is a 52 year [...] 1-30 min AC, Invokana. He had A1c at 9.2% in 03/2012 and in 08/2012, 8.2% in 01/2013, 7.4% in 05/2013, 6.7% in 09/2013. Patient states he does not check his blood sugar. Review of Systems Allergies Pollen Current Medications Renetta (fexofenadine), call office to update your dosage when you get home., [place] N, aspirin 325 mg oral tablet (aspirin), 325 mg, Every 24 hours citalopram 40 mg oral tablet (citalopram), 40 mg, Every 24 hours Diovan HCT 12.5 mg-80 mg oral tablet (hydrochlorothiazide-valsartan), 1 Tab, Delia ly Flonase 0.05 mg/inh nasal spray (fluticasone nasal), 2 [place], PRN, Every 24 hour s Invokana 300 [...] 5 min utes, Comment: called to josesito oclby 09-29-09 One Touch Ultra Strips and One Touch Delica ([facility]. 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 No fever or chills. No weight [...] BP Pulse RR MAP O2 Sat 36.7 130/77 82 16 94.67 98 Blood Pressure Location: Left arm Oxygen Therapy: Room air Weight Height BMI BSA 134.1 kg (295.64 lbs) 175 cm 43.8 kg/m2 2.5532 m2 HEENT: EOMs intact. No icterus on [...] in 4 months. CC: Marielle Calvillo MD [employer] documented in this encounter Plan of Treatment Not on filedocumented as of this encounter Visit Diagnoses Not on filedocumented in this encounter
--- OUTSIDE RECORDS SUMMARY | 2020-03-05 11:05 | XMS REPORT | Encounter Summary ---
Author Author [facility] Organization [facility] Address Unknown Phone Unavailable Care Team Providers Care Narrative Writer Name Role Phone Marielle Calvillo PCP Encounter Details Care Team Description Date Type Department Marielle Calvillo MD [address] [place] [address] [phone] 01/25/2013 Hist-Transcript [facility] ion Encounter Social [...] Calvillo MD - 01/25/2013 12:00 AM CDT [facility] [address] [place] [phone] PATIENT: BORA WANG MR #: [id number] : 1960 DATE SEEN: 01/25/2013 Chief Complaint Patient is here today to be seen for a wellness exam and he woke up this morning with a sore throat and sinus drainage. History of Present Illness White male comes in for wellness checkup, also having additional with difficulti es. Has an elevated A1C, knows he needs to be doing diet, exercise changes. He s ees Dr. Karl mae. Had a stress test a few months ago by Dr. Wang, things were going okay. Does have high cholesterol. Blood pressure is elevated today and he needs to watch that a little bit closer, will recheck that today. He struggled with his weight, diabetes, dyslipidemia, hypertension for quite some time. Talke d with them about the possibility of looking into gastric surgery. Is understand ing. He has actually been to the seminars, I think it a reasonable option. He al so has sinus congestion and drainage. Review of Systems No ear pain. No ear discharge. No ringing in ears. No blurry vision, double v ision, change in vision. No dry mouth. No neck pain. No chest pain. No shortn ess of breath. No extremity complaints. No musculoskeletal problems. No endoc rine complaints. No weight gain or weight loss. No runny nose. No dizziness. No depression. No change in skin color or easy bruising. 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 Clear Elevated BMI, elevated blood pressure. TMs bilaterally , clear canals. Eyes: Pupils equal, round and reactive to light and accommodatio n. Extraocular motions are intact. No icterus, no injection. Maxillary sinuses tender to palpation. Mouth: Moist mucous membranes, no posterior pharyngeal eryt noam. Neck:Soft, supple. No lymphadenopathy. Heart: Regular rate and rhythm with out murmur. No S3, S4. Lungs: Clear to auscultation bilaterally in all lung fiel ds. Good respiratory effort. Extremities: No clubbing, cyanosis or edema. Impression 1. Wellness Exam (V70.0) 2. Bilateral [...] 0 Flonase 0.05 mg/inh nasal spray, 2 [place], PRN, Q24H, 30 Day(s), Quantity: 1, Ref ills: 3 Kombiglyze XR 2.5 mg-1000 mg oral tablet, extended release, 1 Tab, BID, Quantity : 180, Refills: 3 Orders this visit: Podiatry Consult -Request Weight Management Consult -Request tetanus/diphth/pertuss (Tdap) adult/adol, 0.5 mL, X 1 DOSE Will see me in a couple months for followup diet. Call if questions. Risks, benefits of medications and/or treatment options explained. Alternatives and expected outcome discussed. Patient and/or family verbalized understanding. Patient instructed to follow up sooner than directed if new symptoms develop or current symptoms worsen. Otherwise follow up prn. TR: RAJANI [id number] KAILASH#: [id number] documented in this encounter Plan of Treatment Not on filedocumented as of this encounter Visit Diagnoses Not on filedocumented in this encounter
--- OUTSIDE RECORDS SUMMARY | 2020-03-05 11:05 | XMS REPORT | Encounter Summary ---
Author Author [facility] Organization [facility] Address Unknown Phone Unavailable Care Team Providers Care Log Driver Name Role Phone RajniderMarielle PCP Encounter Details Care Team Description Date Type Department Ruba Avila DPM [address] [place] [id number] [phone] 02/27/2013 Hist-Transcript [facility] ion Encounter Social History [...] Clinic Note - Ruba Avila DPM - 02/27/2013 12:00 AM CDT [facility] [address] [place] [phone] PATIENT: BORA WANG MR #: [id number] : 1960 DATE SEEN: 02/27/2013 Chief Complaint Patient is seen today to follow up on x-ray results on bilateral feet. He state s the right is worse. History of Present Illness The patient is seen today as a diabetic. He has bilateral foot pain and discomf ort. He has a history of multiple ankle injuries and ankle discomfort. He has stiffness, swelling and pain in his lower extremities. He is here today to disc uss findings of recent x-ray findings. He says the right ankle is worse. He co mplains of pain and stiffness in the ankle and would like to discuss options ass ociated with pain and stiffness in his ankle. Review of Systems Pertinent negative for the following system(s): Constitutional, Cardiovascular, Musculoskeletal, Neurological, Hematologic Allergies Pollen Current Medications Renetta (fexofenadine), call office to update your dosage when you get home., [place], aspirin 325 mg oral tablet (aspirin), 325 mg, Every 24 hours citalopram 40 mg oral tablet (citalopram), 40 mg, Every 24 hours Diovan HCT 12.5 mg-80 mg oral tablet (hydrochlorothiazide-valsartan), 1 Tab, Delia ly Flonase 0.05 mg/inh nasal spray (fluticasone nasal), 2 [place], PRN, Every 24 hour s Invokana 100 [...] Daily Vitamin D3 (cholecalciferol), 4,000 IU, Daily Social History Alcohol Use: Current Caffeine Use: Denies Current Tobacco Usage: Denies Recreational Drug Use: Denies Occupation: Faculty at [employer] Physical Examination TEMP BP Pulse RR MAP O2 Sat 36.5 120/82 90 18 94.67 Blood Pressure Location: Left arm Weight Height BMI BSA 134.0 kg (295.42 lbs) 175 cm 43.8 kg/m2 2.5522 m2 Alert and oriented x3, in no apparent distress. Vascular: DP/PT pulses are int act. Dermatological: No open lesions are noted. There is some mild swelling a round the ankles. Neurological: Negative Babinski sign. Intact ankle reflexes . Musculoskeletal: All muscle groups are 5/5 bilateral. There is some stiffne ss with ankle joint range of motion and subtalar joint range of motion. There i s no significant crepitus noted. Mild pain with palpation to the anterior media l portion of the right ankle and lateral portion of the right ankle. Overall, t hings look stable today. I do not see any signs of any breakdown or other compl ications. Impression 1. Foot Pain (729.5) 2. Osteochondral defect (738.8) Plan Orders this visit: Follow Up PRN -Request We discussed the x-ray findings. We discussed osteoarthritic changes and osteoc hondral defect presents as well as a syndesmotic injury potentially present as w ell. We talked about physical therapy options, cortisone shots, Synvisc type in jections, physical therapy options and other options today. The patient seems h appy with his current state. My recommendation would be if he is not having any significant pain, continue what he is doing. We will check him back on a yearly basis for diabetic foot care needs. We can check him back any time for ankle pain and foot pain but overall things look stable today. There is not a major i ssue and things are tolerable. I would recommend using the over the counter ant iinflammatory medicine for transient pain and continue the current activity with out restriction. TR: REYES KAILASH#: [id number] documented in this encounter Plan of Treatment Not on filedocumented as of this encounter Visit Diagnoses Not on filedocumented in this encounter
--- OUTSIDE RECORDS SUMMARY | 2020-03-05 11:05 | XMS REPORT | Encounter Summary ---
Author Author [facility] Organization [facility] Address Unknown Phone Unavailable Care Team Providers Care Aircraft Engine Specialist Name Role Phone RajinderMarielle PCP Encounter Details Care Team Description Date Type Department [facility] 03/19/2014 Hist-Transcript [facility] ion Encounter Social History Date Tobacco Use Types Packs/Day Years Used Never Assessed Sex Assigned at Date Recorded Not on file Industry Job Start Date Occupation Not on file Not on file Not on file Travel End Travel History Travel Start No recent travel history available. documented as of this encounter Progress Notes * [facility] - 03/19/2014 12:00 AM CDT Patient: BORA WANG Age: 53 years Sex: Male : 1960 Associated Diagnoses: None Author: Jay Saunders DO Basic Information Additional information: Chief Complaint: Garcia presents with right thumb nail , left great toe nail inju sakshi. Left great toe was 1 week ago, got caught on something outside. Right wander mb nail was about 2 weeks ago, got caught on something. . History of Present Illness Patient presents to clinic with pain on right thumb and left great toe. Had injured both areas in the past 2 weeks. Thumb injured when he pulled out later al piece of nail and pulled away some skin and left great toenail was injured wh en he stubbed toe. In the past couple of days, lateral side of skin has become swollen and very pain, Has used nothing to treat. (+)Bora noted from thum b, none from toe. No other concerns. He is a diabetic. Review of Systems Constitutional symptoms: No fever, no chills, no sweats, no weakness, no fatigu e. Skin symptoms: Rash, no abrasions, no breakdown. Eye symptoms: No recent vision problems, ENMT symptoms: No ear pain, no sore throat, no nasal congestion. Respiratory symptoms: No shortness of breath, no orthopnea, no cough, no sputum production. Cardiovascular symptoms: No chest pain, no palpitations, no peripheral edema. Gastrointestinal symptoms: No abdominal pain, no nausea, no vomiting, no diarrh ea, no constipation. Genitourinary symptoms: No dysuria, Musculoskeletal symptoms: No back pain, no Muscle pain, no Joint painReports: n o decreased range of motion. Neurologic symptoms: No headache, no altered level of consciousness, no numbnes s, no tingling. Health Status Allergies: Allergic Reactions (Selected) Severity Not Documented Pollen- No reactions were documented.. Medications: Prescription / Home Medications: Renetta See Instructions, call office to update your dosage when you get home., as needed for allergy symptoms aspirin 325 mg oral tablet 325 mg, Oral, Every 24 hours Diovan HCT 12.5 mg-80 mg oral tablet 1 Tab, Oral, Daily, 30 Day(s) Flonase 0.05 mg/inh nasal spray 2 [place], Nasal, Every 24 hours, 30 Day(s), as n eeded, for Allergy Flonase 50 mcg/inh nasal spray 2 [place], Nasal, Every 24 hours Floxin Otic 0.3% solution 5 Drop(s), left ear, 2 times a day, 7 Day(s) Invokana 300 mg 1 Tab, Oral, With breakfast Sneha 0.5 mg-0.4 mg oral capsule 1 Cap, Oral, Every 24 hours Kombiglyze XR 2.5 mg-1000 mg oral tablet, extended release 2 Tab, Oral, Every e vening Levitra 20 mg oral tablet 20 mg, Oral, Daily LG BP CUFF See Instructions, LARGE BP CUFF Lovaza oral capsule 2,000 mg, Oral, 2 times a day nateglinide 120 mg oral tablet 120 mg, Oral, 3 times a day before meals Nitrolingual 0.4 mg sublingual spray 0.4 mg, Sublingual, Every 5 minutes One Touch Ultra Strips and One Touch Delica See Instructions, as directed pantoprazole 40 mg oral enteric coated tablet 40 mg, Oral, 2 times a day, 30 Da y(s) Procardia XL 30 mg oral tablet, extended release 30 mg, Oral, Every 24 hours TriCor 145 mg oral tablet 145 mg, Oral, Every 24 hours, 30 Day(s) Vitamin B Complex with C and Minerals oral capsule 1 Cap, Oral, Daily Vitamin C 500 mg, Oral, Daily Vitamin D 4,000 IU, Daily Vitamin D3 4,000 IU, Oral, Daily Wellbutrin SR 150 mg/12 hours oral tablet, extended release 150 mg, Oral, 2 kaitlynn es a day, 30 Day(s) . Past Medical/ Family/ Social History Surgical history: Surgical history left knee surgery on 09/03/2013 at 52 Years. Cardiac Stress Test on 2012 at 52 Years. Colonoscopy * (19765) on 02/29/2012 at 51 Years. Comments: 02/08/2013 16:30 - Moe, Shannan Fairchild LPN repeat in 5 yrs T & A. Appendectomy. Abdominal Hernia Repair. Deviated Septum Repair w/Bilat. Myringotomy. Right Ankle Surgery. Upper Jaw Repair/screws ,plates.. Physical Examination Vital Signs Dt/Tm Temp BP Pulse RR SAO2 O2 MAP 03/19 11:00 36.1 120/92 87 20 96 - - Weight: 135.9 kg - 03/19/14 11:00 Height: 168 cm - 03/19/14 11:00 BMI: 48.2 - 03/19/14 11:00 . Measurements 03/19/2014 11:00 Height 168 cm Weight 135.9 kg BSA 2.5183 m2 Body Mass Index 48.2 kg/m2 . Oxygen Saturation 03/19/2014 11:00 Oxygen Saturation 96 % . Dt/Tm Temp BP Pulse RR SAO2 O2 MAP 03/19 11:00 36.1 120/92 87 20 96 - - Weight: 135.9 kg - 03/19/14 11:00 Height: 168 cm - 03/19/14 11:00 BMI: 48.2 - 03/19/14 11:00 . General: Alert, no acute distress, afebrile. Skin: Warm, dry, normal for ethnicity, ON right thumb and great toe, there is m ild erythema and edema just lateral to distal distal nail, no active drainage. no streaking. Very tender to touch. . Head: Normocephalic, atraumatic. Eye: Extraocular movements are intact, normal conjunctiva, Sclera: Clear. Cardiovascular: Normal peripheral perfusion, No edema. Respiratory: Respirations are non-labored. Musculoskeletal: Normal ROM, normal strength. Neurological: No focal neurological deficit observed, normal sensory observed, normal motor observed, normal speech observed. Psychiatric: Cooperative, appropriate mood & affect. Medical Decision Making Documents reviewed: Prior records, Nursing notes reviewed today. Orders Launch Orders Evaluation and Management: Office Visit Level 3 Est - [id number] (Order): 03/19/2014 11:17. Electrocardiogram: No EKG documents found.. . Impression and Plan Acute paronychia (ICD9 681.9, Working, Medical) Plan Condition: Stable. Disposition: Discharged: to home. Prescriptions: Orders Pharmacy: Bactrim DS 800 mg-160 mg oral tablet (Prescribe): 1 Tab, PO, BID, drink plenty o f fluids, 20 Tab. Counseled: Patient, Regarding diagnosis, Regarding treatment plan, Regarding pre scription, Patient indicated understanding of instructions, Soak thumb and gre at toe in epsom salt bath. Bactim as prescribed. Follow-up with PCP in 5-7 days or sooner if symptoms worsen. Return to UC as needed. Ibuprofen 600mg po every 6 hours prn pain, with food. Call if questions arise and return to UC as need ed. . documented in this encounter Plan of Treatment Not on filedocumented as of this encounter Visit Diagnoses Not on filedocumented in this encounter
--- OUTSIDE RECORDS SUMMARY | 2020-03-05 11:05 | XMS REPORT | Encounter Summary ---
Author Author [facility] Organization [facility] Address Unknown Phone Unavailable Care Team Providers Care Outside Food Server Name Role Phone Marielle Calvillo PCP Encounter Details Care Team Description Date Type Department [facility] 12/19/2013 Hist-Transcript [facility] ion Encounter Social History Date Tobacco Use Types Packs/Day Years Used Never Assessed Sex Assigned at Date Recorded Not on file Industry Job Start Date Occupation Not on file Not on file Not on file Travel End Travel History Travel Start No recent travel history available. documented as of this encounter Miscellaneous Notes * Clinic Note - [facility] - 12/19/2013 12:00 AM CDT Patient: BORA WANG Age: 53 years Sex: Male : [birth year] Associated Diagnoses: None Author: Flaquita Weber, PhD General Information Start Time:_2:00 Stop Time:_3:00 Total:_60 minutes (30 minutes for interview and 30 min for psyhch testing, plus another 30 min for scoring and report writing = 1 unit of testing) SESSION NOTE: The initial interview and psychological testing were completed as part of a prerequisite mental health evaluation for bariatric surgery. Bora presented as a verbally responsive, polite and appropriate functional adult male . He denies recent suicidal ideation or current mood dysfunction and appears to be an acceptable candidate for bariatric surgery at this time. DIAGNOSIS: _ AXIS I: _morbid obesity pre-operative evaluation AXIS II: _deferred AXIS III: _obesity, high cholesterol, high BP, sleep apnea, diabetes AXIS IV: _none reported AXIS V: GAF-PRESENT _66 TREATMENT PLAN: _Continue to take all meds as prescribed, attend all medical angela ointments as scheduled and seek medical attention when necessary. FOLLOW-UP: With [facility] as needed. _ _ documented in this encounter Plan of Treatment Not on filedocumented as of this encounter Visit Diagnoses Not on filedocumented in this encounter
--- OUTSIDE RECORDS SUMMARY | 2020-03-05 11:05 | XMS REPORT | Encounter Summary ---
Author Author [facility] Organization [facility] Address Unknown Phone Unavailable Care Team Providers Care Owner Oral Surgeon Name Role Phone RajinderMarielle PCP Encounter Details Care Team Description Date Type Department [facility] 12/12/2013 Hist-Transcript [facility]ISTOR[facility] ion Encounter Social History Date Tobacco Use Types Packs/Day Years Used Never Assessed Sex Assigned at Date Recorded Not on file Industry Job Start Date Occupation Not on file Not on file Not on file Travel End Travel History Travel Start No recent travel history available. documented as of this encounter Progress Notes * [facility] - 12/12/2013 12:00 AM CDT Patient: BORA WANG Age: 53 years Sex: Male : [birth year] Associated Diagnoses: None Author: Gisella Lovett FNP-C Basic Information Vital signs: First ED Vitals (12/12/13 15:14) Temp BP Pulse RR SAO2 O2 Flow Rate MAP 36.6 112/70 78 20 95 -- Most Recent Vitals (as of 12/12/13 15:32) Temp BP Pulse RR SAO2 O2 Flow Rate MAP 36.6 112/70 78 20 97 -- Vitals Range (12/12/13 15:14 to 12/12/13 15:32) Temp BP Pulse RR SAO2 O2 Flow Rate MAP 36.6 112 78 20 95-97 -- -- 70 , Oxygen saturation: Oxygen Therapy & Oxygenation Information 12/12/13 15:32 Oxygen Saturation 97 % 12/12/13 15:14 Oxygen Therapy Room air Oxygen Saturation 95 % , Measurements 12/12/13 15:14 Height 175 cm Weight 136.5 kg Scale Standing digital BSA 2.5759 m2 Body Mass Index 44.6 kg/m2 . Allergies: Allergic Reactions (Selected) Severity Not Documented Pollen- No reactions were documented.. Notes: . History of Present Illness The patient is a 53 years old Male who presents with a complaint of nasal draina ge and having sneezing, and scratchy throat.. Duration lasting 5 day(s). The c ourse is constant. Drainage: clear. The degree of severity is moderate. The m itigating factor is negative. Prior episodes: negative. The risk factor is neg ative. Associated Symptoms Constitutional symptoms: Negative. Fever: Negative. Headache: Negative Neurologic symptoms: Negative Eye symptoms: Negative Ear: Within normal limits. Mouth: Within normal limits. Throat: Drainage Respiratory symptoms: Cough. Gastrointestinal symptoms: Negative. Skin symptoms: Negative. Review of Systems Cardiovascular symptoms: Negative. Genitourinary symptoms: Negative Musculoskeletal symptoms: Negative Lymphatic symptoms: Negative Other significant review of systems All other systems reviewed and otherwise ne gative. All systems reviewed as documented in chart. Past Medical/ Family/ Social History Medical history: Reviewed as documented in chart (today). Surgical history: Reviewed as documented in chart (today). Family history: Reviewed as documented in chart (today). Social history: Reviewed as documented in chart (today). Problem list: Per nurse's notes (today). Physical Examination General appearance: Moderate distress. Skin: Warm. Dry. No pallor. No rash. Good skin turgor. Facial: Within normal limits Eye: Pupils equal, round, and reactive to light Ear: Within normal limits. Nose: Congestion. Mouth: Within normal limits. Throat: Within normal limits Neck: Supple. Heart: Regular rate and rhythm, normal S1 & S2, no extra heart sounds, no murmurs. Respiratory: Lungs clear to auscultation bilaterally. Respirations nonlabored. Neurological: Alert and oriented times 3 Medical Decision Making Differential diagnosis Nasal Drainage: Cold, Cough, Rhinitis, Sinusitis, Upper respiratory infection. Clinical work-up/Interpretation Orders: Launch Orders... Evaluation and Management: Office Visit Level 4 Est - [id number] (Order): 12/12/13 15:41. Procedure Notes: DepoMedrol 80 mg + Decadron 8 mg IM x 1 Impression and Plan Allergic Rhinitis (ICD9 477.9, Billing Diagnosis, Emergency medicine, Medical) Discharge plan Condition: Stable. Dispositioned: To home. Patient was given the following educational materials: ALLERGIC RHINITIS, Return to clinic if not resolving. To Emergency Department if condition worsens or new symptoms develop. Follow up with PCP as directed, or within a week. . Follow up with: Marielle Calvillo Within 5 to 7 days. Counseled: Patient, Regarding diagnosis, Regarding treatment plan. documented in this encounter Plan of Treatment Not on filedocumented as of this encounter Visit Diagnoses Not on filedocumented in this encounter
--- OUTSIDE RECORDS SUMMARY | 2020-03-05 11:05 | XMS REPORT | Encounter Summary ---
Author Author [facility] Organization [facility] Address Unknown Phone Unavailable Care Team Providers Care Elementary Assistant Principal Name Role Phone RoseliaMarielle lowe PCP Encounter Details Care Team Description Date Type Department Salomon Wang MD [address] [place] [address] [phone] 01/22/2014 Hist-Transcript [facility] ion Encounter Social History Date Tobacco Use Types Packs/Day Years Used Never Assessed Sex Assigned at Date Recorded Not on file Industry Job Start Date Occupation Not on file Not on file Not on file Travel End Travel History Travel Start No recent travel history available. documented as of this encounter Miscellaneous Notes * Clinic Note - Salomon Wang - 01/22/2014 12:00 AM CDT Patient: BORA WANG Age: 53 years Sex: Male : 1960 Associated Diagnoses: None Author: Salomon aWng MD Health Status Allergies Allergic Reactions (All) Severity Not Documented Pollen- No reactions were documented. Current medications (Selected) Prescriptions Prescribed Diovan HCT 12.5 mg-80 mg oral tablet: 1 Tab, PO, daily, 30 Tab Flonase 0.05 mg/inh nasal spray: 2 [place], NASAL, Q24H, in each nostril, 1 EA, MA N: Allergy Invokana 300 m Tab, PO, BRKFST, 90 Tab Kombiglyze XR 2.5 mg-1000 mg oral tablet, extended release: 2 Tab, PO, QPM, with meals, 180 Tab LG BP CUFF: See Instructions, LARGE BP CUFF Levitra 20 mg oral tablet: 1 Tab, PO, daily, 30 Tab Lovaza oral capsule: 2,000 mg, PO, BID, 360 Cap One Touch Ultra Strips and One Touch Delica: See Instructions, as directed, 100 EA Procardia XL 30 mg oral tablet, extended release: 1 Tab, PO, Q24H, NO FURTHER re fills until seen in office, 30 Tab TriCor 145 mg oral tablet: 1 Tab, PO, Q24H, 30 Tab aspirin 325 mg oral tablet: 325 mg, 1 Tab, PO, Q24H citalopram 40 mg oral tablet: 1 Tab, PO, Q24H, 30 Tab nateglinide 120 mg oral tablet: 1 Tab, PO, TIDAC, 270 Tab nitroglycerin 0.4 mg sublingual tablet: 0.4 mg, 1 Tab, SL, Q5MIN, 25 Tab, PRN: f or chest pain pantoprazole 40 mg oral enteric coated tablet: 1 Tab, PO, BID, 60 Tab Documented Medications Documented Renetta: See Instructions, call office to update your dosage when you get home., PRN: as needed for allergy symptoms Vitamin B Complex with C and Minerals oral capsule: 1 Cap, PO, daily Vitamin C: 500 mg, PO, daily Vitamin D3: 4,000 IU, PO, daily Vitamin D: 4,000 IU, daily Problem list Medical Diabetes mellitus type II / ICD-9-CM 250.00 / Confirmed Erectile Dysfunction / ICD-9-CM 607.84 / Confirmed Vitamin D Deficiency / ICD-9-CM 268.9 / Confirmed Type 2 Diabetes, Uncontrolled, with Neuropathy / ICD-9-CM 250.62 / Confirmed numbness and tingling in toes HGB A1C 8.2 Foot Pain / ICD-9-CM 729.5 / Confirmed Allergic Rhinits, Seasonal or NOS / ICD-9-CM 477.9 / Confirmed Hyperlipidemia / ICD-9-CM 272.4 / Confirmed Body Mass Index 40 and over, adult / ICD-9-CM V85.4 / Confirmed OBSTRUCTIVE SLEEP APNEA / ICD-9-CM 327.23 / Confirmed Anxiety - Generalized Disorder / ICD-9-CM 300.02 / Confirmed Hypertension / ICD-9-CM 401.9 / Confirmed Canceled: Other disease of nasal [...] Illness Complaint of regarding HTN and hyperlipidemia. Since last visit has not had any problems. Denies any CP, SOB, palpitations, pre-syncope, syncope or leg edema. Has been regular with prescribed medications and has not reported any side-effec ts. Has been following healthy lifestyle strategies, in particular heart healthy lo w fat diet. Has not been very active physically and has not experienced any cardiac symptoms . Patient does not smoke. Other cardiovascular risk factors including diet, exercise, BP, DM are all sati sfactorily controlled.Lipid levels show high TG, low HDL, ?LDL. Previous data/reports including labs, echo and stress test are reviewed by me o n this visit. Uses CPAP for EDMOND. Stress test 10/2012 :Left Ventricular Ejection Fraction is 57 %.Normal Perfusion Imaging. Gastric bypass not covered by his insurance Associated Symptoms Pertinent negatives: no edema: peripheral, no dizziness, no palpitations and no shortness of breath. Review of Systems Constitutional All other systems [...] negative Physical Examination Vital signs BP: systolic 126 mmHg, diastolic 70 mmHg, sitting, site left arm. Pulse: 117 beats per min. Resp: 18 breaths/ min. Temperature. Height: 170.01 cms 5'7". Weight: 136.0 kgs. Point of care testing Oxygen saturation 96 %. HEENT Exam is unremarkable, with no [...] abdominal bruit n oted, no tenderness. Neurologic DIE INSPECTOR exam intact. Pain Assessment The severity is 0 / 10 on the severity scale. Upper extremity musculoskeletal Pulses are 3+ and symmetrical. There is no peripheral cyanosis or clubbing. Lower extremity musculoskeletal Pulses are 3+ and symmetrical. No edema noted. There is no peripheral cyanosis or clubbing. Impression and Plan General Plan Diagnosis Body Mass Index 40 and over, adult (ICD9 V85.4) Diabetes mellitus type II (ICD9 250.00) Erectile Dysfunction (ICD9 607.84) Hyperlipidemia (ICD9 272.2) Hypertension (ICD9 401.9) OBSTRUCTIVE SLEEP APNEA (ICD9 327.23) Type 2 Diabetes, Uncontrolled, with Neuropathy (ICD9 250.62) Orders PowerOrders Evaluation and Management: Office Visit Level 3 Est - 26961 (Order): 01/22/2014 16:02 The patient is to continue on current cardiac medical therapy. Ok to refill cur rent cardiac medications from this note per the [facility] prescription refill standard for 1 year from this visit. Discussed with patient modifications of diet and exercise programs to help promo te cardiac health. Thank You for allowing me to participate in the care of this patient. If you cervantes ve any further questions please feel free to contact my office. The patient is to follow up with me on a PRN basis. documented in this encounter Plan of Treatment Not on filedocumented as of this encounter Visit Diagnoses Not on filedocumented in this encounter
--- OUTSIDE RECORDS SUMMARY | 2020-03-05 11:05 | XMS REPORT | Encounter Summary ---
Author Author [facility] Organization [facility] Address Unknown Phone Unavailable Care Team Providers Care Tax Audit Manager Name Role Phone RajinderMarielle PCP Encounter Details Care Team Description Date Type Department Salomon Wang MD [address] [place] [address] [phone] 12/29/2012 Hist-Transcript [facility] ion Encounter Social History Date Tobacco Use Types Packs/Day Years Used Never Assessed Sex Assigned at Date Recorded Not on file Industry Job Start Date Occupation Not on file Not on file Not on file Travel End Travel History Travel Start No recent travel history available. documented as of this encounter Miscellaneous Notes * Clinic Note - Salomon Wang MD - 12/29/2012 12:00 AM CDT Patient: BORA WANG Age: 52 years Sex: Male : 1960 Associated Diagnoses: None Author: Salomon Wang MD Health Status Allergies Allergic Reactions (All) Severity Not Documented Pollen- No reactions were documented. Current medications (Selected) Prescriptions Ordered Diovan HCT 12.5 mg-80 mg oral tablet: 1 Tab, PO, daily, 30 Tab Flonase 0.05 mg/inh nasal spray: 2 [place], NASAL, Q24H, in each nostril, 1 EA Kombiglyze XR 2.5 mg-1000 mg oral tablet, extended release: 2 Tab, PO, QPM, 180 Tab LG BP CUFF: See Instructions, LARGE BP CUFF Levitra 20 mg oral tablet: 20 mg, 1 Tab, PO, daily, 30 Tab Lovaza oral capsule: See Instructions, 1000 mg PO BID, 60 Cap One Touch Ultra Strips and One Touch Delica: See Instructions, as directed, 100 EA Procardia XL 30 mg oral tablet, extended release: 1 Tab, PO, Q24H, 30 Tab TriCor 145 mg oral tablet: 1 Tab, PO, Q24H, 30 Tab Vitamin D3 1000 intl units oral tablet: 2,000 IU, 2 Tab, PO, Q24H, 60 Tab aspirin 325 mg oral tablet: 325 mg, 1 Tab, PO, Q24H citalopram 40 mg oral tablet: 40 mg, 1 Tab, PO, Q24H, 30 Tab nateglinide 120 mg oral tablet: 120 mg, 1 Tab, PO, TIDAC, 90 Tab nitroglycerin 0.4 mg sublingual tablet: 0.4 mg, 1 Tab, SL, Q5MIN, 25 Tab, PRN: f or chest pain pantoprazole 40 mg oral enteric coated tablet: 1 Tab, PO, BID, 60 Tab Documented Medications Documented Renetta: PO Vitamin B Complex with C and Minerals oral capsule: 1 Cap, PO, daily Vitamin C: 500 mg, PO, daily Problem list Medical Diabetes mellitus type II / ICD-9-CM 250.00 / Confirmed Vitamin D Deficiency / ICD-9-CM 268.9 / Confirmed Hyperlipidemia / ICD-9-CM 272.4 / Confirmed Anxiety - Generalized Disorder / ICD-9-CM 300.02 / Confirmed OBSTRUCTIVE SLEEP APNEA / ICD-9-CM 327.23 / Confirmed Hypertension / ICD-9-CM 401.9 / Confirmed Allergic Rhinits, Seasonal or NOS / ICD-9-CM 477.9 / Confirmed Erectile Dysfunction / ICD-9-CM 607.84 / Confirmed Body Mass Index 40 and over, adult / ICD-9-CM V85.4 / Confirmed Canceled: cpap of 14 Canceled: Diabetes mellitus type 2 with other manifestations, uncontrolled / ICD -9-CM 250.82 Canceled: Other disease of nasal cavity and sinuses / ICD-9-CM 478.19 Results Review General results Today's results : [...] last visit has not had any problems. Dr Barajas sent for stress test prior to gym program in view of multiple risk facto rs. CP none at this stage. Denies any SOB, palpitations, pre-syncope, syncope or leg edema. [...] visit. Uses CPAP for EDMOND. Stress test :Left Ventricular Ejection Fraction is 57 %.Normal Perfusion Imagin g. Associated Symptoms Pertinent negatives: no chest pain, no edema: peripheral, no dizziness, no palpi tations and no shortness of breath. Review of [...] History Appendectomy. Colonoscopy. Herniorrhaphy. Musculoskeletal Surgical History ankle cyst repair. Family History Cardiovascular Family History Congenital heart disease: mother. Coronary artery disease: father bypass. Social History Alcohol use Employment Employed. Family/ Social situation Marital status: single. Children: total number 2. Tobacco exposure negative Drug use negative Physical Examination Vital signs BP: systolic 130 mmHg, diastolic 80 mmHg, sitting, site left arm. Pulse: 91 beats per min. Resp: 18 breaths/ min. Temperature: oral 36.1 degrees Celsius. Height: 170.01 cms 5'7". Weight: 135.6 kgs. Point of care testing Oxygen saturation [...] abdominal bruit n oted, no tenderness. Neurologic PUBLICATIONS INSPECTOR exam intact. Pain Assessment The severity is 0 / 10 on the severity scale. Upper extremity musculoskeletal Pulses are 3+ and symmetrical. There is no peripheral cyanosis or clubbing. Lower extremity musculoskeletal Pulses are 3+ and symmetrical. No edema noted. There is no peripheral cyanosis or clubbing. Impression and Plan General Plan Diagnosis Diabetes mellitus type II (ICD9 250.00) Erectile Dysfunction (ICD9 607.84) Hyperlipidemia (ICD9 272.4) Hypertension (ICD9 401.9) OBSTRUCTIVE SLEEP APNEA (ICD9 327.23) Orders PowerOrders Evaluation and Management: Office Visit Level 3 Est - 12930 (Completed): 12/29/2012 11:31 The patient is to continue on current cardiac medical therapy. Ok to refill cur rent cardiac medications from this note per the [facility] prescription refill standard for 1 year from this visit. Discussed with patient modifications of diet and exercise programs to help promo te cardiac health. Thank You for allowing me to participate in the care of this patient. If you cervantes ve any further questions please feel free to contact my office. Patient is to follow up in 1 year, sooner if deem necessary OK to join gym for exercise. documented in this encounter Plan of Treatment Not on filedocumented as of this encounter Visit Diagnoses Not on filedocumented in this encounter
--- OUTSIDE RECORDS SUMMARY | 2020-03-05 11:05 | XMS REPORT | Encounter Summary ---
Author Author [facility] Organization [facility] Address Unknown Phone Unavailable Care Team Providers Care General Office Worker Name Role Phone Marielle Calvillo PCP Encounter Details Care Team Description Date Type Department Marielle Calvillo MD [address] [place] [address] [phone] 02/26/2014 Hist-Transcript [facility] ion Encounter Social History Date Tobacco Use Types Packs/Day Years Used Never Assessed Sex Assigned at Date Recorded Not on file Industry Job Start Date Occupation Not on file Not on file Not on file Travel End Travel History Travel Start No recent travel history available. documented as of this encounter Miscellaneous Notes * Clinic Note - Marielle Calvillo - 02/26/2014 12:00 AM CDT [facility] [address] [place] [id number] PATIENT: BORA WANG MR #: [id number] : 1960 DATE SEEN: 02/26/2014 Chief Complaint Patient is here for follow up. History of Present Illness White male comes in for followup, depression seems better with Wellbutrin. He wo uld like to stay on it. Review of Systems TYPESETTING SUPERVISOR: NA No ear pain. No ear discharge. No ringing in ears. No blurry vision, double visi on, or change in vision. No runny nose. No dry mouth. No sore throat. No neck pa in. No chest pain. No shortness of breath. No extremity complaints. No musculosk eletal problems. No endocrine complaints. No weight gain or weight loss. No dizz iness. No change in skin color or easy bruising. Allergies Pollen Current Medications Renetta (fexofenadine), call office to update your dosage when you get home., NC N, aspirin 325 mg oral tablet (aspirin), 325 mg, Every 24 hours Diovan HCT 12.5 mg-80 mg oral tablet (hydrochlorothiazide-valsartan), 1 Tab, Delia ly Flonase 0.05 mg/inh nasal spray (fluticasone nasal), 2 [place], PRN, Every 24 hour s Flonase 50 mcg/inh nasal spray (fluticasone nasal), 2 Dex[place], Every 24 hours Floxin Otic 0.3% solution [...] Recreational Drug Use: Denies Occupation: Faculty at [employer] Physical Examination TEMP BP Pulse RR MAP O2 Sat 36.5 124/72 100 20 89.33 97 Blood Pressure Location: Left arm Oxygen Therapy: Room air Weight Height BMI BSA 137.2 kg (302.47 lbs) 168 cm 48.6 kg/m2 2.5303 m2 Scale: Standing digital Vital Signs: Stable. Elevated BMI. Ears: TMs clear bilaterally. Clear canals. Eyes: Pupils equal, round, and reactive to light and accommodation. Extraocular motions intact. No icterus. No injection. Mouth: Moist mucous membranes. No po sterior pharyngeal erythema. Neck: Soft. Supple. No lymphadenopathy. Heart: Reg ular rate and rhythm without murmur. No S3 or S4. Lungs: Clear to auscultation b ilaterally in all lung murray. Good respiratory effort. Abdomen: No guarding. No rebound. Nontender and nondistended. Positive normoactive bowel sounds. No mass or hepatosplenomegaly. No bruits heard. Extremities: No clubbing, cyanosis, or edema. Pulses 2+ and equal. Skin: Warm and dry. Good turgor. Neurologic: Intact. Psychiatric: Appropriate. Impression 1. Depression (311) Plan Stay on the same medicine, see how that helps, see back 3 months, sooner if nece ssary. Is understanding. Call if questions. Risks, benefits of medications and/or treatment options explained. Alternatives and expected outcome discussed. Patient and/or family verbalized understanding. Patient instructed to follow up sooner than directed if new symptoms develop or current symptoms worsen. Otherwise follow up as needed. TR: RAJANI [id number] KAILASH#: [id number] documented in this encounter Plan of Treatment Not on filedocumented as of this encounter Visit Diagnoses Not on filedocumented in this encounter
--- OUTSIDE RECORDS SUMMARY | 2020-03-05 11:06 | XMS REPORT | Continuity of Care Document ---
Author Organization Unknown Address Unknown Phone Unavailable Allergies Active Description Code Type Severity Reaction Onset Reported/Identified Relationship to Patient Clinical Status Yes No Known Drug Allergies [id number] Drug Allergy Unknown N/A 09/07/2016 Yes Sulfa (Sulfonamide Antibiotics) [id number] Drug Allergy Mild HIVES/RASH 11/08/2018 Medications There is no data. Problems Date Dx Coded Attending Type Code Diagnosis Diagnosed By 08/18/1156 TEJAS GUTIERREZ DO, Ot E11.9 TYPE 2 DIABETES MELLITUS WITHOUT COMPLIC 08/18/1156 TEJAS GUTIERREZ DO, Ot F32.9 MAJOR DEPRESSIVE DISORDER, SINGLE EPISOD 08/18/1156 TEJAS GUTIERREZ DO Ot I10 ESSENTIAL (PRIMARY) HYPERTENSION 08/18/1156 TEJAS GUTIERREZ DO Ot S83.282 A OTH TEAR OF LAT MENSC, CURRENT INJURY, L 08/18/1156 TEJAS GUTIERREZ DO Ot W10.9XX A FALL (ON) (FROM) UNSPECIFIED STAIRS AND 08/18/1156 TEJAS GUTIERREZ DO Ot Y92.[address] OF OCCURRENCE OF TH 08/09/2016 SOPHIE ALCALA, SHANEKA Rajput Ot R06.0 9 OTHER FORMS OF DYSPNEA 08/17/2016 BAIGALO PANDEY [employer] Ot E78.5 HYPERLIPIDEMIA, UNSPECIFIED 08/17/2016 BAIMA, GALO L [employer] Ot G47.30 SLEEP APNEA, UNSPECIFIED 08/17/2016 BAIMAGALO L [employer] Ot I 10 ESSENTIAL (PRIMARY) HYPERTENSION 08/17/2016 BAIMAGALO L [employer] Ot R06.09 OTHER FORMS OF DYSPNEA 08/17/2016 BAIMA GALO L [employer] Ot R07.89 OTHER CHEST PAIN 08/17/2016 BAIMA GALO L [employer] Ot E78.5 HYPERLIPIDEMIA, UNSPECIFIED 08/17/2016 BAIMA, GALO L [employer] Ot G47.30 SLEEP APNEA, UNSPECIFIED 08/17/2016 BAIMAMARTÍNEZGALO L [employer] Ot I 10 ESSENTIAL (PRIMARY) HYPERTENSION 08/17/2016 BAIMA, GALO L [employer] Ot R06.09 OTHER FORMS OF DYSPNEA 08/17/2016 BAIMA, GALO L [employer] Ot R07.89 OTHER CHEST PAIN 08/17/2016 BAIMA, GALO L [employer] Ot E78.5 HYPERLIPIDEMIA, UNSPECIFIED 08/17/2016 BAIMA, GALO L [employer] Ot G47.30 SLEEP APNEA, UNSPECIFIED 08/17/2016 BAIMA, GALO L [employer] Ot I 10 ESSENTIAL (PRIMARY) HYPERTENSION 08/17/2016 BAIMA, GALO L [employer] Ot R06.09 OTHER FORMS OF DYSPNEA 08/17/2016 BAIMA, GALO L [employer] Ot R07.89 OTHER CHEST PAIN 08/18/2016 BAIMA, GALO L [employer] Ot E78.5 HYPERLIPIDEMIA, UNSPECIFIED 08/18/2016 BAIMA, GALO L [employer] Ot G47.30 SLEEP APNEA, UNSPECIFIED 08/18/2016 BAIMA, GALO L [employer] Ot I 10 ESSENTIAL (PRIMARY) HYPERTENSION 08/18/2016 BAIMA, GALO L [employer] Ot R06.09 OTHER FORMS OF DYSPNEA 08/18/2016 BAIMA, GALO L [employer] Ot R07.89 OTHER CHEST PAIN 08/18/2016 SOPHIE ALCALA, SHANEKA Rajput Ot R06.0 9 OTHER FORMS OF DYSPNEA 09/01/2016 BAIMA, GALO L [employer] Ot E78.5 HYPERLIPIDEMIA, UNSPECIFIED 09/01/2016 BAIMA, GALO L [employer] Ot G47.30 SLEEP APNEA, UNSPECIFIED 09/01/2016 BAIMA, GALO L [employer] Ot I 10 ESSENTIAL (PRIMARY) HYPERTENSION 09/01/2016 BAIMA, GALO L [employer] Ot R06.09 OTHER FORMS OF DYSPNEA 09/01/2016 BAIMA, GALO L [employer] Ot R07.89 OTHER CHEST PAIN 09/23/2016 BAIMA, GALO L [employer] Ot E78.5 HYPERLIPIDEMIA, UNSPECIFIED 09/23/2016 BAIMA, GALO L [employer] Ot G47.30 SLEEP APNEA, UNSPECIFIED 09/23/2016 BAIMA, GALO L [employer] Ot I 10 ESSENTIAL (PRIMARY) HYPERTENSION 09/23/2016 BAIMA, GALO L [employer] Ot R06.09 OTHER FORMS OF DYSPNEA 09/23/2016 BAIMA, GALO L [employer] Ot R07.89 OTHER CHEST PAIN 11/12/2016 SOPHIE ALCALA, SHANEKA Rajput Ot R06.0 9 OTHER FORMS OF DYSPNEA 11/12/2016 BAIMA, GALO L [employer] Ot E78.5 HYPERLIPIDEMIA, UNSPECIFIED 11/12/2016 BAIMA, GALO L [employer] Ot G47.30 SLEEP APNEA, UNSPECIFIED 11/12/2016 BAIMA, GALO L [employer] Ot I 10 ESSENTIAL (PRIMARY) HYPERTENSION 11/12/2016 BAIMA, GALO L [employer] Ot R06.09 OTHER FORMS OF DYSPNEA 11/12/2016 BAIMA, GALO L [employer] Ot R07.89 OTHER CHEST PAIN 11/12/2016 BAIMA, GALO L [employer] Ot E78.5 HYPERLIPIDEMIA, UNSPECIFIED 11/12/2016 BAIMA, GALO L [employer] Ot G47.30 SLEEP APNEA, UNSPECIFIED 11/12/2016 BAIMA, GALO L [employer] Ot I 10 ESSENTIAL (PRIMARY) HYPERTENSION 11/12/2016 BAIMA, GALO L [employer] Ot R06.09 OTHER FORMS OF DYSPNEA 11/12/2016 BAIMA, GALO L [employer] Ot R07.89 OTHER CHEST PAIN 10/07/2017 SHANEKA BARRIOS MD Ot R06.0 9 OTHER FORMS OF DYSPNEA 10/07/2017 BAIMA, GALO L [employer] Ot E78.5 HYPERLIPIDEMIA, UNSPECIFIED 10/07/2017 BAIMA, GALO L [employer] Ot G47.30 SLEEP APNEA, UNSPECIFIED 10/07/2017 BAIMA, GALO L [employer] Ot I 10 ESSENTIAL (PRIMARY) HYPERTENSION 10/07/2017 BAIMA, GALO L [employer] Ot R06.09 OTHER FORMS OF DYSPNEA 10/07/2017 BAIMA, GALO L [employer] Ot R07.89 OTHER CHEST PAIN 10/07/2017 BAIMA, GALO L [employer] Ot E78.5 HYPERLIPIDEMIA, UNSPECIFIED 10/07/2017 BAIMA, GALO L [employer] Ot G47.30 SLEEP APNEA, UNSPECIFIED 10/07/2017 BAIMA, GALO L [employer] Ot I 10 ESSENTIAL (PRIMARY) HYPERTENSION 10/07/2017 BAIMA, GALO L [employer] Ot R06.09 OTHER FORMS OF DYSPNEA 10/07/2017 BAIMA, GALO L [employer] Ot R07.89 OTHER CHEST PAIN 11/09/[address] OUTSOLE COMPRESSOR Ot G47.33 OBSTRUCTIVE SLEEP APNEA (ADULT) (PEDIATR 11/10/2017 SOPHIE ALCALA, SHANEKA Rajput Ot R06.0 9 OTHER FORMS OF DYSPNEA 11/10/2017 BAIMA, GALO L [employer] Ot E78.5 HYPERLIPIDEMIA, UNSPECIFIED 11/10/2017 BAIMA, GALO L [employer] Ot G47.30 SLEEP APNEA, UNSPECIFIED 11/10/2017 BAIMA, GALO L [employer] Ot I 10 ESSENTIAL (PRIMARY) HYPERTENSION 11/10/2017 BAIMA, GALO L [employer] Ot R06.09 OTHER FORMS OF DYSPNEA 11/10/2017 BAIMA, GALO L [employer] Ot R07.89 OTHER CHEST PAIN 11/10/2017 BAIMA, GALO L [employer] Ot E78.5 HYPERLIPIDEMIA, UNSPECIFIED 11/10/2017 BAIMA, GALO L [employer] Ot G47.30 SLEEP APNEA, UNSPECIFIED 11/10/2017 BAIMA, GALO L [employer] Ot I 10 ESSENTIAL (PRIMARY) HYPERTENSION 11/10/2017 BAIMA, GALO L [employer] Ot R06.09 OTHER FORMS OF DYSPNEA 11/10/2017 BAIMA, GALO L [employer] Ot R07.89 OTHER CHEST PAIN 11/11/[address] OUTSOLE COMPRESSOR Ot G47.33 OBSTRUCTIVE SLEEP APNEA (ADULT) (PEDIATR 12/14/2017 TEJAS GUTIERREZ DO Ot E11.9 TYPE 2 DIABETES MELLITUS WITHOUT COMPLIC 12/14/2017 TEJAS GUTIERREZ DO Ot F32.9 MAJOR DEPRESSIVE DISORDER, SINGLE EPISOD 12/14/2017 TEJAS GUTIERREZ DO Ot I10 ESSENTIAL (PRIMARY) HYPERTENSION 12/14/2017 TEJAS GUTIERREZ DO Ot S83.282 A OTH TEAR OF LAT MENSC, CURRENT INJURY, L 12/14/2017 TEJAS GUTIERREZ DO Ot W10.9XX A FALL (ON) (FROM) UNSPECIFIED STAIRS AND 12/14/2017 TEJAS GUTIERREZ DO Ot Y92.[address] OF OCCURRENCE OF TH 12/14/2017 TEJAS GUTIERREZ DO Ot E11.9 TYPE 2 DIABETES MELLITUS WITHOUT COMPLIC 12/14/2017 TEJAS GUTIERREZ DO Ot F32.9 MAJOR DEPRESSIVE DISORDER, SINGLE EPISOD 12/14/2017 TEJAS GUTIERREZ DO Ot I10 ESSENTIAL (PRIMARY) HYPERTENSION 12/14/2017 TEJAS GUTIERREZ DO Ot S83.282 A OTH TEAR OF LAT MENSC, CURRENT INJURY, L 12/14/2017 TEJAS GUTIERREZ DO Ot W10.9XX A FALL (ON) (FROM) UNSPECIFIED STAIRS AND 12/14/2017 TEJAS GUTIERREZ DO Russell Ot Y92.[address] [facility] THE PL[facility] OF OCCURRENCE OF 01/05/2018 TEJAS GUTIERREZ DO Russell Ot E11.9 TYPE 2 DIABETES MELLITUS WITHOUT COMPLIC 01/05/2018 TEJAS GUTIERREZ DO Russell Ot F32.9 MAJOR DEPRESSIVE DISORDER, SINGLE EPISOD 01/05/2018 TEJAS GUTIERREZ DO Russell Ot I10 ESSENTIAL (PRIMARY) HYPERTENSION 01/05/2018 MATT DOTEJAS W Ot S83.282 A OTH TEAR OF LAT MENSC, CURRENT INJURY, L 01/05/2018 TEJAS GUTIERREZ DO Russell Ot W10.9XX A FALL (ON) (FROM) UNSPECIFIED STAIRS AND 01/05/2018 TEJAS GUTIERREZ DO Russell Ot Y92.[address] [facility] THE [facility] OF OCCURRENCE OF 02/27/2018 SOPHIE ALCALA, SHANEKA Rajput Ot R06.0 9 OTHER FORMS OF DYSPNEA 02/27/2018 BAIMA, GALO L [employer] Ot E78.5 HYPERLIPIDEMIA, UNSPECIFIED 02/27/2018 BAIMA, GALO L [employer] Ot G47.30 SLEEP APNEA, UNSPECIFIED 02/27/2018 BAIMA, GALO L [employer] Ot I 10 ESSENTIAL (PRIMARY) HYPERTENSION 02/27/2018 BAIMA, GALO L [employer] Ot R06.09 OTHER FORMS OF DYSPNEA 02/27/2018 BAIMA, GALO L [employer] Ot R07.89 OTHER CHEST PAIN 02/27/2018 BAIMA, GALO L [employer] Ot E78.5 HYPERLIPIDEMIA, UNSPECIFIED 02/27/2018 BAIMA, GALO L [employer] Ot G47.30 SLEEP APNEA, UNSPECIFIED 02/27/2018 BAIMA, GALO L [employer] Ot I 10 ESSENTIAL (PRIMARY) HYPERTENSION 02/27/2018 BAIMA, GAOL L [employer] Ot R06.09 OTHER FORMS OF DYSPNEA 02/27/2018 BAIMA, GALO L [employer] Ot R07.89 OTHER CHEST PAIN 03/15/2018 MATT CUMMINSTEJAS Ot S83.8X2 D SPRAIN OF OTHER SPECIFIED PARTS OF LEFT 03/15/2018 MATT CUMMINSTEJAS Ot W10.9XX D FALL (ON) (FROM) UNSPECIFIED STAIRS AND 05/17/2018 MATT TEJAS Ot S83.8X2 D SPRAIN OF OTHER SPECIFIED PARTS OF LEFT 05/17/2018 MATTTEJAS Smith DO Ot W10.9XX D FALL (ON) (FROM) UNSPECIFIED STAIRS AND 08/22/2018 SHANEKA BARRIOS MD Ot R06.0 9 OTHER FORMS OF DYSPNEA 08/22/2018 BAIMA, GALO L [employer] Ot E78.5 HYPERLIPIDEMIA, UNSPECIFIED 08/22/2018 BAIMA, GALO L [employer] Ot G47.30 SLEEP APNEA, UNSPECIFIED 08/22/2018 BAIMA, GALO L [employer] Ot I 10 ESSENTIAL (PRIMARY) HYPERTENSION 08/22/2018 BAIMA, GALO L [employer] Ot R06.09 OTHER FORMS OF DYSPNEA 08/22/2018 BAIMA, GALO L [employer] Ot R07.89 OTHER CHEST PAIN 08/22/2018 BAIMA, GALO L [employer] Ot E78.5 HYPERLIPIDEMIA, UNSPECIFIED 08/22/2018 BAIMA, GALO L [employer] Ot G47.30 SLEEP APNEA, UNSPECIFIED 08/22/2018 BAIMA, GALO L [employer] Ot I 10 ESSENTIAL (PRIMARY) HYPERTENSION 08/22/2018 BAIMA, GALO L [employer] Ot R06.09 OTHER FORMS OF DYSPNEA 08/22/2018 BAIMA, GALO L [employer] Ot R07.89 OTHER CHEST PAIN 09/29/2018 GIA CHAPA Ot M17.12 UNILATERAL PRIMARY OSTEOARTHRITIS, LEFT 10/11/2018 GIA CHAPA Ot M17.12 UNILATERAL PRIMARY OSTEOARTHRITIS, LEFT 11/08/2018 GIA CHAPA Ot M17.12 UNILATERAL PRIMARY OSTEOARTHRITIS, LEFT 11/08/2018 REGGIE FRANCES MD Ot M17.12 UNILATERAL PRIMARY OSTEOARTHRITIS, LEFT 11/08/2018 REGGIE FRANCES MD Ot R53.83 OTHER FATIGUE 11/08/2018 YVROSE ALCALA, REGGIE Robles Ot Z01.810 ENCOUNTER FOR PREPROCEDURAL CARDIOVASCUL 11/08/2018 REGGIE FRANCES MD Ot Z01.811 ENCOUNTER FOR PREPROCEDURAL RESPIRATORY 11/08/2018 REGGIE FRANCES MD Ot Z01.812 ENCOUNTER FOR PREPROCEDURAL LABORATORY E 11/08/2018 REGGIE FRANCES MD Ot Z11.2 ENCOUNTER FOR SCREENING FOR OTHER BACTER 11/09/2018 REGGIE FRANCES MD Ot M17.12 UNILATERAL PRIMARY OSTEOARTHRITIS, LEFT 11/09/2018 REGGIE FRANCES MD Ot R53.83 OTHER FATIGUE 11/09/2018 REGGIE FRANCES MD Ot Z01.810 ENCOUNTER FOR PREPROCEDURAL CARDIOVASCUL 11/09/2018 REGGIE FRANCES MD, Ot Z01.811 ENCOUNTER FOR PREPROCEDURAL RESPIRATORY 11/09/2018 REGGIE FRANCES MD, Ot Z01.812 ENCOUNTER FOR PREPROCEDURAL LABORATORY E 11/09/2018 REGGIE FRANCES MD, Ot Z11.2 ENCOUNTER FOR SCREENING FOR OTHER BACTER 11/24/2018 REGGIE FRANCES MD Ot E11.9 TYPE 2 DIABETES MELLITUS WITHOUT COMPLIC 11/24/2018 REGGIE FRANCES MD, Ot E66.9 OBESITY, UNSPECIFIED 11/24/2018 REGGIE FRANCES MD Ot E78.00 PURE HYPERCHOLESTEROLEMIA, UNSPECIFIED 11/24/2018 REGGIE FRANCES MD Ot F32.9 MAJOR DEPRESSIVE DISORDER, SINGLE EPISOD 11/24/2018 REGGIE FRANCES MD, Ot F41.9 ANXIETY DISORDER, UNSPECIFIED 11/24/2018 REGGIE FRANCES MD Ot G47.33 OBSTRUCTIVE SLEEP APNEA (ADULT) (PEDIATR 11/24/2018 REGGIE FRANCES MD Ot I08.1 RHEUMATIC DISORDERS OF BOTH MITRAL AND T 11/24/2018 REGGIE FRANCES MD Ot I1 0 ESSENTIAL (PRIMARY) HYPERTENSION 11/24/2018 REGGIE FRANCES MD Ot I65.23 OCCLUSION AND STENOSIS OF BILATERAL BURROWS 11/24/2018 REGGIE FRANCES MD Ot I87.2 VENOUS INSUFFICIENCY (CHRONIC) (PERIPHER 11/24/2018 REGGIE FRANCES MD Ot J30.2 OTHER SEASONAL ALLERGIC RHINITIS 11/24/2018 REGGIE FRANCES MD Ot K21.9 GASTRO-ESOPHAGEAL REFLUX DISEASE WITHOUT 11/24/2018 REGGIE FRANCES MD Ot M17.12 UNILATERAL PRIMARY OSTEOARTHRITIS, LEFT 11/24/2018 REGGIE FRANCES MD Ot M54.9 DORSALGIA, UNSPECIFIED 11/24/2018 REGGIE FRANCES MD Ot Z68.42 BODY MASS INDEX (BMI) 45.0-49.9, ADULT 11/24/2018 YVROSE ALCALA, REGGIE Robles Ot Z82.49 FAMILY HX OF ISCHEM HEART DIS AND OTH DI 10/16/2019 ROBERTO BRICEÑO, GIA Del Castillo Ot M17.12 UNILATERAL PRIMARY OSTEOARTHRITIS, LEFT 10/16/2019 MASON, ANG Gray APRN Ot E11 .9 TYPE 2 DIABETES MELLITUS WITHOUT COMPLIC 10/16/2019 MASON, ANG Gray APRN Ot E78.00 PURE HYPERCHOLESTEROLEMIA, UNSPECIFIED 10/16/2019 MASON, ANG Gray APRN Ot F41 .9 ANXIETY DISORDER, UNSPECIFIED 10/16/2019 CUEVAS, ANG Gray APRN Ot G47.30 SLEEP APNEA, UNSPECIFIED 10/16/2019 MASON, ANG Gray APRN Ot I10 ESSENTIAL (PRIMARY) HYPERTENSION 10/16/2019 MASON, ANG Gray APRN Ot R40.2142 COMA SCALE, EYES OPEN, SPONTANEOUS, EMR 10/16/2019 ANG CUEVAS APRN Ot R40.2252 COMA SCALE, BEST VERBAL RESPONSE, ORIENT 10/16/2019 ANG CUEVAS APRN Ot R40.2362 COMA SCALE, BEST MOTOR RESPONSE, OBEYS C 10/16/2019 ANG CUEVAS APRN Ot S00.03XA CONTUSION OF SCALP, INITIAL ENCOUNTER 10/16/2019 MASON, ANG Gray APRN Ot S06.0X0A CONCUSSION WITHOUT LOSS OF CONSCIOUSNESS 10/16/2019 ANG CUEVAS APRN Ot W01.198A FALL SAME LEV FROM SLIP/TRIP W STRIKE AG 10/16/2019 MASON, ANG Gray APRN Ot Z79.82 [facility] (CURRENT) USE OF ASPIRIN 10/16/2019 ANG CUEVAS APRN Ot Z87.442 PERSONAL HISTORY OF URINARY CALCULI 10/16/2019 ANG CUEVAS APRN Ot Z88 .2 ALLERGY STATUS TO SULFONAMIDES STATUS 10/16/2019 ANG CUEVAS APRN Ot Z99.89 DEPENDENCE ON OTHER ENABLING MACHINES AN 10/18/2019 MASON, ANG Gray APRN Ot E11 .9 TYPE 2 DIABETES MELLITUS WITHOUT COMPLIC 10/18/2019 MASON, ANG Gray APRN Ot E78.00 PURE HYPERCHOLESTEROLEMIA, UNSPECIFIED 10/18/2019 MASON, ANG Gray APRN Ot F41 .9 ANXIETY DISORDER, UNSPECIFIED 10/18/2019 ANG CUEVAS APRN Ot G47.30 SLEEP APNEA, UNSPECIFIED 10/18/2019 ANG CUEVAS APRN Ot I10 ESSENTIAL (PRIMARY) HYPERTENSION 10/18/2019 MASON, ANG Gray APRN Ot R40.2142 COMA SCALE, EYES OPEN, SPONTANEOUS, EMR 10/18/2019 ANG CUEVAS APRN Ot R40.2252 COMA SCALE, BEST VERBAL RESPONSE, ORIENT 10/18/2019 ANG CUEVAS APRN Ot R40.2362 COMA SCALE, BEST MOTOR RESPONSE, OBEYS C 10/18/2019 ANG CUEVAS APRN Ot S00.03XA CONTUSION OF SCALP, INITIAL ENCOUNTER 10/18/2019 MASON, ANG Gray APRN Ot S06.0X0A CONCUSSION WITHOUT LOSS OF CONSCIOUSNESS 10/18/2019 ANG CUEVAS APRN Ot W01.198A FALL SAME LEV FROM SLIP/TRIP W STRIKE AG 10/18/2019 ANG CUEVAS APRN Ot Z79.82 [facility] (CURRENT) USE OF ASPIRIN 10/18/2019 ANG CUEVAS APRN Ot Z87.442 PERSONAL HISTORY OF URINARY CALCULI 10/18/2019 ANG CUEVAS APRN Ot Z88 .2 ALLERGY STATUS TO SULFONAMIDES STATUS 10/18/2019 ANG CUEVAS APRN Ot Z99.89 DEPENDENCE ON OTHER ENABLING MACHINES AN 12/27/2019 SOPHIE ALCALA, SHANEKA Rajput Ot R06.0 9 OTHER FORMS OF DYSPNEA 12/27/2019 BAIMA, GALO L [employer] Ot E78.5 HYPERLIPIDEMIA, UNSPECIFIED 12/27/2019 BAIMA, GALO L [employer] Ot G47.30 SLEEP APNEA, UNSPECIFIED 12/27/2019 BAIMA, GALO L [employer] Ot I 10 ESSENTIAL (PRIMARY) HYPERTENSION 12/27/2019 BAIMA, GALO L [employer] Ot R06.09 OTHER FORMS OF DYSPNEA 12/27/2019 BAIMA, GALO L [employer] Ot R07.89 OTHER CHEST PAIN 12/27/2019 BAIMA, GALO L [employer] Ot E78.5 HYPERLIPIDEMIA, UNSPECIFIED 12/27/2019 BAIMA, GALO L [employer] Ot G47.30 SLEEP APNEA, UNSPECIFIED 12/27/2019 BAIMA, GALO L [employer] Ot I 10 ESSENTIAL (PRIMARY) HYPERTENSION 12/27/2019 BAIMA, GALO L [employer] Ot R06.09 OTHER FORMS OF DYSPNEA 12/27/2019 GALO ESTRADA [employer] Ot R07.89 OTHER CHEST PAIN Procedures Code Description Performed By Per formed On [id number] RE PLACE OF L KNEE JT WITH SYNTH DONALD DICKENS 11/22/2018 Results Test Result Range Complete blood count (CBC) with automate d white blood cell (WBC) differential - 11/08/18 10:20 Blood leukocytes automated count (number/volume) 4.2 10*3/uL 4.3-11.0 Blood erythrocytes automated count (number/volume) 5.30 10*6/uL 4.35-5.85 Venous blood hemoglobin measurement (mass/volume) 14.5 g/dL 13.3-17.7 Blood hematocrit (volume fraction) 44 % 40-54 Automated erythrocyte mean corpuscular volume 84 [ foz_us] 80-99 Automated erythrocyte mean corpuscular h emoglobin (mass per erythrocyte) 27 pg 25-34 Automated erythrocyte mean corpuscular h emoglobin concentration measurement (mass/volume) 33 g/dL 32-36 Automated erythrocyte distribution width ratio 13. 4 % 10.0- 14.5 Automated blood platelet count (count/volume) 203 10*3/uL 130-400 Automated blood platelet mean volume measurement 10.5 [foz_us] 7.4-10.4 Automated blood neutrophils/100 leukocytes 49 % 42-75 Automated blood lymphocytes/100 leukocytes 37 % 12-44 Blood monocytes/100 leukocytes 11 % 0-12 Automated blood eosinophils/100 leukocytes 3 % 0-10 Automated blood basophils/100 leukocytes 1 % 0-10 Blood neutrophils automated count (number/volume) 2.1 10*3 1.8-7.8 Blood lymphocytes automated count (number/volume) 1.5 10*3 1.0-4.0 Blood monocytes automated count (number/volume) 0. 4 10*3 0.0-1.0 Automated eosinophil count 0.1 10*3/uL 0 .0-0.3 Automated blood basophil count (count/volume) 0.0 10*3/uL 0.0-0.1 PT panel in platelet poor plasma by coag ulation assay - 11/08/18 10:20 Prothrombin time (PT) in platelet poor plasma by coagu lation assay 13.5 s 12.2-14.7 INR in platelet poor plasma or blood by coagulation as say 1.0 0.8-1.4 Comprehensive metabolic panel - 11/08/18 10:20 Serum or plasma sodium measurement (moles/volume) 136 mmol/L 135-145 Serum or plasma potassium measurement (moles/volume) 3.9 mmol/L 3.6-5.0 Serum or plasma chloride measurement (moles/volume) 101 mmol/L 98-107 Carbon dioxide 26 mmol/L 21-32 Serum or plasma anion gap determination (moles/volume) 9 mmol/L 5-14 Serum or plasma urea nitrogen measurement (mass/volume ) 17 mg/dL 7-18 Serum or plasma creatinine measurement (mass/volume) 0.82 mg/dL 0.60-1.30 Serum or plasma urea nitrogen/creatinine mass ratio 21 NRG Serum or plasma creatinine measurement w ith calculation of estimated glomerular filtration rate > NRG Serum or plasma glucose measurement (mass/volume) 181 mg/dL 70-105 Serum or plasma calcium measurement (mass/volume) 9.5 mg/dL 8.5-10.1 Serum or plasma total bilirubin measurement (mass/volu me) 0.5 mg/dL 0.1-1.0 Serum or plasma alkaline phosphatase wilfrid surement (enzymatic activity/volume) 72 U/L 40-136 Serum or plasma aspartate aminotransfera se measurement (enzymatic activity/volume) 23 U/L 5-34 Serum or plasma alanine aminotransferase measurement (enzymatic activity/volume) 23 U/L 0-55 Serum or plasma protein measurement (mass/volume) 6.7 g/dL 6.4-8.2 Serum or plasma albumin measurement (mass/volume) 4.1 g/dL 3.2-4.5 CALCIUM CORRECTED 9.4 mg/dL 8.5-10.1 Erythrocyte sedimentation rate by vasyl gren method - 11/08/18 10:20 Erythrocyte sedimentation rate by westergren method 3 mm 0- 30 Blood type T Indirect antibody screen pa julio - 11/08/18 10:20 ABO+Rh group OP NRG Blood group antibody screen NEGATIVE NR G Methicillin resistant Staphylococcus aur eus (MRSA) screening culture - 11/08/18 10:45 Methicillin resistant Staphylococcus aureus (MRSA) scr eening culture NEG NRG Complete urinalysis with reflex to cultu re - 11/08/18 11:00 Urine color determination YELLOW NRG Urine clarity determination CLEAR NR G Urine pH measurement by test strip 7 5-9 Specific gravity of urine by test strip 1.010 1.016-1.022 Urine protein assay by test strip, semi-quantitative NEGATIVE NEGATIVE Urine glucose detection by automated test strip 4+ NEGATIVE Erythrocytes detection in urine sediment by light micr oscopy NEGATIVE NEGATIVE Urine ketones detection by automated test strip NE GATIVE NEGATIVE Urine nitrite detection by test strip NEGATIVE NEGATIVE Urine total bilirubin detection by test strip NEGA TIVE NEGATIVE Urine urobilinogen measurement by automated test strip (mass/volume) NORMAL NORMAL Urine leukocyte esterase detection by dipstick NEG ATIVE NEGATIVE Automated urine sediment erythrocyte cou nt by microscopy (number/high power field) NONE NRG Automated urine sediment leukocyte count by microscopy (number/high power field) RARE NRG Bacteria detection in urine sediment by light microsco py NEGATIVE NRG Crystals detection in urine sediment by light microsco py NONE NRG Casts detection in urine sediment by light microscopy NONE NRG Mucus detection in urine sediment by light microscopy NEGATIVE NRG Complete urinalysis with reflex to culture NO NRG Blood type T Indirect antibody screen pa julio - 11/22/18 06:55 ABO+Rh group OP NRG Transfusion band number [id number] NRG Blood group antibody screen NEGATIVE NR G Capillary blood glucose measurement by g lucometer (mass/volume) - 11/22/18 06:58 Capillary blood glucose measurement by glucometer (mas s/volume) 193 mg/dL 70-110 Capillary blood glucose measurement by g lucometer (mass/volume) - 11/22/18 10:24 Capillary blood glucose measurement by glucometer (mas s/volume) 224 mg/dL 70-110 Capillary blood glucose measurement by g lucometer (mass/volume) - 11/22/18 11:09 Capillary blood glucose measurement by glucometer (mas s/volume) 216 mg/dL 70-110 Capillary blood glucose measurement by g lucometer (mass/volume) - 11/22/18 16:31 Capillary blood glucose measurement by glucometer (mas s/volume) 148 mg/dL 70-110 Capillary blood glucose measurement by g lucometer (mass/volume) - 11/23/18 05:26 Capillary blood glucose measurement by glucometer (mas s/volume) 179 mg/dL 70-110 Complete blood count (CBC) with automate d white blood cell (WBC) differential - 11/23/18 06:34 Blood leukocytes automated count (number/volume) 7.3 10*3/uL 4.3-11.0 Blood erythrocytes automated count (number/volume) 4.66 10*6/uL 4.35-5.85 Venous blood hemoglobin measurement (mass/volume) 13.1 g/dL 13.3-17.7 Blood hematocrit (volume fraction) 40 % 40-54 Automated erythrocyte mean corpuscular volume 85 [ foz_us] 80-99 Automated erythrocyte mean corpuscular h emoglobin (mass per erythrocyte) 28 pg 25-34 Automated erythrocyte mean corpuscular h emoglobin concentration measurement (mass/volume) 33 g/dL 32-36 Automated erythrocyte distribution width ratio 13. 9 % 10.0- 14.5 Automated blood platelet count (count/volume) 203 10*3/uL 130-400 Automated blood platelet mean volume measurement 10.1 [foz_us] 7.4-10.4 Automated blood neutrophils/100 leukocytes 66 % 42-75 Automated blood lymphocytes/100 leukocytes 18 % 12-44 Blood monocytes/100 leukocytes 15 % 0-12 Automated blood eosinophils/100 leukocytes 0 % 0-10 Automated blood basophils/100 leukocytes 0 % 0-10 Blood neutrophils automated count (number/volume) 4.8 10*3 1.8-7.8 Blood lymphocytes automated count (number/volume) 1.3 10*3 1.0-4.0 Blood monocytes automated count (number/volume) 1. 1 10*3 0.0-1.0 Automated eosinophil count 0.0 10*3/uL 0 .0-0.3 Automated blood basophil count (count/volume) 0.0 10*3/uL 0.0-0.1 Comprehensive metabolic panel - 11/23/18 06:34 Serum or plasma sodium measurement (moles/volume) 137 mmol/L 135-145 Serum or plasma potassium measurement (moles/volume) 3.8 mmol/L 3.6-5.0 Serum or plasma chloride measurement (moles/volume) 102 mmol/L 98-107 Carbon dioxide 26 mmol/L 21-32 Serum or plasma anion gap determination (moles/volume) 9 mmol/L 5-14 Serum or plasma urea nitrogen measurement (mass/volume ) 14 mg/dL 7-18 Serum or plasma creatinine measurement (mass/volume) 0.80 mg/dL 0.60-1.30 Serum or plasma urea nitrogen/creatinine mass ratio 18 NRG Serum or plasma creatinine measurement w ith calculation of estimated glomerular filtration rate > NRG Serum or plasma glucose measurement (mass/volume) 161 mg/dL 70-105 Serum or plasma calcium measurement (mass/volume) 8.6 mg/dL 8.5-10.1 Serum or plasma total bilirubin measurement (mass/volu me) 0.8 mg/dL 0.1-1.0 Serum or plasma alkaline phosphatase wilfrid surement (enzymatic activity/volume) 64 U/L 40-136 Serum or plasma aspartate aminotransfera se measurement (enzymatic activity/volume) 25 U/L 5-34 Serum or plasma alanine aminotransferase measurement (enzymatic activity/volume) 20 U/L 0-55 Serum or plasma protein measurement (mass/volume) 6.0 g/dL 6.4-8.2 Serum or plasma albumin measurement (mass/volume) 3.9 g/dL 3.2-4.5 CALCIUM CORRECTED 8.7 mg/dL 8.5-10.1 Complete blood count (CBC) with automate d white blood cell (WBC) differential - 11/24/18 05:52 Blood leukocytes automated count (number/volume) 7.7 10*3/uL 4.3-11.0 Blood erythrocytes automated count (number/volume) 4.23 10*6/uL 4.35-5.85 Venous blood hemoglobin measurement (mass/volume) 11.7 g/dL 13.3-17.7 Blood hematocrit (volume fraction) 37 % 40-54 Automated erythrocyte mean corpuscular volume 86 [ foz_us] 80-99 Automated erythrocyte mean corpuscular h emoglobin (mass per erythrocyte) 28 pg 25-34 Automated erythrocyte mean corpuscular h emoglobin concentration measurement (mass/volume) 32 g/dL 32-36 Automated erythrocyte distribution width ratio 13. 8 % 10.0- 14.5 Automated blood platelet count (count/volume) 163 10*3/uL 130-400 Automated blood platelet mean volume measurement 10.0 [foz_us] 7.4-10.4 Automated blood neutrophils/100 leukocytes 62 % 42-75 Automated blood lymphocytes/100 leukocytes 21 % 12-44 Blood monocytes/100 leukocytes 15 % 0-12 Automated blood eosinophils/100 leukocytes 2 % 0-10 Automated blood basophils/100 leukocytes 0 % 0-10 Blood neutrophils automated count (number/volume) 4.8 10*3 1.8-7.8 Blood lymphocytes automated count (number/volume) 1.6 10*3 1.0-4.0 Blood monocytes automated count (number/volume) 1. 1 10*3 0.0-1.0 Automated eosinophil count 0.1 10*3/uL 0 .0-0.3 Automated blood basophil count (count/volume) 0.0 10*3/uL 0.0-0.1 Comprehensive metabolic panel - 11/24/18 05:52 Serum or plasma sodium measurement (moles/volume) 133 mmol/L 135-145 Serum or plasma potassium measurement (moles/volume) 3.8 mmol/L 3.6-5.0 Serum or plasma chloride measurement (moles/volume) 102 mmol/L 98-107 Carbon dioxide 23 mmol/L 21-32 Serum or plasma anion gap determination (moles/volume) 8 mmol/L 5-14 Serum or plasma urea nitrogen measurement (mass/volume ) 15 mg/dL 7-18 Serum or plasma creatinine measurement (mass/volume) 0.81 mg/dL 0.60-1.30 Serum or plasma urea nitrogen/creatinine mass ratio 19 NRG Serum or plasma creatinine measurement w ith calculation of estimated glomerular filtration rate > NRG Serum or plasma glucose measurement (mass/volume) 155 mg/dL 70-105 Serum or plasma calcium measurement (mass/volume) 9.1 mg/dL 8.5-10.1 Serum or plasma total bilirubin measurement (mass/volu me) 0.8 mg/dL 0.1-1.0 Serum or plasma alkaline phosphatase wilfrid surement (enzymatic activity/volume) 56 U/L 40-136 Serum or plasma aspartate aminotransfera se measurement (enzymatic activity/volume) 24 U/L 5-34 Serum or plasma alanine aminotransferase measurement (enzymatic activity/volume) 17 U/L 0-55 Serum or plasma protein measurement (mass/volume) 5.9 g/dL 6.4-8.2 Serum or plasma albumin measurement (mass/volume) 3.6 g/dL 3.2-4.5 CALCIUM CORRECTED 9.4 mg/dL 8.5-10.1 Complete blood count (CBC) with automate d white blood cell (WBC) differential - 03/05/20 10:15 Blood leukocytes automated count (number/volume) 10.6 10*3/uL 4.3-11.0 Blood erythrocytes automated count (number/volume) 5.26 10*6/uL 4.35-5.85 Venous blood hemoglobin measurement (mass/volume) 14.9 g/dL 13.3-17.7 Blood hematocrit (volume fraction) 44 % 40-54 Automated erythrocyte mean corpuscular volume 83 [ foz_us] 80-99 Automated erythrocyte mean corpuscular h emoglobin (mass per erythrocyte) 28 pg 25-34 Automated erythrocyte mean corpuscular h emoglobin concentration measurement (mass/volume) 34 g/dL 32-36 Automated erythrocyte distribution width ratio 13. 7 % 10.0- 14.5 Automated blood platelet count (count/volume) 196 10*3/uL 130-400 Automated blood platelet mean volume measurement 9.7 [foz_us] 7.4-10.4 Automated blood neutrophils/100 leukocytes 83 % 42-75 Automated blood lymphocytes/100 leukocytes 9 % 12-44 Blood monocytes/100 leukocytes 7 % 0-12 Automated blood eosinophils/100 leukocytes 1 % 0-10 Automated blood basophils/100 leukocytes 0 % 0-10 Blood neutrophils automated count (number/volume) 8.8 10*3 1.8-7.8 Blood lymphocytes automated count (number/volume) 1.0 10*3 1.0-4.0 Blood monocytes automated count (number/volume) 0. 7 10*3 0.0-1.0 Automated eosinophil count 0.1 10*3/uL 0 .0-0.3 Automated blood basophil count (count/volume) 0.0 10*3/uL 0.0-0.1 Comprehensive metabolic panel - 03/05/20 10:15 Serum or plasma sodium measurement (moles/volume) 138 mmol/L 135-145 Serum or plasma potassium measurement (moles/volume) 3.6 mmol/L 3.6-5.0 Serum or plasma chloride measurement (moles/volume) 104 mmol/L 98-107 Carbon dioxide 27 mmol/L 21-32 Serum or plasma anion gap determination (moles/volume) 7 mmol/L 5-14 Serum or plasma urea nitrogen measurement (mass/volume ) 15 mg/dL 7-18 Serum or plasma creatinine measurement (mass/volume) 0.78 mg/dL 0.60-1.30 Serum or plasma urea nitrogen/creatinine mass ratio 19 NRG Serum or plasma creatinine measurement w ith calculation of estimated glomerular filtration rate > NRG Serum or plasma glucose measurement (mass/volume) 184 mg/dL 70-105 Serum or plasma calcium measurement (mass/volume) 9.5 mg/dL 8.5-10.1 Serum or plasma total bilirubin measurement (mass/volu me) 0.7 mg/dL 0.1-1.0 Serum or plasma alkaline phosphatase wilfrid surement (enzymatic activity/volume) 81 U/L 40-136 Serum or plasma aspartate aminotransfera se measurement (enzymatic activity/volume) 15 U/L 5-34 Serum or plasma alanine aminotransferase measurement (enzymatic activity/volume) 21 U/L 0-55 Serum or plasma protein measurement (mass/volume) 6.9 g/dL 6.4-8.2 Serum or plasma albumin measurement (mass/volume) 4.2 g/dL 3.2-4.5 CALCIUM CORRECTED 9.3 mg/dL 8.5-10.1 Blood lactic acid measurement (moles/vol ume) - 03/05/20 10:15 Blood lactic acid measurement (moles/volume) 1.75 mmol/L 0.50-2.00 Serum ragweed IgE antibody assay - 03/05 10:15 Serum ragweed IgE antibody assay 145 U/L 125-220 Serum or plasma troponin i.cardiac measu rement (mass/volume) - 03/05/20 10:15 Serum or plasma troponin i.cardiac measurement (mass/v olume) < ng/mL <0.028 PT panel in platelet poor plasma by coag ulation assay - 03/05/20 10:15 Prothrombin time (PT) in platelet poor plasma by coagu lation assay 13.4 s 12.2-14.7 INR in platelet poor plasma or blood by coagulation as say 1.0 0.8-1.4 Activated partial thromboplastin time (a PTT) in platelet poor plasma bycoagulation assay - 03/05/20 10:15 Activated partial thromboplastin time (a PTT) in platelet poor plasma bycoagulation assay 28 s 24-35 Fibrinogen measurement in platelet poor plasma by coagulation assay (mass/volume) - 03/05/20 10:15 Fibrinogen measurement in platelet poor plasma by coagulation assay (mass/volume) 456 mg/dL 221-496 Fibrin D-dimer FEU measurement in platel et poor plasma (mass/volume) - 03/05/20 10:15 Fibrin D-dimer FEU measurement in platelet poor plasma (mass/volume) < ug/mL 0.00-0.49 Serum or plasma C reactive protein measu rement (mass/volume) - 03/05/20 10:15 Serum or plasma C reactive protein measurement (mass/v olume) 1.86 mg/dL 0.00-0.50 Encounters ACCT No. Visit Date/Time Discharge Status Pt. 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 [id number] 11/08/2018 09:31:00 019 14:24:00 DIS Outpatient REGGIE FRANCES MD [facility] PREOP LEFT TKR [id number] 10/05/2018 07:18:00 019 23:59:59 CLS Preadmit GIA CHAPA [facility] RAD LT KNEE PAIN,LT KNEE RU PTURED DORMAN'S CYST [id number] 09/28/2018 17:07:00 019 23:59:59 CLS Outpatient GIA CHAPA [facility] RAD L KNEE PAIN [id number] 04/11/2018 12:59:00 018 14:03:00 DIS Outpatient TEJAS GUTIERREZ DO [facility] REHAB S/P KNEE SCOPE [id number] 12/20/2017 11:21:00 018 11:57:00 DIS Outpatient TEJAS GUTIERREZ DO [facility] REHAB LMT L KNEE [id number] 11/09/2017 14:10:00 018 14:30:[address] [facility] SLEEP G47.33 [id number] 10/10/2017 07:15:00 018 23:59:59 CLS Preadmit MAYI JOIE AMANDA [facility] RAD FALL AND NOW HAS L KNEE PAIN [id number] 09/07/2016 07:22:00 016 23:59:59 CLS Outpatient GALO ESTRADA [facility] TANNER MORAHTN,HLD [id number] 08/16/2016 15:10:00 016 23:59:59 CLS Outpatient GALO ESTRADA [facility] TANNER MORAHTN,HLD [id number] 08/06/2016 14:20:00 016 23:59:59 CLS Outpatient SHANEKA BARRIOS MD [facility] RT DYSPNEA [id number] 03/05/2020 10:32:00 Document Registration
--- NOTE | 2020-03-05 11:25 | Diagnostic Imaging Report ---
INDICATION: Sore throat and body aches. Time of exam 11:14 AM Comparison is made with prior chest from 11/08/2018. The heart size is normal. The pulmonary vascularity is unremarkable. The lungs are clear. No infiltrate, effusion or pneumothorax is detected. Impression: No acute cardiopulmonary process is detected. Dictated by: Dictated on workstation # [id number]
[2020-03-05 12:50] VITALS: BP 129/80
== END 2020-03-05 12:50 | disposition home or self-care (01) ==
LOC: EDUNIT# 09:36 → ER 09:38
DX: B34.9 Viral infection, unspecified (principal); I10 Essential (primary) hypertension; E78.00 Pure hypercholesterolemia, unspecified; E11.9 Type 2 diabetes mellitus without complications; F41.9 Anxiety disorder, unspecified; Z88.2 Allergy status to sulfonamides; Z79.82 Long term (current) use of aspirin; Z20.828 Contact with and (suspected) exposure to other viral communicable diseases
CPT/HCPCS: 71045; 80053; 82728; 83605; 83615; 84484; 85025; 85379; 85384; 85610; 85730; 86141; 93005; 93041; 99284; U0002; 36415; 87635

== ENCOUNTER → 2020-04-28 | Outpatient (CLI) | payer BC | LOC: CARD 08:29 | PROVIDERS: ATTEND Internal Medicine Cardiovascular Disease | DX: E78.5 Hyperlipidemia, unspecified (principal); E11.9 Type 2 diabetes mellitus without complications; R07.89 Other chest pain | CPT/HCPCS: 93306 ==

== ENCOUNTER → 2020-05-02 | Outpatient (CLI) | payer BC ==
[~2020-05-02] VITALS: Ht 168 cm; Wt 132.0 kg
[~2020-05-02] MED LIST changes: +CATHETER FLUSH 10 ML SYR IV PRN; +REGADENOSON 0.4 MG/5 ML SYR (LEXISCAN) IV ONE
[2020-05-02 08:34] VITALS: BP 135/86
--- NOTE | 2020-05-02 11:54 | STRESS TEST ---
DATE OF SERVICE: 05/02/2020 RESTING AND POST REGADENOSON TECHNETIUM-99M TETROFOSMIN SPECT CT IMAGING ORDERING PHYSICIAN: Dr. Kimble. PRIMARY PHYSICIAN: Dr. Pickering. CLINICAL DIAGNOSES: Chest discomfort, shortness of breath, type 2 diabetes mellitus, hyperlipidemia. Resting images were carried out after injection of 10.94 mCi of technetium-99m Tetrofosmin. This was followed by 0.4 mg of regadenoson and 30.6 mCi of technetium-99m Tetrofosmin for stress imaging. The electrocardiogram showed sinus rhythm at baseline. There was nonspecific intraventricular conduction delay. The electrocardiogram did not change significantly with the regadenoson infusion. The patient noted some headache after regadenoson infusion, which resolved in a few minutes. Review of images at rest and following stress does not indicate any distinct perfusion defects consistent with significant myocardial ischemia or infarction. Some degree of diaphragmatic attenuation seen both at rest and following regadenoson infusion. Gated images show normal global left ventricular systolic function with normal regional wall motion, including the diaphragmatic wall of the left ventricle. Left ventricular ejection fraction is calculated to be 57%. Left ventricular end diastolic volume is 90 mL. TID is absent (1.02). CONCLUSIONS: 1. No evidence of significant myocardial ischemia or infarction with normal regional wall motion. 2. Normal global left ventricular systolic function with a calculated ejection fraction of 57%. Job ID: [id number] DocumentID: [id number] Dictated Date: 05/02/2020 09:43:23 Building Rental Superintendent Date: 05/02/2020 11:52:41 Dictated By: WILLIAM KIMBLE MD, MA, FACP, FACC,
== END ==
LOC: CARD 07:14
PROVIDERS: ATTEND Internal Medicine Cardiovascular Disease
DX: E11.9 Type 2 diabetes mellitus without complications (principal); E78.5 Hyperlipidemia, unspecified; R07.89 Other chest pain; R06.02 Shortness of breath; Z20.828 Contact with and (suspected) exposure to other viral communicable diseases
CPT/HCPCS: 78452; 93017; A9502

== ENCOUNTER → 2020-10-07 | Outpatient (CLI) | payer BC ==
[~2020-10-07] MED LIST changes: +ALPR.25T PO; -ALPR0.254 PO; -CATHETER FLUSH 10 ML SYR IV PRN; -ESCI10TA55 PO; +ESCI10TA64 PO; -REGADENOSON 0.4 MG/5 ML SYR (LEXISCAN) IV ONE
--- NOTE | 2020-10-07 15:37 | Diagnostic Imaging Report ---
INDICATION: Hematuria, right flank pain. FINDINGS: There are no opaque stones projecting over either kidney. There is a calcification projecting lateral to the 4th lumbar transverse process measuring roughly 3 to 4 mm which could be a ureteral stone. Additional pelvic calcifications all have lucent central portions, most consistent with incidental phleboliths. The bowel gas pattern is normal. IMPRESSION: 1. Calcification lateral to the L4 lumbar transverse process may be a mid to proximal right ureteral stone, correlate with symptoms. As warranted, a CT abdomen/pelvis may provide additional utility. 2. No other potential acute finding. Dictated by: Dictated on workstation # [id number]
== END ==
LOC: RAD 15:14
PROVIDERS: ATTEND Physician Assistant
DX: N28.89 Other specified disorders of kidney and ureter (principal); R31.9 Hematuria, unspecified; M54.5 Low back pain
CPT/HCPCS: 74018

== ENCOUNTER → 2020-10-10 | Outpatient (CLI) | payer BC ==
--- NOTE | 2020-10-10 08:20 | Diagnostic Imaging Report ---
PROCEDURE: CT abdomen and pelvis without contrast. TECHNIQUE: Multiple contiguous axial images were obtained through the abdomen and pelvis without the use of intravenous contrast. Auto Exposure Controls were utilized during the CT exam to meet ALARA standards for radiation dose reduction. INDICATION: Hematuria and abdominal pain. No prior studies are available for comparison. The lung bases are clear. The liver and gallbladder are unremarkable. No biliary ductal dilatation is seen. Pancreas and spleen are unremarkable. No adrenal mass is detected. The right kidney is without calculi. There is a cortical low density in the right kidney medially measuring 18 mm. Tiny partially calcified nodule upper pole right kidney measuring 8 mm, too small to characterize. Left kidney does show a tiny nonobstructing calculus in the lower pole calyx. There is some prominence of the left renal collecting system and left ureter. Left ureter is traced into the pelvis where there is a 4 mm calculus just above the UVJ. The bladder is decompressed. No bladder calculi are seen. Prostate is unremarkable. Aorta is partially calcified but nonaneurysmal. Small and large bowel loops are normal in caliber. There is no obstruction. There is no free fluid or fluid collection. Bony structures are nonacute. IMPRESSION: 1. A 4 mm distal left ureteric calculus producing moderate hydroureteronephrosis. There is also a tiny nonobstructing left renal calculus. 2. Probable right renal cysts. Follow-up could be performed. 3. No other significant abnormality is detected. Dictated by: Dictated on workstation # [id number]
== END ==
LOC: RAD 08:15
PROVIDERS: ATTEND Physician Assistant
DX: N13.2 Hydronephrosis with renal and ureteral calculous obstruction (principal)
CPT/HCPCS: 74176

== ENCOUNTER → 2020-10-16 | Outpatient (CLI) | payer BC ==
--- NOTE | 2020-10-16 16:07 | Diagnostic Imaging Report ---
INDICATION: Right flank pain, hematuria. KUB 3:14 PM Bowel gas pattern is normal. There are no masses seen. There is a 4 mm opacity adjacent to the right 3rd transverse process in the distribution of the ureter. This could be a ureteral calculus. Appears similar to prior exam from 10/07/2020. IMPRESSION: Right mid ureteral calculus unchanged compared to 10/07/2020. Dictated by: Dictated on workstation # [id number]
== END ==
LOC: RAD 15:05
PROVIDERS: ATTEND Urology
DX: N20.1 Calculus of ureter (principal)
CPT/HCPCS: 74018

== ENCOUNTER → 2020-10-20 | Outpatient (CLI) | payer BC ==
[~2020-10-20] MED LIST changes: +CHOL10008 PO; +HYDR12.56 PO; +LOSA25TA41 PO; +OMEG1CAP58 PO; +SEMA7TAB PO; +TMSL.4C PO; +VITA-189 PO
--- NOTE | 2020-10-20 15:25 | Diagnostic Imaging Report ---
PROCEDURE: CT urinary tract, rule out kidney stone. TECHNIQUE: Multiple contiguous axial images were obtained through the abdomen and pelvis without the use of intravenous contrast. Auto Exposure Controls were utilized during the CT exam to meet ALARA standards for radiation dose reduction. INDICATION: Obstructing calculus. COMPARISON: 10/10/2020. FINDINGS: A 4 to 5 mm stone in the distal left ureter has advanced slightly and has almost passed through the ureteral orifice. Its resultant upstream left hydroureteronephrosis is mild to moderate and unchanged in magnitude from the prior exam. No urinoma or fluid collection. A punctate 1 mm stone was previously within a left lower pole calyx and cannot be visualized at today's exam but may be impacted against the prior larger obstructing stone distally. The right kidney is unobstructed with a stable mid pole cyst. No bowel or biliary tract obstruction. No acute hepatobiliary abnormality. The nonaneurysmal atherosclerotic aorta is normal in caliber. IMPRESSION: 1. The left ureteral stone has advanced slightly and is now at the distal aspect of the UVJ/ureteral orifice. The second intrarenal stone in the left kidney present on the prior exam can no longer be visualized discretely and may be abutting the migrated distal ureteral obstructing stone. 2. Right renal cyst. No right-sided hydronephrosis. The proximal third right-sided ureteral calculus is unchanged from the prior exam at 4 mm. Dictated by: Dictated on workstation # [id number]
== END ==
LOC: RAD 14:15
PROVIDERS: ATTEND Urology
DX: N28.1 Cyst of kidney, acquired (principal); N20.1 Calculus of ureter
CPT/HCPCS: 74176

== ENCOUNTER 2020-10-24 05:37 | Outpatient (RCR) | payer BC ==
[~2020-10-24] VITALS: Ht 170.2 cm; Wt 127.3 kg
== END 2020-10-24 13:40 | disposition home or self-care (01) ==
LOC: PREOP 05:37
PROVIDERS: ATTEND Urology
DX: Z01.812 Encounter for preprocedural laboratory examination (principal); Z20.822 Contact with and (suspected) exposure to COVID-19
CPT/HCPCS: 87635

== ENCOUNTER 2020-10-28 06:28 | Day surgery (SDC) | payer BC ==
[2020-10-28] VITALS (10 sets, daily range): BP systolic 96–133; BP diastolic 67–86
[~2020-10-28] VITALS: Ht 170.2 cm; Wt 127.3 kg
[~2020-10-28 06:28] MED LIST changes: +ESCI-2 PO; -ESCI10TA64 PO; -OXYC-471 PO; +OXYC1TAB11 PO
--- NOTE | 2020-10-28 07:14 | Progress Note-Pre Operative ---
Pre-Operative Progress Note H&P Reviewed The H&P was reviewed, patient examined and no changes noted. Date Seen by Provider: Oct 28, 2020 Time Seen by Provider: 07:13 Date H&P Reviewed: Oct 28, 2020 Time H&P Reviewed: 07:13 Pre-Operative Diagnosis: BILATERAL URETERAL STONES MIRACLE HERNÁNDEZ MD Oct 28, 2020 07:14
[2020-10-28] MEDS ORDERED: cefTRIAXone 1,000 MG IV (ROCEPHIN) VIAL ONE (07:21)
[2020-10-28] MEDS ORDERED: WATER (STERILE) FOR INJECTION 10 ML ONE (07:21)
[2020-10-28] MEDS ORDERED: fentaNYL INJECTION 100 MCG/2 ML AMP ONE (07:24)
[2020-10-28] MEDS ORDERED: MIDAZOLAM 2 MG/2 ML (VERSED) VIAL ONE (07:25)
[2020-10-28] MEDS ORDERED: ONDANSETRON 4 MG/2 ML (SDV) Z0FRAN ONE ×2 (07:26→07:29)
[2020-10-28] MEDS ORDERED: SEVOFLURANE (ULTANE) 15 ML INHAL SOLN ONE ×2 (07:29→08:15)
[2020-10-28] MEDS ORDERED: LIDOCAINE PF 2% 5 ML (XYLOCAINE) VIAL ONE (07:29)
[2020-10-28] MEDS ORDERED: GLYCOPYRROLATE 0.2 MG/ML (ROBINUL) 2 ML VIAL ONE (07:29)
[2020-10-28] MEDS ORDERED: proPOfol 200 MG/20 ML (DIPRIVAN) VIAL IV ONE (07:29)
[2020-10-28] MEDS ORDERED: NEOSTIGMINE 3 MG/3 ML VIAL ONE (07:29)
[2020-10-28] MEDS ORDERED: ROCURONIUM 10 MG/ML 5 ML SYRINGE IV ONE (07:29)
[2020-10-28] MEDS ORDERED: cefTRIAXone FOR IV USE 1,000 MG in WATER (STERILE) FOR INJECTION 10 ML IV ONE (07:30)
[2020-10-28] MEDS ORDERED: ONDANSETRON 4 MG/2 ML (SDV) Z0FRAN IV ONE (07:30)
[2020-10-28] MEDS ORDERED: LACTATED RINGERS 1,000 ML IV PRN (07:30)
--- NOTE | 2020-10-28 07:38 | Progress Note-Post Operative ---
Post-Operative Progess Note Surgeon (s)/Electrical Automation Engineer (s) Surgeon MIRACLE HERNÁNDEZ MD Electrical Automation Engineer: NONE Pre-Operative Diagnosis BILATERAL URETERAL STONES Post-Operative Diagnosis SAME Procedure & Operative Findings Date of Procedure 10/28/20 Procedure Performed/Findings LT URETEROSCOPY WITH STONE LITHOTRIPSY, CYSTOSCOPY WITH RT URETERAL STONE MANIPULATION, RETROGRADE UROGRAM AND RT ESWL Anesthesia Type GENERAL Estimated Blood Loss Estimated blood loss (mL): NONE Specimens/Packing Specimens Removed NONE Packing: NONE MIRACLE HERNÁNDEZ MD Oct 28, 2020 07:38
[2020-10-28] MEDS ORDERED: ALPR0.25 PO (07:39)
--- NOTE | 2020-10-28 08:28 | Diagnostic Imaging Report ---
INDICATION: Status post ESWL. COMPARISON: CT dated 10/20/2020 FINDINGS: Two supine radiographic views of the abdomen were obtained. Small extraosseous calcifications are seen projecting over the left pelvis. This may correspond to venous phleboliths seen on previous CT. Previously visualized distal left ureteral calculus is not conspicuous, but may be obscured by overlying colonic contents. No unexpected radiopaque foreign bodies are seen. Small bowel loops are nondistended. There is no large collection of free intraperitoneal air. IMPRESSION: 1. Left-sided pelvic calculus with considerations as above. Dictated by: Dictated on workstation # [id number]
[2020-10-28] MEDS ORDERED: KETOROLAC 30 MG/ML VIAL ONE (08:30)
[2020-10-28] MEDS ORDERED: FUROSEMIDE 40 MG/4 ML INJ (LASIX) ONE (08:30)
--- NOTE | 2020-10-28 08:38 | Discharge Inst-Urology ---
Discharge Inst-Urology Reconcile Patient Problems Problems Reviewed?: Yes Final Diagnosis BILATERAL URETERAL STONES Patient Instructions/Follow Up Plan/Assessment/Instructions Please make appointment to been seen in office Friday 11/10, KUB prior to it. Post ESWL instructions KUB on way home Increase oral fluids. Diet and Activity as tolerated. If questions or concerns contact your physician Or seek help at emergency department. MIRACLE HERNÁNDEZ MD Oct 28, 2020 08:38
--- NOTE | 2020-10-28 09:01 | Anesthesia-General Post-Op ---
General Patient Condition Mental Status/LOC: Same as Preop Cardiovascular: Satisfactory Nausea/Vomiting: Absent Respiratory: Satisfactory Pain: Controlled Complications: Absent Post Op Complications Complications None Follow Up Care/Instructions Patient Instructions None needed. Anesthesia/Patient Condition Patient Condition Patient is doing well, no complaints, stable vital signs, no apparent adverse anesthesia problems. No complications reported per nursing. LIONEL URRUTIA CRNA Oct 28, 2020 09:01
[2020-10-28] MEDS ORDERED: CIPR-226 PO (10:04)
[2020-10-28] MEDS ORDERED: TRM50T PO (10:04)
[2020-10-28] MEDS ORDERED: PHEN-640 PO (10:04)
[2020-10-28] MEDS ORDERED: TMSL.4C PO (10:04)
--- NOTE | 2020-10-28 10:37 | OPERATIVE REPORT ---
DATE OF SERVICE: 10/28/2020 PREOPERATIVE DIAGNOSIS: Left distal ureteral stone and right proximal ureteral stone. POSTOPERATIVE DIAGNOSIS: Left distal ureteral stone and right proximal ureteral stone. OPERATIONS PERFORMED: Left ureteroscopy with left ureteral stone lithotripsy, right ureteroscopy with right ureteral stone manipulation and injection of contrast and ureteral catheterization followed by right ESWL. SURGEON: Cameron Hernández MD ANESTHESIA: General. COMPLICATIONS: None. DESCRIPTION OF PROCEDURE: Under satisfactory general anesthesia, the patient in lithotomy position in the cystoscopy suite, genitalia were prepped and draped in the usual sterile fashion. A 23-Citizen [place] cystoscope was introduced under vision. There was a submeatal stricture that responded to the scope. There were no further strictures. The prostate was small, but had a median bar. The ureteric orifice at the right side was normal with clear efflux. The left side, I could see the stone inside the intramural portion and part of it protruding through the orifice and some trabeculation in the bladder. I went ahead and pushed the left ureteral stone to dilate the intramural portion and ureteral orifice to accommodate a 6.9 Citizen [place] semi-rigid ureteroscope. I visualized the stone, broke it up with a lithoclast completely. I removed the ureteroscope, reinserted the cystoscope, passed the catheter on the right ureteral orifice to confirm the position of the stent around L4. I was able to disimpact the stone. I dilated the right ureteral orifice intramural portion to accommodate a 6.9 [place] semirigid ureteroscope; however, I could not manipulate it past the what looked like a fishhook deformity and curve of the distal ureter, so I discontinued further attempt, removed the ureteroscope, reinserted the cystoscope, passed the catheter and I was able to push the stone back into the kidney. I injected contrast and I could see the filling defect now in the upper calyx. I removed the catheter, removed the cystoscope after emptying the bladder. The patient was moved on the ESWL table supine. The stone, which was seen still as a filling defect, was localized and shocks were delivered at kV of 6 with a total of 1500 shocks. We could not see the filling defect anymore. The patient received 30 mg of Toradol and 40 mg of Lasix. He tolerated the procedure and anesthesia well and was sent to recovery room in a stable condition. Job ID: [id number] DocumentID: [id number] Dictated Date: 10/28/2020 08:49:32 Pc Analyst Date: 10/28/2020 10:36:53 Dictated By: CAMERON HERNÁNDEZ MD
--- NOTE | 2020-10-28 10:47 | Diagnostic Imaging Report ---
INDICATION: Post ESWL. COMPARISON: Correlation is made to the study performed earlier this same date as well as a CT dated 10/20/2020. FINDINGS: There are multiple pelvic vascular calcifications. The stone at the left UVJ present on the CT of 10/20/2020 cannot be clearly identified at this exam. There is no evidence for bowel obstruction. IMPRESSION: Pelvic vascular calcifications. No appreciable urolithiasis. Dictated by: Dictated on workstation # [id number]
== END 2020-10-28 10:55 | disposition home or self-care (01) ==
LOC: SDC 06:28
PROVIDERS: ATTEND Urology
DX: N20.1 Calculus of ureter (principal); I10 Essential (primary) hypertension; G47.33 Obstructive sleep apnea (adult) (pediatric); F32.9 Major depressive disorder, single episode, unspecified; F41.9 Anxiety disorder, unspecified; E66.01 Morbid (severe) obesity due to excess calories; E11.9 Type 2 diabetes mellitus without complications; Z68.41 Body mass index [BMI] 40.0-44.9, adult; Z79.899 Other long term (current) drug therapy; Z96.652 Presence of left artificial knee joint; Z98.52 Vasectomy status; Z98.890 Other specified postprocedural states; Z88.2 Allergy status to sulfonamides
CPT/HCPCS: 74018; 76000; 87081

== ENCOUNTER → 2020-11-10 | Outpatient (CLI) | payer BC ==
[~2020-11-10] MED LIST changes: +ALPR0.25 PO; +CIPR-226 PO; +PHEN-640 PO; +TRM50T PO
--- NOTE | 2020-11-10 17:12 | Diagnostic Imaging Report ---
EXAMINATION: Abdomen 1 view HISTORY: Ureteral stones COMPARISON: 10/28/2020 FINDINGS: A 1 mm calcification projecting over the right kidney may be within the fecal stream as it was not present on prior study. No calcifications are seen projecting over the ureters. There are phleboliths in the pelvis. No dilated bowel. IMPRESSION: 1. No renal or ureteral stones are identified. Dictated by: Dictated on workstation # [id number]
== END ==
LOC: RAD 13:46
PROVIDERS: ATTEND Urology
DX: N20.1 Calculus of ureter (principal)
CPT/HCPCS: 74018

== ENCOUNTER 2021-08-20 23:19 | Emergency (ER) | payer BC ==
[~2021-08-20] VITALS: Ht 167.7 cm; Wt 128.4 kg
[2021-08-21] MEDS ORDERED: ENOXAPARIN 60 MG/0.6 ML (LOVENOX) SYR SC ONE (00:45)
--- NOTE | 2021-08-21 00:52 | ED Lower Extremity ---
General Chief Complaint: Lower Extremity Stated Complaint: LEFT LEG & GROIN PAIN,STS FELL TODAY Nursing Triage Note: Pt arrives via POV from home with c/o left calf/behind the knee pain; onset today. Pt reports driving [place] the airport today, states he spent five hours driving et would like to be checked for a DVT. Pt denies hx of blood clots. Source: patient Exam Limitations: no limitations History of Present Illness Date Seen by Provider: Aug 21, 2021 Time Seen by Provider: 00:30 Initial Comments Patient to ER by private conveyance from home with chief complaint that about an hour or 2 prior to arrival he was walking up some steps at the [place] when he lost his footing landed on his right knee. Is having some swelling and pain in the back of his left knee as well as his calf. He is never had a blood clot before but he was concerned it may be he is having a blood clot tonight. No history of cancer. No primary familial history of blood clots. No shortness of air or chest pain. Allergies and Home Medications Allergies Coded Allergies: Sulfa (Sulfonamide Antibiotics) (Verified Allergy, Mild, HIVES/RASH, 10/28/20) Patient Home Medication List Home Medication List Reviewed: Yes Alprazolam (Xanax) 0.25 Mg Tablet, 0.25 MG PO Q8H, (Reported) Entered as Reported by: ABHISHEK PERDOMO on 10/28/20 0739 Bupropion HCl (Wellbutrin Sr) 200 Mg Tablet.er, 200 MG PO BID, (Reported) Entered as Reported by: MARTITA VAUGHN on 11/08/18 1414 Cholecalciferol (Vitamin D3) (Vitamin D3) 25 Mcg Tab.chew, 25 MCG PO DAILY, (Reported) Entered as Reported by: JESICA VELÁSQUZE on 10/22/20 1150 Ciprofloxacin HCl (Cipro) 250 Mg Tablet, 250 MG PO BID Prescribed by: ABHISHEK PERDOMO on 10/28/20 1004 Escitalopram Oxalate (Escitalopram Oxalate) 10 Mg Tablet, 10 MG PO HS, (Reported) Entered as Reported by: MARTITA VAUGHN on 11/08/18 1414 Hydrochlorothiazide (Hydrochlorothiazide) 12.5 Mg Tablet, 12.5 MG PO DAILY, (Reported) Entered as Reported by: JESICA VELÁSQUEZ on 10/22/20 1150 Losartan Potassium (Losartan Potassium) 25 Mg Tablet, 25 MG PO DAILY, (Reported) Entered as Reported by: JESICA VELÁSQUEZ on 10/22/20 1150 Nifedipine (Procardia Xl) 30 Mg Tab.er.24, 30 MG PO DAILY, (Reported) Entered as Reported by: MARTITA VAUGHN on 11/08/18 1414 Villard-3 Fatty Acids/Fish Oil (Villard 3 1,000 mg Softgel) 1 Each Capsule, 1 EACH PO DAILY, (Reported) Entered as Reported by: JESICA VELÁSQUEZ on 10/22/20 1150 Phenazopyridine HCl (Pyridium) 200 Mg Tablet, 1 TAB PO TID Prescribed by: ABHISHEK PERDOMO on 10/28/20 100 Pravastatin Sodium (Pravastatin Sodium) 40 Mg Tablet, 40 MG PO HS, (Reported) Entered as Reported by: MARTITA VAUGHN on 11/08/18 141 Semaglutide (Rybelsus) Unknown Strength Tablet, 1 TAB PO DAILY, (Reported) Entered as Reported by: JESICA VELÁSQUEZ on 10/22/20 115 Tamsulosin HCl (Flomax) 0.4 Mg Cap, 0.4 MG PO HS, (Reported) Entered as Reported by: JESICA VELÁSQUEZ on 10/22/20 1150 Tamsulosin HCl (Flomax) 0.4 Mg Cap, 0.4 MG PO DAILY Prescribed by: ABHISHEK PERDOMO on 10/28/20 100 Tramadol HCl (Tramadol HCl) 50 Mg Tablet, 50-100 MG PO Q4H PRN for PAIN-MODERATE (5-7) Prescribed by: ABHISHEK PERDOMO on 10/28/20 1004 Trazodone HCl (Trazodone HCl) 50 Mg Tablet, 50 MG PO HS, (Reported) Entered as Reported by: MARTITA VAUGHN on 11/08/18 141 Vitamin B Complex (B Complex) 1 Each Tablet, 1 EACH PO DAILY, (Reported) Entered as Reported by: JESICA VELÁSQUEZ on 10/22/20 115 Review of Systems Constitutional: No chills, No fever, No malaise EENTM: No ear discharge, No ear pain Respiratory: No cough, No short of breath Cardiovascular: No chest pain, No edema Gastrointestinal: No abdominal pain, No vomiting All Other Systems Reviewed Negative Unless Noted: Yes Past [id number]-[id number] Hx Patient Social History Tobacco Use?: No Use of E-Cig and/or Vaping dev: No Substance use?: No Alcohol Use?: No Pt feels they are or have been: No Immunizations Up To Date COVID19 Vaccine Emergency Medcl Emt: Moderna Seasonal Allergies Seasonal Allergies: Yes Past Medical History Surgeries: Yes (EYELID, NASAL, JAW REPAIR, R LABRUM REPAIR, ABD HERNIA, L TKR) Appendectomy, Orthopedic, Tonsillectomy, Vasectomy Respiratory: Yes Sleep Apnea Currently Using CPAP: Yes Currently Using BIPAP: No Cardiac: Yes High Cholesterol, Hypertension Neurological: Yes (HX BRAIN BLEED 5YRS AGO) Sexually Transmitted Disease: No HIV/AIDS: No Genitourinary: Yes Benign Prostatic Hyperpl, Kidney Stones Gastrointestinal: No Musculoskeletal: Yes Chronic Back Pain Endocrine: Yes Diabetes, Non-Insulin dep HEENT: Yes (GLASSES) Loss of Vision: Bilateral Cancer: No Psychosocial: Yes Anxiety, Depression Integumentary: No Blood Disorders: No Adverse Reaction/Blood Tranf: No (N/A) Physical Exam Vital Signs Vital Signs - First Documented 08/21/21 00:10 Temp 36.8 Pulse 86 Resp 18 B/P (MAP) 130/83 (99) Pulse Ox 95 O2 Delivery Room Air Capillary Refill : Less Than 3 Seconds Height, Weight, BMI Height: 5'6.00" Weight: 297lbs. 4.0oz. 134.023860bq; 45.00 BMI Method: General Appearance: WD/WN, no apparent distress HEENT: PERRL/EOMI, pharynx normal Neck: full range of motion, normal inspection Cardiovascular: normal peripheral pulses, regular rate, rhythm Respiratory: no respiratory distress, no accessory muscle use Legs: bilateral leg non-tender, bilateral leg normal inspection, bilateral leg normal range of motion Knees: right knee non-tender; bilateral knee normal inspection, bilateral knee normal range of motion; right knee no evidence of injury; left knee soft tissue tenderness (Popliteal fossa without cyst but tender to palpation) Feet: bilateral foot non-tender, bilateral foot normal inspection, bilateral foot normal range of motion, bilateral foot no evidence of injury Neurologic/Tendon: normal sensation, normal motor functions, normal tendon functions, responds to pain, no evidence tendon injury Neurologic/Psychiatric: alert, normal mood/affect, oriented x 3 Skin: normal color, warm/dry Progress/Results/Core Measures Results/Orders My Orders Orders - MARTIN BALDERAS Enoxaparin Injection (Lovenox Injection) (08/21/21 00:45) Vital Signs/I&O 08/21/21 00:10 Temp 36.8 Pulse 86 Resp 18 B/P (MAP) 130/83 (99) Pulse Ox 95 O2 Delivery Room Air Blood Pressure Mean: 99 Progress Progress Note : Time: 00:51 Progress Note 120 mg subcu Lovenox. Ultrasound first thing in the morning. Results to follow-up with ER doctor on-call. Departure Impression Primary Impression: Pain of left calf Disposition: 01 HOME, SELF-CARE Condition: Stable Departure-Patient Inst. Decision time for Depature: 00:51 Referrals: SHANEKA BARRIOS MD (PCP/Family) Primary Care Physician Patient Instructions: Knee Sprain (DC), Deep Vein Thrombosis (Blood Clots in the Legs) (DC) Add. Discharge Instructions: 7:30 in the morning call [phone] and set up an ultrasound of your left leg. Results will be sent to the ER doctor for review and they will direct you from there. All discharge instructions reviewed with patient and/or family. Voiced understanding. MARTIN BALDERAS Aug 21, 2021 00:52
[2021-08-21 00:58] VITALS: BP 130/83
== END 2021-08-21 00:58 | disposition home or self-care (01) ==
LOC: EDUNIT# 23:19 → ER 23:23
DX: M79.662 Pain in left lower leg (principal); G47.30 Sleep apnea, unspecified; I10 Essential (primary) hypertension; N40.0 Benign prostatic hyperplasia without lower urinary tract symptoms; E78.00 Pure hypercholesterolemia, unspecified; E11.9 Type 2 diabetes mellitus without complications; F41.9 Anxiety disorder, unspecified; F32.9 Major depressive disorder, single episode, unspecified; Z79.899 Other long term (current) drug therapy
CPT/HCPCS: 99281

== ENCOUNTER → 2021-08-21 | Outpatient (CLI) | payer BC ==
--- NOTE | 2021-08-21 14:57 | Diagnostic Imaging Report ---
EXAMINATION: US Lower Extremity Venous Duplex Left. TECHNIQUE: Multiple real-time grayscale images were obtained over the left lower extremity in various projections. Additional spectral analysis and color Doppler duplex images were also obtained. HISTORY: Swelling. COMPARISON: None available. FINDINGS: Left: The common femoral, superficial femoral, popliteal, peroneal, posterior tibial, and greater saphenous veins demonstrate normal flow, augmentation, compressibility. IMPRESSION: 1. No DVT of the left lower extremity. Dictated by: Dictated on workstation # [id number]
== END ==
LOC: RAD 14:30
PROVIDERS: ATTEND Emergency Medicine
DX: M79.605 Pain in left leg (principal); M79.89 Other specified soft tissue disorders

== ENCOUNTER → 2023-01-07 | Outpatient (CLI) | payer BC ==
[~2023-01-07] MED LIST changes: -SEMA7TAB PO; +SEMA7TAB2 PO
--- NOTE | 2023-01-07 17:22 | Diagnostic Imaging Report ---
INDICATION: Chronic lower back pain. COMPARISON: None FINDINGS: Frontal and lateral views of the lumbar spine were obtained. Alignment and vertebral heights are maintained. There is no fracture or destructive process. Moderate multilevel degenerative disease is noted in the lumbar spine. Limited views of the abdomen demonstrate nonobstructive bowel gas pattern. IMPRESSION: 1. No acute fracture or dislocation of the lumbar spine. 2. Moderate multilevel degenerative changes. Dictated by: Dictated on workstation # [id number]
== END ==
LOC: RAD 14:48
PROVIDERS: ATTEND Internal Medicine
DX: M51.16 Intervertebral disc disorders with radiculopathy, lumbar region (principal)
CPT/HCPCS: 72100